=== PATIENT | female | born 1930 | race Caucasian/White ===

== ENCOUNTER 2018-07-24 12:21 | Emergency (ER) | payer OTHER ==
--- OUTSIDE RECORDS SUMMARY | 2018-07-24 12:22 | XMS REPORT ---
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 Problem Depression with anxiety F41.8 Active Problem 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 Problem Osteoporosis, unspecified M81.0 Active osteoporosis type, unspecified pathological fracture presence Problem Elevated serum creatinine R79.89 Active Problem Hyperlipidemia, unspecified E78.5 Active hyperlipidemia type Assessment 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 Assessment Hypertension, unspecified type I10 Active Assessment Depression with anxiety F41.8 Active Assessment Prediabetes R73.03 Active Problem Prediabetes R73.03 Active Medications Medication Code Code Instructions Start End Status Dosage System Date Date Toprol XL ND 88261014702 25 mg Orally Active 1 tablet Once a day Zanaflex ND 68880929584 2 MG Orally Active 1 capsule Three times a as needed day HydrOXYzine ND 32810300666 25 mg Orally May 04, Active 1 tablet as HCl Twice daily 2017 needed for itching Gabapentin ND 24047908312 300 MG Orally Active 1 [place] [address]-15 20 mg Orally Active 1 tablet as Twice a day needed MiraLax ND 61964520972 - Orally Once a Active 1 packet day mixed with 8 ounces of fluid Allopurinol ND 55208529037 100 MG Orally Active 1 tablet Once a day Aspirin 81 ND 46881146188 81 MG Orally Active 1 tablet Once a day Blood Glucose NDC 0 as directed May 04, Active as directed Monitor Test BS once 2018 (DISPENSE daily BLOOD GLUCOSE MONITOR FORMULARY TO INSURANCE) Blood Glucose ND 0 as directed May 04, Active as directed Test Strip Test BS once 2017 (DISPENSE daily BLOOD GLUCOSE TEST STRIPS FORMULARY TO INSURANCE) Restasis [facility] 14797723035 0.05 % Active 1 drop into Ophthalmic affected Twice a day eye Zoloft [facility] 59581950214 25 mg Orally Active 1 tablet Once a day Lancets [facility] 85706730679 - as directed May 04, Active as directed Test BS once 2018 (dispense daily lancets formulary to insurance) Results No Known Results Summary Purpose eClinicalWorks Submission
--- OUTSIDE RECORDS SUMMARY | 2018-07-24 12:22 | XMS REPORT ---
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
--- OUTSIDE RECORDS SUMMARY | 2018-07-24 12:22 | XMS REPORT ---
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 unspecified cause Problem Stage 4 chronic kidney disease N18.4 Active Problem Depression with anxiety F41.8 Active Problem Right foot pain M79.671 Active Problem Hypertension, unspecified type I10 Active Problem H/O aortic valve replacement Z95.2 Active Assessment Stage 4 chronic kidney disease N18.4 Active Problem Prediabetes R73.03 Active Problem 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
--- OUTSIDE RECORDS SUMMARY | 2018-07-24 12:22 | XMS REPORT ---
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 unspecified cause Problem Right foot pain M79.671 Active Assessment Hyperlipidemia, unspecified E78.5 Active hyperlipidemia type Problem 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 Assessment Osteoporosis, unspecified M81.0 Active osteoporosis type, unspecified pathological fracture presence Assessment Depression with anxiety F41.8 Active Problem Depression with anxiety F41.8 Active Problem 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 Problem Controlled type 2 diabetes mellitus E11.9 Active without complication, without long-term current use of insulin Problem Elevated serum creatinine R79.89 Active Problem Hyperlipidemia, unspecified E78.5 Active hyperlipidemia type Assessment H/O aortic valve replacement Z95.2 Active Assessment 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 Assessment Controlled type 2 diabetes mellitus E11.9 Active without complication, without long-term current use of insulin Assessment 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 Assessment Right foot pain M79.671 Active Assessment Acute gout of right foot, 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 unspecified cause Assessment Elevated serum creatinine R79.89 Active Assessment Hypertension, unspecified type I10 Active Problem H/O aortic valve replacement Z95.2 Active Medications Medication Code Code Instructions Start End Status Dosage System Date Date Blood Glucose NDC 0 as directed May 04 Active as directed Monitor Test BS once 2017 (DISPENSE daily BLOOD GLUCOSE MONITOR FORMULARY TO INSURANCE) Medrol [facility] 94508432545 4 MG Orally as May 04April Active as directed directed 2017 Aspirin 81 ND 97167259371 81 MG Orally Active 1 tablet Once a day Zanaflex ND 00757507694 2 MG Orally Active 1 capsule as Three times a needed day Toprol XL ND 31721856528 25 mg Orally Active 1 tablet Once a day HydrOXYzine HCl ND 81468249701 25 mg Orally May 04, Active 1 tablet as Twice daily 2018 needed for itching Gabapentin ND 44850214066 300 MG Orally Active 1 capsule Once a day Zoloft ND 86754320380 25 mg Orally Active 1 tablet Once a day Blood Glucose ND 0 as directed May 04, Active as directed Test Strip Test BS once 2018 (DISPENSE daily BLOOD GLUCOSE TEST STRIPS FORMULARY TO INSURANCE) MiraLax [facility] 92181757762 - Orally Once a Active 1 packet day mixed with 8 ounces of fluid Restasis [facility] 10030742862 0.05 % Active 1 drop into Ophthalmic affected eye Twice a day Furosemide ND 65539252375 20 mg Orally Active 1 tablet as Once a day needed Lancets [facility] 94907701914 - as directed May 04, Active as directed Test BS once 2017 (dispense daily lancets formulary to insurance) Results No Known Results Summary Purpose eClinicalWorks Submission
[2018-07-24 13:14] LABS: Absolute Lymphocytes (CBC) 1.6 K/uL (0.7-4.9); Absolute Monocytes 0.8 K/uL (0.1-1.3); Absolute Neutrophil 5.6 K/uL (1.8-8.0); Basophils % 0.6 % (0-1.3); Eosinophils % 9.7 % (0-4.4); Lymphocytes % 17.9 % (15.3-44.8); MCH 29.3 pg (27.0-35.0); MCV 85.6 fL (80-100); MPV 7.7 fL (7.6-11.3); Monocytes % 9.2 % (3.3-12.3); RBC Red Blood Cell Count 4.67 M/uL (3.86-4.86)
[2018-07-24 13:27] LABS: Albumin 4.1 g/dL (3.4-5.0); Bilirubin Direct 0.1 mg/dL (0-0.2); Bilirubin Total 0.5 mg/dL (0.2-1.0); Potassium 4.1 mmol/L (3.5-5.1)
[2018-07-24 13:29] LABS: Urine Bacteria <20 /HPF (<20); Urine Culture Reflex Order REFLEXED; Urine RBC TNTC /HPF (NONE SEEN)
--- NOTE | 2018-07-24 13:30 | RAD REPORT ---
EXAM DESCRIPTION: CT - Stone Protocol - 07/24/2018 1:05 pm CLINICAL HISTORY: Abdominal pain, right flank pain, abdominal pain COMPARISON: CT May 2015 TECHNIQUE: Axial 5 mm thick images were obtained without oral or IV contrast. The [id number] span s the entirety of the system partially obscuring uppermost abdomen and lung bases. All CT scans are performed using dose optimization technique as appropriate and may include automated exposure control or mA/KV adjustment according to patient size. FINDINGS: Mild dilatation of the right collecting system is present compared to 2015. No obstructing calculus. No nonobstructing calculi on the right. A cyst in the lateral mid right kidney is increase d slightly from 2015. No left-sided hydronephrosis or left-sided calculus. No suspicious renal masses . Isodense masses and pyelonephritis are not excluded on a stone protocol CT scan. Partially filled u rinary bladder shows no calculus or gross mass lesion. No adrenal abnormality. Uterus and ovaries show no suspicious findings. Imaged portions of the liver, spleen and pancreas show no suspicious findings on non-contrast imaging . An 8 millimeter gallstone is present with additional punctate stones. The largest gallstone was pre sent in 2014. No active gallbladder process seen. No biliary tree dilatation. No suspicious bowel findings. No appendicitis. No active GI process identifiable. No mass or bulky lymphadenopathy. A small fat filled umbilical hernia is present. No free air, free f luid or inflammatory stranding. No significant bony abnormality. IMPRESSION: Patient has mild right-sided hydronephrosis compared to the prior study. No obstructing or nonobstructing calculi. Ureter finding is nonspecific. Patient may have recently passed a stone. A ny blood or inflammatory debris within the ureter can cause dilatation. Isodense masses and pyelonephritis are not excluded on stone protocol technique. No appendicitis or acute GI process. Patient has cholelithiasis without evidence for active gallbladder process.
[2018-07-24 13:52] LABS: Urine Blood 3+ (NEG); Urine Glucose NEGATIVE (NEG); Urine Protein 3+ (NEG); Urine pH 5.5 (5.0-7.0)
[2018-07-24] MEDS ORDERED: NA CHLORIDE 0.9% 1,000 ML ONE (14:17)
--- NOTE | 2018-07-24 15:10 | ER ---
Nurse's Notes [facility] Name: Agueda Horne Age: 88 yrs Sex: Female : 1930 Arrival Date: 07/24/2018 Time: 12:24 Bed 4 Private MD: Isabella Lawrence Diagnosis: Acute tubulo-interstitial nephritis Presentation: 07/24 12:29 Presenting complaint: Patient states: Right flank pain, vomiting and "vaginal spotting" aj that started suddenly today. Transition of care: patient was not received from another setting of care. Onset of symptoms was July 24, 2018. Risk Assessment: Do you want to hurt yourself or someone else? Patient reports no desire to harm self or others. Initial Sepsis Screen: Does the patient meet any 2 criteria? No. Patient's initial sepsis screen is negative. Does the patient have a suspected source of infection? No. Patient's initial sepsis screen is negative. Care prior to arrival: None. 12:29 Method Of Arrival: Ambulatory aj 12:29 Acuity: SAIDA 2 aj Triage Assessment: 12:31 General: Appears in no apparent distress. comfortable, Behavior is calm, cooperative, aj appropriate for age. Pain: Complains of pain in posterior aspect of right lateral abdomen and anterior aspect of right lateral abdomen. Neuro: Level of Consciousness is awake, alert, obeys commands, Oriented to person, place, time, situation, Appropriate for age. Respiratory: Airway is patent Respiratory effort is even, unlabored, Respiratory pattern is regular, symmetrical. GI: Reports nausea, vomiting. : Reports pain in right flank(s), vaginal bleeding that is. Derm: Skin is intact, is healthy with good turgor, Skin is pink, warm \\T\\ dry. normal. Historical: - Allergies: 12:31 Codeine; aj 12:31 Niacin; aj - Home Meds: 12:31 Aspirin Oral [Active]; Toprol XL Oral [Active]; Zoloft Oral [Active]; hydroxyzine HCl aj 100mg Oral tab twice a day [Active]; furosemide 20 mg Oral tab 1 tab once daily [Active]; allopurinol 100 mg Oral tab 1 tab once daily [Active]; - PMHx: 12:31 Hypertension; aj - PSHx: 12:31 CABG; Valve replacement; aj - Immunization history:: Adult Immunizations up to date. - Social history:: Smoking status: Patient/guardian denies using tobacco. - Ebola Screening: : Patient negative for fever greater than or equal to 101.5 degrees Fahrenheit, and additional compatible Ebola Virus Disease symptoms Patient denies exposure to infectious person Patient denies travel to an Ebola-affected area in the 21 days before illness onset No symptoms or risks identified at this time. Screenin:43 Abuse screen: Denies threats or abuse. Denies injuries from another. Nutritional hj screening: No deficits noted. Tuberculosis screening: No symptoms or risk factors identified. Fall Risk None identified. Assessment: 12:45 General: Appears in no apparent distress. uncomfortable, Behavior is calm, cooperative, hj appropriate for age. Pain: Complains of pain in abdomen. Neuro: Level of Consciousness is awake, alert, obeys commands, Oriented to person, place, time, situation, Appropriate for age. Cardiovascular: Capillary refill < 3 seconds Patient's skin is warm and dry. Respiratory: Airway is patent Respiratory effort is even, unlabored, Respiratory pattern is regular, symmetrical. GI: Abdomen is non-distended, Bowel sounds present X 4 quads. Abd is soft and non tender. : No signs and/or symptoms were reported regarding the genitourinary system. EENT: No signs and/or symptoms were reported regarding the EENT system. Derm: No signs and/or symptoms reported regarding the dermatologic system. Musculoskeletal: No signs and/or symptoms reported regarding the musculoskeletal system. 13:03 Reassessment: wheeled to CT;. hj 13:18 Reassessment: Patient and/or family updated on plan of care and expected duration. Pain hj level reassessed. Patient is alert, oriented x 3, equal unlabored respirations, skin warm/dry/pink. back from CT; awaiting results and POC;. 13:57 Reassessment: Patient and/or family updated on plan of care and expected duration. Pain hj level reassessed. Patient is alert, oriented x 3, equal unlabored respirations, skin warm/dry/pink. awaiting POC;. 14:45 Reassessment: Patient and/or family updated on plan of care and expected duration. Pain hj level reassessed. Patient is alert, oriented x 3, equal unlabored respirations, skin warm/dry/pink. provider in room for POC:. Vital Signs: 12:31 BP 213 / 57; Pulse 89; Resp 18; Temp 97.0; Pulse Ox 97% on R/A; Weight 65.32 kg; Height aj 5 ft. 5 in. (165.10 cm); 12:42 BP 190 / 73; Pulse 74; Resp 18; Pulse Ox 96% on R/A; hj 13:02 BP 189 / 74; Pulse 75; Resp 18; Pulse Ox 98% on R/A; hj 13:57 BP 157 / 84; Pulse 74; Resp 18; Pulse Ox 97% on R/A; hj 14:54 BP 140 / 46; Pulse 70; Resp 18; Pulse Ox 98% on R/A; hj 15:22 BP 142 / 66; Pulse 71; Resp 18; Pulse Ox 99% on R/A; hj 12:31 Body Mass Index 23.96 (65.32 kg, 165.10 cm) aj ED Course: 12:24 Patient arrived in ED. mr 12:24 Isabella Lawrence MD is Private Physician. mr 12:30 Triage completed. aj 12:31 Arm band placed on left wrist. Patient placed in an exam room. aj 12:33 Alessandro Aggarwal MD is Attending Physician. gs 12:42 Dino Salas RN is Primary Nurse. hj 12:43 Patient has correct armband on for positive identification. Placed in gown. Bed in low hj position. Call light in reach. Side rails up X 1. Adult w/ patient. 12:55 Initial lab(s) drawn, by me, sent to lab. Inserted saline lock: 22 gauge in right hj antecubital area, using aseptic technique. Blood collected. 13:04 CT completed. Patient tolerated procedure well. Patient moved to CT via wheelchair. vr Patient moved back from CT. 13:05 CT Stone Protocol In Process Unspecified. EDMS 13:08 Urine collected: clean catch specimen, cloudy, blood tinged. jb1 15:22 No provider procedures requiring assistance completed. IV discontinued, intact, hj bleeding controlled, No redness/swelling at site. Pressure dressing applied. Administered Medications: 14:07 Drug: NS 0.9% 1000 ml Route: IV; Rate: 1 bolus; Site: right antecubital; hj 15:24 Follow up: IV Status: Completed infusion; IV Intake: 1000ml hj Intake: 15:24 IV: 1000ml; Total: 1000ml. manuel Outcome: 15:09 Discharge ordered by . 15:23 Discharged to home ambulatory, with family. 15:23 Condition: stable 15:23 Discharge instructions given to patient, family, Instructed on discharge instructions, follow up and referral plans. medication usage, Demonstrated understanding of instructions, follow-up care, medications, Prescriptions given X 1. 15:24 Patient left the ED. Signatures: Dispatcher [employer] EDMS Dayo Elizabeth [email or web address] Kelly Costa, RN Janna Krishnamurthy Victoria vr Joaquin, Henry, RN RN hj Starr, Gregory, MD MD gs
--- NOTE | 2018-07-24 15:10 | EDPHYS ---
Physician Documentation [facility] Name: Agueda Elder Age: 88 yrs Sex: Female : 1930 Arrival Date: 07/24/2018 Time: 12:24 Bed 4 Private MD: Isabella Lawrence ED Physician Alessandro Aggarwal HPI: 07/24 18:43 This 88 yrs old Female presents to ER via Ambulatory with complaints of gs Vomiting. 18:43 The patient complains of pain in the right low back. Onset: The symptoms/episode gs began/occurred this morning. Modifying factors: The symptoms are alleviated by nothing. the symptoms are aggravated by nothing. Associated signs and symptoms: Pertinent positives: dysuria, hematuria, vomiting. Severity of pain: At its worst the pain was moderate in the emergency department the pain has improved markedly. The patient has experienced similar episodes in the past, a few times. The patient has not recently seen a physician. Historical: - Allergies: 12:31 Codeine; aj 12:31 Niacin; aj - Home Meds: 12:31 Aspirin Oral [Active]; Toprol XL Oral [Active]; Zoloft Oral [Active]; hydroxyzine HCl aj 100mg Oral tab twice a day [Active]; furosemide 20 mg Oral tab 1 tab once daily [Active]; allopurinol 100 mg Oral tab 1 tab once daily [Active]; - PMHx: 12:31 Hypertension; aj - PSHx: 12:31 CABG; Valve replacement; aj - Immunization history:: Adult Immunizations up to date. - Social history:: Smoking status: Patient/guardian denies using tobacco. - Ebola Screening: : Patient negative for fever greater than or equal to 101.5 degrees Fahrenheit, and additional compatible Ebola Virus Disease symptoms Patient denies exposure to infectious person Patient denies travel to an Ebola-affected area in the 21 days before illness onset No symptoms or risks identified at this time. ROS: 18:43 All other systems are negative. gs Exam: 18:43 Head/Face: Normocephalic, atraumatic. Eyes: Pupils equal round and reactive to light, gs extra-ocular motions intact. Lids and lashes normal. Conjunctiva and sclera are non-icteric and not injected. Cornea within normal limits. Periorbital areas with no swelling, redness, or edema. ENT: Nares patent. No nasal discharge, no septal abnormalities noted. Tympanic membranes are normal and external auditory canals are clear. Oropharynx with no redness, swelling, or masses, exudates, or evidence of obstruction, uvula midline. Mucous membranes moist. Neck: Trachea midline, no thyromegaly or masses palpated, and no cervical lymphadenopathy. Supple, full range of motion without nuchal rigidity, or vertebral point tenderness. No Meningismus. Chest/axilla: Normal chest wall appearance and motion. Nontender with no deformity. No lesions are appreciated. Cardiovascular: Regular rate and rhythm with a normal S1 and S2. No gallops, murmurs, or rubs. Normal PMI, no JVD. No pulse deficits. Respiratory: Lungs have equal breath sounds bilaterally, clear to auscultation and percussion. No rales, rhonchi or wheezes noted. No increased work of breathing, no retractions or nasal flaring. Abdomen/GI: Soft, non-tender, with normal bowel sounds. No distension or tympany. No guarding or rebound. No evidence of tenderness throughout. Back: No spinal tenderness. No costovertebral tenderness. Full range of motion. Skin: Warm, dry with normal turgor. Normal color with no rashes, no lesions, and no evidence of cellulitis. MS/ Extremity: Pulses equal, no cyanosis. Neurovascular intact. Full, normal range of motion. Neuro: Awake and alert, GCS 15, oriented to person, place, time, and situation. Cranial nerves II-XII grossly intact. Motor strength 5/5 in all extremities. Sensory grossly intact. Cerebellar exam normal. Normal gait. 18:43 Constitutional: The patient appears alert, awake. 18:43 Back: CVA tenderness, is absent. Vital Signs: 12:31 BP 213 / 57; Pulse 89; Resp 18; Temp 97.0; Pulse Ox 97% on R/A; Weight 65.32 kg; Height aj 5 ft. 5 in. (165.10 cm); 12:42 BP 190 / 73; Pulse 74; Resp 18; Pulse Ox 96% on R/A; hj 13:02 BP 189 / 74; Pulse 75; Resp 18; Pulse Ox 98% on R/A; hj 13:57 BP 157 / 84; Pulse 74; Resp 18; Pulse Ox 97% on R/A; hj 14:54 BP 140 / 46; Pulse 70; Resp 18; Pulse Ox 98% on R/A; hj 15:22 BP 142 / 66; Pulse 71; Resp 18; Pulse Ox 99% on R/A; hj 12:31 Body Mass Index 23.96 (65.32 kg, 165.10 cm) aj MDM: 12:42 Patient medically screened. 18:43 Differential diagnosis: nephrolithiasis, pyelonephritis, UTI. Data reviewed: vital gs signs, nurses notes. Response to treatment: the patient's symptoms have markedly improved after treatment, the patient's symptoms have resolved after treatment, and as a result, I will discharge patient. 07/24 12:43 Order name: Basic Metabolic Panel; Complete Time: 14:06 07/24 12:43 Order name: CBC with Diff; Complete Time: 14:06 07/24 12:43 Order name: Hepatic Function; Complete Time: 14:06 07/24 12:43 Order name: Lipase; Complete Time: 14:06 07/24 12:43 Order name: Urine Microscopic Only; Complete Time: 14:06 07/24 13:22 Order name: Urine Dipstick--Ancillary (enter results); Complete Time: 14:06 07/24 12:43 Order name: IV Saline Lock; Complete Time: 12:58 07/24 12:43 Order name: Labs collected and sent; Complete Time: 12:58 07/24 12:43 Order name: Urine Dipstick-Ancillary (obtain specimen); Complete Time: 13:02 07/24 12:43 Order name: CT Stone Protocol; Complete Time: 14:06 07/24 13:30 Order name: Urine Culture EDMS Administered Medications: 14:07 Drug: NS 0.9% 1000 ml Route: IV; Rate: 1 bolus; Site: right antecubital; 15:24 Follow up: IV Status: Completed infusion; IV Intake: 1000ml Disposition: 07/24/18 15:09 Discharged to Home. Impression: Acute tubulo-interstitial nephritis. - Condition is Stable. - Discharge Instructions: Pyelonephritis, Adult. - Prescriptions for Keflex 500 mg Oral Capsule - take 1 capsule by ORAL route every 8 hours for 7 days; 21 capsule. - Medication Reconciliation Form, Thank You Letter, Antibiotic Education, Prescription Opioid Use form. - Follow up: Private Physician; When: 2 - 3 days; Reason: Re-evaluation by your physician. Signatures: Dispatcher [employer] Kelly Stoll RN RN aj Joaquin, Henry, RN RN hj Starr, Gregory, MD MD gs Corrections: (The following items were deleted from the chart) 15:24 15:09 07/24/2018 15:09 Discharged to Home. Impression: Acute tubulo-interstitial hj nephritis. Condition is Stable. Forms are Medication Reconciliation Form, Thank You Letter, Antibiotic Education, Prescription Opioid Use. Follow up: Private Physician; When: 2 - 3 days; Reason: Re-evaluation by your physician. gs
[2018-07-24 15:58] VITALS: TEMP 97
[2018-07-24 16:03] VITALS: BP 142/66; O2SAT 99
== END 2018-07-24 15:24 | disposition home or self-care (01) ==
LOC: ER 12:21
DX: N10 Acute pyelonephritis (principal); I10 Essential (primary) hypertension; Z95.1 Presence of aortocoronary bypass graft; Z95.2 Presence of prosthetic heart valve; Z79.82 Long term (current) use of aspirin; Z88.5 Allergy status to narcotic agent; Z91.048 Other nonmedicinal substance allergy status
CPT/HCPCS: 36415; 74176; 76377; 80048; 80076; 83690; 85025; 87086; 87088; 96360; 99284; J7030; 81003; 81015

== ENCOUNTER 2020-05-18 06:32 | Day surgery (SDC) | payer OTHER ==
[2020-05-17 11:35] VITALS: BMI 26.5
--- NOTE | 2020-05-17 12:05 | RAD REPORT ---
EXAM DESCRIPTION: RAD - Chest Pa And Lat (2 Views) - 05/17/2020 11:57 am CLINICAL HISTORY: pre-op cath procedure Chest pain. COMPARISON: CHEST SINGLE VIEW dated 06/07/2015; CHEST SINGLE VIEW dated 03/18/2012; CHEST PA AND LAT 2 VIEW dated 01/08/2012; CHEST SINGLE VIEW dated 04/17/2010 FINDINGS: The lungs are emphysematous but clear. The heart is upper limit normal in size. No displac ed fractures. Sternotomy wires present. IMPRESSION: Mild diffuse COPD.
[2020-05-17 12:31] LABS: Absolute Lymphocytes (CBC) 1.8 K/uL (0.7-4.9); Basophils % 0.4 % (0-1.3); Hematocrit 39.9 % (36.0-45.0); Lymphocytes % 14.8 % (15.3-44.8); MPV 7.5 fL (7.6-11.3); RBC Red Blood Cell Count 4.66 M/uL (3.86-4.86)
[2020-05-17 12:33] LABS: Protime INR 1.07
[2020-05-17 12:41] LABS: Potassium 5.1 mmol/L (3.5-5.1)
--- OUTSIDE RECORDS SUMMARY | 2020-05-18 06:35 | XMS REPORT | Clinical Summary ---
:1930 Author Organization [facility] Address [address] [place] [address] Care Team Providers Name Role Phone Asked, No Pcp Primary Care Provider Unavailable Allergies No Known Allergies Medications Medication Sig Dispensed Refills Start Date End Date Status furosemide (LASIX) 20 0 03/01/2019 Active mg tablet metoprolol succinate XL 0 03/01/2019 Active (TOPROL-XL) 25 mg 24 hr tablet sertraline (ZOLOFT) 25 0 04/13/2019 Active MG tablet aspirin (ECOTRIN) 81 MG Take 81 mg by 0 Active enteric coated tablet mouth daily. 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 Encounters Date Type Specialty Care Team Description 06/06/2019 Office Visit Cardiovascular Rebeca Reeves MD PAD (per ipheral artery disease) ([facility]) (Primary Dx) 05/24/2019 Orders Only Cardiovascular Kristy Banda RN Prosthetic valve dysfunction, pal bsequent encounter (Prim saroj Dx) 05/23/2019 Office Visit Cardiovascular Rebeca Reeves MD Claudica tion ([facility]) (Primary Dx) after 05/18/2019 Social History Tobacco Use Types Packs/Day Years Used Date Never Assessed Sex Assigned at Date Recorded Not on file Job Start Date Occupation Industry Not on file Not on file Not on file Travel History Travel Start Travel End No recent travel history available. Last Filed Vital Signs Vital Sign Reading Time Taken Comments Blood Pressure 158/68 06/06/2019 9:48 AM CDT Pulse 77 06/06/2019 9:48 AM CDT Temperature 36.7 C (98 F) 06/06/2019 9:48 AM CDT Respiratory Rate - - Oxygen Saturation - - Inhaled Oxygen Concentration - - Weight 66.6 kg (146 lb 14.4 oz) 06/06/2019 9:48 AM CDT Height 160 cm (5' 3") 06/06/2019 9:48 AM CDT Body Mass Index 26.02 06/06/2019 9:48 AM CDT Plan of Treatment Health Maintenance Due Date Last Done Comments SHINGLES VACCINES (#1) 02/01/1982 65+ PNEUMOCOCCAL VACCINE (1 of 2 - PCV13) 02/01/1997 INFLUENZA VACCINE 05/26/2020 Results Not on fileafter 05/18/2019 Insurance Payer Benefit Plan / Subscriber ID Effective Dates Phone Addre ss Type Group MEDICARE MEDICARE PART A xxxxxxxxxxx 1997-Present [place], [place] Medicare AND B AETNA AETNA xxxxxxxxxx 2010-Present [place],POS,EPO, [place]/EC Advance Directives For more information, please contact: [phone] Type Date Recorded 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
--- OUTSIDE RECORDS SUMMARY | 2020-05-18 06:35 | XMS REPORT | Continuity of Care Document ---
:[address] [facility] t Address [facility] Michael Del Toro [address] [place] [address] Care Team Providers Name Role Phone Asked, Pcp Primary Care Physician Unavailable Leandro MOREL Attending Clinician Solo YBARRA Attending Clinician Unavailable Payers Payer Name Policy Policy Number Effective Expiration Source Type Date Date MEDICAREMEDICARE PART xxxxxxxxxxx 1997 Robert ortega A AND 00:00:00 Religious Bxxxxxxxxxxx[place]10/1996[place]x 2010 [employer] HMO,POS,EPO, 00:00:00 Religious MC/ECxxxxxxxxxx [id number] Problems Condition Condition Condition Status Onset Resolution Last Treating Co mments Source Name Details Category Date Date Treatment Clinician Date Prosthetic Prosthetic Disease Active 2019-0 [facility] valve valve 04-25 [facility] dysfunctio dysfunctio 00:00: st n n 00 Hypertensi Hypertensi Problem Active [facility] on, on, [facility] unspecifie unspecifie Me moria d type d type l Outpati ent Clinics Osteoporos Osteoporos Problem Active [facility] is, is, [facility] - unspecifie unspecifie Me moria d d l osteoporos osteoporos Ou tpati is type, is type, ent unspecifie unspecifie Cl inics d d pathologic pathologic al al fracture fracture presence presence Acute gout Acute gout Problem Active [facility] of right of right [facility] - foot, foot, [facility] unspecifie unspecifie l d cause d cause Outpati ent Clinics Right foot Right foot Problem Active [facility] pain pain [facility] Hyperlipid Hyperlipid Problem Active [facility] emia, emia, [facility] - unspecifie unspecifie Me moria d d l hyperlipid hyperlipid Ou tpati emia type emia type ent Clinics History of History of Problem Active [facility] coronary coronary [facility] artery artery [facility] bypass bypass l graft [facility] Depression Depression Problem Active [facility] with with [facility] anxiety anxiety [facility] l [facility] Clinics Coronary Coronary Problem [facility] disease disease [facility] involving involving [place] [facility] 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 ics [place] heart with heart with angina angina pectoris pectoris Elevated Elevated Problem Active [facility] serum serum [facility] creatinine creatinine Me [facility] H/O aortic H/O aortic Problem Active [facility] valve valve [facility] - replacemen replacemen Me moria t t l [facility]ics Prediabete Prediabete Problem Active [facility] s [facility] 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 [facility] disease disease l [facility] Allergies, Adverse Reactions, Alerts Allergy Allergy Status Severity Reaction(s) Onset Inactive Treating Comm ents Source Name Type Date Date Clinician codeine Adverse Active Info Not [facility] Reaction Available [facility] Social History Social Habit Start Date Stop Date Quantity Comments Source Sex Assigned At Ruthy Saenz Medications Ordered Filled Start Stop Current Ordering Indication Dosage Frequency Signature Comments Components Source Medication Medication Date Date Medication? Clinician (SIG) Name Name aspirin Yes 81mg QD Take 81 mg [place] (ECOTRIN) 8-12 by mouth Method i 81 MG 09:52: daily. st enteric 35 coated tablet sertraline Yes Franko (ZOLOFT) 25 6-19 [facility] MG tablet 00:00: st 00 furosemide 2018- Yes Franko (LASIX) 20 5-07 [facility] mg tablet 00:00: st 00 metoprolol Yes Franko succinate 5-07 [facility] XL 00:00: st (TOPROL-XL) 00 25 mg 24 hr tablet Blood Blood Yes Jeanine Barkley as [facility] Glucose Glucose 7-10 directed [facility] - Monitor Monitor 00:00: (DISPENSE Me moria 00 BLOOD l GLUCOSE Outpati MONITOR ent FORMULARY Clinics TO INSURANCE) HydrOXYzine HydrOXYzine Yes Jeanine Hudson [address] [address] HCl HCl 7-10 as needed [facility] - 00:00: for [facility] 00 itching l Outpati ent Clinics Blood Blood Yes Jeanine Hudson as [facility] Glucose Glucose 7-10 directed [facility] - Test Strip Test Strip 00:00: (DISPENSE Memoria 00 BLOOD l GLUCOSE Outpati TEST ent STRIPS Clinics FORMULARY TO INSURANCE) Lancets Lancets Yes Jeanine Hudson as [facility] 7-10 directed [facility] - 00:00: (dispense Memoria 00 lancets l formulary Outpati to ent insurance) Clinics Aspirin 81 Aspirin 81 Yes Jeanine Hudson [address] [facility] Zanaflex Zanaflex Yes Jeanine Hudson [address] as needed [facility] Toprol XL Toprol XL Yes Jeanine Hudson [address] [facility] Gabapentin Gabapentin Yes Jeanine Hudson [address] [facility] Zoloft Zoloft Yes Jeanine Hudson [address] [facility] MiraLax MiraLax Yes Jeanine Hudson [address] mixed with [facility] - 8 ounces [facility]oria of fluid l Outpati ent Clinics Restasis Restasis Yes Jeanine Hudson [address] into [facility] - affected [facility] eye l Outpati ent Clinics Furosemide Furosemide Yes Jeanine Hudson [address] [address] as needed [facility] Allopurinol Allopurinol Yes Jeanine Hudson [address] [facility] Vital Signs Vital Name Observation Time Observation Value Comments Source Systolic blood 2019-06-06 09:48:00 158 mm[Hg] Billy n [facility] pressure Diastolic blood 2019-06-06 09:48:00 68 mm[Hg] Kendell on Religious pressure Heart rate 2019-06-06 09:48:00 77 /min Abdul [facility] Body temperature 2019-06-06 09:48:00 36.67 [place] [facility] Body height 2019-06-06 09:48:00 160 cm [employer] [facility] Body weight 2019-06-06 09:48:00 66.633 kg Abdul [facility] BMI 2019-06-06 09:48:00 26.02 kg/m2 Abdul [facility] Procedures This patient has no known procedures. Plan of Care Planned Activity Planned Date Details Comments Source Future Scheduled 2020-05-26 INFLUENZA VACCINE [place] [facility] 00:00:00 [code = INFLUENZA VACCINE] Future Scheduled 1997-02-01 65+ PNEUMOCOCCAL [facility] Test 00:00:00 VACCINE (1 of 2 - PCV13) [code = 65+ PNEUMOCOCCAL VACCINE (1 of 2 - PCV13)] Future Scheduled 1982-02-01 SHINGLES VACCINES (#1) [place] [facility] 00:00:00 [code = SHINGLES VACCINES (#1)] Encounters Start End Encounter Admission Attending Care Care Encounter Source Date/Time Date/Time Type Type Clinicians Facility Department ID 2018-07-28 2018-07-28 Outpatient Esthela Reed [id number] [facility] 13:58:00 13:58:00 [facility] Medicine Outpati ent Clinics 2018-06-03 2018-06-03 Outpatient Esthela Reed [id number] [facility] 11:04:00 11:04:00 [facility] Medicine Outpati ent Clinics 2018-05-24 2018-05-24 [place] [id number] [facility] 19:00:00 19:00:00 [facility] Medicine Outpati ent Clinics 2018-05-12 2018-05-12 Outpatient Esthela Proctort [id number] [address] 09:30:00 09:30:00 [facility] Medicine Outpati ent Clinics 2018-05-04 2018-05-04 [place] [id number] [facility] 13:00:00 13:00:00 [facility] Medicine Outpati ent Clinics Results This patient has no known results.
[2020-05-18] MEDS ORDERED: NA CHLORIDE 0.9% 500 ML ONE (07:19)
[2020-05-18] MEDS ORDERED: LIDOCAINE 1% 20 ML MDV ONE (07:41)
[2020-05-18] MEDS ORDERED: HEPA 1000U/500MLS 1,000 UNIT/500 ML BAG IV ONE (07:41)
[2020-05-18] MEDS ORDERED: ONDANSETRON 4 MG/2 ML VIAL ONE (07:51)
[2020-05-18] MEDS ORDERED: FENTANYL CITR 100 MCG/2 ML ONE (07:51)
[2020-05-18] MEDS ORDERED: MIDAZOLAM HCL 2 MG/2 ML INJ ONE (07:51)
[2020-05-18 08:57] VITALS: TEMP 97
[2020-05-18 12:25] VITALS: BP 136/41; O2SAT 100
--- NOTE | 2020-05-19 00:12 | OP ---
Date of Procedure: 05/18/2020 Surgeon: Guilherme Rae MD Screedman/Laborer: Piero Hdez Procedure: Selective bilateral carotid angiogram. Indication: Cerebrovascular disease. Ms. Horne is an 89-year-old white woman. She is a patient of our practice, was seen by Dr. Conklin lately for a history of CAD and CVD. Repeat carotid Doppler cooper wed severe right internal carotid artery stenosis. Description Of Procedure: She was brought to the field laborer today on 05/18/2020 as an outpatient. She was prepped and draped in the routine sterile fashion. She was given Versed for sedation. Using th e Seldinger technique, after 10 cc of Xylocaine, we introduced a 6-English sheath in the right common femoral artery. Angiography there was normal. Angio-Seal was used to close the case. A JR4 cathete r was used to select the right common carotid artery and the left common carotid artery separately. She was found to have normal common carotid artery bilaterally. Her external carotid artery was fair ly normal. Her internal carotid artery on the left side was normal. On the right side, she had abou t 95% carotid stenosis from the ostium of the right internal carotid artery. She tolerated the proce dure well. There were no complications. Blood Loss: 5 cc. Anesthesia: Total conscious sedation was 30 minutes. 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 Plan: To send her to [place] as an outpatient for a right carotid endarterectomy. The case was disc ussed with the patient and with her daughter. She will go home today after 2 hours. Arrangements mccall ve been already made to send the patient to [facility] to Dr. Duong Hernandez. Hopefully, her surgery will be done sometime next week. FLORES/LACHELLE Voice ID: [id number] Report ID: [id number]
== END 2020-05-18 10:12 | disposition home or self-care (01) ==
LOC: CCL 06:32
DX: I65.21 Occlusion and stenosis of right carotid artery (principal); I25.810 Atherosclerosis of coronary artery bypass graft(s) without angina pectoris; R09.89 Other specified symptoms and signs involving the circulatory and respiratory systems; I35.9 Nonrheumatic aortic valve disorder, unspecified; I48.0 Paroxysmal atrial fibrillation; I10 Essential (primary) hypertension; E78.5 Hyperlipidemia, unspecified; Z11.59 Encounter for screening for other viral diseases; Z79.82 Long term (current) use of aspirin; Z88.6 Allergy status to analgesic agent; Z88.8 Allergy status to other drugs, medicaments and biological substances; Z82.49 Family history of ischemic heart disease and other diseases of the circulatory system
CPT/HCPCS: 85025; 80048; 36415; 85610; 85730; 71046; 36222; U0002; C1893; C1760; J2250; J3010; J7040; J1644; J2405

== ENCOUNTER 2020-07-12 16:55 | Inpatient (IN) | payer OTHER ==
--- OUTSIDE RECORDS SUMMARY | 2020-07-12 16:57 | XMS REPORT | Clinical Summary ---
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
--- OUTSIDE RECORDS SUMMARY | 2020-07-12 16:58 | XMS REPORT | Clinical Summary ---
:1930 Author Organization [facility] Address [address] [place] [address] Care Team Providers Name Role Phone Unavailable Primary Care Provider Unavailable Allergies Active Allergy Reactions Severity Noted Date Comments Codeine 05/23/2020 "Gets very hype r" Digoxin Nausea And Vomiting 05/23/2020 Niacin Preparations Hives, Itching 05/23/2020 Xkuebrr-Pta-Pvg Reductase 05/23/2020 Inhibitors Medications Medication Sig Dispensed Refills Start End Date Status Date sertraline (ZOLOFT) Take 25 mg by 0 Active 25 MG tablet mouth daily. 0 aspirin 81 MG EC Take 81 mg by 0 Active tablet mouth daily. metoprolol succinate Take 25 mg by 0 Active (TOPROL-XL) 25 MG 24 mouth 2 (two) 0 hr tablet times daily. diphenhydrAMINE Take 25 mg by 0 Active (BENADRYL) 25 mg mouth every night tablet as needed for Itching or Sleep. allopurinoL Take 100 mg by 0 Act juliana (ZYLOPRIM) 100 MG mouth daily. tablet lisinopriL Take 1 tablet (40 30 tablet 0 A ctive (PRINIVIL,ZESTRIL) mg total) by 0 40 MG tablet mouth daily. amLODIPine (NORVASC) Take 1 tablet (5 30 tablet 0 Active 5 MG tablet mg total) by 0 21 mouth daily. miscellaneous Dispense 1 1 each 0 Activ e medical supply [facility] [place] nebulizer machine 0 and supplies. bumetanide (BUMEX) 1 Take 1 tablet (1 30 tablet 0 Active MG tablet mg total) by 0 21 mouth daily. ferrous sulfate 325 Take 1 tablet 60 tablet 0 Active (65 FE) MG tablet (325 mg total) by 0 21 mouth 2 (two) times daily. hydrALAZINE Take 1 tablet (25 90 tablet 0 05/31/20 Active (APRESOLINE) 25 MG mg total) by 0 21 tablet mouth every 8 (eight) hours. ipratropium Take 2.5 mLs (0.5 100 mL 1 05/31/20 Active (ATROVENT) 0.02 % mg total) by 0 21 nebulizer solution nebulization every 6 (six) hours as needed for Wheezing. sodium bicarbonate Take 1 tablet 60 tablet 0 0 Active 650 MG tablet (650 mg total) by 0 21 mouth 2 (two) times daily. furosemide (LASIX) Take 20 mg by 0 0 Discontinued 20 MG tablet mouth 2 (two) 0 20 times daily. lisinopriL Take 10 mg by 0 05/31/20 Disco ntinued (PRINIVIL,ZESTRIL) mouth daily. 0 20 10 MG tablet Active Problems Problem Noted Date Carotid arterial disease 05/24/2020 Carotid artery disease 05/24/2020 Hyperlipidemia Hypertension Coronary artery disease Carotid artery occlusion Atrial fibrillation Valvular heart disease Kidney function abnormal Hyperchloremic metabolic acidosis Acute blood loss anemia Hyperkalemia CKD (chronic kidney disease) stage 4, GFR 15-29 ml/min Acute respiratory insufficiency Encounters Date Type Specialty Care Team Description 05/24/2020 Surgery Mary, ENDARTERECTOMY, CAROTID Duong Arita MD 05/24/2020 Anesthesia Event Walter Gomez MD 05/24/2020 - Hospital Encounter Cardiology Mary, Occlusion of right carotid artery (Primary Dx); 05/31/2020 Duong Arita, Stenosis of right carotid artery; CKD (chronic kidney disease) stage 4, GF R 15-29 ml/min ([facility]); Delmar Stewart Acute respirat ory insufficiency MD Andrade 05/23/2020 Hospital Encounter Pre-Admission Testing 05/23/2020 Office Visit Cardiology Mary, Pre-op testing (Primary Dx); Duong Arita, Hyperlipidem ia, unspecified hyperlipidemia type; Essential hyper tension; Coronary artery disease involving [place] coronary artery of [place] heart without angina pectoris; Occlusion of ri ght carotid artery; Longstanding pe rsistent atrial fibrillation (HCC); Valvular heart disease; Kidney function abnormal 05/23/2020 Orders Only General Internal Medicine 05/23/2020 Travel after 07/12/2019 Family History Medical History Relation Name Comments Heart disease Brother Heart disease Father Heart disease Mother Stroke Mother Heart disease Sister Cancer Sister Relation Name Status Comments Brother Father Mother Sister Alive Sister Alive Sister Social History Tobacco Use Types Packs/Day Years Used Date Never Smoker Smokeless Tobacco: Never Used Alcohol Use Drinks/Week oz/Week Comments No rarely Alcohol Habits Answer Date Recorded How often do you have a drink containing alcohol? Never 05/23/2020 How many drinks containing alcohol do you have on a typical Not asked day when you are drinking? How often do you have six or more drinks on one occasion? No t asked Sex Assigned at Date Recorded Not on file Job Start Date Occupation Industry Not on file Not on file Not on file Travel History Travel Start Travel End No recent travel history available. Last Filed Vital Signs Vital Sign Reading Time Taken Blood Pressure 178/77 05/31/2020 11:55 AM CDT Pulse 80 05/31/2020 12:00 PM CDT Temperature 36.8 C (98.2 F) 05/31/2020 11:55 AM CDT Respiratory Rate 18 05/31/2020 12:00 PM CDT Oxygen Saturation 96% 05/31/2020 12:00 PM CDT Inhaled Oxygen Concentration - - Weight 68 kg (149 lb 14.6 oz) 05/31/2020 8:13 AM CDT Height 161.3 cm (5' 3.5") 05/24/2020 5:46 AM CDT Body Mass Index 26.14 05/31/2020 8:13 AM CDT Plan of Treatment Health Maintenance Due Date Last Done Comments PNEUMOCOCCAL 65+ LOW/MEDIUM RISK (1 of 2 - PCV13) 02/01/1997 MEDICARE ANNUAL WELLNESS (YEAR 2 or FIRST YEAR if no 01/25/1998 IPPE) INFLUENZA VACCINE (#1) 2020 Implants Implanted Type Area [employer] Device Shelf Model / Identifier Expiration Serial / Lot Date Grft Hemshld Dbl Juve 0.3x3.0in [id number] - [id number] NTS Right: GETINGE 11/25/2024 [id number] / Implanted: Qty: 1 on 05/24/2020 by Duong Hernandez MD Carotid IND:MAQUET:CV [id number] / Artery [id number] Procedures Procedure Name Priority Date/Time Associated Comments Diagnosis RHYTHM STRIP - SCAN 06/06/2020 2:20 PM CDT RHYTHM STRIP - SCAN 06/01/2020 1:20 PM CDT SARS-COV2/RT-PCR (HS Routine 05/30/2020 5:11 R esults for this & REF LABS) AM CDT procedure are i n the results section. CBC W/PLT COUNT & AUTO Routine 05/29/2020 5:38 R esults for this DIFFERENTIAL AM CDT procedure are i n the results section. PHOSPHORUS Routine 05/29/2020 5:38 Results for this AM CDT procedure are i n the results section. MAGNESIUM Routine 05/29/2020 5:38 Results for this AM CDT procedure are i n the results section. BASIC METABOLIC PANEL Routine 05/29/2020 5:38 Re sults for this (7) AM CDT procedure are i n the results section. CBC W/PLT COUNT & AUTO Routine 05/29/2020 5:38 R esults for this DIFFERENTIAL AM CDT procedure are i n the results section. XR CHEST 1 VIEW Routine 05/28/2020 5:20 Results for this PORTABLE/BEDSIDE AM CDT procedure a re in the results section. CBC W/PLT COUNT & AUTO Routine 05/28/2020 3:50 R esults for this DIFFERENTIAL AM CDT procedure are i n the results section. PHOSPHORUS Routine 05/28/2020 3:50 Results for this AM CDT procedure are i n the results section. MAGNESIUM Routine 05/28/2020 3:50 Results for this AM CDT procedure are i n the results section. BASIC METABOLIC PANEL Routine 05/28/2020 3:50 Re sults for this (7) AM CDT procedure are i n the results section. HEMOGLOBIN Routine 05/28/2020 3:50 Results for this AM CDT procedure are i n the results section. CBC W/PLT COUNT & AUTO Routine 05/28/2020 3:50 R esults for this DIFFERENTIAL AM CDT procedure are i n the results section. XR CHEST 1 VIEW Routine 05/27/2020 7:14 Results for this PORTABLE/BEDSIDE AM CDT procedure a re in the results section. CALCIUM, IONIZED Routine 05/27/2020 5:17 Results for this AM CDT procedure are i n the results section. CBC W/PLT COUNT & AUTO Routine 05/27/2020 4:06 R esults for this DIFFERENTIAL AM CDT procedure are i n the results section. PHOSPHORUS Routine 05/27/2020 4:06 Results for this AM CDT procedure are i n the results section. MAGNESIUM Routine 05/27/2020 4:06 Results for this AM CDT procedure are i n the results section. BASIC METABOLIC PANEL Routine 05/27/2020 4:06 Re sults for this (7) AM CDT procedure are i n the results section. FERRITIN Routine 05/27/2020 4:06 Results for this AM CDT procedure are i n the results section. IRON, TIBC, % SAT. Routine 05/27/2020 4:06 Resul ts for this (WITHOUT FERRITIN) AM CDT procedure are in the results section. CBC W/PLT COUNT & AUTO Routine 05/27/2020 4:06 R esults for this DIFFERENTIAL AM CDT procedure are i n the results section. BASIC METABOLIC PANEL Timed 05/26/2020 3:41 Re sults for this (7) PM CDT procedure are i n the results section. CBC W/PLT COUNT & AUTO Routine 05/26/2020 4:11 R esults for this DIFFERENTIAL AM CDT procedure are i n the results section. BASIC METABOLIC PANEL Add-On 05/26/2020 4:11 Re sults for this (7) AM CDT procedure are i n the results section. PHOSPHORUS Routine 05/26/2020 4:11 Results for this AM CDT procedure are i n the results section. MAGNESIUM Routine 05/26/2020 4:11 Results for this AM CDT procedure are i n the results section. CBC W/PLT COUNT & AUTO Routine 05/26/2020 4:11 R esults for this DIFFERENTIAL AM CDT procedure are i n the results section. XR CHEST 1 VIEW Routine 05/26/2020 3:47 Results for this PORTABLE/BEDSIDE AM CDT procedure a re in the results section. TRANSFUSION SERVICE 05/25/2020 6:02 REPORT - SCAN PM CDT PHOSPHORUS STAT 05/25/2020 5:53 Results for this PM CDT procedure are i n the results section. MAGNESIUM STAT 05/25/2020 5:53 Results for this PM CDT procedure are i n the results section. CBC (HEMOGRAM ONLY) STAT 05/25/2020 5:53 Resu lts for this PM CDT procedure are i n the results section. BASIC METABOLIC PANEL STAT 05/25/2020 5:53 Re sults for this (7) PM CDT procedure are i n the results section. LIPID PANEL Routine 05/25/2020 5:53 Results for this PM CDT procedure are i n the results section. POCT-GLUCOSE METER Routine 05/25/2020 5:52 Resul ts for this PM CDT procedure are i n the results section. XR CHEST 1 VIEW STAT 05/25/2020 4:02 Results for this PORTABLE/BEDSIDE PM CDT procedure a re in the results section. POCT-GLUCOSE METER Routine 05/25/2020 11:36 Resul ts for this AM CDT procedure are i n the results section. POCT-GLUCOSE METER Routine 05/25/2020 8:04 Resul ts for this AM CDT procedure are i n the results section. POCT-GLUCOSE METER Routine 05/25/2020 5:25 Resul ts for this AM CDT procedure are i n the results section. BLOOD GAS, ARTERIAL STAT 05/25/2020 3:57 Resu lts for this AM CDT procedure are i n the results section. CBC W/PLT COUNT & AUTO Routine 05/25/2020 3:50 R esults for this DIFFERENTIAL AM CDT procedure are i n the results section. LACTIC ACID, ARTERIAL STAT 05/25/2020 3:50 Re sults for this AM CDT procedure are i n the results section. COMPREHENSIVE Routine 05/25/2020 3:50 Results fo r this METABOLIC PANEL AM CDT procedure ar e in the results section. CALCIUM, IONIZED Routine 05/25/2020 3:50 Results for this AM CDT procedure are i n the results section. PHOSPHORUS STAT 05/25/2020 3:50 Results for this AM CDT procedure are i n the results section. MAGNESIUM STAT 05/25/2020 3:50 Results for this AM CDT procedure are i n the results section. CBC W/PLT COUNT & AUTO Routine 05/25/2020 3:50 R esults for this DIFFERENTIAL AM CDT procedure are i n the results section. POCT-GLUCOSE METER Routine 05/25/2020 3:48 Resul ts for this AM CDT procedure are i n the results section. POCT-GLUCOSE METER Routine 05/25/2020 12:47 Resul ts for this AM CDT procedure are i n the results section. HEMOGLOBIN AND STAT 05/25/2020 12:03 Results f or this HEMATOCRIT AM CDT procedure are i n the results section. BASIC METABOLIC PANEL STAT 05/25/2020 12:03 Re sults for this (7) AM CDT procedure are i n the results section. BLOOD GAS, ARTERIAL STAT 05/25/2020 12:03 Resu lts for this AM CDT procedure are i n the results section. CBC W/PLT COUNT & AUTO STAT 05/24/2020 9:19 R esults for this DIFFERENTIAL PM CDT procedure are i n the results section. PHOSPHORUS STAT 05/24/2020 9:19 Results for this PM CDT procedure are i n the results section. MAGNESIUM STAT 05/24/2020 9:19 Results for this PM CDT procedure are i n the results section. CALCIUM, IONIZED STAT 05/24/2020 9:19 Results for this PM CDT procedure are i n the results section. LACTIC ACID, ARTERIAL STAT 05/24/2020 9:19 Re sults for this PM CDT procedure are i n the results section. BLOOD GAS, ARTERIAL STAT 05/24/2020 9:19 Resu lts for this PM CDT procedure are i n the results section. CBC W/PLT COUNT & AUTO STAT 05/24/2020 9:19 R esults for this DIFFERENTIAL PM CDT procedure are i n the results section. COMPREHENSIVE STAT 05/24/2020 9:19 Results fo r this METABOLIC PANEL PM CDT procedure ar e in the results section. TROPONIN I STAT 05/24/2020 9:19 Results for this PM CDT procedure are i n the results section. BASIC METABOLIC PANEL STAT 05/24/2020 9:19 Re sults for this (7) PM CDT procedure are i n the results section. 2D ECHO W/ DOPPLER STAT 05/24/2020 8:53 Resul ts for this (CW/PW/COLOR) PM CDT procedure are in the results section. US GUIDE, VASCULAR Routine 05/24/2020 8:39 Occlusion of right Results for this ACCESS PM CDT carotid artery procedure are in the results section. INSERT NON-TUNNEL CV Routine 05/24/2020 8:39 Occlusion of rig ht Results for this CATH PM CDT carotid artery procedure are in the results section. XR CHEST 1 VIEW STAT 05/24/2020 8:38 Results for this PORTABLE/BEDSIDE PM CDT procedure a re in the results section. MO INSERT Routine 05/24/2020 8:35 Occlusion of right Resul ts for this CATH,ART,PERCUT,ANIKA PM CDT carotid artery pro cedure are in ERM the results section. XR CHEST 1 VIEW STAT 05/24/2020 6:08 Results for this PORTABLE/BEDSIDE PM CDT procedure a re in the results section. TRANSFUSION SERVICE 05/24/2020 6:04 REPORT - SCAN PM CDT HEMOGLOBIN AND STAT 05/24/2020 4:34 Results f or this HEMATOCRIT PM CDT procedure are i n the results section. PHOSPHORUS STAT 05/24/2020 4:34 Results for this PM CDT procedure are i n the results section. CALCIUM, IONIZED STAT 05/24/2020 4:34 Results for this PM CDT procedure are i n the results section. MAGNESIUM STAT 05/24/2020 4:34 Results for this PM CDT procedure are i n the results section. BASIC METABOLIC PANEL STAT 05/24/2020 4:34 Re sults for this (7) PM CDT procedure are i n the results section. ECG 12-LEAD STAT 05/24/2020 4:18 Results for this PM CDT procedure are i n the results section. GLUCOSE-STAT LAB STAT 05/24/2020 9:51 Results for this AM CDT procedure are i n the results section. POTASSIUM-STAT LAB STAT 05/24/2020 9:51 Resul ts for this AM CDT procedure are i n the results section. HGB/HCT (H&H) - STAT STAT 05/24/2020 9:51 Res ults for this LAB AM CDT procedure are i n the results section. TISSUE EXAM AP Routine 05/24/2020 8:00 Results for this AM CDT procedure are i n the results section. ENDARTERECTOMY,CAROTID 05/24/2020 7:30 Carotid stenos is, AM CDT right Special Needs (ICU BED NEEDED) CBC W/PLT COUNT & AUTO STAT 05/24/2020 6:55 AM Results for this DIFFERENTIAL CDT procedure are i n the results section. ABORH, MANUAL STAT 05/24/2020 6:55 AM Results for this CDT procedure are i n the results section. APTT STAT 05/24/2020 6:55 AM Results for this CDT procedure are i n the results section. PROTHROMBIN TIME/INR STAT 05/24/2020 6:55 AM Results for this CDT procedure are i n the results section. CBC W/PLT COUNT & AUTO STAT 05/24/2020 6:55 AM Results for this DIFFERENTIAL CDT procedure are i n the results section. HEMOGLOBIN A1C STAT 05/24/2020 6:55 AM Result s for this CDT procedure are i n the results section. COMPREHENSIVE METABOLIC STAT 05/24/2020 6:55 AM Results for this PANEL CDT procedure are i n the results section. MAGNESIUM STAT 05/24/2020 6:55 AM Results for this CDT procedure are i n the results section. POCT-GLUCOSE METER Routine 05/24/2020 5:58 AM Re sults for this CDT procedure are i n the results section. TYPE AND SCREEN, STAT 05/23/2020 12:16 PM Pre-op testing Re sults for this AUTOMATED CDT procedure are i n the results section. SARS-COV2/RT-PCR ([facility] STAT 05/23/2020 12:10 PM Pre-op test ing Results for this & REF LABS) CDT procedure are i n the results section. ECG 12-LEAD Routine 05/23/2020 11:54 AM Results for this CDT procedure are i n the results section. ECG 12-LEAD Routine 05/23/2020 11:54 AM CDT Procedure Note - Interface, External Ris In - 05/23/2020 11:46 AM CDT Ventricular Rate 99 BPM Atrial Rate 96 BPM QRS Duration 100 ms Q-T Interval 384 ms QTC Calculation(Bazett) 492 ms R [place] -48 degrees T [place] 102 degrees Accelerated Junctional rhyth m Left axis deviation Incomplete right bundle bran ch block Left ventricular hypertrophy with repolarization abnormality Anteroseptal infarct , age u ndetermined Abnormal ECG No previous ECGs available after 07/12/2019 Results RHYTHM STRIP - SCAN (06/06/2020 2:20 PM CDT)Only the most recent of2 results within the time period is included. Narrative Performed At This result has an attachment that is no t available. SARS-CoV2/RT-PCR (Asymptomatic ONLY) (05/30/2020 5:11 AM CDT)Only the most recent of2 resultswithin the time period is included. SARS-COV2/RT-PCR Negative Not Detected, Negative, [facility] See external report for MEDICAL CENTER linked test SARS-COV-2 PERFORMING LAB [facility] Specimen Other Narrative Performed At Negative result for this test determines that [facility] SARS-CoV-2 RNA was not present in the specimen above the Limit of Detection (LOD).However, Negative results do not preclude SARS-CoV-2 infection and should not be used as the sole basis for treatment or patient management decisions. Negative results must be combined with clinical observations, patient history, and epidemiological information. A false negative result may occur if a specimen is improperly collected, transported or handled.A false negative result should be considered if patient's recent exposures or clinical presentation indicate that COVID-19 (SARS-CoV-2) is likely and diagnostic tests for other causes of illness are negative.Re-testing should be considered in cases of suspected false negatives. The limit of detection for this assay is 800 copies/mL. This SARS CoV-2 test is a real-time RT-PCR test intended for the qualitative detection of nucleic acid from SARS-CoV-2 in a nasopharyngeal swab specimen collected from individuals suspected of COVID-19 by their healthcare provider. This test has not been Food and Drug Administration (FDA) cleared or approved.This is a modified version of an approved Emergency Use Authorization (EUA) and is in the process of review by the FDA. Once authorized by the FDA, the issued EUA will be effective until the declaration that circumstances exist justifying the authorization of the emergency use of in vitro diagnostic tests for detection and/or diagnosis of COVID-19 is terminated under Section 564(b)(2) of the Act or the EUA is revoked under Section 564(g) of the Act. Fact Sheet for Healthcare Providers: https://www.[employer].com/sites/default/files/pro duct/documents/Fact_Sheet_HC_Providers_Lyra_SA RS-CoV-2.pdf Fact Sheet for Healthcare Patients: https://www.[employer].com/sites/default/files/pro duct/documents/Fact_Sheet_Patients_Lyra_SARS-C oV-2.pdf Performing Laboratory: [facility] [address] [place] [address] Performing Organization Address City/State/Zipcode Phone Number [facility] [address] [place] [address] CENTER CBC with platelet count + automated diff (05/29/2020 5:38 AM CDT)Only the most recent of7 resultswithin the time period is included. WBC 10.1 3.5 - 10.5 K/L [facility] RBC 2.95 (L) 3.93 - 5.22 M/L [facility] Hemoglobin 8.2 (L) 11.2 - 15.7 GM/DL [facility] Hematocrit 26.6 (L) 34.1 - 44.9 % [facility] MCV 90.2 79.4 - 94.[address] [facility] MCH 27.8 25.6 - 32.[address] [facility] MCHC 30.8 (L) 32.2 - 35.5 GM/DL [facility] RDW 15.2 (H) 11.7 - 14.4 % [facility] Platelets 298 150 - 450 K/CU MM [facility] MPV 9.3 (L) 9.4 - 12.[address] [facility] nRBC 0 0 - 0 /[address] [facility] % Neutros 74 % [facility] % Lymphs 8 % [facility] % Monos 7 % [facility] % Eos 9 % [facility] % Baso 0 % [facility] # Neutros 7.49 (H) 1.56 - 6.13 K/L [facility] # Lymphs 0.84 (L) 1.18 - 3.74 K/L [facility] # Monos 0.69 (H) 0.24 - 0.36 K/L [facility] # Eos 0.93 (H) 0.04 - 0.36 K/L [facility] # Baso 0.03 0.01 - 0.08 K/L [facility] Immature Granulocytes-Relative 1 0 - 1 % C [facility] Specimen Blood Performing Organization Address [facility] Phone Number [address] [address] CENTER Phosphorus (05/29/2020 5:38 AM CDT)Only the most recent of8 resultswithin the time period is included. Phosphorus 3.0 2.3 - 4.7 mg/dL [facility] Specimen Blood Narrative Performed At Technology Education Teacher ID - NTP [facility] Performing Organization Address [facility] Centercowy Phone Number [address] [address] CENTER Magnesium (05/29/2020 5:38 AM CDT)Only the most recent of9 resultswithin the time period is included. Magnesium 2.3 1.6 - 2.6 mg/dL [facility] Specimen Blood Narrative Performed At Technology Education Teacher ID - NTP [facility] Performing Organization Address [facility] Centercode Phone Number [address] [address] [place] Basic Metabolic Panel (05/29/2020 5:38 AM CDT)Only the most recent of9 results within the time period is included. Sodium 140 136 - 145 meq/L [facility] Potassium 3.8 3.5 - 5.1 meq/L [facility] Chloride 102 98 - 107 meq/L [facility] CO2 31 (H) 22 - 29 meq/L [facility] BUN 67 (H) 7 - 21 mg/dL [facility] Creatinine 2.61 (H) 0.57 - 1.25 mg/dL [facility] Glucose 106 (H) 70 - 105 mg/dL [facility] Calcium 9.2 8.4 - 10.2 mg/dL [facility] EGFR 17Comment: ESTIMATED GFR IS mL/min/1.73 sq m [facility] NOT ACCURATE CREATININE ND DICAL CENTER CLEARANCE IN PREDICTING GLOMERULAR FILTRATION RATE. ESTIMATED GFR IS NOT APPLICABLE FOR DIALYSIS PATIENTS. Specimen Blood Narrative Performed At Technology Education Teacher ID - NTP [facility] MED ICAL CENTER Performing Organization Address City/State/Zipcode Phone Number [facility] [address] [place] [address] CENTER XR chest 1 view portable / bedside (05/28/2020 5:20 AM CDT)Only the most recent of6 resultswithin the time period is included. Specimen Narrative Performed At FINAL REPORT GE RIS RAD, CHEST, 1 VIEW, NON DEPT INDICATION: pulmonary edema postop COMPARISON: Prior day's exam FINDINGS: Portable frontal view of the c hest. IMPRESSION: Support Lines: None. Lungs and pleura: Coarsened interstitial markings are stable. There is decreasing right effusion. Bibasilar subsegmental atelectasis noted. No pneumothorax. Heart and mediastinum: Stable contours. Stable surgical changes. Additional findings: None. Signed: JR Luis, Joy MOREL Report Verified Date/Time:05/28/2020 06:56:40 Reading Location: [facility] Reading Room Procedure Note Interface, External Ris In - 05/28/2020 6:58 AM CDT FINAL REPORT RAD, CHEST, 1 VIEW, NON DEPT INDICATION: pulmonary edema postop COMPARISON: Prior day's exam FINDINGS: Portable frontal view of the c hest. IMPRESSION: Support Lines: None. Lungs and pleura: Coarsened interstitial markings are stable. There is decreasing right effusion. Bibasilar subsegmental atelectasis noted. No pneumothorax. Heart and mediastinum: Stable contours. Stable surgical changes. Additional findings: None. Signed: JR Luis, Joy MOREL Report Verified Date/Time: 05/28/2020 0 6:56:40 Reading Location: [facility] Reading Room Performing Organization Address City/[facility]/Zipcode Phone Number GE RIS Hemoglobin (05/28/2020 3:50 AM CDT) Hemoglobin 8.3 (L) 11.2 - 15.7 GM/DL [facility] Specimen Blood Narrative Performed At Technology Education Teacher ID - [id number] [facility] Performing Organization Address City/[facility]/Zipcode Phone Number [facility] [address] [place] [address] CENTER Calcium, Ionized (05/27/2020 5:17 AM CDT)Only the most recent of4 resultswithin the time period is included. Calcium, Ion 1.08 (L) 1.12 - 1.27 mmol/L [facility] pH, Blood 7.35 [facility] Specimen Blood Narrative Performed At Check serum Ionized Calcium level after 4 [facility] hours after IV Calcium replacement. Performing Organization Address [facility] Phone Number [facility] [address] [place] [address] CENTER Iron, TIBC, % sat. (without ferritin) (05/27/2020 4:06 AM CDT) Iron 21.0 (L) 40.0 - 160.0 ug/dL [facility] TIBC 181 (L) 250 - 450 ug/dL [facility] Iron % Saturation 12 (L) 20 - 55 % [facility] Specimen Blood Narrative Performed At Technology Education Teacher ID - PIAYA L [facility] Performing Organization Address City/State/Zipcode Phone Number [facility] [address] [place] [address] CENTER Ferritin (05/27/2020 4:06 AM CDT) Ferritin 273.77 5.00 - 275.00 ng/mL [facility] Specimen Blood Narrative Performed At Technology Education Teacher ID - PIAYA L [facility] Performing Organization Address City/State/Zipcode Phone Number [facility] [address] [place] [address] [place] TRANSFUSION SERVICE REPORT - SCAN (05/25/2020 6:02 PM CDT)Only the most recent of2 resultswithin the time period is included. Narrative Performed At This result has an attachment that is no t available. CBC (Hemogram only) (05/25/2020 5:53 PM CDT) WBC 15.8 (H) 3.5 - 10.5 K/L [facility] RBC 3.39 (L) 3.93 - 5.22 M/L [facility] Hemoglobin 9.6 (L) 11.2 - 15.7 GM/DL [facility] Hematocrit 30.3 (L) 34.1 - 44.9 % [facility] MCV 89.4 79.4 - 94.8 fL [facility] MCH 28.3 25.6 - 32.2 pg [facility] MCHC 31.7 (L) 32.2 - 35.5 GM/DL [facility] RDW 15.5 (H) 11.7 - 14.4 % [facility] Platelets 263 150 - 450 K/CU MM [facility] MPV 9.4 9.4 - 12.3 fL [facility] nRBC 0 0 - 0 /100 WBC [facility] Specimen Blood Performing Organization Address [facility] Cent[facility]ode Phone Number [address] [phone] [place] Lipid panel (05/25/2020 5:53 PM CDT) Triglycerides 145 mg/dL [facility] Cholesterol 195 mg/dL [facility] HDL 32 mg/dL [facility] LDL Calculated 134 mg/dL [facility] Specimen Blood Narrative Performed At Triglyceride Reference Range: [facility] Low Risk <150 [id number] High Risk 200-499 Very High Risk>=500 Cholesterol Reference Range: Low Risk <200 [id number] High Risk>240 HDL Cholesterol Reference Range: Low Risk >=60 High Risk <40 LDL Cholesterol Reference Range: Optimal<100 Near [id number] Very High >=190 Technology Education Teacher ID - [id number] Performing Organization Address [facility] Phone Number [address] [address] [place] POC-Glucose meter (05/25/2020 5:52 PM CDT)Only the most recent of7 results within the time period is included. POC-Glucose Meter 115 (H)Comment: : TESTED 70 - 110 mg/dL [facility] AT [address], [address]: Technology Education Teacher/Database Designer ID = [id number] for TRA KIM Specimen Blood Performing Organization Address [facility] Cent[facility]ode Phone Number [address] [phone] [place] Blood gas, arterial (05/25/2020 3:57 AM CDT)Only the most recent of3 results within the time period is included. pH, Arterial 7.38 7.35 - 7.45 [facility] pCO2, Arterial 38 35 - 45 mmHg [facility] pO2, Arterial 116 (H) 80 - 90 mmHg [facility] O2 Sat, Arterial 98.2 (H) 96.0 - 97.0 % [facility] HCO3, Arterial 22 21 - 29 mmol/L [facility] Base Excess, Arterial -3.2 (L) -2.0 - 3.0 mmol/L [facility] Patient Temperature 37.0 C [facility] FIO2 32.0 % [facility] Specimen Blood, Arterial Performing Organization Address City/[facility]/Zipcode Phone Number [address] [address] CENTER Lactic Acid, Arterial (05/25/2020 3:50 AM CDT)Only the most recent of2 results within the time period is included. Lactate, Art 1.3 0.5 - 2.2 mmol/L [facility] Specimen Blood, Arterial Narrative Performed At Technology Education Teacher ID - [facility] Performing Organization Address City/[facility] Phone Number [address] [address] CENTER Comprehensive metabolic panel (05/25/2020 3:50 AM CDT)Only the most recent of3 resultswithin the time period is included. Protein, Total 6.3 6.0 - 8.3 gm/dL [facility] Albumin 4.0 3.5 - 5.0 g/dL [facility] Alkaline Phosphatase 54 40 - 150 U/L [facility] Total Bilirubin 0.6 0.2 - 1.2 mg/dL [facility] Sodium 143 136 - 145 meq/L [facility] Potassium 4.6 3.5 - 5.1 meq/L [facility] Chloride 112 (H) 98 - 107 meq/L [facility] CO2 21 (L) 22 - 29 meq/L [facility] BUN 73 (H) 7 - 21 mg/dL [facility] Creatinine 2.99 (H) 0.57 - 1.25 mg/dL [facility] Glucose 151 (H) 70 - 105 mg/dL [facility] Calcium 8.8 8.4 - 10.2 mg/dL [facility] AST 13 5 - 34 U/L [facility] ALT 6 6 - 55 U/L [facility] EGFR 15Comment: ESTIMATED GFR mL/min/1.73 sq m [facility] IS NOT ACCURATE [facility] CREATININE CLEARANCE IN PREDICTING GLOMERULAR FILTRATION RATE. ESTIMATED GFR IS NOT APPLICABLE FOR DIALYSIS PATIENTS. Specimen Blood Narrative Performed At Technology Education Teacher ID - [id number] [facility] Performing Organization Address City/[facility]/Zipcode Phone Number [address] [address] CENTER Hemoglobin and hematocrit (05/25/2020 12:03 AM CDT)Only the most recent of2 resultswithin the time period is included. Hemoglobin 8.0 (L) 11.2 - 15.7 GM/DL [facility] Hematocrit 24.8 (L) 34.1 - 44.9 % [facility] Specimen Blood Narrative Performed At Technology Education Teacher ID - [id number] [facility] Performing Organization Address City/[facility]/Zipcode Phone Number [address] [address] CENTER Troponin I (05/24/2020 9:19 PM CDT) Troponin I 0.02 0.00 - 0.03 ng/mL [facility] Specimen Blood Narrative Performed At Troponin I (TnI) levels must be interpreted [facility] in the context of the presenting symptoms and the clinical findings. Elevated TnI levels indicate myocardial damage, but are not specific for ischemic heart disease. Elevated TnI levels are seen in patients with other cardiac conditions (including myocarditis and congestive heart failure), and slight TnI elevations occur in patients with other conditions, including sepsis, renal failure, acidosis, acute neurological disease, and persistent tachyarrhythmia. Technology Education Teacher ID - NTP Performing Organization Address City/State/Zipcode Phone Number [address] [address] CENTER 2D Echo W/Doppler(CW/PW/Color) (05/24/2020 8:53 PM CDT) Ejection Fraction [facility] ECHO HEAR TLAB [facility] Specimen Narrative Performed At Transthoracic Echocardiography Report (T TE) [facility] Demographics Patient NameNAT CAVAZOS Date of Study05/24/2020 SIRISHA Gender Female Visit [id number] Race Unknown [id number] Number Date of 1930 Physician ADRIEL Rios Age 89 year(s) SonographerMarky Horan MD Physician Procedure Type of Study TTE procedure:2DECHO W DOPPLER(CW/PW/COLOR) (STAT) Indications:Hypotension or hemodynamic instability. 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 Normal LV size and function. LVEF is 55-60% 2. Diastology: Indeterminate 3. Normal RV size and function 4. S/p AVR. Pk / Mn : 29/16 mm Hg DI=0. 49 5. 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 Mean gradient ia 10-11 mm Hg at 72 BPM. Mild MR 6. Moderate TR. Estimated PASP is 45-50 mm Hg 7. No pericardial effusion Previous Study No prior studies available for comparis on. Signature Findings Rhythm/BPRegular sinus rhythm during the exam. Left Ventricle The LV endocardium is adequately visualized. Th e left ventricle is chamber size (by vol index) is normal (female - LVED vol - 29-61ml/m2). Jarred rderline concentric LV hypertrophy. Al l of the LV segments contract normally . LV EF by Paredes's method of disk assessmen t is no rmal (55-60%) . LV diastolic function is indeterminate. Left AtriumLA size is normal (16-34 ml/m2) . Right VentricleNormal R V size In limited views, the right ventricular raoul mber si ze and systolic function are within norm al li mits. No rmal TAPSE and tissue doppler. Right Atrium RA size is probably normal based on available vi ews. Atrial SeptumNormal interatrial septum by available views. Aortic Valve A bioprosthetic AoV is visualized Ao V dimensionless obstructive index (DOI)) is 0.49 .P eak Grad; 30 ,Mean Grad; 16 At least mild regurgitation is present Mitral Valve Moderate thickening and calcification of the le aflets. Mi ld MAC Mi ld mitral regurgitation, central Mo derate to severe calcific MS Me an gradient 10-11mmHg at HR of 72bpm Mi ld MV leaflet thickening. Mi ld mitral annular calcification. Mi ld calcification of both anterior and po sterior le aflet(s) of mitral valve. Th e submitral apparatus appears thickened and ca lcified . Tricuspid ValveTV structure is normal. Mo derate tricuspid regurgitation. Es timated peak systolic PA pressure is 45- 50 mmHg Pulmonic Valve Normal PV structure and function by limited views an d Doppler. AortaAortic root size (SInus of Valsalva diameter) i s no rmal . PericardiumNo significant pericardial effusion is visualized. IVC/SVC/PA/PV/PleuralThe estimated RA pressure by IVC dynamics 15-20mmHg . Chambers/Structures Left Atrium LA Volume: 44.24 ml LA Area: 15.85 cm^2 LA Vol. Index: 26 ml/m^2 Left Ventricle LVIDd: 3.74 cm LVEDV:45.41 ml LVIDs: 2.42 cm LV Septum Diastolic: 1.1 cm LV PW Diastolic: 1.14 cm LV FS: 35.3 % LVEDV Paredes's:51.37 ml LVESV Paredes's:12.31 ml LVEDVI: 30 ml/m^2 LVEF Paredes's: 76 % LVESVI: 7 ml/m^2 LVOT Diameter: 2.24 cm Right Ventricle TAPSE: 1.79 cm Doppler/Quantitative Measurements Mitral Valve MV Peak E-Wave: 1.88 m/s MV Peak A-Wave: 1.91 m/s E/A Ratio: 0.98 Mean Velocity: 1.61 m/sPeak Gradient: 14.19 mmHg Mean Gradient: 11.5 mmHg Area (continuity): 1.49 cm^2 MV VTI: 68 .02 cm MV Juve. Peak: 2.42 m/s Tissue Doppler E' Septal Velocity: 0.03 m/s E/E': 32.67 E' Lateral Velocity: 0.06 m/s Aortic Valve Peak Velocity: 2.71 m/sMean Velocity: 1.88 m/s Peak Gradient: 29.44 mmHgMean Gradient: 16.16 mmHg AV Area (continuity): 1.94 cm^2 AV VTI: 52.5 cm AR P1/2t: 475.8 msec AV DVI: 0.49 LVOT Peak Velocity: 1.52 m/s Peak Gradient: 9.29 mmHg Mean Velocity: 0.95 m/s Mean Gradient: 4.25 mmHg LVOT Diameter: 2.24 cmLVOT VTI: 25.8 cm LVOT Area: 3.94 cm^2LVOT SV:101.62 ml LVOT CO: 6.2 l/minLVOT CI: 3.6 l/min/m^2 Tricuspid Valve TR Velocity: 2.84 m/s TR Gradient: 32.24 mmHg Procedure Note Interface, External Ris In - 05/25/2020 8:51 AM CDT Transthoracic Echocardiography Report (TTE) Demographics Patient Name NAT CAVAZOS Date of Study 05/24/2020 SIRISHA Gend er Female Visit Number [id number] Race Unknown Room Number 8A03 Number Date of 1930 Refe Isreal Santiago MD Age 89 year(s) Sono kareemer Marky Hwang Inte rpreting MD Isreal Medina Procedure Type of Study TTE procedure:2DECHO W DOPPLE R(CW/PW/COLOR) (STAT) Indications:Hypotension or hemodynamic i nstability. Clinical History HGB 9.8 HCT 31.5 % HLD, HTN, CAD, AFIB, ACB WITH BIOPROSTHE TIC AVR 10 YEARS AGO, CAROTID STENOSIS, KNOWN STENOSIS OF BIOPROSTHETI C VALVE Height: 63.5 inches Weight: 68.04 kg (15 0 lbs) BSA: 1.72 m^2 BMI: 26.15 kg/m^2 HR: 61 bpm BP: 111/35 mmHg Summary 1. Normal LV size and function. LVEF is 55-60% 2. Diastology: Indeterminate 3. Normal RV size and function 4. S/p AVR. Pk / Mn : 29/16 mm Hg DI=0. 49 5. 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 Mean gradient ia 10-11 mm Hg at 72 BPM. Mild MR 6. Moderate TR. Estimated PASP is 45-50 mm Hg 7. No pericardial effusion Previous Study No prior studies available for comparis on. Signature Findings Rhythm/BP Regular sinus rh ythm during the exam. Left Ventricle The LV endocardi um is adequately visualized. The left ventric le is chamber size (by vol index) is normal (femal e - LVED vol - 29-61ml/m2). Borderline thai ntric LV hypertrophy. All of the LV se gments contract normally . LVEF by Paredes' s method of disk assessment is normal (55-60%) . LV diastolic fun ction is indeterminate. Left Atrium LA size is alina l (16-34 ml/m2) . Right Ventricle Normal RV size In limited views , the right ventricular chamber size and systoli c function are within normal limits. Normal TAPSE and tissue doppler. Right Atrium RA size is proba leatha normal based on available views. Atrial Septum Normal interatri al septum by available views. Aortic Valve A bioprosthetic AoV is visualized AoV dimensionles s obstructive index (DOI)) is 0.49 .Peak Grad; 30 , Mean Grad; 16 At least mild re gurgitation is present Mitral Valve Moderate thicken ing and calcification of the leaflets. Mild MAC Mild mitral regu rgitation, central Moderate to kvng re calcific MS Mean gradient 10 -11mmHg at HR of 72bpm Mild MV leaflet thickening. Mild mitral wu lar calcification. Mild calcificati on of both anterior and posterior leaflet(s) of mi tral valve. The submitral ap paratus appears thickened and calcified . Tricuspid Valve TV structure is normal. Moderate tricusp id regurgitation. Estimated peak s ystolic PA pressure is 45-50 mmHg Pulmonic Valve Normal PV struct ure and function by limited views and Doppler. Aorta Aortic root size (SInus of Valsalva diameter) is normal . Pericardium No significant p ericardial effusion is visualized. IVC/SVC/PA/PV/Pleural The estimated RA pressure by IVC dynamics 15-20mmHg . Chambers/Structures Left Atrium LA Volume: 44.24 ml LA Area: 15.85 cm^2 LA Vol. Index: 26 ml/m^2 Left Ventricle LVIDd: 3.74 cm LVEDV:45.41 ml LVIDs: 2.42 cm LV Septum Diastolic: 1.1 cm LV PW Diastolic: 1.14 cm LV FS: 35.3 % LVEDV Paredes's:51.37 ml LVESV Paredes's:12.31 ml LVEDVI: 30 ml/m^2 LVEF Paredes's: 76 % LVESVI: 7 ml/m^2 LVOT Diameter: 2.24 cm Right Ventricle TAPSE: 1.79 cm Doppler/Quantitative Measurements Mitral Valve MV Peak E-Wave: 1.88 m/s MV Peak A-Wave: 1.91 m/s E/A Ratio: 0.98 Mean Velocity: 1.61 m/s Peak Gradient: 14.19 mmHg Mean Gradient: 11.5 mmHg Area (continuity): 1.49 cm^2 MV VTI: 68.02 cm MV Juve. Peak: 2.42 m/s Tissue Doppler E' Septal Velocity: 0.03 m/s E/E': 32.67 E' Lateral Velocity: 0.06 m/s Aortic Valve Peak Velocity: 2.71 m/s Mean Velocity: 1.88 m/s Peak Gradient: 29.44 mmHg Mean Gradient: 16.16 mmHg AV Area (continuity): 1.94 cm^2 AV VTI: 52.5 cm AR P1/2t: 475.8 msec AV DVI: 0.49 LVOT Peak Velocity: 1.52 m/s Pea k Gradient: 9.29 mmHg Mean Velocity: 0.95 m/s Claudia n Gradient: 4.25 mmHg LVOT Diameter: 2.24 cm LVO T VTI: 25.8 cm LVOT Area: 3.94 cm^2 LVO T SV:101.62 ml LVOT CO: 6.2 l/min LVO T CI: 3.6 l/min/m^2 Tricuspid Valve TR Velocity: 2.84 m/s TR Gradient: 32.24 mmHg Performing Organization Address City/State/Zipcode Phone Number [facility] Central Line (05/24/2020 8:39 PM CDT) Narrative Performed At DavieAna NP 05/24/2020 8:43 PM Central Line Date/Time: 05/24/2020 7:45 PM Performed by: Ana Broderick NP Authorized by: Ana Broderick NP Consent: Written consent obtained. Risks and benefits: risks, benefits and alternatives were discussed Consent given by: parent Patient understanding: patient states understanding of the procedure being performed Patient consent: the patient's understan ding of the procedure matches consent given Procedure consent: procedure consent mat ches procedure scheduled Relevant documents: relevant documents p resent and verified Test results: test results available and properly labeled Site marked: the operative site was nii ed Imaging studies: imaging studies availab le Patient identity confirmed: arm band, pr ovided demographic data and verbally with patient Time out: Immediately prior to procedure a "time out" was called to verify the correct patient, procedure, equipmen t, biomedical equipment support specialist and site/side marked as required. Indications: vascular access and central pressure monitoring Anesthesia: local infiltration Anesthesia: Local Anesthetic: lidocaine 1% without e pinephrine Anesthetic total: 4 mL Sedation: Patient sedated: no Preparation: skin prepped with 2% chlorh exidine Skin prep agent dried: skin prep agent completely drie d prior to procedure Sterile barriers: all five maximum steri le barriers used - cap, mask, sterile gown, sterile gloves, and large sterile sheet Hand hygiene: hand hygiene performed krystle or to central venous catheter insertion Location details: left internal jugular Site selection rationale: Carotid Endart ectomy to right IJ Patient position: reverse Trendelenburg Catheter size: 7 Fr Ultrasound guidance: yes Sterile ultrasound techniques: sterile gel and sterile probe covers were used Number of attempts: 1 Successful placement: yes Post-procedure: line sutured and dressin g applied Assessment: blood return through all por ts,free fluid flow and no pneumothorax on x-ray Patient tolerance: Patient tolerated the procedure wel l with no immediate complications Immediate Post-Procedure Note Date/Time: 05/24/2020 8:42 PM Assistants to the procedure: None Pre-procedure diagnosis: Carotid Stenosi s Post-procedure diagnosis: carotid stenos is Procedures Performed: Central Line Specimens removed: None Estimated blood loss (mL): None Complications: None Type of anesthesia: None Grafts or Implants: None Insert Arterial Line (05/24/2020 8:35 PM CDT) Narrative Performed At Ana Broderick NP 05/24/2020 8:39 PM Insert Arterial Line Date/Time: 05/24/2020 8:00 PM Performed by: Ana Broderick NP Authorized by: Ana Broderick NP Consent: Written consent obtained. Risks and benefits: risks, benefits and alternatives were discussed Consent given by: patient Patient understanding: patient states understanding of the procedure being performed Patient consent: the patient's understan ding of the procedure matches consent given Procedure consent: procedure consent mat ches procedure scheduled Relevant documents: relevant documents p resent and verified Test results: test results available and properly labeled Site marked: the operative site was nii ed Imaging studies: imaging studies availab le Patient identity confirmed: verbally with patient, arm band and provided demographic data Time out: Immediately prior to procedure a "time out" was called to verify the correct patient, procedure, equipmen t, biomedical equipment support specialist and site/side marked as required. Preparation: Patient was prepped and draped in the usu al sterile fashion. Indications: hemodynamic monitoring Location: right radial Anesthesia: local infiltration Anesthesia: Local Anesthetic: lidocaine 2% without e pinephrine Anesthetic total: 2 mL Sedation: Patient sedated: no Matthew's test normal: yes Needle gauge: 20 Seldinger technique: Seldinger technique used Number of attempts: 1 Post-procedure: line sutured and dressin g applied Post-procedure CMS: normal Patient tolerance: Patient tolerated the procedure wel l with no immediate complications Comments: Digital ischemia reported to right radial be fore. Matthew test was normal and no ischemia noted to right mccall nd. ECG 12 lead (05/24/2020 4:18 PM CDT)Only the most recent of2 resultswithin the time period is included. Specimen Narrative Performed At Ventricular Rate 65 BPM GE MUSE Atrial Rate 67 BPM QRS Duration 98 ms Q-T Interval 426 ms QTC Calculation(Bazett) 443 ms R Wellington -55 degrees T Wellington -83 degrees sinus with 1st av block Left axis deviation Nonspecific ST and T wave abnormality Abnormal ECG When compared with ECG of 23-MAY-2020 11 :54, Vent. rate has decreased BY34 BPM Criteria for Anteroseptal infarct are no longer Present T wave inversion now evident in Inferior leads QT has shortened Confirmed by MD Gallego Roberto ([id number]) on 2019 10:32:40 AM Procedure Note Interface, External Ris In - 05/27/2020 10:32 AM CDT Ventricular Rate 65 BPM Atrial Rate 67 BPM QRS Duration 98 ms Q-T Interval 426 ms QTC Calculation(Bazett) 443 ms R Wellington -55 degrees T Wellington -83 degrees sinus with 1st av block Left axis deviation Nonspecific ST and T wave abnormality Abnormal ECG When compared with ECG of 23-MAY-2020 11 :54, Vent. rate has decreased BY 34 BPM Criteria for Anteroseptal infarct are no longer Present T wave inversion now evident in Inferior leads QT has shortened Confirmed by MD Gallego Roberto ([id number]) on 05/27/2020 10:32:40 AM Performing Organization Address City/[facility]/Zipcode Phone Number [facility] Potassium-Stat Lab (05/24/2020 9:51 AM CDT) Potassium 5.2 3.6 - 5.5 meq/L [facility] Specimen Blood, Arterial Performing Organization Address [facility] Phone Number [address] [address] [place] Glucose-Stat Lab (05/24/2020 9:51 AM CDT) Glucose 125 (H) 70 - 110 mg/dL [facility] Specimen Blood, Arterial Performing Organization Address [facility] Phone Number [address] [address] [place] HGB/HCT (H&H)-Stat Lab (05/24/2020 9:51 AM CDT) Hemoglobin 10.1 (L) 12.0 - 15.0 g/dL [facility] Hematocrit 30.0 (L) 36.0 - 45.0 % [facility] Specimen Blood, Arterial Performing Organization Address [place] [facility] [place] [address] [address] [place] Tissue Exam (05/24/2020 8:00 AM CDT) Case Report Surgical Pathology Report Case: [id number] [facility] Authorizing Provider:Duong Hopkins, Collected: 05/24/2020 08:00 AM [facility] Ordering Location: [facility] Received:05/24/2020 09:52 AM PERIOPERATIVE SERVICES Pathologist: Jakub Parra MD Specimen:Carotid, Ri ght, RIGHT CAROTID [place] DIAGNOSIS EARTERY, RIGHT CAROTID, ENDARTERECTOMY: [facility] CALCIFIC ATHEROSCLEROTIC PLAQUE [facility] Signing Pathologist Direct Phone Line: CPT Code(s) 81080; 10806 [facility] ER CLINICAL HISTORY Preop diagnosis: Carotid [facility] stenosis, right [facility] ER SPECIMEN SOURCE A. Carotid, right [facility] ER GROSS DESCRIPTION Received in formalin labeled C [facility] with the patient's name, [facility] accession number and "right carotid plaque" is a 3.5 cm in length x 0.7 cm in diameter jean-yellow, tubular piece of focally calcified plaque. Multigraph Operator sections are submitted in A1 following decalcification. PA/pl MICROSCOPIC DESCRIPTION Performed [facility] Specimen Tissue Performing Organization Address City/[facility] Phone Number [address] [address] [place], manual (05/24/2020 6:55 AM CDT) ABO Grouping A [facility] Rh Factor NEG [facility] Specimen Blood Performing Organization Address City/State/Zipcode Phone Number [address] [address] aPTT (05/24/2020 6:55 AM CDT) PTT 37.5 (H) 22.5 - 36.0 seconds [facility] Specimen Blood Performing Organization Address City/[facility]/Zipcode Phone Number [address] [address] [place] Prothrombin time/INR (05/24/2020 6:55 AM CDT) Protime 14.6 (H) 11.9 - 14.2 seconds [facility] INR 1.2 <=5.9 [facility] Specimen Blood Narrative Performed At Effective 03/23/2019: PT Reference Range [facility] Change New: 11.9-14.2Previous: 11.7-14.7 RECOMMENDED COUMADIN/WARFARIN INR THERAPY RANGES STANDARD DOSE: 2.0-3.0Includes: PROPHYLAXIS for venous thrombosis, systemic embolization; TREATMENT for venous thrombosis and/or pulmonary embolus. HIGH RISK: Target INR is 2.5-3.5 for patients wiht mechanical heart valves. Performing Organization Address City/State/Zipcode Phone Number [address] [address] CENTER Hemoglobin A1c (05/24/2020 6:55 AM CDT) Hemoglobin A1C 6.2 (H) 4.3 - 6.1 % [facility] Specimen Blood Performing Organization Address City/[facility]/Zipcode Phone Number [address] [address] C[place] Type and screen, automated ([facility] Blood Bank) (05/23/2020 12:16 PM CDT) ABO/RH AUTOMATED (BEAKER) A NEGATIVE [facility] Ab Scrn NEGATIVE [facility] Specimen Blood Performing Organization Address City/State/Zipcode Phone Number [phone] [place] [address] after 07/12/2019 Insurance Payer Benefit Plan / Group Subscriber ID Type Phone A ddress MEDICARE MEDICARE A B xxxxxxxxxxx Medicare AETNA - MGD CARE AET[employer] INDEMNITY NON xxxxxxxxx Comm CONTR CDC REVIEW CDC REVIEW xxxxxxxx [address] [place] [address] Advance Directives Patient has advance care planning documents, and code status on file. For more information, please contact:[place] [id number] [place], [place] [phone] Code Status Date Activated Date Inactivated Comments Full Code 05/24/2020 6:13 AM 05/31/2020 6:14 PM This code status was determined by: Patient
--- OUTSIDE RECORDS SUMMARY | 2020-07-12 17:00 | XMS REPORT | Continuity of Care Document ---
:1930 Author Organization [facility] t Address [address] [place] [address] Care Team Providers Name Role Phone Asked, Pcp Primary Care Physician Unavailable Ronald Hernandez MD Attending Clinician Andrade Stewart MD Attending Clinician Patricia MOREL Attending Clinician RONALD HERNANDEZ Attending Clinician Unavailable RONALD HERNANDEZ Admitting Clinician Unavailable Payers Payer Name Policy Policy Number Effective Expiration Source Type Date Date MEDICAREMEDICARE A xxxxxxxxxxx [facility] - [facility] CAREAETNA xxxxxxxxx [facility] INDEMNITY NON [facility] - CONTRxxxxxxxxxComm Med[facility] l Center [facility] REVIEWCDC xxxxxxxx [facility] REVIEWxxxxxxxxPO [facility] [id number] Center Problems Condition Condition Condition Status Onset Resolution Last Treating Co mments Source Name Details Category Date Date Treatment Clinician Date Carotid Carotid Disease Active [facility] artery artery 05-24 [facility] - disease disease 00:00: Medical 00 Center 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 04-25 [facility]i dysfunctio dysfunctio 00:00: st n n 00 Hypertensi Hypertensi Problem Active [facility] on, on, [facility] - unspecifie unspecifie Me moria d type d type l [facility] Osteoporos Osteoporos Problem Active C [...] unspecifie unspecifie l d cause d cause [facility] Right foot Right foot Problem Active [facility] pain pain [facility] - Memoria l [facility] ent Clinics Hyperlipid Hyperlipid Problem Active [facility] emia, emia, [facility] - unspecifie unspecifie Me moria d d l hyperlipid hyperlipid Ou tpati emia type emia type ent Clinics History of History of Problem Active [facility] coronary coronary [facility] - artery artery Memoria bypass bypass l graft graft [facility] ent Clinics Depression Depression Problem Active [facility] with with [facility] - anxiety anxiety Memoria l [facility] ent Clinics Coronary Coronary Problem Active [facility] artery artery [facility] - disease disease Memoria involving involving [place] [facility] 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 ics [place] heart with heart with angina angina pectoris pectoris Elevated Elevated Problem Active [facility] t serum serum [facility] - creatinine creatinine Me moria l [facility] ent Clinics H/O aortic H/O aortic Problem Active [facility] valve valve [facility]ukes - replacemen replacemen Me moria t t l [facility] ent Clinics Prediabete Prediabete Problem Active [facility] s s [facility] - Memoria l [facility] ent Clinics 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 Hypertensi Hypertensi Disease Active C [facility] on on [facility] Coronary Coronary Disease Active [facility] artery artery [facility] - disease disease [facility] Carotid Carotid Disease Active [facility] artery artery [facility] - occlusion occlusion [facility] Atrial Atrial Disease Active [facility] fibrillati fibrillati [facility] kes - on [facility] Valvular Valvular Disease Active [facility] t heart heart kes - disease disease Medical Center Kidney Kidney Disease Active [facility] function function [facility] - abnormal abnormal [facility]ica l [facility] Hyperchlor Hyperchlor Disease Active [facility] emic emic [facility] - metabolic metabolic Medi jillian acidosis acidosis Center Acute Acute Disease Active [facility] blood loss blood loss X[facility] kes - anemia anemia [facility] Hyperkalem Hyperkalem Disease Active [facility] ia ia [facility] CKD CKD Disease Active [facility] (chronic (chronic [facility] - kidney kidney Medical disease) disease) Center stage 4, stage 4, GFR 15-29 GFR 15-29 ml/min ml/min Acute Acute Disease Active [facility] respirator respirator Xochitl kes - y y Medical insufficie insufficie Ce nter ncy ncy Allergies, Adverse Reactions, Alerts Allergy Allergy Status Severity Reaction(s) Onset Inactive Treating Comm ents Source Name Type Date Date Clinician Statins- DA Active SV 2020-0 [facility] 06[facility]15 [place] [facility] 00:00: Healthc e 00 are Inhibito Medical r Center codeine DA Active SV 2020-0 [facility] 06-15 [place] 00:00: Health 00 are Medical Center BLOOD DA Active SV 2020-0 [facility] THINNER 06-15 [place] 00:00: Healthc 00 are Medical Center Codeine Propensi Active 2020-0 "Gets [facility] ty to 7-29 very [facility] - adverse 00:00: hyper" Medical reaction 00 Center s Digoxin Propensi Active Nausea And 2020-[address] ty to Vomiting 7-29 [facility] - adverse 00:00: Medical reaction 00 Center s Niacin Propensi Active Hives, 2020-[address] Preparat ty to Itching 7-29 [facility] - ions adverse 00:00: Medical reaction 00 Center s Statins- Drug Active 2020-[address] Hmg-Coa Intolera 7-29 [facility] - Reductas nce 00:00: Medical e 00 Center Inhibito rs codeine Adverse Active Info Not [facility] Reaction Available [facility] - Memoria l Outpati ent Clinics Family History Family Member Diagnosis Comments Start Date Stop Date Source Natural brother Heart disease [facility] Natural father Heart disease [facility] Natural mother Heart disease [facility] Natural mother Stroke [facility] Natural sister Heart disease [facility] Natural sister Cancer [facility] Social History Social Habit Start Date Stop Date Quantity Comments Source History SDOH Alcohol [facility] History SDOH [facility] At [facility] kes - [facility] History SDOH Alcohol 2020-05-23 2020-05-[address] [facility] - Frequency 00:00:00 00:00:00 Medical Center Alcohol Comment 2020-05-23 2020-05-23 rarely JOSE Mendoza kearturo - 00:00:00 00:00:00 Medical Center Smoking Status Start Date Stop Date Source Never smoker [facility] edical Center Medications Ordered Filled Start Stop Current Ordering Indication Dosage Frequency Signature Comments Components Source Medication Medication Date Date Medication? Clinician (SIG) Name Name amLODIPine 2020- Yes 5mg QD Take [address] (NORVASC) 5 06-01 tablet (5 Xochitl kes - MG tablet 00:00: 23:59 mg total) Me dical 00 :00 by mouth Center daily. bumetanide 2020- Yes 1mg QD Take [address] (BUMEX) 1 06-01 tablet (1 Luke s - MG tablet 00:00: 23:59 mg total) Me dical 00 :00 by mouth Center daily. lisinopriL Yes 40mg QD Take 1 [facility] t (PRINIVIL,Z 05-31 tablet (40 Xochitl kes - ESTRIL) 40 00:00: mg total) Me dical MG tablet 00 by mouth Center daily. miscellaneo Yes Dispense [address] [facility] medical 05-31 nebulizer Luke s - supply Misc 00:00: machine Med ical 00 and Center supplies. ferrous 2020- Yes 325mg Q.5D Take [address] sulfate 325 05-31 tablet [facility]ukes - (65 FE) MG 00:00: 23:59 (325 mg Med ical tablet 00 :00 total) by Center mouth 2 (two) times daily. hydrALAZINE 2020- Yes 25mg Take [address] (APRESOLINE 05-31 tablet (25 L ukes - ) 25 MG 00:00: 23:59 mg total) Medi jillian tablet 00 :00 by mouth Center every 8 (eight) hours. ipratropium 2020- Yes .5mg Take 2.[address] (ATROVENT) 05-31 mLs (0.5 Luke s - 0.02 % 00:00: 23:59 mg total) Medic al nebulizer 00 :00 by Center solution nebulizati on every 6 (six) hours as needed for Wheezing. sodium 2020- Yes 650mg Q.5D Take [address] bicarbonate 05-31- tablet Lukes - 650 MG 00:00: 23:59 (650 mg Medical tablet 00 :00 total) by Center mouth 2 (two) times daily. allopurinoL Yes 100mg QD Take [address] (ZYLOPRIM) 7-30 mg by [facility]ukes - 100 MG 06:29: mouth Medical tablet 36 daily. [facility] diphenhydrA Yes 25mg Take [address] MINE 7-29 by mouth [facility]ukes - (BENADRYL) 10:56: every Medica l 25 mg 29 night as Center tablet needed for Itching or Sleep. aspirin 81 2019-0 Yes 81mg QD Take [address] MG EC 7-29 by mouth [facility] - tablet 10:55: daily. Medical [address] [place] [address] metoprolol Yes 25mg Q.5D Take [address] succinate 7-22 by mouth 2 Luke s - (TOPROL-XL) 00:00: (two) Medic al 25 MG 24 hr 00 times Center tablet daily. furosemide 2020- No 20mg Q.5D Take [address] (LASIX) 20 7-15 08-06 by mouth 2 Xochitl kes - MG tablet 00:00: 00:00 (two) Medica l 00 :00 times Center daily. lisinopriL 2020- No 10mg QD Take [address] (PRINIVIL,Z 7-02 08-06 by mouth Carina es - ESTRIL) 10 00:00: 00:00 daily. Medi jillian MG tablet 00 :00 [facility] sertraline Yes 25mg QD Take [address] (ZOLOFT) 25 6-19 by mouth Luke s - MG tablet 00:00: daily. Medica l 00 [facility] aspirin Yes 81mg QD Take 81 mg [place] (ECOTRIN) 8-12 by mouth Method i 81 MG 09:52: daily. st enteric 35 coated tablet sertraline Yes Abdul (ZOLOFT) 25 6-19 Methodi MG tablet 00:00: st 00 furosemide 2018-0 Yes Abdul (LASIX) 20 5-07 Methodi mg tablet 00:00: st 00 metoprolol 2018- Yes Abdul succinate 5-07 Methodi XL 00:00: st (TOPROL-XL) 00 25 mg 24 hr tablet Blood Blood Yes Jeanine [place] as [facility] t Glucose Glucose 7-10 directed [facility] - Monitor Monitor 00:00: (DISPENSE Me moria 00 BLOOD l GLUCOSE Outpati MONITOR ent FORMULARY Clinics TO INSURANCE) HydrOXYzine HydrOXYzine Yes Jeanine [place] [address] HCl HCl 7-10 as needed [facility]ukes - 00:00: for Memoria 00 itching l Outpati ent Clinics Blood Blood Yes Jeanine [place] as [facility] t Glucose Glucose 7-10 directed [facility] - Test Strip Test Strip 00:00: (DISPENSE Memoria 00 BLOOD l GLUCOSE Outpati TEST ent STRIPS Clinics FORMULARY TO INSURANCE) Lancets Lancets Yes Jeanine [place] as [facility] 7-10 directed [facility]ukes - 00:00: (dispense Memoria 00 lancets l formulary Outpati to ent insurance) Clinics Aspirin 81 Aspirin 81 Yes Jeanine [place] [address] [facility] - Memoria l Outpati ent Clinics Zanaflex Zanaflex Yes Jeanine [place] [address] as needed [facility]ukes - Memoria l Outpati ent Clinics Toprol XL Toprol XL Yes Jeanine [place] [address] [facility] - Memoria l Outpati ent Clinics Gabapentin Gabapentin Yes Jeanine [place] [address] [facility] - Memoria l Outpati ent Clinics Zoloft Zoloft Yes Jeanine [place] [address] [facility] - Memoria l Outpati ent Clinics MiraLax MiraLax Yes Jeanine [place] [address] mixed with Lukes - 8 ounces Memoria of fluid l Outpati ent Clinics Restasis Restasis Yes Jeanine [place] [address] into Lukes - affected Memoria eye l Outpati ent Clinics Furosemide Furosemide Yes Jeanine [place] [address] as needed [facility] - Memoria l Outpati ent Clinics Allopurinol Allopurinol Yes Jeanine [place] [address] [facility] - Memoria l Outpati ent Clinics Vital Signs Vital Name Observation Time Observation Value Comments Source Heart rate 2020-05-31 12:00:00 80 /min [facility] Respiratory rate 2020-05-31 12:00:00 18 /min [facility] Oxygen saturation in 2020-05-31 12:00:00 96 /min [facility] Arterial blood by Medical Ce nter Pulse oximetry Systolic blood 2020-05-31 11:55:00 178 mm[Hg] [facility] Diastolic blood 2020-05-31 11:55:00 77 mm[Hg] [facility] Body temperature 2020-05-31 11:55:00 36.78 Sue [facility] Body weight Measured 2020-05-31 08:13:00 68 kg [facility] BMI 2020-05-31 08:13:00 26.14 kg/m2 [facility] Body height 2020-05-24 05:46:00 161.3 cm [facility] Procedures Procedure Date / Time Performed Performing Clinician [facility] e RHYTHM STRIP - SCAN 2020-06-06 14:20:10 Provider, Default [facility] RHYTHM STRIP - SCAN 2020-06-01 13:20:23 Provider, Default [facility] SARS-COV2/RT-PCR ([facility] & 2020-05-30 05:11:00 Delmar Stewart [facility] - REF LABS) [facility] BASIC METABOLIC PANEL (7) 2020-05-29 05:38:00 Monica Bennett ma [facility] MAGNESIUM 2020-05-29 05:38:00 Monica Bennett [facility] PHOSPHORUS 2020-05-29 05:38:00 Monica Bennett [facility] CBC W/PLT COUNT & AUTO 2020-05-29 05:38:00 Monica Bennett [facility] XR CHEST 1 VIEW 2020-05-28 05:20:00 Jong Hay [facility] es - PORTABLE/BEDSIDE [facility] HEMOGLOBIN 2020-05-28 03:50:00 Buddy Lara [facility] BASIC METABOLIC PANEL (7) 2020-05-28 03:50:00 Monica Bennett ma [facility] MAGNESIUM 2020-05-28 03:50:00 Monica Bennett [facility] PHOSPHORUS 2020-05-28 03:50:00 Monica Bennett [facility] CBC W/PLT COUNT & AUTO 2020-05-28 03:50:00 Tim Bird [facility] XR CHEST 1 VIEW 2020-05-27 07:14:00 Satnam Jong [facility] - PORTABLE/BEDSIDE [facility] CALCIUM, IONIZED 2020-05-27 05:17:00 Monica Bennett [facility] IRON, TIBC, % SAT. 2020-05-27 04:06:00 Tim Bird [facility] (WITHOUT FERRITIN) [facility] r FERRITIN 2020-05-27 04:06:00 Tim Bird [facility] BASIC METABOLIC PANEL (7) 2020-05-27 04:06:00 Monica Bennett ma [facility] MAGNESIUM 2020-05-27 04:06:00 Monica Bennett [facility] PHOSPHORUS 2020-05-27 04:06:00 Monica Bennett [facility] CBC W/PLT COUNT & AUTO 2020-05-27 04:06:00 Tim Bird [facility] BASIC METABOLIC PANEL (7) 2020-05-26 15:41:00 Monica Bennett ma [facility] MAGNESIUM 2020-05-26 04:11:00 [facility] 2020-05-26 04:11:00 Hay, [facility] BASIC METABOLIC PANEL (7) 2020-05-26 04:11:00 Loki Hinton [facility] CBC W/PLT COUNT & AUTO 2020-05-26 04:11:00 Ralf Laracrystal [facility] XR CHEST 1 VIEW 2020-05-26 03:47:00 Satnam [facility] PORTABLE/BEDSIDE [facility] TRANSFUSION SERVICE 2020-05-25 18:02:56 Cristy Jordan [facility] REPORT - SCAN Scanning [facility] LIPID PANEL 2020-05-25 17:53:00 Garland Doe [facility] BASIC METABOLIC PANEL (7) 2020-05-25 17:53:00 Satnam [facility] CBC (HEMOGRAM ONLY) 2020-05-25 17:53:00 Satnam [facility] MAGNESIUM 2020-05-25 17:53:00 Satnam [facility] PHOSPHORUS 2020-05-25 17:53:00 Satnam [facility] POCT-GLUCOSE METER 2020-05-25 17:52:00 Duong Hernandez [facility] XR CHEST 1 VIEW 2020-05-25 16:02:00 Duong Hernandez [facility] s - PORTABLE/BEDSIDE [facility] POCT-GLUCOSE METER 2020-05-25 11:36:00 Duong Hernandez [facility] POCT-GLUCOSE METER 2020-05-25 08:04:00 Duong Hernandez [facility] POCT-GLUCOSE METER 2020-05-25 05:25:00 Duong Hernandez [facility] BLOOD GAS, ARTERIAL 2020-05-25 03:57:00 Dianne Rodriguez [facility] MAGNESIUM 2020-05-25 03:50:00 [facility] 2020-05-25 03:50:00 Hugo Rogel [facility] CALCIUM, IONIZED 2020-05-25 03:50:00 [facility] METABOLIC 2020-05-25 03:50:00 Hugo Rogel Theres a [facility] LACTIC ACID, ARTERIAL 2020-05-25 03:50:00 Pebbles [facility] CBC W/PLT COUNT & AUTO 2020-05-25 03:50:00 Buddy Lara [facility] POCT-GLUCOSE METER 2020-05-25 03:48:00 Duong Hernandez [facility] POCT-GLUCOSE METER 2020-05-25 00:47:00 Duong Hernandez [facility] BLOOD GAS, ARTERIAL 2020-05-25 00:03:00 Hugo Rogel Jessi [facility] BASIC METABOLIC PANEL (7) 2020-05-25 00:03:00 Hugo Rogel Ther james [facility] HEMOGLOBIN AND HEMATOCRIT 2020-05-25 00:03:00 Dianne Rodriguez [facility] BASIC METABOLIC PANEL (7) 2020-05-24 21:19:00 Hugo Rogel Ther james [facility] TROPONIN I 2020-05-24 21:19:00 Hugo Rogel [facility] COMPREHENSIVE METABOLIC 2020-05-24 21:19:00 Hugo Rogels a [facility] BLOOD GAS, ARTERIAL 2020-05-24 21:19:00 Hugo Rogel Jessi [facility] LACTIC ACID, ARTERIAL 2020-05-24 21:19:00 Hugo Rogel [facility] CALCIUM, IONIZED 2020-05-24 21:19:00 Hugo Rogel Jessi [facility] MAGNESIUM 2020-05-24 21:19:00 Pebbles Usekarin Jessi [facility] PHOSPHORUS 2020-05-24 21:19:00 Pebbles Usekarin [facility] CBC W/PLT COUNT & AUTO 2020-05-24 21:19:00 Hugo Rogel [facility] 2D ECHO W/ DOPPLER 2020-05-24 20:53:35 [facility] US GUIDE, VASCULAR ACCESS 2020-05-24 20:39:59 Ana Broderick [facility] XR CHEST 1 VIEW 2020-05-24 20:38:[address] [facility] PORTABLE/BEDSIDE [facility] [place] INSERT 2020-05-24 20:35:27 Ana Broderick [facility] - CATH,ART,PERCUT,SHORTTERM Medica l Center XR CHEST 1 VIEW 2020-05-24 18:08:00 [facility]ED[facility]IDE [facility] TRANSFUSION SERVICE 2020-05-24 18:04:56 ProviderCristy [facility] REPORT - SCAN Scanning [facility] BASIC METABOLIC PANEL (7) 2020-05-24 16:34:00 Jong Hay [facility] MAGNESIUM 2020-05-24 16:34:00 Hugo Rogel [facility] CALCIUM, IONIZED 2020-05-24 16:34:00 Hugo Rogel [facility] PHOSPHORUS 2020-05-24 16:34:00 Hugo Rogel [facility] HEMOGLOBIN AND HEMATOCRIT 2020-05-24 16:34:00 Hugo Rogel [facility] ECG 12-LEAD 2020-05-24 16:18:51 Hugo Rogel [facility] HGB/HCT (H&H) - STAT LAB 2020-05-24 09:51:00 Curtis Laracrystal [facility] POTASSIUM-STAT LAB 2020-05-24 09:51:00 Jose DavidCurtiscrystal [facility] GLUCOSE-STAT LAB 2020-05-24 09:51:00 [facility] TISSUE [facility]AM 2020-05-24 08:00:00 Duong Hernandez [facility] ENDARTERECTOMY,CAROTID 2020-05-24 07:30:00 Duong Hernandez [facility] MAGNESIUM 2020-05-24 06:55:00 Duong Hernandez [facility] COMPREHENSIVE METABOLIC 2020-05-24 06:55:00 Duong Hernandez [facility] PANEL [facility] HEMOGLOBIN A1C 2020-05-24 06:55:00 Duong Hernandez [facility] PROTHROMBIN TIME/INR 2020-05-24 06:55:00 Duong Hernandez [facility] APTT 2020-05-24 06:55:00 Duong Hernandez [facility] ABORH, MANUAL 2020-05-24 06:55:00 Franny Fischer [facility] CBC W/PLT COUNT & AUTO 2020-05-24 06:55:00 Duong Hernandez [facility] DIFFERENTIAL [facility] POCT-GLUCOSE METER 2020-05-24 05:58:00 Duong Hernandez [facility] TYPE AND SCREEN, 2020-05-23 12:16:00 Duong Hernandez [facility] es - AUTOMATED [facility] SARS-COV2/RT-PCR ([facility] & 2020-05-23 12:10:00 Duong Hernandez I [facility] - REF LABS) [facility] ECG 12-LEAD 2020-05-23 11:54:04 Unknown, Hl7 Doctor [facility] Plan of Care Planned Activity Planned Date Details Comments Source Future Scheduled 2020-06-26 INFLUENZA VACCINE [place] [facility] 00:00:00 [code = INFLUENZA VACCINE] Future Scheduled 2020-06-26 INFLUENZA VACCINE (#1) [facility] Test 00:00:00 [code = INFLUENZA Medical Ce nter VACCINE (#1)] Future Scheduled 1998-01-25 MEDICARE ANNUAL [facility] - Test 00:00:00 WELLNESS (YEAR 2 or Medical Center FIRST YEAR if no IPPE) [code = MEDICARE ANNUAL WELLNESS (YEAR 2 or FIRST YEAR if no IPPE)] Future Scheduled 1997-02-01 65+ PNEUMOCOCCAL [facility] 00:00:00 VACCINE (1 of 2 - PCV13) [code = 65+ PNEUMOCOCCAL VACCINE (1 of 2 - PCV13)] Future Scheduled 1997-02-01 PNEUMOCOCCAL 65+ [facility] - Test 00:00:00 LOW/MEDIUM RISK (1 of Medica l Center 2 - PCV13) [code = PNEUMOCOCCAL 65+ LOW/MEDIUM RISK (1 of 2 - PCV13)] Future Scheduled 1982-02-01 SHINGLES VACCINES (#1) [facility] 00:00:00 [code = SHINGLES VACCINES (#1)] Encounters Start End Encounter Admission Attending Care Care Encounter Source Date/Time Date/Time Type Type Clinicians Facility Department ID 2018-07-28 2018-07-28 [facility] [id number] [facility] 13:58:00 13:58:00 [facility] 2018-06-03 2018-06-03 [facility] [id number] 11:04:00 11:04:00 [facility] ent [facility] 2018-05-24 2018-05-24 [facility] [id number] 19:00:00 19:00:00 [facility] ent [facility] 2018-05-12 2018-05-12 [facility] [id number] 09:30:00 09:30:00 [facility] ent [facility] 2018-05-04 2018-05-04 [facility] [id number] 13:00:00 13:00:00 [facility] Results Test Description Test Time Test Comments Results Result Comments Source Novel Coronavirus 20182020-06-16 11:06:00 Test Item Value Reference Range Interpretation Comme nts Novel Coronavirus 2018 Not Detected Not Detected Testi ng was performed using the nCoV (test code = Aptima TALISHA S-CoV-2 assay.This test COVID19) was developed a nd its performance characteristics determined by [facility]. This test has not beenFDA supa ared or approved. This test has b een authorized byFDA under an Emerge ncy Use Authorization ( EUA). This testis only authorized for the duration of time the declar ationthat circumstances e xist justifying the authorization o fthe emergency use of in vitro consuelo gnostic tests fordetection of SARS-CoV-2 virus and/or diagnosi s of COVID-19infecti on under section 564(b)(1) of th e Act, 21 U.S.C.360bbb-3( b)(1), unless the authorization i s terminated orrevoked soone r. When diagnostic testing is nega tive, thepossibility of a false nega tive result should be consideredin the context of a patient's recen t exposures and thepresence of clinical signs and symptoms consis tent withCOVID-19. An individual w ithout symptoms of COVID-19 andwho is not shedding SARS-CoV-2 viru s would expect to have anegative (not detected) result in this assay.Performed At: [facility] [id number] [place], [place] [id number] Ramírez Del Cid MD Ph:[phone] Novel Coronavirus [id number] 07:15:00 Test Item Value Reference Interpretation Comments Range Novel Not Detected Not Detected Testing was per formed using Coronavirus 2019 the Aptima SARS-CoV-2 nCoV (test code assay.This t est was developed = COVID19) and its perform ance characteristics determined by [facility]. This test has not be enFDA cleared or approved. Th is test has been authorized byFDA under an Emergency Us e Authorization ( EUA). This testis only aut horized for the duration of time the declarationthat circumstances exist justifyin g the authorization o fthe emergency use of in vitro diagnostic tests fordetect ion of SARS-CoV-2 viru s and/or diagnosis of COVID-19infecti on under section 564(b)( 1) of the Act, 21 U.S.C.360bbb -3(b)(1), unless the auth orization is terminated orre voked sooner. When diagnostic testing is negative, thepo ssibility of a false negative result should be consideredin the context of a patient's recent exposures and t hepresence of clinical signs and symptoms consistent with COVID-19. An individual with out symptoms of COVID-19 and who is not shedding SARS-C oV-2 virus would expect to have anegative (not detected) result in this assay.Performed At: [facility] [id number] Ramírez Del Cid MD Ph:[phone] SARS-CoV2/RT-PCR (Asymptomatic ONLY)2020-05-30 11:40:00 Test Item Value Reference Range Interpretation Comments SARS-COV2/RT-PCR Negative Not Detected, (test code = Negative, See 43222-6) external report for linked test SARS-COV-2 [facility] PERFORMING LAB (test code = 89176-4) RAGHAVENDRA (test code = Negative result for this RAGHAVENDRA) test determines that SARS-CoV-2 RNA was not present in the specimen above the Limit of Detection (LOD). However, Negative results do not preclude SARS-CoV-2 infection and should not be used as the sole basis for treatment or patient management decisions. Negative results must be combined with clinical observations, patient history, and epidemiological information. A false negative result may occur if a specimen is improperly collected, transported or handled. A false negative result should be considered if patient's recent exposures or clinical presentation indicate that COVID-19 (SARS-CoV-2) is likely and diagnostic tests for other causes of illness are negative. Re-testing should be considered in cases of suspected [...] Food and Drug Administration (FDA) cleared or approved. This is a modified version of an approved [...] of the Act. Fact Sheet for Healthcare Providers:https://www.[employer].com/sites/default/f teri/product/documents/F act_Sheet_HC_Providers_L ire_YYKT-YaB-7.pdf Fact Sheet for Healthcare Patients:https://www.[employer].com/sites/default/fi les/product/documents/Fa ct_Sheet_Patients_Lyra_S ARS-CoV-2.pdf Performing Laboratory:[facility] [place] [address] [facility]2020-05-30 11:40:00 Test Item Value Reference Range Interpretation Comments SARS-COV2/RT-PCR (test Negative Not Detected, Negative, code = 7938522) See external report for linked test SARS-COV-2 PERFORMING LAB [facility] (test code = 1238393) Negative result for this test determines that SARS-CoV-2 RNA was not present in the specimen above the Limit of Detection (LOD). However, Negative results do not preclude SARS-CoV-2 infection and should not be used as the sole basis for treatment or patient management decisions. Negative results mustbe combined with clinical observations, patient history, and epidemiological information. A false negative result may occur if a specimen is improperly collected, transported or handled. A false negative result should be considered if patient's recent exposures or clinical presentation indicate that COVID-19 (SARS-CoV-2) is likely and diagnostic tests for other causes of illness are negative. Re-testing should be considered in cases of suspected false negatives.The limit of detection for this assay is 800 copies/mL.This SARS CoV-2 test is a real-time RT-PCR test intended for the qualitative detection of nucleic acid from SARS-CoV-2 in a nasopharyngeal swab specimen collected from individuals susp ected of COVID-19 by their healthcare provider.This test has not been Food and Drug Administration (FDA) cleared or approved. This is a modified version of an approved [...] is revoked under Section 564(g) of the Act.Fact Sheet for Healthcare Providers:https://www.[employer]/sites/default/files/product/documents/Fact_Ofelia gonzalesm_KM_Nojoapcxu_Tzzp_TAEW-JbC-1.pdfFact Sheet for Healthcare Patients:https://www.[employer]/sites/default/files/product/ documents/Hebe_Vekss_Ofusqrti_Herq_PUFV-SjR-3.pdfPerforming Laboratory:[place] [address], [place] [address]CYH with platelet count + automated [id number] 07:16:00 Test Item Value Reference Range Interpretation Comments WBC (test code = 6690-2) 10.1 3.5- 10.5 K/L RBC (test code = 789-8) 2.95 3.93- 5.22 M/L L MCHC (test code = 786-4) 30.8 32.2- 35.5 GM/DL L Hematocrit (test code = 4544-3) 26.6 % 34.1-44.9 L MCV (test code = 787-2) 90.2 fL 79.4-94.8 MCH (test code = 785-6) 27.8 pg 25.6-32.2 RDW (test code = 788-0) 15.2 % 11.7-14.4 H Platelets (test code = 777-3) 298 150- 450 K/CU MM MPV (test code = 08009-7) 9.3 fL 9.4-12.3 L nRBC (test code = 413) 0 0- 0 /100 WBC % Neutros (test code = 429) 74 % % Lymphs (test code = 430) 8 % % Monos (test code = 431) 7 % % Eos (test code = 432) 9 % % Baso (test code = 437) 0 % # Neutros (test code = 670) 7.49 1.56- 6.13 K/L H # Lymphs (test code = 414) 0.84 1.18- 3.74 K/L L # Monos (test code = 415) 0.69 0.24- 0.36 K/L H # Eos (test code = 416) 0.93 0.04- 0.36 K/L H # Baso (test code = 417) 0.03 0.01- 0.08 K/L Immature Granulocytes-Relative 1 % 0-1 (test code = 2801) Lab Interpretation (test code = Abnormal 17097-7) [facility] W/PLT COUNT & AUTO [id number] 07:16:00 Test Item Value Reference Range Interpretation Comments WHITE BLOOD CELL COUNT (BEAKER) 10.1 K/ L 3.5-10.5 (test code = 775) RED BLOOD CELL COUNT (BEAKER) 2.95 M/ L 3.93-5.22 L (test code = 761) HEMOGLOBIN (BEAKER) (test code = 8.2 GM/DL 11.2-15.7 L 410) HEMATOCRIT (BEAKER) (test code = 26.6 % 34.1-44.9 L 411) MEAN CORPUSCULAR VOLUME (BEAKER) 90.2 fL 79.4-94.8 (test code = 753) MEAN CORPUSCULAR HEMOGLOBIN 27.8 pg 25.6-32.2 (BEAKER) (test code = 751) MEAN CORPUSCULAR HEMOGLOBIN CONC 30.8 GM/DL 32.2-35.5 L (BEAKER) (test code = 752) RED CELL DISTRIBUTION WIDTH 15.2 % 11.7-14.4 H (BEAKER) (test code = 412) PLATELET COUNT (BEAKER) (test 298 K/CU MM 150-450 code = 756) MEAN PLATELET VOLUME (BEAKER) 9.3 fL 9.4-12.3 L (test code = 754) NUCLEATED RED BLOOD CELLS 0 /100 WBC 0-0 (BEAKER) (test code = 413) NEUTROPHILS RELATIVE PERCENT 74 % (BEAKER) (test code = 429) LYMPHOCYTES RELATIVE PERCENT 8 % (BEAKER) (test code = 430) MONOCYTES RELATIVE PERCENT 7 % (BEAKER) (test code = 431) EOSINOPHILS RELATIVE PERCENT 9 % (BEAKER) (test code = 432) BASOPHILS RELATIVE PERCENT 0 % (BEAKER) (test code = 437) NEUTROPHILS ABSOLUTE COUNT 7.49 K/ L 1.56-6.13 H (BEAKER) (test code = 670) LYMPHOCYTES ABSOLUTE COUNT 0.84 K/ L 1.18-3.74 L (BEAKER) (test code = 414) MONOCYTES ABSOLUTE COUNT (BEAKER) 0.69 K/ L 0.24-0.36 H (test code = 415) EOSINOPHILS ABSOLUTE COUNT 0.93 K/ L 0.04-0.36 H (BEAKER) (test code = 416) BASOPHILS ABSOLUTE COUNT (BEAKER) 0.03 K/ L 0.01-0.08 (test code = 417) IMMATURE GRANULOCYTES-RELATIVE 1 % 0-1 PERCENT (BEAKER) (test code = 2801) Basic Metabolic [id number] 07:03:00 Test Item Value Reference Range Interpretation Comments Sodium (test code = 140 meq/L 342-806 2024-2) Potassium (test code = 3.8 meq/L 3.5-5.1 2823-3) Chloride (test code = 102 meq/L 98-107 2075-0) CO2 (test code = 31 meq/L 22-29 H 2028-9) BUN (test code = 67 mg/dL 7-21 H 3094-0) Creatinine (test code 2.61 mg/dL 0.57-1.25 H = 2160-0) Glucose (test code = 106 mg/dL 70-105 H 2345-7) Calcium (test code = 9.2 mg/dL 8.4-10.2 80870-9) EGFR (test code = 17 mL/min/1.73 [place] [address]-9) NOT ACCURATE CREATININE CLEARANCE IN PREDICTING GLOMERULAR FILTRATION RATE . ESTIMATED GFR I S NOT APPLICABLE FOR DIALYSIS PATIENTS. RAGHAVENDRA (test code = RAGHAVENDRA) [employer] Engine Mechanic ID - NTP Lab Interpretation Abnormal (test code = 27812-7) [facility] METABOLIC [id number] 07:03:00 Test Item Value Reference Range Interpretation Comments SODIUM (BEAKER) 140 meq/L 136-145 (test code = 381) POTASSIUM (BEAKER) 3.8 meq/L 3.5-5.1 (test code = 379) CHLORIDE (BEAKER) 102 meq/L 98-107 (test code = 382) CO2 (BEAKER) (test 31 meq/L 22-29 H code = 355) BLOOD UREA NITROGEN 67 mg/dL 7-21 H (BEAKER) (test code = 354) CREATININE (BEAKER) 2.61 mg/dL 0.57-1.25 H (test code = 358) GLUCOSE RANDOM 106 mg/dL 70-105 H (BEAKER) (test code = 652) CALCIUM (BEAKER) 9.2 mg/dL 8.4-10.2 (test code = 697) EGFR (BEAKER) (test 17 mL/min/1.73 ESTIMA ISAC GFR IS code = 1092) sq m NOT ACCURATE CREATININE CLEARANCE IN PREDICTING GLOMERULAR FILTRATION RATE . ESTIMATED GFR I S NOT APPLICABLE FOR DIALYSIS PATIEN TS. [employer] Mechanic ID - [id number] 07:01:00 Test Item Value Reference Range Interpretation Comments Magnesium (test code = 2.3 mg/dL 1.6-2.6 59040-5) RAGHAVENDRA (test code = RAGHAVENDRA) [employer] ID - NTP Lab Interpretation (test Normal code = 23395-2) [facility] Test Item Value Reference Range Interpretation Comments Phosphorus (test code = 3.0 mg/dL 2.3-4.7 2777-1) RAGHAVENDRA (test code = RAGHAVENDRA) [employer] Mechanic ID - NTP Lab Interpretation (test Normal code = 66581-8) [facility] 07:01:00 Test Item Value Reference Range Interpretation Comments PHOSPHORUS (BEAKER) (test code = 3.0 mg/dL 2.3-4.7 604) [employer] Mechanic ID - [id number] 07:01:00 Test Item Value Reference Range Interpretation Comments MAGNESIUM (BEAKER) (test code = 2.3 mg/dL 1.6-2.6 627) [employer] Mechanic ID - NTPTissue Gagz2309-05-36 15:57:00 Test Item Value Reference Range Interpretation Comments Case Report (test code Surgical Pathology = 104) Report Case: [id number] Authorizing Provider: Duong Hernandez, Collected: 05/24/2020 08:00 AM Ordering Location: [facility] Received: 05/24/2020 09:52 AM PERIOPERATIVE SERVICES Pathologist: Jakub Parra MD Specimen: Carotid, Right, RIGHT CAROTID PLAQUE DIAGNOSIS (test code = [id number] 3220) uZzEwMzNcZnRuYmpcdWMxIH vokaLrLFapu1UsX7MvIhNnA FxhbnNpXGRlZmxhbmcxMDMz SCJ7ojKcSSGqHQrpMCLwXOy qEc3xfVSyvPvwYqGaASOnw3 bebfNZherwaRe0i7cpHGQaH gG4zHMcUSztW7otueMuzNSz NBLrRMo6kW35UHQzoJ1jsSN sIDtccmVkMFxncmVlbjBcYm u8IEWqX1hzWHZbBKSwC6MjR F4bIBVvDlu5UPK1LOJ9eGpo e4W2oLAdiOWrvSknXyHhGwI nEKTZk6IaKAc1lDkzJ0RmUI CxEqY7yQCwHRXhVMzrWPNqM DMqquC2sB44MHnjkqO9vSYi l8Vfw52ar285vX4olLKiLSN 9XVOcMYOvuCGhECWtEGG0IA FzgQOcU1n3WfXxaPXqN0H0B hRujRDxI6U6JpDlpMRiH3H8 VrKhgNRtWGPnaWHhOq2rzYK ufVXotu4klc44VGD9x9AajD osRVG7JAG3NyDsMm1fpHItS YLpDB3gJjFvcIXpFIWmcv68 jBvfKWmybrCuwU6rOsJhNFO rfHIaOJHpAL7qoPGsPDDmvM 5ucmxjXHBnYnJkcmhlYWRcc BbkwpRfRn1xsHnbVNN7QTez Y3ghiX2pAgB9AWucX8lsoO3 pGBx4AVhoqZL0CJZdsH7lNN 2suwrpv7vhUrKfXO3gencyv 0xhIpIxNQ5lmen2u7idTzHr EC8dujcyl1vlKpXuXIqzQAO qzuxvMOUca2JgupekWWToy5 VtA8KvhJgeT40jmIlpF87xL FQsdFzhpP7bnJtwuC3xPyHe ZnMyMFxxbFxwbGFpblxmMFx mczIwXHBsYWluXGYxXGZzMj AgRUFSVEVSWSwgUklHSFQgQ 9RPG3TJFEavXQ9WPKUZSCCS M5SGPBi9YKHcwlYZJMmFXWG EQbWUZBkUKo8SE0vYLk9FNY PnZMaBABJZRYQyjp63CYI9G nLel2O1GQV9MZElPGIbc4vd ZGVmbGFuZzEwMzNcZnRuYmp kgWLsTEIeJfYbj2yzc937hN Udi0dkRLHpEkV3dIUlFXWar NKtV137XTZmWZluy8yvp7Pi MLZibTGmi5D7JUDRwdjgqDi 4lXgcJ18rm4P7YnsdH0wkHS NePOTrR2QyXM7kYVEcSdi6S SY3PAS6ATHqVKGfC5RvBA0d ASDpxXZzEBd7z9ishYbpHVU nLYL2k8kkGEqurmYiBT6yno 6yaOb0v4utywNaSGJnKUOrh ZYWWSItV5XotLvuRw5biSp1 lVouTqxkXMY7Wzu0FU5haj5 4ijl6nOwfPPDgloysUqT2MY vrOCKeqvbnGPq8QFdmEHBiu MR6PURulSAjC0DhBXPkKU0r qaw9RKT1JQuzIARfYhC7EWK dvDRlHZVcdBimAJmfj783ZG H7TgRuQL5nT0Ajd2G0vR3ho WToIYHxlRRjUdToYGRnnp0a qCJjEEvnk7YuTAR2meG7dAS otHGqSXEzVxJ4ZPokZT7ohf 52UOJjZLS0bo4eoJElcKhmw pHqzNJtOEltM4DjZXDwo957 YJFyP0CrYCTaa4A4azYcBbN lSMMsyLP4qrK5QQPzML1gvy kyy0frLNrsXYskGEUcnkP3y xR7ZDPtdDJwA1RfdB4cUBZr NK6wrdtht8hiXXI7AWfpMPE zYHA3QsHuWNKxe2Cluxl9Vt Jbg5VpoRSbTFdiD33rn100H MBypcYaX3orbGFwolbgeBEd wxocZMaynzF4ZPSjXBokosk lPDEyLJhjF2ixSlCyGYVjmL owEOyoy1FjWVFwQTTcJmRet PGtSFCiVgr5KBInyNAmAJDs CwHvV1xqqzdcNhUNOQWyt1m hQ3fdyPARjXZeO2IgADddus ErNSqbOJuoDWPeXPL6EN70Z jbzYDYjyp84 CPT Code(s) (test code f3kfvJPyHBIkbCRnMlBeFSC = 335) qMNKje9vfWVWaaDCxHnNmXk NcZnRuYmpcdWMxXGRlZmYwe 7dsl143qTKfq7ksZWIsVhI6 yLDxXAGcmQAeP178b1hmb0k pwzTxqEE1ZXXmZWM1PYthrs NsouA5UTiqmIXlBjB3AEdun bSzXNnhnkDeivUhFkk4ZNFo O333CAS6qLqeh8arBLM4EOJ mXKFpCyWzCr7wkMSyP632LO IkSTJLWYXpzWz4PSPmsjQyg hLiwCEAd913M538n6ipTYRj deUbdJjCsrvai0kwT940HIK hcGVydzEyMjQwXHBhcGVyaD W4PDAcGH2tzemfCaTjVO1vf dmlNlXgMN7yzke5GtEiBQ1j cmdiNzIwXGhlYWRlcnkwXGZ cs8IibsuwZB3uD8Mmu1D3uV 9maXRcZGVmdGFiNzIwXGZvc f1fqSIvICsnl8NqDHF6axT1 xNRmoKNsSHEtXV76Wqvay6J uQtjvDHY1XUOxsyClp1Sen6 hlImUbixHuQ6auS2XtZZLaS RBhEQIxZsTnssAtl0Fmq9Vo mXIrnQo1q4jeFWYnHWCoyCz sp9qgXYN0HYKkE9S0iOJkl1 txENtxOBRdvXN2hrerCPbvQ XFudiB1mqewZQioQLIwvVR0 llzsSIioYMNiUmO9nigjNZw wGHHyQGM8NUwsy051UAO0OJ xzYmtwYWdlXHBnbmNvbnRcc GduZGVjXHBsYWluXHBsYWlu XGYwXGZzMjRccWxccGxhaW5 rOmZaFjQtHVcmDN3lTKNjQ7 jreQWjDJMlCHDaQ6saJrQts S5veJjrABtvhkFzLCt4WsC4 FbY7NZBcJHybESQ5 CLINICAL HISTORY (test d0khwLTwWANlkPIcOpEnLSI code = 3356) fPEVgr5mnRMIfcABuNmEaQj NcZnRuYmpcdWMxXGRlZmYwe 3mdq602pWOkl1lrFPHlGtD9 pBVaDNNzjOLjD275y1xbu5q ebrKeuQZ8UMHcYNG8RRvrfg IximP9WWspdGGxNiT5XIvav vTvZQqpptVtvaMyZuo7HAOc R898ZJH1pYfsp7snSYS2BNG vPGCeJzAeHp8rhOMrZ512BQ YqVWTUYGCyiAi8FBIbkoAvs qUmfFONv678P776e4woUUJl unXbbEtFudoqp1fnA122ZRT hcGVydzEyMjQwXHBhcGVyaD E3HCAbNY3nzenbQsSiRL5vr mjqSeBaNZ3tlqv4LhFfQL7z cmdiNzIwXGhlYWRlcnkwXGZ mx4QqjgltYK5zW9Efn2K9gD 9maXRcZGVmdGFiNzIwXGZvc u5npJXuOHfup7AuLVC8zmF4 ySRmnCPmBLJmSZ39Rxzpi8F bYhuaJKD3UWDmosCmk3Gul5 irQrDpudFwB3akN9SpYSJhH ODcUZLcWkZhguGue0Rhd3Gf nMZahBg0z9nwFNUoMKXfxEl ha3wjOBE4ZVTuL3J3uNJwx5 itOIhfCTBmcHW8rlzyZTofD JRwqaN8wvdgWKabWCFssPP0 vrbkXQacPNRkEzB7tlxzEAh tHKUpBWI3DVxrv638YPW4BV xzYmtwYWdlXHBnbmNvbnRcc GduZGVjXHBsYWluXHBsYWlu XGYwXGZzMjRccWxccGxhaW5 aVhQkGmDkCFvhZN9rMSAvV2 zwsKMzDYIaYHNyD1lkRqQnu M9aeQgdHHbechAaFPFxVK3s WQRhCYbln5JalphqKWSjxg8 8eTVfh4Ddja2krPSbYSChR6 f1ZRFefr4= SPECIMEN SOURCE (test l7cbzLGlHIHfkGJcInBrKJN code = 3377) jHFAdv5puOQObuYOtEvHxYb NcZnRuYmpcdWMxXGRlZmYwe 0sbu277oBYgw5vuUQMeJaD7 hGBlOYCmqYYeM650k9grw9a vjtBbiHO1EAZwQIO0QVuumd NhvlP4MPaguHKaAaN2FMioe iSrHAjwziAbzwNeQqm8PWOu L295IGN8hTlai1nuMQK8XCV lWTCqLuYrDg4elZQhH107TY OsTYPQKKHgyWh9QGYswdUee sEgjUYDr731K418m0zuTQQi koJkxVfWuhqne3brE694NCB hcGVydzEyMjQwXHBhcGVyaD M8SMAnXH3fkampCsWcJG1ul dywOlQyKV4ygig5NvXgTI5j cmdiNzIwXGhlYWRlcnkwXGZ qy0VbwgnkMS4kO5Feh2P7tW 9maXRcZGVmdGFiNzIwXGZvc e7vrJBxHCxgb9OxPOS8gvV9 pUOxkOFqWUBgBY20Jpgrd9A oPyqmVAW2MRXpmnHuv9Nsi7 kvIpJqzvEoY8sgK9OjGGKsS OFsCRNjHqYfudZpz1Cxh3Sa lOXegZj3i5ebBKIdWELqzXa di9fzSOF5VGYaA4J1iJOmo6 hxHRkjIMLuvSY9vgznFApjM WKhfoS0temyLPhaYLLxtEG7 ddruESejOYCoSoX1vreiJMv xWGDfTHB1DYvhp344SJY3YC xzYmtwYWdlXHBnbmNvbnRcc GduZGVjXHBsYWluXHBsYWlu XGYwXGZzMjRccWxccGxhaW5 jZpEpEyAjRSalXP4uRHRkR3 xknZCvWKNsNBFoF2xyXbExk U0vmZmcIBhavaTnSMBfYNPt ay58yOMmZRRoQ0y8DLXbgo4 = GROSS DESCRIPTION f2vbxOYiAKApuQGzWwEyROK (test code = 3366) cKCEeq5kiHNQctTPwPpWbJi NcZnRuYmpcdWMxXGRlZmYwe 6xvh711zHFpq5fxPSFsIhQ8 tPNjFVMlaPCqE465SORsPIk fn4ecg7JmEAGsmCRsy1M0HZ PPnhhsiAo8qCtkV21fs4E5O yrvE5krZAEgEQdsSPLfSOye cTYtHVA4QDHnLZE0TJupmsC gleK7ZOkqfQKkBdM1WLi1l3 lwiTjaJZHiYCC3m1wtEAmns fMmGO2kbx9iiPd8j5eunmVj FEWeAACwdSAEMXXiP2DvaUo dSr8omAu6gWfgBwowDVA8Mv q0RG8sti03hss1eQaiJDMwk zcbXvD2PQgxZGRmkrwhTMd9 MFxtYXJnbDcyMFxtYXJncjc yMFxtYXJndDcyMFxtYXJnYj zlJJskOKBlNHK1TLwnp762A YO3SOvzi2cip3gjqQSoCec1 QOOgYbGaVmuqGNiqp6Ayh4m rNTSumb8jRYC8mFLppHnic9 D7uBPkCAXlmHWsyaGqMONuA tK3CQzeRS7ppw21FTKoPMB1 ic2ndMDhwPgjlqJoeFBoGPy oK2TlXJJdi024IDOdM3OeFC Fxn0Q8umHuUaFeWVDqdXA7t bN0ZZRoQCl1dSBfmhC6atGi hBYnA4mujG56OhNxnFGlA9O mqD22BzOwaPVaF9EfxU32Ji ExsDUgY2SdsE11RrOktFLgN LXkwGUfEo3vjMWsoTZte1Sf sGHaBZpiM59vp485WYRiepK qH3ypuNVgicauhAOweaclBR xmczIwXHFsXHBsYWluXGYwX GDiCmIpmYsubM1mVsMgAnAy JYZZCLYaoSLdIHIzzgQhc5T tYWxpbiBsYWJlbGVkIHdpdG ggdGhlIHBhdGllbnQncyBuY V2pIFVtI7Fpb1Lyl92sifZr BpQyJCGlBQVrfmicsRMgO9C ks1AaBHNakODqdWEuBYpjKG HcJo43LAHrFOujZTrbpwe3r CC0NRAmPtIrcNTmwbVszWRe HOKtwxH8HL5zfSLudI97TQD 9gXZ0nMVuJKEqXFEaZR3qVN NaA6SxfUvzA5UhJ4exxJVrR VAdGKP0QI9gOpWwcdCxDA74 ABBoauFdq7McvNpjqpLlLLH aITO1En2xpLGbSTQtnyEXOH Pkf8aez4fmsmkwYPXjEMgum NSzA0R7uH9yIaNtFNKjuQlv XHBhcn0= MICROSCOPIC k9usxINiLAVheNEnVxIyETU DESCRIPTION (test code rFBDbp1rlLDBsfKOsCdIwXs = 3371) NcZnRuYmpcdWMxXGRlZmYwe 5qyu515yOImy2wjAMRcExA4 uUAsJFDbqYGyH773e3jan8z ohbTgiKR1BPIrVAY9OSteuv BztiP7SSihxTVdXtP3ZHgkb kHpYKlapoGuvkDqKjw4PETw E336ACT9fCfjt4gpQDK4UZI kTDIkSxXkCg5fmSZrH469XD HdMZLAMGBldRt8PYHdvjRyy pLdsIVUi849W353g7siCWLa jmDloLfYmalzu2ffS103WZR hcGVydzEyMjQwXHBhcGVyaD A0RSMcEI7rltrdAyMjMK0hw nrrHoCtHD2eltm1HfIcXB8s cmdiNzIwXGhlYWRlcnkwXGZ zi8KiqeiaKC2tP0Zsc8J5sK 9maXRcZGVmdGFiNzIwXGZvc t2lvOJnEZzro9FzSWL6ntK1 yMTskRBgZFHjUU35Vqmph3K bIjkyPRW9ZFKqizJem5Bil7 ypAvBcbyXwG2cgP7XaXQZkA QBfQQBuKlYsvkMls9Mjn9Rb gQQcfEa4m3qmRXCvTJJbyJz gt8muBLE2IONrL0T6aFLpr1 quUTeiFGLsrEK2yrhdRAizQ VXlpiC5vkaxIBzqJDAtdXO5 zuheZQciLJYdJyD3fsfiWLs xZALfMEL8FEyaa441WJF5UP xzYmtwYWdlXHBnbmNvbnRcc GduZGVjXHBsYWluXHBsYWlu XGYwXGZzMjRccWxccGxhaW5 cYeTuCiNqGIrfJA4wCRUhI2 hhkPZqOHZqQDQxT8flUdIpk M8kuDfrXJgkhbZnYLUyzjZl gz1xKSrgQEH4 [facility] [id number] 15:57:00Surgical Pathology Report Case: [id number] Authorizing Provider: Duong Hernandez, Collected: 05/24/2020 08:00 AM OrderingLocation: [facility] Received: 05/24/2020 09:52 AM PERIOPERATIVE SERVICES Pathologist: Jakub Parra MD Specimen: Carotid, Right, RIGHT CAROTID PLAQUE EARTERY, RIGHT CAROTID, ENDARTERECTOMY:CALCIFIC ATHEROSCLEROTIC PLAQUE Signing Pathologist Direct Phone Line: [phone] signed by Jakub Parra MD on 05/28/2020 at 3:57 [id number]; [id number] diagnosis: Carotid stenosis, rightA. Carotid, rightReceived in formalin labeled with the patient's name, accession number and "right carotid plaque" is a 3.5 cm in length x 0.7 cm in diameter jean-yellow, tubular piece of focally calcified plaque. [employer] Researcher sections are submitted in A1 following decalcification. PA/pl PerformedBASIC METABOLIC [id number] 07:20:00 Test Item Value Reference Range Interpretation Comments SODIUM (BEAKER) 140 meq/L 136-145 (test code = 381) POTASSIUM (BEAKER) 4.1 meq/L 3.5-5.1 (test code = 379) CHLORIDE (BEAKER) 101 meq/L 98-107 (test code = 382) CO2 (BEAKER) (test 32 meq/L 22-29 H code = 355) BLOOD UREA NITROGEN 75 mg/dL 7-21 H (BEAKER) (test code = 354) CREATININE (BEAKER) 3.01 mg/dL 0.57-1.25 H (test code = 358) GLUCOSE RANDOM 113 mg/dL 70-105 H (BEAKER) (test code = 652) CALCIUM (BEAKER) 9.1 mg/dL 8.4-10.2 (test code = 697) EGFR (BEAKER) (test 15 mL/min/1.73 ESTIMA ISAC GFR IS code = 1092) sq m NOT ACCURATE CREATININE CLEARANCE IN PREDICTING GLOMERULAR FILTRATION RATE . ESTIMATED GFR I S NOT APPLICABLE FOR DIALYSIS PATIEN TS. Farm Implement Engine Mechanic ID - BASHIR [id number] 07:14:00 Test Item Value Reference Range Interpretation Comments PHOSPHORUS (BEAKER) (test code = 3.2 mg/dL 2.3-4.7 604) [employer] Engine Mechanic ID - BASHIR [id number] 07:14:00 Test Item Value Reference Range Interpretation Comments MAGNESIUM (BEAKER) (test code = 2.2 mg/dL 1.6-2.6 627) [employer] Engine Mechanic ID - BASHIR LRAD, CHEST, 1 VIEW, NON [id number] 06:56:00Reason for exam:->pulmonary edema postopShould this be performed at the bedside?->Yes FINAL REPORT RAD, CHEST, 1 VIEW, NON DEPT INDICATION: pulmonary edema postop COMPARISON: Prior day's exam FINDINGS: Portable frontal view of the chest. IMPRESSION: Support Lines: None. Lungs and pleura: Coarsened interstitial markings are stable. There is decreasing right effusion. Bibasilar subsegmental atelectasis noted. No pneumothorax.Heart and mediastinum: Stable contours. Stable surgical changes.Additional findings: None. Signed: JR Smith Robert MDReport Verified Date/Time: 05/28/2020 06:56:40 Reading Location: [facility] Radiology Reading Room XR chest 1 view portable / [id number] 06:56:00Interface, External Ris In - 05/28/2020 6:58 AM CDTFINAL REPORT RAD, CHEST, 1 VIEW, NON DEPT INDICATION: pulmonary edema postop COMPARISON: Prior day's exam FINDINGS: Portable frontal view of the chest. IMPRESSION: Support Lines: None. Lungs and pleura: Coarsened interstitial markings are stable. There is decreasing right effusion. Bibasilar subsegmental atelectasis noted. No pneumothorax.Heart and mediastinum: Stable contours. Stable surgical changes.Additional findings: None. Signed: JR Smith Robert MDReport Verified Date/Time: 05/28/2020 06:56:40 Reading Location: [facility] Radiology Reading Room [facility] CBC W/PLT COUNT & AUTO [id number] 04:49:00 Test Item Value Reference Range Interpretation Comments WHITE BLOOD CELL COUNT (BEAKER) 10.1 K/ L 3.5-10.5 (test code = 775) RED BLOOD CELL COUNT (BEAKER) 2.97 M/ L 3.93-5.22 L (test code = 761) HEMOGLOBIN (BEAKER) (test code = 8.3 GM/DL 11.2-15.7 L 410) HEMATOCRIT (BEAKER) (test code = 26.3 % 34.1-44.9 L 411) MEAN CORPUSCULAR VOLUME (BEAKER) 88.6 fL 79.4-94.8 (test code = 753) MEAN CORPUSCULAR HEMOGLOBIN 27.9 pg 25.6-32.2 (BEAKER) (test code = 751) MEAN CORPUSCULAR HEMOGLOBIN CONC 31.6 GM/DL 32.2-35.5 L (BEAKER) (test code = 752) RED CELL DISTRIBUTION WIDTH 15.0 % 11.7-14.4 H (BEAKER) (test code = 412) PLATELET COUNT (BEAKER) (test 263 K/CU MM 150-450 code = 756) MEAN PLATELET VOLUME (BEAKER) 9.6 fL 9.4-12.3 (test code = 754) NUCLEATED RED BLOOD CELLS 0 /100 WBC 0-0 (BEAKER) (test code = 413) NEUTROPHILS RELATIVE PERCENT 75 % (BEAKER) (test code = 429) LYMPHOCYTES RELATIVE PERCENT 8 % (BEAKER) (test code = 430) MONOCYTES RELATIVE PERCENT 7 % (BEAKER) (test code = 431) EOSINOPHILS RELATIVE PERCENT 9 % (BEAKER) (test code = 432) BASOPHILS RELATIVE PERCENT 0 % (BEAKER) (test code = 437) NEUTROPHILS ABSOLUTE COUNT 7.58 K/ L 1.56-6.13 H (BEAKER) (test code = 670) LYMPHOCYTES ABSOLUTE COUNT 0.79 K/ L 1.18-3.74 L (BEAKER) (test code = 414) MONOCYTES ABSOLUTE COUNT (BEAKER) 0.65 K/ L 0.24-0.36 H (test code = 415) EOSINOPHILS ABSOLUTE COUNT 0.92 K/ L 0.04-0.36 H (BEAKER) (test code = 416) BASOPHILS ABSOLUTE COUNT (BEAKER) 0.02 K/ L 0.01-0.08 (test code = 417) IMMATURE GRANULOCYTES-RELATIVE 1 % 0-1 PERCENT (BEAKER) (test code = 2801) [id number] 04:33:00 Test Item Value Reference Range Interpretation Comments Hemoglobin (test code = 8.3 11.2- 15.7 GM/DL L 786-4) RAGHAVENDRA (test code = RAGHAVENDRA) [employer] Engine Mechanic ID - [id number] Lab Interpretation (test Abnormal code = 51130-1) [facility]2020-[facility] 04:33:00 Test Item Value Reference Range Interpretation Comments HEMOGLOBIN (BEAKER) (test code = 8.3 GM/DL 11.2-15.7 L 410) [employer] Im[employer] Engine Mechanic ID - [id number] 10:32:42Interface, External Ris In - 05/27/2020 10:32 AM CDTVentricular Rate 65 BPMAtrial Rate 67 BPMQRS Duration 98 msQ-T Interval 426 msQTC Calculation(Bazett) 443 msR Gambell -55 degreesT Gambell -83 degreessinuswith 1st av blockLeft axis deviationNonspecific ST and T wave abnormalityAbnormal ECGWhen compared with ECG of 23-MAY-2020 11:54,Vent. rate has decreased BY 34 BPMCriteria for Anteroseptal infarct areno longer PresentT wave inversion now evident in Inferior leadsQT has shortenedConfirmed by MD Gallego Roberto ([id number]) on 05/27/2020 10:32:40 [facility], 1 VIEW, NON [id number] 07:32:00Reason for exam:- >pulmonary edema postopShould this be performed at the bedside?->YesFINAL REPORT RAD, CHEST, 1 VIEW, NON DEPT INDICATION: pulmonary edema postop COMPARISON: Prior day's exam FINDINGS: Portable frontal view of the chest. IMPRESSION: Support Lines: Unchanged. Lungs and pleura: Bilateral effusions and right basilar airspace disease are decreased in the interim No pneumothorax.Heart and mediastinum: Stable contours. Stable surgical changes.Additional findings: None. Signed: Lou Peace Verified Date/Time: 05/27/2020 07:32:38 Reading Location: [address] Neuro Reading Room Electronically signed by: Jose VALDEZ 05/27/2020 07:32 AMIron, TIBC, % sat. (without ferritin)2020-05-27 06:06:00 Test Item Value Reference Range Interpretation Comments Iron (test code = 2498-4) 21.0 ug/dL 40-160 L TIBC (test code = 2500-7) 181 ug/dL 250-450 L Iron % Saturation (test 12 % 20-55 L code = 2502-3) RAGHAVENDRA (test code = RAGHAVENDRA) [employer] Im[employer] Engine Mechanic ID - [id number] L Lab Interpretation (test Abnormal code = 50760-1) [facility] HospitalIR[facility], [facility], % SAT. (WITHOUT FERRITIN)2020-05-27 06:06:00 Test Item Value Reference Range Interpretation Comments IRON (BEAKER) (test code = 547) 21.0 ug/dL 40.0-160.0 L TOTAL IRON BINDING CAPACITY 181 ug/dL 250-450 L (BEAKER) (test code = 769) IRON % SATURATION (2) (BEAKER) 12 % 20-55 L (test code = 2590) [employer] ABDULKADIR CAMEJO [id number] 05:59:00 Test Item Value Reference Range Interpretation Comments Ferritin (test code = 273.77 ng/mL 5-275 2276-4) RAGHAVENDRA (test code = RAGHAVENDRA) [employer] ID Indira CAMEJO L Lab Interpretation (test Normal code = 31600-0) [facility] 05:59[facility]00 Test Item Value Reference Range Interpretation Comments FERRITIN (BEAKER) (test code = 273.77 ng/mL 5.00-275.00 361) [employer] ABDULKADIR CAMEJO LCalcium, [id number] 05:40:00 Test Item Value Reference Range Interpretation Comments Calcium, Ion (test code = 1.08 mmol/L 1.12-1.27 L 1993-12) pH, Blood (test code = 7.35 77661-0) RAGHAVENDRA (test code = RAGHAVENDRA) Check serum Ionized Calcium level after 4 hours after IV Calcium replacement. Lab Interpretation (test Abnormal code = 80961-1) [facility], [id number] 05:40:00 Test Item Value Reference Range Interpretation Comments CALCIUM IONIZED (BEAKER) (test 1.08 mmol/L 1.12-1.27 L code = 698) PH, BLOOD (BEAKER) (test code = 7.35 1810) Check serum Ionized Calcium level after 4 hours after IV Calcium replacement. BASIC METABOLIC [id number] 05:27:00 Test Item Value Reference Range Interpretation Comments SODIUM (BEAKER) 139 meq/L 136-145 (test code = 381) POTASSIUM (BEAKER) 4.0 meq/L 3.5-5.1 (test code = 379) CHLORIDE (BEAKER) 102 meq/L 98-107 (test code = 382) CO2 (BEAKER) (test 26 meq/L 22-29 code = 355) BLOOD UREA NITROGEN 73 mg/dL 7-21 H (BEAKER) (test code = 354) CREATININE (BEAKER) 3.05 mg/dL 0.57-1.25 H (test code = 358) GLUCOSE RANDOM 114 mg/dL 70-105 H (BEAKER) (test code = 652) CALCIUM (BEAKER) 9.1 mg/dL 8.4-10.2 (test code = 697) EGFR (BEAKER) (test 14 mL/min/1.73 ESTIMA ISAC GFR IS code = 1092) sq m NOT ACCURATE CREATININE CLEARANCE IN PREDICTING GLOMERULAR FILTRATION RATE . ESTIMATED GFR I S NOT APPLICABLE FOR DIALYSIS PATIEN TS. Farm [employer] Engine Mechanic ID - BASHIR [id number] 05:18:00 Test Item Value Reference Range Interpretation Comments PHOSPHORUS (BEAKER) (test code = 3.5 mg/dL 2.3-4.7 604) [employer] Engine Mechanic ID - BASHIR [id number] 05:18:00 Test Item Value Reference Range Interpretation Comments MAGNESIUM (BEAKER) (test code = 2.1 mg/dL 1.6-2.6 627) [employer] Engine Mechanic ID - BASHIR LCBC W/PLT COUNT & AUTO [id number] 04:52:00 Test Item Value Reference Range Interpretation Comments WHITE BLOOD CELL COUNT (BEAKER) 13.0 K/ L 3.5-10.5 H (test code = 775) RED BLOOD CELL COUNT (BEAKER) 2.99 M/ L 3.93-5.22 L (test code = 761) HEMOGLOBIN (BEAKER) (test code = 8.5 GM/DL 11.2-15.7 L 410) HEMATOCRIT (BEAKER) (test code = 26.4 % 34.1-44.9 L 411) MEAN CORPUSCULAR VOLUME (BEAKER) 88.3 fL 79.4-94.8 (test code = 753) MEAN CORPUSCULAR HEMOGLOBIN 28.4 pg 25.6-32.2 (BEAKER) (test code = 751) MEAN CORPUSCULAR HEMOGLOBIN CONC 32.2 GM/DL 32.2-35.5 (BEAKER) (test code = 752) RED CELL DISTRIBUTION WIDTH 15.3 % 11.7-14.4 H (BEAKER) (test code = 412) PLATELET COUNT (BEAKER) (test 256 K/CU MM 150-450 code = 756) MEAN PLATELET VOLUME (BEAKER) 9.5 fL 9.4-12.3 (test code = 754) NUCLEATED RED BLOOD CELLS 0 /100 WBC 0-0 (BEAKER) (test code = 413) NEUTROPHILS RELATIVE PERCENT 82 % (BEAKER) (test code = 429) LYMPHOCYTES RELATIVE PERCENT 7 % (BEAKER) (test code = 430) MONOCYTES RELATIVE PERCENT 7 % (BEAKER) (test code = 431) EOSINOPHILS RELATIVE PERCENT 4 % (BEAKER) (test code = 432) BASOPHILS RELATIVE PERCENT 0 % (BEAKER) (test code = 437) NEUTROPHILS ABSOLUTE COUNT 10.62 K/ L 1.56-6.13 H (BEAKER) (test code = 670) LYMPHOCYTES ABSOLUTE COUNT 0.89 K/ L 1.18-3.74 L (BEAKER) (test code = 414) MONOCYTES ABSOLUTE COUNT (BEAKER) 0.84 K/ L 0.24-0.36 H (test code = 415) EOSINOPHILS ABSOLUTE COUNT 0.49 K/ L 0.04-0.36 H (BEAKER) (test code = 416) BASOPHILS ABSOLUTE COUNT (BEAKER) 0.02 K/ L 0.01-0.08 (test code = 417) IMMATURE GRANULOCYTES-RELATIVE 1 % 0-1 PERCENT (BEAKER) (test code = 2801) BASIC METABOLIC [id number] 16:04:00 Test Item Value Reference Range Interpretation Comments SODIUM (BEAKER) 138 meq/L 136-145 (test code = 381) POTASSIUM (BEAKER) 4.6 meq/L 3.5-5.1 (test code = 379) CHLORIDE (BEAKER) 104 meq/L 98-107 (test code = 382) CO2 (BEAKER) (test 27 meq/L 22-29 code = 355) BLOOD UREA NITROGEN 72 mg/dL 7-21 H (BEAKER) (test code = 354) CREATININE (BEAKER) 3.03 mg/dL 0.57-1.25 H (test code = 358) GLUCOSE RANDOM 95 mg/dL 70-105 (BEAKER) (test code = 652) CALCIUM (BEAKER) 9.3 mg/dL 8.4-10.2 (test code = 697) EGFR (BEAKER) (test 15 mL/min/1.73 ESTIMA ISAC GFR IS code = 1092) sq m NOT ACCURATE CREATININE CLEARANCE IN PREDICTING GLOMERULAR FILTRATION RATE . ESTIMATED GFR I S NOT APPLICABLE FOR DIALYSIS PATIEN TS. Farm [employer] Engine Mechanic ID - NTPBASIC METABOLIC [id number] 07:28:00 Test Item Value Reference Range Interpretation Comments SODIUM (BEAKER) 139 meq/L 136-145 (test code = 381) POTASSIUM (BEAKER) 4.7 meq/L 3.5-5.1 (test code = 379) CHLORIDE (BEAKER) 108 meq/L 98-107 H (test code = 382) CO2 (BEAKER) (test 19 meq/L 22-29 L code = 355) BLOOD UREA NITROGEN 71 mg/dL 7-21 H (BEAKER) (test code = 354) CREATININE (BEAKER) 3.24 mg/dL 0.57-1.25 H (test code = 358) GLUCOSE RANDOM 113 mg/dL 70-105 H (BEAKER) (test code = 652) CALCIUM (BEAKER) 9.0 mg/dL 8.4-10.2 (test code = 697) EGFR (BEAKER) (test 13 mL/min/1.73 ESTIMA ISAC GFR IS code = 1092) sq m NOT ACCURATE CREATININE CLEARANCE IN PREDICTING GLOMERULAR FILTRATION RATE . ESTIMATED GFR I S NOT APPLICABLE FOR DIALYSIS PATIEN TS. Farm Implement Engine Mechanic ID - EDASIOperator ID - PIAYA [id number] 05:04:00 Test Item Value Reference Range Interpretation Comments MAGNESIUM (BEAKER) (test code = 2.4 mg/dL 1.6-2.6 627) Farm [employer] Engine Mechanic ID - [id number] 05:04:00 Test Item Value Reference Range Interpretation Comments PHOSPHORUS (BEAKER) (test code = 4.9 mg/dL 2.3-4.7 H 604) Farm Im[employer] Engine Mechanic ID - EDASICBC W/PLT COUNT & AUTO [id number] 05:01:00 Test Item Value Reference Range Interpretation Comments WHITE BLOOD CELL COUNT (BEAKER) 13.1 K/ L 3.5-10.5 H (test code = 775) RED BLOOD CELL COUNT (BEAKER) 3.11 M/ L 3.93-5.22 L (test code = 761) HEMOGLOBIN (BEAKER) (test code = 8.8 GM/DL 11.2-15.7 L 410) HEMATOCRIT (BEAKER) (test code = 27.7 % 34.1-44.9 L 411) MEAN CORPUSCULAR VOLUME (BEAKER) 89.1 fL 79.4-94.8 (test code = 753) MEAN CORPUSCULAR HEMOGLOBIN 28.3 pg 25.6-32.2 (BEAKER) (test code = 751) MEAN CORPUSCULAR HEMOGLOBIN CONC 31.8 GM/DL 32.2-35.5 L (BEAKER) (test code = 752) RED CELL DISTRIBUTION WIDTH 15.5 % 11.7-14.4 H (BEAKER) (test code = 412) PLATELET COUNT (BEAKER) (test 223 K/CU MM 150-450 code = 756) MEAN PLATELET VOLUME (BEAKER) 9.5 fL 9.4-12.3 (test code = 754) NUCLEATED RED BLOOD CELLS 0 /100 WBC 0-0 (BEAKER) (test code = 413) NEUTROPHILS RELATIVE PERCENT 85 % (BEAKER) (test code = 429) LYMPHOCYTES RELATIVE PERCENT 7 % (BEAKER) (test code = 430) MONOCYTES RELATIVE PERCENT 7 % (BEAKER) (test code = 431) EOSINOPHILS RELATIVE PERCENT 1 % (BEAKER) (test code = 432) BASOPHILS RELATIVE PERCENT 0 % (BEAKER) (test code = 437) NEUTROPHILS ABSOLUTE COUNT 11.14 K/ L 1.56-6.13 H (BEAKER) (test code = 670) LYMPHOCYTES ABSOLUTE COUNT 0.91 K/ L 1.18-3.74 L (BEAKER) (test code = 414) MONOCYTES ABSOLUTE COUNT (BEAKER) 0.85 K/ L 0.24-0.36 H (test code = 415) EOSINOPHILS ABSOLUTE COUNT 0.06 K/ L 0.04-0.36 (BEAKER) (test code = 416) BASOPHILS ABSOLUTE COUNT (BEAKER) 0.03 K/ L 0.01-0.08 (test code = 417) IMMATURE GRANULOCYTES-RELATIVE 1 % 0-1 PERCENT (BEAKER) (test code = 2801) RAD, CHEST, 1 VIEW, NON [id number] 04:16:00Reason for exam:->pulmonary edema postopShould this be performed at the bedside?->YesFINAL REPORT RAD, CHEST, 1 VIEW, NON DEPT INDICATION: pulmonary edema postop C OMPARISON: Prior day's exam FINDINGS: Portable frontal view of the chest. IMPRESSION: Support Lines: No significant change. Lungs and pleura: Increased airspace disease and small layering pleural effusions. No pneumothorax.Heart and mediastinum: Stable contours. Additional findings: None. Signed: Hilario Clifton MDReport Verified Date/Time: 05/26/2020 04:16:40 Lipid [id number] 19:02:00 Test Item Value Reference Range Interpretation Comments Triglycerides (test 145 mg/dL code = 2571-8) Cholesterol (test code 195 mg/dL = 2093-3) HDL (test code = 32 mg/dL 5-9) LDL Calculated (test 134 mg/dL code = 34724-1) RAGHAVENDRA (test code = RAGHAVENDRA) Triglyceride Reference Range: Low Risk <150 Borderline 150-199 High Risk 200-499 Very High Risk >=500 Cholesterol Reference Range: Low Risk <200 Borderline 200-239 High Risk >240 HDL Cholesterol Reference Range: Low Risk >=60 High Risk <40 LDL Cholesterol Reference Range: Optimal <100 Near Optimal 100-129 Borderline 130-159 High 160-189 Very High >=190 Farm [employer] Engine Mechanic ID - NTP [facility] [id number] 19:02:00 Test Item Value Reference Range Interpretation Comments TRIGLYCERIDES (BEAKER) (test code = 145 mg/dL 540) CHOLESTEROL (BEAKER) (test code = 195 mg/dL 631) HDL CHOLESTEROL (BEAKER) (test code 32 mg/dL = 976) LDL CHOLESTEROL CALCULATED (BEAKER) 134 mg/dL (test code = 633) Triglyceride Reference Range: Low Risk <150 Borderline 150-199 High Risk 200-499 Very High Risk >=500Cholesterol Reference Range: Low Risk <200 Borderline 200-239 High Risk >240HDL Cholesterol Reference Range: Low Risk >=60 High Risk <40LDL Cholesterol Reference Range: Optimal <100 Near Optimal 100-129 Borderline 130-159 High 160-189 Very High >=190 Farm Im[employer] Engine Mechanic ID - [id number] 19:02:00 Test Item Value Reference Range Interpretation Comments MAGNESIUM (BEAKER) (test code = 2.4 mg/dL 1.6-2.6 627) Farm Implement Engine Mechanic ID - [id number] 19:02:00 Test Item Value Reference Range Interpretation Comments PHOSPHORUS (BEAKER) (test code = 4.3 mg/dL 2.3-4.7 604) Farm Im[employer] Engine Mechanic ID - NTPBASIC METABOLIC [id number] 19:02:00 Test Item Value Reference Range Interpretation Comments SODIUM (BEAKER) 141 meq/L 136-145 (test code = 381) POTASSIUM (BEAKER) 5.2 meq/L 3.5-5.1 H (test code = 379) CHLORIDE (BEAKER) 109 meq/L 98-107 H (test code = 382) CO2 (BEAKER) (test 24 meq/L 22-29 code = 355) BLOOD UREA NITROGEN 70 mg/dL 7-21 H (BEAKER) (test code = 354) CREATININE (BEAKER) 3.14 mg/dL 0.57-1.25 H (test code = 358) GLUCOSE RANDOM 134 mg/dL 70-105 H (BEAKER) (test code = 652) CALCIUM (BEAKER) 9.0 mg/dL 8.4-10.2 (test code = 697) EGFR (BEAKER) (test 14 mL/min/1.73 ESTIMA ISAC GFR IS code = 1092) sq m NOT ACCURATE CREATININE CLEARANCE IN PREDICTING GLOMERULAR FILTRATION RATE . ESTIMATED GFR I S NOT APPLICABLE FOR DIALYSIS PATIEN TS. Farm Implement Engine Mechanic ID - [id number] (Hemogram only)2020-05-25 18:39:00 Test Item Value Reference Range Interpretation Comments WBC (test code = 6690-2) 15.8 3.5- 10.5 K/L H RBC (test code = 789-8) 3.39 3.93- 5.22 M/L L MCHC (test code = 786-4) 31.7 32.2- 35.5 GM/DL L Hematocrit (test code = 4544-3) 30.3 % 34.1-44.9 L MCV (test code = 787-2) 89.4 fL 79.4-94.8 MCH (test code = 785-6) 28.3 pg 25.6-32.2 RDW (test code = 788-0) 15.5 % 11.7-14.4 H Platelets (test code = 777-3) 263 150- 450 K/CU MM MPV (test code = 82835-4) 9.4 fL 9.4-12.3 nRBC (test code = 413) 0 0- 0 /100 WBC Lab Interpretation (test code = Abnormal 17146-7) [facility] (HEMOGRAM ONLY)2020-05-25 18:39:00 Test Item Value Reference Range Interpretation Comments WHITE BLOOD CELL COUNT (BEAKER) 15.8 K/ L 3.5-10.5 H (test code = 775) RED BLOOD CELL COUNT (BEAKER) 3.39 M/ L 3.93-5.22 L (test code = 761) HEMOGLOBIN (BEAKER) (test code = 9.6 GM/DL 11.2-15.7 L 410) HEMATOCRIT (BEAKER) (test code = 30.3 % 34.1-44.9 L 411) MEAN CORPUSCULAR VOLUME (BEAKER) 89.4 fL 79.4-94.8 (test code = 753) MEAN CORPUSCULAR HEMOGLOBIN 28.3 pg 25.6-32.2 (BEAKER) (test code = 751) MEAN CORPUSCULAR HEMOGLOBIN CONC 31.7 GM/DL 32.2-35.5 L (BEAKER) (test code = 752) RED CELL DISTRIBUTION WIDTH 15.5 % 11.7-14.4 H (BEAKER) (test code = 412) PLATELET COUNT (BEAKER) (test 263 K/CU MM 150-450 code = 756) MEAN PLATELET VOLUME (BEAKER) 9.4 fL 9.4-12.3 (test code = 754) NUCLEATED RED BLOOD CELLS 0 /100 WBC 0-0 (BEAKER) (test code = 413) POC-Glucose [id number] 18:03:00 Test Item Value Reference Range Interpretation Comments POC-Glucose Meter (test 115 mg/dL 70-110 H : TE STED AT [facility] code = 1538) [address] [place], [address]: Farm Implement Engine Mechanic/Techni roman ID = [id number] for TRA KIM Lab Interpretation (test Abnormal code = 57119-7) [facility] [id number] 18:03:00 Test Item Value Reference Range Interpretation Comments POC-GLUCOSE METER 115 mg/dL 70-110 H : TESTED A T [facility] 67[address] (BEAKER) (test code = [address] [place], 1538) [address]: Farm Implement Engine Mechanic/Techni roman ID = [id number] for TRA BLAKELY RAD, CHEST, 1 VIEW, NON [id number] 16:31:00Reason for exam:- >dyspneaShould this be performed at the bedside?->YesFINAL REPORT TECHNIQUE: Frontal view of the chest. INDICATION: dyspnea COMPARI SON: 05/24/2020. FINDINGS: LINES/TUBES: None. LUNGS: Interval increased perihilar and bibasilar pulmonary opacities. PLEURA: Interval increased small bilateral pleural effusions.. HEART AND MEDIASTINUM: The cardiomediastinal silhouette is enlarged, unchanged. Postsurgical changes noted from median ster notomy.. SOFT TISSUES AND BONES: Unremarkable. IMPRESSION:Cardiomegaly with worsening pulmonary edema and bilateral pleural effusions. Superimposed pneumonia is not excluded.. Signed: Azael Marks MDReport Verified Date/Time: 05/25/2020 16:31:01 Reading Location: [address] POCT-GLUCOSE [id number] 11:47:00 Test Item Value Reference Range Interpretation Comments POC-GLUCOSE METER 105 mg/dL 70-110 : TESTED A T [facility] [address] (BEAKER) (test code = [place], 1538) [address]: Farm Implement Engine Mechanic/Techni roman ID = [id number] for TRA BLAKELY 2D Echo W/Doppler(CW/PW/Color)2020-05-25 08:50:50Ejection FractionSLEH ECHO HEARTLAB MKCKESSON CPACSInterface, External Ris In - 05/25/2020 8:51 AM C DTTransthoracic Echocardiography Report (TTE) Demographics Patient Name NAT CAVAZOS Date of Study 05/24/2020 SIRISHA Gender Female Visit Number [id number] Race Unknown Room Number 8A03 Number Date of 1930 Referring Physician ADRIEL Thornton Age 89 year(s) 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 Normal LV size and function. LVEF is 55-60% 2. Diastology: Indeterminate 3. Normal RV size and function 4. S/p AVR. Pk / Mn : 29/16 mm Hg DI=0.49 5. 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 Mean gradient ia 10-11 mm Hg at 72 BPM. Mild MR 6. Moderate TR. EstimatedPASP is 45- 50 mm Hg 7. No pericardial effusion Previous Study No prior studies available for comparison. Signature Findings Rhythm/BP Regular sinus rhythm during the exam. Left Ventricle The LV endocardium is adequately visualized.The left ventricle is chamber size (by vol index) is normal (female - LVED vol - 29- 61ml/m2). Borderline concentric LV hypertrophy. All of the LV segments contract normally . LVEF by Paredes's method of disk assessment is normal (55-60%) . LV diastolic function is indeterminate. Left Atrium LA size is normal (16-34 ml/m2) . Right Ventricle Normal RV size In limited views, the right ventricular chamber size and systolic function are within normal limits. Normal TAPSE and tissue doppler. Right Atrium RA size is probably normal based on available views. Atrial Septum Normal interatrial septum by available views. Aortic Valve A bioprosthetic AoV is visualized AoV dimensionless obstructive index (DOI)) is 0.49 .Peak Grad; 30 ,Mean Grad; 16 At least mild regurgitation is present Mitral Valve Moderate thickening and calcification of the leaflets. 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 Mild mitral annular calcification. Mild calcificatio n of both anterior and posterior leaflet(s) of mitral valve. The submitral apparatus appears thickened and calcified . Tricuspid Valve TV structure is normal. Moderate tricuspid regurgitation. Estimated peak systolic PA pressure is 45-50 mmHg Pulmonic Valve Normal PV structure and function by limited views and Doppler. Aorta Aortic root size (SInus of Valsalva diameter) is normal . Pericardium No significant pericardial effusion is visualized. IVC/SVC/PA/PV/Pleural The estimated RA [...] 0.98 Mean Velocity: 1.61 m/s Peak Gradient: 14.19mmHg Mean Gradient: 11.5 mmHg Area (continuity): 1.49 cm^2 MV VTI: 68.02 cm MV Jvue. Peak: 2.42 m/s Tissue Doppler E' Septal [...] Mean Gradient: 4.25 mmHg LVOT Diameter: 2.24 cm LVOT VTI: 25.8 cm LVOT Area: 3.94 cm^2 LVOT SV:101.62 ml LVOT CO: 6.2 l/min LVOT CI: 3.6 l/min/m^2 Tricuspid Valve TR Velocity: 2.84 m/s TR Gradient: 32.24 mmHgCottage Children's HospitalPOCT- GLUCOSE [id number] 08:16:00 Test Item Value Reference Range Interpretation Comments POC-GLUCOSE METER 79 mg/dL 70-110 : TESTED A T [facility] (BEAKER) (test code = [facility], 1538) [address]: Farm Implement Engine Mechanic/Techni roman ID = [id number] for TRA GANDHI POCT-GLUCOSE [id number] 05:36:00 Test Item Value Reference Range Interpretation Comments POC-GLUCOSE METER 127 mg/dL 70-110 H : TESTED A T [facility] ([employer]) (test code = [facility], 1538) [id number]: Farm Implement Engine Mechanic/Techni roman ID = [id number] for NASIR ANIKET [place] Comprehensive metabolic [id number] 05:00:00 Test Item Value Reference Range Interpretation Comments Protein, Total (test 6.3 6.0- 8.3 gm/dL code = 2885-2) Albumin (test code = 4.0 g/dL 3.5-5 72906-3) Alkaline Phosphatase 54 U/L 40-150 (test code = 6768-6) Total Bilirubin (test 0.6 mg/dL 0.2-1.2 code = 1975-2) Sodium (test code = 143 meq/L 027-167 6768-2) Potassium (test code = 4.6 meq/L 3.5-5.1 2823-3) Chloride (test code = 112 meq/L 98-107 H 5-0) CO2 (test code = 21 meq/L 22-29 L 8-9) BUN (test code = 73 mg/dL 7-21 H 3094-0) Creatinine (test code 2.99 mg/dL 0.57-1.25 H = 2160-0) Glucose (test code = 151 mg/dL 70-105 H 2345-7) Calcium (test code = 8.8 mg/dL 8.4-10.2 45739-3) AST (test code = 13 U/L 5-34 1920-8) ALT (test code = 6 U/L 6-55 1742-6) EGFR (test code = 15 mL/min/1.73 [place] [address]-0) NOT ACCURATE CREATININE CLEARANCE IN PREDICTING GLOMERULAR FILTRATION RATE . ESTIMATED GFR I S NOT APPLICABLE FOR DIALYSIS PATIENTS. RAGHAVENDRA (test code = RAGHAVENDRA) Farm Implement Engine Mechanic ID - EDASI Lab Interpretation Abnormal (test code = 71314-4) [facility] HospitalCOMPREHENSIVE METABOLIC [id number] 05:00:00 Test Item Value Reference Range Interpretation Comments TOTAL PROTEIN 6.3 gm/dL 6.0-8.3 (BEAKER) (test code = 770) ALBUMIN (BEAKER) 4.0 g/dL 3.5-5.0 (test code = 1145) ALKALINE PHOSPHATASE 54 U/L 40-150 (BEAKER) (test code = 346) BILIRUBIN TOTAL 0.6 mg/dL 0.2-1.2 (BEAKER) (test code = 377) SODIUM (BEAKER) (test 143 meq/L 136-145 code = 381) POTASSIUM (BEAKER) 4.6 meq/L 3.5-5.1 (test code = 379) CHLORIDE (BEAKER) 112 meq/L 98-107 H (test code = 382) CO2 (BEAKER) (test 21 meq/L 22-29 L code = 355) BLOOD UREA NITROGEN 73 mg/dL 7-21 H (BEAKER) (test code = 354) CREATININE (BEAKER) 2.99 mg/dL 0.57-1.25 H (test code = 358) GLUCOSE RANDOM 151 mg/dL 70-105 H (BEAKER) (test code = 652) CALCIUM (BEAKER) 8.8 mg/dL 8.4-10.2 (test code = 697) AST (SGOT) (BEAKER) 13 U/L 5-34 (test code = 353) ALT (SGPT) (BEAKER) 6 U/L 6-55 (test code = 347) EGFR (BEAKER) (test 15 mL/min/1.73 ESTIMA ISAC GFR IS code = 1092) sq m NOT ACCURATE CREATININE CLEARANCE IN PREDICTING GLOMERULAR FILTRATION RATE . ESTIMATED GFR I S NOT APPLICABLE FOR DIALYSIS PATIEN TS. Farm Implement Engine Mechanic ID - [id number] 04:58:00 Test Item Value Reference Range Interpretation Comments PHOSPHORUS (BEAKER) (test code = 4.5 mg/dL 2.3-4.7 604) Farm Implement Engine Mechanic ID - [id number] 04:58:00 Test Item Value Reference Range Interpretation Comments MAGNESIUM (BEAKER) (test code = 2.2 mg/dL 1.6-2.6 627) Farm Implement Engine Mechanic ID - EDASIBlood gas, [id number] 04:37:00 Test Item Value Reference Range Interpretation Comments pH, Arterial (test code = 2744-1) 7.38 7.35-7.45 pCO2, Arterial (test code = 38 35- 45 mmHg 2018-8) pO2, Arterial (test code = 116 80- 90 mmHg H 2703-7) O2 Sat, Arterial (test code = 98.2 % 96-97 H 2708-6) HCO3, Arterial (test code = 22 mmol/L 21-29 1960-4) Base Excess, Arterial (test code -3.2 mmol/L -2-3 L = 1925-7) Patient Temperature (test code = 37.0 C 8310-5) FIO2 (test code = 1819) 32 % Lab Interpretation (test code = Abnormal 62213-1) [facility] HospitalBLOOD GAS, [id number] 04:37:00 Test Item Value Reference Range Interpretation Comments PH ARTERIAL (BEAKER) (test code = 7.38 7.35-7.45 383) PCO2 ARTERIAL (BEAKER) (test code 38 mmHg 35-45 = 384) PO2 ARTERIAL (BEAKER) (test code 116 mmHg 80-90 H = 385) O2 SATURATION ARTERIAL (BEAKER) 98.2 % 96.0-97.0 H (test code = 386) HCO3 ARTERIAL (BEAKER) (test code 22 mmol/L 21-29 = 388) BASE EXCESS ARTERIAL (BEAKER) -3.2 mmol/L -2.0-3.0 L (test code = 387) PATIENT TEMPERATURE (BEAKER) 37.0 C (test code = 1818) FIO2 (BEAKER) (test code = 1819) 32.0 % CALCIUM, [id number] 04:37:00 Test Item Value Reference Range Interpretation Comments CALCIUM IONIZED (BEAKER) (test 1.10 mmol/L 1.12-1.27 L code = 698) PH, BLOOD (BEAKER) (test code = 7.38 1810) Lactic Acid, [id number] 04:29:00 Test Item Value Reference Range Interpretation Comments Lactate, Art (test code = 1.3 mmol/L 0.5-2.2 2874) RAGHAVENDRA (test code = RAGHAVENDRA) [employer] ID - EDASI Lab Interpretation (test Normal code = 02596-1) [facility] [id number] 04:29:00 Test Item Value Reference Range Interpretation Comments LACTATE BLOOD ARTERIAL (2) 1.3 mmol/L 0.5-2.2 (BEAKER) (test code = 2874) [employer] Engine Mechanic ID - [id number] W/PLT COUNT & AUTO [id number] 04:24:00 Test Item Value Reference Range Interpretation Comments WHITE BLOOD CELL COUNT (BEAKER) 9.5 K/ L 3.5-10.5 (test code = 775) RED BLOOD CELL COUNT (BEAKER) 3.01 M/ L 3.93-5.22 L (test code = 761) HEMOGLOBIN (BEAKER) (test code = 8.7 GM/DL 11.2-15.7 L 410) HEMATOCRIT (BEAKER) (test code = 26.3 % 34.1-44.9 L 411) MEAN CORPUSCULAR VOLUME (BEAKER) 87.4 fL 79.4-94.8 (test code = 753) MEAN CORPUSCULAR HEMOGLOBIN 28.9 pg 25.6-32.2 (BEAKER) (test code = 751) MEAN CORPUSCULAR HEMOGLOBIN CONC 33.1 GM/DL 32.2-35.5 (BEAKER) (test code = 752) RED CELL DISTRIBUTION WIDTH 14.9 % 11.7-14.4 H (BEAKER) (test code = 412) PLATELET COUNT (BEAKER) (test 227 K/CU MM 150-450 code = 756) MEAN PLATELET VOLUME (BEAKER) 9.7 fL 9.4-12.3 (test code = 754) NUCLEATED RED BLOOD CELLS 0 /100 WBC 0-0 (BEAKER) (test code = 413) NEUTROPHILS RELATIVE PERCENT 81 % (BEAKER) (test code = 429) LYMPHOCYTES RELATIVE PERCENT 8 % (BEAKER) (test code = 430) MONOCYTES RELATIVE PERCENT 7 % (BEAKER) (test code = 431) EOSINOPHILS RELATIVE PERCENT 3 % (BEAKER) (test code = 432) BASOPHILS RELATIVE PERCENT 0 % (BEAKER) (test code = 437) NEUTROPHILS ABSOLUTE COUNT 7.73 K/ L 1.56-6.13 H (BEAKER) (test code = 670) LYMPHOCYTES ABSOLUTE COUNT 0.80 K/ L 1.18-3.74 L (BEAKER) (test code = 414) MONOCYTES ABSOLUTE COUNT (BEAKER) 0.67 K/ L 0.24-0.36 H (test code = 415) EOSINOPHILS ABSOLUTE COUNT 0.24 K/ L 0.04-0.36 (BEAKER) (test code = 416) BASOPHILS ABSOLUTE COUNT (BEAKER) 0.02 K/ L 0.01-0.08 (test code = 417) IMMATURE GRANULOCYTES-RELATIVE 1 % 0-1 PERCENT (BEAKER) (test code = 2801) POCT-GLUCOSE [id number] 03:59:00 Test Item Value Reference Range Interpretation Comments POC-GLUCOSE METER 137 mg/dL 70-110 H : TESTED A T [facility] ([employer]) (test code = [place], 1538) [id number]: Farm Implement Engine Mechanic/Techni roman ID = [id number] for PRINCESS DICKSON VIDES POCT-GLUCOSE [id number] 00:58:00 Test Item Value Reference Range Interpretation Comments POC-GLUCOSE METER 107 mg/dL 70-110 : TESTED A T [facility] ([employer]) (test code = [place], 1538) [address]: Farm Implement Engine Mechanic/Techni roman ID = [id number] PRINCESS DICKSON [facility] BASIC METABOLIC [id number] 00:39:00 Test Item Value Reference Range Interpretation Comments SODIUM (BEAKER) 138 meq/L 136-145 (test code = 381) POTASSIUM (BEAKER) 5.0 meq/L 3.5-5.1 (test code = 379) CHLORIDE (BEAKER) 114 meq/L 98-107 H (test code = 382) CO2 (BEAKER) (test 19 meq/L 22-29 L code = 355) BLOOD UREA NITROGEN 77 mg/dL 7-21 H (BEAKER) (test code = 354) CREATININE (BEAKER) 2.89 mg/dL 0.57-1.25 H (test code = 358) GLUCOSE RANDOM 110 mg/dL 70-105 H (BEAKER) (test code = 652) CALCIUM (BEAKER) 8.7 mg/dL 8.4-10.2 (test code = 697) EGFR (BEAKER) (test 15 mL/min/1.73 ESTIMA ISAC GFR IS code = 1092) sq m NOT ACCURATE CREATININE CLEARANCE IN PREDICTING GLOMERULAR FILTRATION RATE . ESTIMATED GFR I S NOT APPLICABLE FOR DIALYSIS PATIEN TS. Farm Implement Engine Mechanic ID - PIAYA LBLOOD GAS, [id number] 00:15:00 Test Item Value Reference Range Interpretation Comments PH ARTERIAL (BEAKER) (test code = 7.31 7.35-7.45 L 383) PCO2 ARTERIAL (BEAKER) (test code 35 mmHg 35-45 = 384) PO2 ARTERIAL (BEAKER) (test code 108 mmHg 80-90 H = 385) O2 SATURATION ARTERIAL (BEAKER) 97.6 % 96.0-97.0 H (test code = 386) HCO3 ARTERIAL (BEAKER) (test code 17 mmol/L 21-29 L = 388) BASE EXCESS ARTERIAL (BEAKER) -8.4 mmol/L -2.0-3.0 L (test code = 387) PATIENT TEMPERATURE (BEAKER) 36.8 C (test code = 1818) FIO2 (BEAKER) (test code = 1819) 32.0 % Hemoglobin and [id number] 00:12:00 Test Item Value Reference Range Interpretation Comments Hemoglobin (test code = 8.0 11.2- 15.7 GM/DL L 786-4) Hematocrit (test code = 24.8 % 34.1-44.9 L 4544-3) RAGHAVENDRA (test code = RAGHAVENDRA) Farm Implement Engine Mechanic ID - [id number] Lab Interpretation (test Abnormal code = 15801-8) [facility] [id number] 00:12:00 Test Item Value Reference Range Interpretation Comments HEMOGLOBIN (BEAKER) (test code = 8.0 GM/DL 11.2-15.7 L 410) HEMATOCRIT (BEAKER) (test code = 24.8 % 34.1-44.9 L 411) Farm Implement Engine Mechanic ID - [id number] [id number] 22:16:00 Test Item Value Reference Range Interpretation Comments Troponin I (test code = 0.02 ng/mL 0-0.03 71175-5) RAGHAVENDRA (test code = RAGHAVENDRA) Troponin I (TnI) levels must be interpreted in the context of the presenting symptoms and the clinical findings. Elevated TnI levels indicate myocardial damage, but are not specific for ischemic heart disease. Elevated TnI levels are seen in patients with other cardiac conditions (including myocarditis and congestive heart failure), and slight TnI elevations occur in patients with other conditions, including sepsis, renal failure, acidosis, acute neurological disease, and persistent tachyarrhythmia.Opera tor ID - [id number] Lab Interpretation (test Normal code = 34520-2) [facility] [id number] 22:16:00 Test Item Value Reference Range Interpretation Comments TROPONIN I (BEAKER) (test code = 0.02 ng/mL 0.00-0.03 397) Troponin I (TnI) levels must be interpreted in the context of the presenting symptoms and the clinical findings. Elevated TnI levels indicate myocardial damage, but are not specific for ischemic heart disease. Elevated TnI levels are seen in patients with other cardiac conditions (including myocarditis and congestive heart failure), and slight TnI elevations occur in patients with other conditions, including sepsis, renal failure, acidosis, acute neurological disease, and persistent tachyarrhythmia.Farm Implement Engine Mechanic ID - NTPBASIC METABOLIC PANEL 2020-05-24 22:12:00 Test Item Value Reference Range Interpretation Comments SODIUM (BEAKER) 139 meq/L 136-145 (test code = 381) POTASSIUM (BEAKER) 4.8 meq/L 3.5-5.1 (test code = 379) CHLORIDE (BEAKER) 113 meq/L 98-107 H (test code = 382) CO2 (BEAKER) (test 19 meq/L 22-29 L code = 355) BLOOD UREA NITROGEN 80 mg/dL 7-21 H (BEAKER) (test code = 354) CREATININE (BEAKER) 2.99 mg/dL 0.57-1.25 H (test code = 358) GLUCOSE RANDOM 77 mg/dL 70-105 (BEAKER) (test code = 652) CALCIUM (BEAKER) 8.2 mg/dL 8.4-10.2 L (test code = 697) EGFR (BEAKER) (test 15 mL/min/1.73 ESTIMA ISAC GFR IS code = 1092) sq m NOT ACCURATE CREATININE CLEARANCE IN PREDICTING GLOMERULAR FILTRATION RATE . ESTIMATED GFR I S NOT APPLICABLE FOR DIALYSIS PATIEN TS. COMPREHENSIVE METABOLIC [id number] 22:12:00 Test Item Value Reference Range Interpretation Comments TOTAL PROTEIN 6.1 gm/dL 6.0-8.3 (BEAKER) (test code = 770) ALBUMIN (BEAKER) 3.8 g/dL 3.5-5.0 (test code = 1145) ALKALINE PHOSPHATASE 51 U/L 40-150 (BEAKER) (test code = 346) BILIRUBIN TOTAL 0.5 mg/dL 0.2-1.2 (BEAKER) (test code = 377) SODIUM (BEAKER) (test 139 meq/L 136-145 code = 381) POTASSIUM (BEAKER) 4.8 meq/L 3.5-5.1 (test code = 379) CHLORIDE (BEAKER) 113 meq/L 98-107 H (test code = 382) CO2 (BEAKER) (test 19 meq/L 22-29 L code = 355) BLOOD UREA NITROGEN 80 mg/dL 7-21 H (BEAKER) (test code = 354) CREATININE (BEAKER) 2.99 mg/dL 0.57-1.25 H (test code = 358) GLUCOSE RANDOM 77 mg/dL 70-105 (BEAKER) (test code = 652) CALCIUM (BEAKER) 8.2 mg/dL 8.4-10.2 L (test code = 697) AST (SGOT) (BEAKER) 12 U/L 5-34 (test code = 353) ALT (SGPT) (BEAKER) 7 U/L 6-55 (test code = 347) EGFR (BEAKER) (test 15 mL/min/1.73 ESTIMA ISAC GFR IS code = 1092) sq m NOT ACCURATE CREATININE CLEARANCE IN PREDICTING GLOMERULAR FILTRATION RATE . ESTIMATED GFR I S NOT APPLICABLE FOR DIALYSIS PATIEN TS. Farm Implement Engine Mechanic ID - [id number] 22:08:00 Test Item Value Reference Range Interpretation Comments PHOSPHORUS (BEAKER) (test code = 3.5 mg/dL 2.3-4.7 604) Farm Implement Engine Mechanic ID - [id number] 22:08:00 Test Item Value Reference Range Interpretation Comments MAGNESIUM (BEAKER) (test code = 2.3 mg/dL 1.6-2.6 627) Farm Implement Engine Mechanic ID - NTPLACTIC ACID, [id number] 22:04:00 Test Item Value Reference Range Interpretation Comments LACTATE BLOOD ARTERIAL (2) 1.5 mmol/L 0.5-2.2 (BEAKER) (test code = 2874) Farm Implement Engine Mechanic ID - NTPCBC W/PLT COUNT & AUTO [id number] 21:55:00 Test Item Value Reference Range Interpretation Comments WHITE BLOOD CELL COUNT (BEAKER) 10.6 K/ L 3.5-10.5 H (test code = 775) RED BLOOD CELL COUNT (BEAKER) 2.83 M/ L 3.93-5.22 L (test code = 761) HEMOGLOBIN (BEAKER) (test code = 8.1 GM/DL 11.2-15.7 L 410) HEMATOCRIT (BEAKER) (test code = 25.0 % 34.1-44.9 L 411) MEAN CORPUSCULAR VOLUME (BEAKER) 88.3 fL 79.4-94.8 (test code = 753) MEAN CORPUSCULAR HEMOGLOBIN 28.6 pg 25.6-32.2 (BEAKER) (test code = 751) MEAN CORPUSCULAR HEMOGLOBIN CONC 32.4 GM/DL 32.2-35.5 (BEAKER) (test code = 752) RED CELL DISTRIBUTION WIDTH 15.0 % 11.7-14.4 H (BEAKER) (test code = 412) PLATELET COUNT (BEAKER) (test 210 K/CU MM 150-450 code = 756) MEAN PLATELET VOLUME (BEAKER) 9.8 fL 9.4-12.3 (test code = 754) NUCLEATED RED BLOOD CELLS 0 /100 WBC 0-0 (BEAKER) (test code = 413) NEUTROPHILS RELATIVE PERCENT 79 % (BEAKER) (test code = 429) LYMPHOCYTES RELATIVE PERCENT 8 % (BEAKER) (test code = 430) MONOCYTES RELATIVE PERCENT 9 % (BEAKER) (test code = 431) EOSINOPHILS RELATIVE PERCENT 2 % (BEAKER) (test code = 432) BASOPHILS RELATIVE PERCENT 0 % (BEAKER) (test code = 437) NEUTROPHILS ABSOLUTE COUNT 8.45 K/ L 1.56-6.13 H (BEAKER) (test code = 670) LYMPHOCYTES ABSOLUTE COUNT 0.87 K/ L 1.18-3.74 L (BEAKER) (test code = 414) MONOCYTES ABSOLUTE COUNT (BEAKER) 0.96 K/ L 0.24-0.36 H (test code = 415) EOSINOPHILS ABSOLUTE COUNT 0.25 K/ L 0.04-0.36 (BEAKER) (test code = 416) BASOPHILS ABSOLUTE COUNT (BEAKER) 0.02 K/ L 0.01-0.08 (test code = 417) IMMATURE GRANULOCYTES-RELATIVE 1 % 0-1 PERCENT (BEAKER) (test code = 2801) BLOOD GAS, [id number] 21:31:00 Test Item Value Reference Range Interpretation Comments PH ARTERIAL (BEAKER) (test code = 7.34 7.35-7.45 L 383) PCO2 ARTERIAL (BEAKER) (test code 36 mmHg 35-45 = 384) PO2 ARTERIAL (BEAKER) (test code 129 mmHg 80-90 H = 385) O2 SATURATION ARTERIAL (BEAKER) 98.4 % 96.0-97.0 H (test code = 386) HCO3 ARTERIAL (BEAKER) (test code 18 mmol/L 21-29 L = 388) BASE EXCESS ARTERIAL (BEAKER) -6.7 mmol/L -2.0-3.0 L (test code = 387) PATIENT TEMPERATURE (BEAKER) 37.1 C (test code = 1818) FIO2 (BEAKER) (test code = 1819) 32.0 % CALCIUM, [id number] 21:31:00 Test Item Value Reference Range Interpretation Comments CALCIUM IONIZED (BEAKER) (test 1.14 mmol/L 1.12-1.27 code = 698) PH, BLOOD (BEAKER) (test code = 7.34 0610) RAD, CHEST, 1 VIEW, NON [id number] 20:58:00Reason for exam:->Verify CVC placementShould this be performed at the bedside?->YesFINAL REPORT TECHNIQUE: Frontal view of the chest. INDICATION: Verify CVC plac ement COMPARISON: Earlier today. FINDINGS: LINES/TUBES: Left IJ central venous catheter tip terminates in the superior vena cava.. LUNGS: Increased perihilar interstitial opacities. Linear bands in the bilateral lung bases likely representing atelectasis or scarring are unchanged. PLEURA: No pneumothorax or significant pleural effusion. HEART AND MEDIASTINUM: The cardiomediastinal silhouette is stable. Post surgical changes are noted from median sternotomy.. SOFT TISSUES AND BONES: Unremarkable. IMPRESSION:Left IJ central venous catheter tip terminates over the superior vena cava. No pneumothorax. Mild pulmonary vascular congestion. No pleural effusion.. Signed: Azael Marks MDReport Verified Date/Time: 05/24/2020 20:58:01 Reading Location: [address] Transitional Reading Room Central [id number] 20:39:59ThAna santiago NP 05/24/2020 8:43 PMCentral LineDate/Time: 05/24/2020 7:45 PMPerformed by: Ana Broderick NPAuthorized by: Ana Broderick NP Consent: Written consent obtained.Risks and benefits: risks, benefits and alternatives were discussedConsent given by: parentPatient understanding: patientstates understanding of the procedure being performedPatient consent: the patient's understanding ofthe procedure matches consent givenProcedure consent: procedure consent matches procedure scheduledRelevant documents: relevant documents present and verifiedTest results: test results available and properly labeledSite marked: the operative site was markedImaging studies: imaging studies availablePatient identity confirmed: arm band, provided demographic data and verbally with patientTime out: Immediately prior to procedure a "time out" was called to verify the correct patient, procedure, equipment, software support engineer and site/side marked as required.Indications: vascular access and central pressure monitoringAnesthesia: local infiltration Anesthesia:Local Anesthetic: lidocaine 1% without epinephrineAnesthetic total: 4 mL Sedation:Patient sedated: no Preparation: skin prepped with 2% chlorhexidineSkin prep agent dried: skin prep agent completely dried prior to procedureSterile barriers: all five maximum sterile barriers used - cap, mask, sterile gown, sterile gloves, and large sterile sheetHand hygiene: hand hygiene performed prior to central venous catheter insertionLocation details: left internal jugularSite selection rationale: Carotid Endartectomy to right IJ Patient position: reverse Trendele nburgCatheter size: 7 FrUltrasound guidance: yesSterile ultrasound techniques: sterile gel and sterile probe covers were usedNumber of attempts: 1Successful placement: yesPost-procedure: line sutured and dressing appliedAssessment: blood return through all ports, free fluid flow and no pneumothorax on x-rayPatient tolerance: Patient tolerated the procedure well with no immediate complicationsImmediate Post-Procedure Note Date/Time: 05/24/2020 8:42 PMAssistants to the procedure: NonePre-procedure diagnosis: Carotid Stenosis Post-procedure diagnosis: carotid stenosis Procedures Performed: Central Line Specimens removed: NoneEstimated blood loss (mL): NoneComplications: NoneType of anesthesia: NoneGrafts or Implants: NoneCHI Sequoia HospitalInsert Arterial [id number] 20:35:27ThAna santiago NP 05/24/2020 8:39 PMInsert Arterial LineDate/Time: 05/24/2020 8:00 PMPerformed by: Ana Broderick NPAuthorized by: Ana Broderick NP Consent: Written consent obtained.Risks and benefits: risks, benefits and alternatives were discussedConsent given by: patientPatient understanding: patient states understanding of the procedure being performedPatient consent: the patient's understanding of the procedure matches consent givenProcedure consent: procedure consent matches procedure sc heduledRelevant documents: relevant documents present and verifiedTest results: test results available and properly labeledSite marked: the operative site was markedImaging studies: imaging studies availablePatient identity confirmed: verbally with patient, arm band and provided demographic dataTime out: Immediately prior to procedure a "time out" was called to verify the correct patient, procedure, equipment, software support engineer and site/side marked as required.Preparation: Patient was prepped and drapedin the usual sterile fashion.Indications: hemodynamic monitoringLocation: right radialAnesthesia: loc al infiltration Anesthesia:Local Anesthetic: lidocaine 2% without epinephrineAnesthetic total: 2 mL Sedation:Patient sedated: no Matthew's test normal: yesNeedle gauge: 20Seldinger technique: Seldinger technique usedNumber of attempts: 1Post-procedure: line sutured and dressing appliedPost-procedure CMS: normalPatient tolerance: Patient tolerated the procedure well with no immediate complicationsComments: Digital ischemia reported to right radial before. Matthew test was normal and no ischemia noted to right hand.[facility] HospitalRAD, CHEST, 1 VIEW, NON [id number] 18:19:00Reason for exam:- >CADShould this be performed at the bedside?->YesFINAL REPORT TECHNIQUE: Frontal view of the chest. INDICATION: CAD COMPARISON: None. FINDINGS: LINES/TUBES: None. LUNGS: Linear bands of atelectasis or scarring in the bilaterallung bases and right midlung.. No consolidation or pulmonary edema. PLEURA: No pneumothorax or significant pleural effusion. HEART AND MEDIASTINUM: The cardiomediastinal silhouette is mildly enlarged. P ostsurgical changes are noted from median sternotomy.. SOFT TISSUES AND BONES: Unremarkable. IMPRESSION:Bilateral atelectasis or scarring. Otherwise no acute disease. Mild cardiomegaly status post median sternotomy.. Signed: Azael Marks MDReport Verified Date/Time: 05/24/2020 18:19:21 Reading Location: [address] Transitional Reading Room BASI METABOLIC [id number] 17:19:00 Test Item Value Reference Range Interpretation Comments SODIUM (BEAKER) 136 meq/L 136-145 (test code = 381) POTASSIUM (BEAKER) 5.7 meq/L 3.5-5.1 H (test code = 379) CHLORIDE (BEAKER) 112 meq/L 98-107 H (test code = 382) CO2 (BEAKER) (test 19 meq/L 22-29 L code = 355) BLOOD UREA NITROGEN 87 mg/dL 7-21 H (BEAKER) (test code = 354) CREATININE (BEAKER) 3.10 mg/dL 0.57-1.25 H (test code = 358) GLUCOSE RANDOM 111 mg/dL 70-105 H (BEAKER) (test code = 652) CALCIUM (BEAKER) 8.6 mg/dL 8.4-10.2 (test code = 697) EGFR (BEAKER) (test 14 mL/min/1.73 ESTIMA ISAC GFR IS code = 1092) sq m NOT ACCURATE CREATININE CLEARANCE IN PREDICTING GLOMERULAR FILTRATION RATE . ESTIMATED GFR I S NOT APPLICABLE FOR DIALYSIS PATIEN TS. Farm Implement Engine Mechanic ID - [id number] 17:14:00 Test Item Value Reference Range Interpretation Comments PHOSPHORUS (BEAKER) (test code = 5.2 mg/dL 2.3-4.7 H 604) Farm Implement Engine Mechanic ID - [id number] 17:14:00 Test Item Value Reference Range Interpretation Comments MAGNESIUM (BEAKER) (test code = 2.4 mg/dL 1.6-2.6 627) Farm Implement Engine Mechanic ID - DBCALCIUM, [id number] 17:04:00 Test Item Value Reference Range Interpretation Comments CALCIUM IONIZED (BEAKER) (test 1.20 mmol/L 1.12-1.27 code = 698) PH, BLOOD (BEAKER) (test code = 7.23 1810) HEMOGLOBIN AND [id number] 16:51:00 Test Item Value Reference Range Interpretation Comments HEMOGLOBIN (BEAKER) (test code = 9.8 GM/DL 11.2-15.7 L 410) HEMATOCRIT (BEAKER) (test code = 31.5 % 34.1-44.9 L 411) Farm Implement Engine Mechanic ID - [id number]/HCT (H&H)-Stat [id number] 10:11:00 Test Item Value Reference Range Interpretation Comments Hemoglobin (test code = 786-4) 10.1 g/dL 12-15 L Hematocrit (test code = 4544-3) 30.0 % 36-45 L Lab Interpretation (test code = Abnormal 46209-7) [facility] HospitalGlucose-Stat [id number] 10:11:00 Test Item Value Reference Range Interpretation Comments Glucose (test code = 2345-7) 125 mg/dL 70-110 H Lab Interpretation (test code = Abnormal 93885-9) [facility] HospitalPotassium-Stat [id number] 10:11:00 Test Item Value Reference Range Interpretation Comments Potassium (test code = 2823-3) 5.2 meq/L 3.6-5.5 Lab Interpretation (test code = Normal 20371-5) [facility] HospitalPOTASSIUM-STAT [id number] 10:11:00 Test Item Value Reference Range Interpretation Comments POTASSIUM (BEAKER) (test code = 5.2 meq/L 3.6-5.5 379) HGB/HCT (H&H) - STAT [id number] 10:11:00 Test Item Value Reference Range Interpretation Comments HEMOGLOBIN (BEAKER) (test code = 10.1 g/dL 12.0-15.0 L 410) HEMATOCRIT (BEAKER) (test code = 30.0 % 36.0-45.0 L 411) GLUCOSE-STAT [id number] 10:11:00 Test Item Value Reference Range Interpretation Comments GLUCOSE RANDOM (BEAKER) (test code 125 mg/dL 70-110 H = 652) Hemoglobin [id number] 08:48:00 Test Item Value Reference Range Interpretation Comments Hemoglobin A1C (test code = 4548-4) 6.2 % 4.3-6.1 H Lab Interpretation (test code = Abnormal 51723-2) [facility] HospitalHEMOGLOBIN [id number] 08:48:00 Test Item Value Reference Range Interpretation Comments HEMOGLOBIN A1C (BEAKER) (test code = 6.2 % 4.3-6.1 H 368) [id number] 07:47:00 Test Item Value Reference Range Interpretation Comments PTT (test code = 05391-1) 37.5 22.5- 36.0 seconds H Lab Interpretation (test code = Abnormal 19236-0) [facility] [id number] 07:47:00 Test Item Value Reference Range Interpretation Comments PARTIAL THROMBOPLASTIN TIME 37.5 seconds 22.5-36.0 H (BEAKER) (test code = 760) Prothrombin time/[id number] 07:46:00 Test Item Value Reference Range Interpretation Comments Protime (test code = 14.6 11.9- 14.2 H 5902-2) seconds INR (test code = 1.2 <=5.9 6301-6) RAGHAVENDRA (test code = RAGHAVENDRA) Effective 03/23/2019: PT Reference Range ChangeNew: 11.9-14.2 Previous: 11.7-14.7 RECOMMENDED COUMADIN/WARFARIN INR THERAPY RANGESSTANDARD DOSE: 2.0-3.0 Includes: PROPHYLAXIS for venous thrombosis, systemic embolization; TREATMENT for venous thrombosis and/or pulmonary embolus.HIGH RISK: Target INR is 2.5-3.5 for patients wiht mechanical heart valves. Lab Interpretation Abnormal (test code = 45007-0) [facility] HospitalPROTHROMBIN TIME/[id number] 07:46:00 Test Item Value Reference Range Interpretation Comments PROTIME (BEAKER) (test code = 14.6 seconds 11.9-14.2 H 759) INR (BEAKER) (test code = 370) 1.2 <=5.9 Effective 03/23/2019: PT Reference Range ChangeNew: 11.9-14.2 Previous: 11.7- 14.7RECOMMENDED COUMADIN/WARFARIN INR THERAPY RANGESSTANDARD DOSE: 2.0-3.0 Includes: PROPHYLAXIS for venous thrombosis, systemic embolization; TREATMENT for venous thrombosis and/or pulmonary embolus.HIGH RISK: Target INR is2.5-3.5 for patients wiht mechanical heart valves.ABORH, [id number] 07:39:00 Test Item Value Reference Range Interpretation Comments ABO Grouping (test code = 2588) A Rh Factor (test code = 2589) NEG [facility] HospitalCOMPREHENSIVE METABOLIC [id number] 07:32:00 Test Item Value Reference Range Interpretation Comments TOTAL PROTEIN 7.7 gm/dL 6.0-8.3 (BEAKER) (test code = 770) ALBUMIN (AKER) 4.2 g/dL 3.5-5.0 (test code = 1145) ALKALINE PHOSPHATASE 76 U/L 40-150 (AKER) (test code = 346) BILIRUBIN TOTAL 0.3 mg/dL 0.2-1.2 (BEAKER) (test code = 377) SODIUM (BEAKER) (test 134 meq/L 136-145 L code = 381) POTASSIUM (BEAKER) 5.6 meq/L 3.5-5.1 H (test code = 379) CHLORIDE (BEAKER) 109 meq/L 98-107 H (test code = 382) CO2 (BEAKER) (test 18 meq/L 22-29 L code = 355) BLOOD UREA NITROGEN 93 mg/dL 7-21 H (BEAKER) (test code = 354) CREATININE (BEAKER) 3.11 mg/dL 0.57-1.25 H (test code = 358) GLUCOSE RANDOM 118 mg/dL 70-105 H (BEAKER) (test code = 652) CALCIUM (BEAKER) 9.6 mg/dL 8.4-10.2 (test code = 697) AST (SGOT) (BEAKER) 13 U/L 5-34 (test code = 353) ALT (SGPT) (BEAKER) 9 U/L 6-55 (test code = 347) EGFR (BEAKER) (test 14 mL/min/1.73 ESTIMA ISAC GFR IS code = 1092) sq m NOT ACCURATE CREATININE CLEARANCE IN PREDICTING GLOMERULAR FILTRATION RATE . ESTIMATED GFR I S NOT APPLICABLE FOR DIALYSIS PATIEN TS. Farm Implement Engine Mechanic ID - [id number] 07:29:00 Test Item Value Reference Range Interpretation Comments MAGNESIUM (BEAKER) (test code = 2.6 mg/dL 1.6-2.6 627) Farm Implement Engine Mechanic ID - NTPCBC W/PLT COUNT & AUTO [id number] 07:20:00 Test Item Value Reference Range Interpretation Comments WHITE BLOOD CELL COUNT (BEAKER) 9.7 K/ L 3.5-10.5 (test code = 775) RED BLOOD CELL COUNT (BEAKER) 4.13 M/ L 3.93-5.22 (test code = 761) HEMOGLOBIN (BEAKER) (test code = 11.8 GM/DL 11.2-15.7 410) HEMATOCRIT (BEAKER) (test code = 36.8 % 34.1-44.9 411) MEAN CORPUSCULAR VOLUME (BEAKER) 89.1 fL 79.4-94.8 (test code = 753) MEAN CORPUSCULAR HEMOGLOBIN 28.6 pg 25.6-32.2 (BEAKER) (test code = 751) MEAN CORPUSCULAR HEMOGLOBIN CONC 32.1 GM/DL 32.2-35.5 L (BEAKER) (test code = 752) RED CELL DISTRIBUTION WIDTH 15.0 % 11.7-14.4 H (BEAKER) (test code = 412) PLATELET COUNT (BEAKER) (test 265 K/CU MM 150-450 code = 756) MEAN PLATELET VOLUME (BEAKER) 9.3 fL 9.4-12.3 L (test code = 754) NUCLEATED RED BLOOD CELLS 0 /100 WBC 0-0 (BEAKER) (test code = 413) NEUTROPHILS RELATIVE PERCENT 69 % (BEAKER) (test code = 429) LYMPHOCYTES RELATIVE PERCENT 13 % (BEAKER) (test code = 430) MONOCYTES RELATIVE PERCENT 7 % (BEAKER) (test code = 431) EOSINOPHILS RELATIVE PERCENT 10 % (BEAKER) (test code = 432) BASOPHILS RELATIVE PERCENT 0 % (BEAKER) (test code = 437) NEUTROPHILS ABSOLUTE COUNT 6.69 K/ L 1.56-6.13 H (BEAKER) (test code = 670) LYMPHOCYTES ABSOLUTE COUNT 1.30 K/ L 1.18-3.74 (BEAKER) (test code = 414) MONOCYTES ABSOLUTE COUNT (BEAKER) 0.70 K/ L 0.24-0.36 H (test code = 415) EOSINOPHILS ABSOLUTE COUNT 0.97 K/ L 0.04-0.36 H (BEAKER) (test code = 416) BASOPHILS ABSOLUTE COUNT (BEAKER) 0.02 K/ L 0.01-0.08 (test code = 417) IMMATURE GRANULOCYTES-RELATIVE 1 % 0-1 PERCENT (BEAKER) (test code = 2801) POCT-GLUCOSE [id number] 06:09:00 Test Item Value Reference Range Interpretation Comments POC-GLUCOSE METER 124 mg/dL 70-110 H : TESTED A T [facility] 6720 (BEAKER) (test code [facility], = 1538) [id number]: Farm Implement Engine Mechanic/Techni roman ID = [id number] for JORD AN, LACRYSTAL SARS-COV2/RT-PCR ([facility])2020-05-23 21:27:00 Test Item Value Reference Range Interpretation Comments SARS-COV2/RT-PCR (test Negative Not Detected, Negative, code = 1789920) See external report for linked test SARS-COV-2 PERFORMING LAB [facility] (test code = 5518687) Negative result for this test determines that SARS-CoV-2 RNA was not present in the specimen above the Limit of Detection (LOD). However, Negative results do not preclude SARS-CoV-2 infection and should not be used as the sole basis for treatment or patient management decisions. Negative results mustbe combined with clinical observations, patient history, and epidemiological information. A false negative result may occur if a specimen is improperly collected, transported or handled. A false negative result should be considered if patient's recent exposures or clinical presentation indicate that COVID-19 (SARS-CoV-2) is likely and diagnostic tests for other causes of illness are negative. Re-testing should be considered in cases of suspected false negatives.The limit of detection for this assay is 800 copies/mL.This SARS CoV-2 test is a real-time RT-PCR test intended for the qualitative detection of nucleic acid from SARS-CoV-2 in a nasopharyngeal swab specimen collected from individuals susp ected of COVID-19 by their healthcare provider.This test has not been Food and Drug Administration (FDA) cleared or approved. This is a modified version of an approved [...] is revoked under Section 564(g) of the Act.Fact Sheet for Healthcare Providers:https://www.[employer].com/sites/default/files/product/documents/Fact_Shee n_ER_Qktdsumby_Xrne_KHGW-GvP-7.pdfFact Sheet for Healthcare Patients:https://www.[employer].com/sites/default/files/product/ documents/Ozqy_Rnrsx_Mtywlzmt_Iqqk_XQQL-PiV-1.pdfPerforming Laboratory:[facility], [place] [address]Vyjj and screen, automated ([facility])2020-05-23 13:08:00 Test Item Value Reference Range Interpretation Comments ABO/RH AUTOMATED (BEAKER) (test A NEGATIVE code = 2260) Ab Scrn (test code = 890-4) NEGATIVE [facility]
[2020-07-12 17:52] LABS: Absolute Lymphocytes (CBC) 1.3 K/uL (0.7-4.9); Basophils % 0.4 % (0-1.3); Hematocrit 29.6 % (36.0-45.0); Lymphocytes % 9.9 % (15.3-44.8); MPV 6.8 fL (7.6-11.3); Protime INR 1.07; RBC Red Blood Cell Count 3.43 M/uL (3.86-4.86)
[2020-07-12 18:09] LABS: Magnesium 2.5 mg/dL (1.8-2.4); Potassium 3.6 mmol/L (3.5-5.1); Troponin (Emerg Dept Use Only) 0.06 ng/mL (0.0-0.045)
--- NOTE | 2020-07-12 19:18 | RAD REPORT ---
EXAM DESCRIPTION: CT - Thorax Wo Con - 07/12/2020 6:53 pm CLINICAL HISTORY: DYSPNEA COMPARISON: Thorax Wo Con dated 02/20/2016; Chest Pa And Lat (2 Views) dated 05/17/2020 TECHNIQUE: Axial 5 mm thick images of the chest were obtained without IV contrast. All CT scans are performed using dose optimization technique as appropriate and may include automated exposure control or mA/KV adjustment according to patient size. FINDINGS: No peripheral mass or consolidation. Interstitial thickening is present from edema or infi ltrate. A few hazy areas of ground-glass opacification present probably edema. Moderate bilateral ple ural effusions are present. Partial atelectasis of each lower lobe present. No pneumothorax. No pleur al based mass. No abnormal mediastinal or hilar masses or lymphadenopathy seen. Aortic atherosclerotic calcification s are present. Coronary artery calcifications are seen. Cardiomegaly is present without pericardial e ffusion. No chest wall mass or abnormal axillary lymphadenopathy. IMPRESSION: Moderate bilateral pleural effusions are present. There is cardiomegaly and bilateral in terstitial opacification. CHF/volume overload would be favored.
--- NOTE | 2020-07-12 21:01 | ER ---
Nurse's Notes [facility] Name: Agueda Horne Age: 89 yrs Sex: Female : 1930 Arrival Date: 07/12/2020 Time: 16:56 Bed 5 Private MD: Diagnosis: Unspecified systolic (congestive) heart failure;Pleural effusion, not elsewhere classified;Chronic kidney disease, stage 4 (severe);Urinary tract infection, site not specified Presentation: 07/12 17:02 Chief complaint: Patient states: shortness of breath for about 4 weeks, also reports em chest pressure, reports cough, N/V, denies fever. Coronavirus screen: Client denies travel out of the [place] in the last 14 days. Ebola Screen: Patient negative for fever greater than or equal to 101.5 degrees Fahrenheit, and additional compatible Ebola Virus Disease symptoms Patient denies exposure to infectious person. Patient denies travel to an Ebola-affected area in the 21 days before illness onset. No symptoms or risks identified at this time. Initial Sepsis Screen: Does the patient meet any 2 criteria? No. Patient's initial sepsis screen is negative. Does the patient have a suspected source of infection? No. Patient's initial sepsis screen is negative. Risk Assessment: Do you want to hurt yourself or someone else?. Onset of symptoms was May 2020. 17:02 Method Of Arrival: Wheelchair em 17:02 Acuity: SAIDA 3 em Historical: - Allergies: 17:05 Codeine; em 17:05 Niacin; em 17:05 Digitoxin; em - PMHx: 17:05 Hypertension; kidney failure; em - PSHx: 17:05 CABG; Valve replacement; em - Immunization history:: Adult Immunizations up to date. - Social history:: Smoking status: Patient denies any tobacco usage or history of. Screenin:15 Abuse screen: Denies threats or abuse. Denies injuries from another. Nutritional sv screening: No deficits noted. Tuberculosis screening: No symptoms or risk factors identified. Fall Risk None identified. Assessment: 17:20 General: Appears in no apparent distress. comfortable, well developed, Behavior is sv calm, cooperative, appropriate for age. Pain: Denies pain. Neuro: Level of Consciousness is awake, alert, obeys commands, Oriented to person, place, time, situation, Appropriate for age Moves all extremities. Full function Speech is normal. Respiratory: Reports shortness of breath cough that is Airway is patent Respiratory effort is even, unlabored, Respiratory pattern is regular, symmetrical. Derm: Skin is intact, Skin is pink, warm \T\ dry. 17:20 GI: Reports nausea, vomiting. sv 17:50 Reassessment: Lactate sent to outside lab. sv 18:00 Reassessment: Patient appears in no apparent distress at this time. No changes from sv previously documented assessment. Patient and/or family updated on plan of care and expected duration. Pain level reassessed. Patient is alert, oriented x 3, equal unlabored respirations, skin warm/dry/pink. 19:15 General: Appears in no apparent distress. comfortable, Behavior is calm, cooperative, rr5 appropriate for age. Neuro: Level of Consciousness is awake, alert, obeys commands, Oriented to person, place, time, situation. Cardiovascular: Capillary refill < 3 seconds Patient's skin is warm and dry. Rhythm is sinus rhythm. Respiratory: Reports shortness of breath cough that is Airway is patent Respiratory effort is even, unlabored, Respiratory pattern is regular, symmetrical, : No signs and/or symptoms were reported regarding the genitourinary system. EENT: No signs and/or symptoms were reported regarding the EENT system. Derm: Skin is fragile, is thin, Skin is pink, warm \T\ dry. Musculoskeletal: Circulation, motion, and sensation intact. Capillary refill < 3 seconds. 20:30 Reassessment: Patient appears in no apparent distress at this time. Patient is alert, rr5 oriented x 3, equal unlabored respirations, skin warm/dry/pink. 21:15 Reassessment: Patient appears in no apparent distress at this time. Patient is alert, rr5 oriented x 3, equal unlabored respirations, skin warm/dry/pink. hospitalist at bedside examining the patient. 22:15 Reassessment: Patient appears in no apparent distress at this time. Patient is alert, rr5 oriented x 3, equal unlabored respirations, skin warm/dry/pink. sitting on her wheelchair awake alert no complaints made, for transfer to 2nd floor. Vital Signs: 17:02 BP 187 / 71; Pulse 95; Resp 20; Temp 98.1(O); Pulse Ox 95% on R/A; Weight 65.32 kg; em Height 5 ft. 3 in. (160.02 cm); Pain 0/10; 17:45 BP 222 / 73; snw 18:41 BP 175 / 62; Pulse 82; Resp 23; Pulse Ox 95% ; sv 20:59 BP 134 / 107; Pulse 85; Resp 20; Pulse Ox 98% on 2 lpm NC; rr5 21:29 BP 177 / 74; Pulse 80; Resp 21; Pulse Ox 95% on 2 lpm NC; rr5 21:58 BP 156 / 90; Pulse 85; Resp 20; Pulse Ox 97% on 2 lpm NC; rr5 22:35 BP 159 / 92; Pulse 83; Resp 20; Pulse Ox 98% on 2 lpm NC; rr5 17:02 Body Mass Index 25.51 (65.32 kg, 160.02 cm) em ED Course: 16:56 Patient arrived in ED. ds1 17:04 Triage completed. em 17:05 Arm band placed on. em 17:09 Erin Short, RN is Primary Nurse. sv 17:15 Patient has correct armband on for positive identification. Bed in low position. Call sv light in reach. Door closed. Head of bed elevated. 17:16 Sil Figueroa FNP-C is PHCP. snw 17:16 Juan Joe MD is Attending Physician. snw 17:25 Oxygen administration via nasal cannula \T\ 2L/min Response to oxygen therapy: symptoms ca1 improved. 17:26 No provider procedures requiring assistance completed. Initial lab(s) drawn, by me, ca1 held in ED. Inserted saline lock: 22 gauge in right wrist, using aseptic technique. Blood collected. 17:26 First set of blood cultures drawn by me. ca1 17:49 EKG done, by ED staff, reviewed by Sil CABRERA. sv 17:50 Second set of blood cultures drawn by ED staff. sv 18:[address] via stretcher. sv 18:53 Thorax Wo Con In Process Unspecified. EDMS 19:09 Report given to Daniel YBARRA. sv 19:10 Primary Nurse role handed off by Erin Short, RN sv 19:24 Daniel Almendarez, RN is Primary Nurse. rr5 20:59 Cj Collins DO is Hospitalizing Provider. snw 21:03 Hospitalizing Provider role handed off by Cj Collins DO snw 21:03 Daniel Gloria MD is Hospitalizing Provider. snw 22:35 Patient admitted, IV remains in place. intact, No redness/swelling at site. rr5 Administered Medications: 19:38 Drug: Lasix 40 mg Route: IVP; Site: right wrist; bb 20:30 Follow up: Response: No adverse reaction rr5 Output: 21:00 Urine: 180ml (Voided); Total: 180ml. rr5 22:10 Other: 1 (Diapers) ; Total: 180ml. rr5 Outcome: 21:00 Decision to Hospitalize by Provider. snw 22:35 Admitted to Med/surg accompanied by tech, via wheelchair, room 225, with oxygen, with rr5 chart, Report called to [facility] 22:35 Condition: stable 22:35 Instructed on the need for admit. 22:36 Patient left the ED. rr5 Signatures: Dispatcher [employer] Erin Hinkle RN RN sv Waters, Shelly, CONCRETE STONE FABRICATOR-C CONCRETE STONE FABRICATOR-Csnw Tommy Jang, Jeanie Garcia RN ds1 Amna Schreiber RN RN bb Roque, Raymond, RN RN rr5 Dee Dong RN RN ca1 Corrections: (The following items were deleted from the chart) 18:44 17:20 Respiratory: Reports shortness of breath cough that is Airway is patent sv Respiratory effort is even, unlabored, Respiratory pattern is regular, symmetrical, sv 22:26 20:59 BP 134 / 107; Pulse 85bpm; Resp 20bpm; Pulse Ox 98%; rr5 rr5 22:26 21:29 BP 177 / 74; Pulse 80bpm; Resp 21bpm; Pulse Ox 95%; rr5 rr5 22:26 21:58 BP 156 / 90; Pulse 85bpm; Resp 20bpm; Pulse Ox 97%; rr5 rr5
--- NOTE | 2020-07-12 21:01 | EDPHYS ---
Physician Documentation [facility] Name: Agueda Elder Age: 89 yrs Sex: Female : 1930 Arrival Date: 07/12/2020 Time: 16:56 Bed 5 Private MD: ED Physician Juan Joe HPI: 07/12 18:18 This 89 yrs old Female presents to ER via Wheelchair with complaints of snw Breathing Difficulty. 18:18 The patient has shortness of breath at rest, unable to lie flat or sleep. Onset: The snw symptoms/episode began/occurred 1 month(s) ago, and became worse 5 day(s) ago. Duration: The symptoms are continuous. Associated signs and symptoms: Pertinent positives: non-productive cough. Severity of symptoms: At their worst the symptoms were moderate in the emergency department the symptoms are unchanged. The patient has experienced similar episodes in the past. hospitalized one month ago, pt is on third round of abx for UTI this month. Historical: - Allergies: 17:05 Codeine; em 17:05 Niacin; em 17:05 Digitoxin; em - PMHx: 17:05 Hypertension; kidney failure; em - PSHx: 17:05 CABG; Valve replacement; em - Immunization history:: Adult Immunizations up to date. - Social history:: Smoking status: Patient denies any tobacco usage or history of. ROS: 17:46 Eyes: Negative for injury, pain, redness, and discharge, ENT: Negative for injury, snw pain, and discharge, Neck: Negative for injury, pain, and swelling, Abdomen/GI: Negative for abdominal pain, nausea, vomiting, diarrhea, and constipation, Back: Negative for injury and pain, : Negative for injury, bleeding, discharge, and swelling, MS/Extremity: Negative for injury and deformity, Skin: Negative for injury, rash, and discoloration, Neuro: Negative for headache, weakness, numbness, tingling, and seizure. 17:46 Constitutional: Positive for malaise. 17:46 Cardiovascular: Positive for edema, orthopnea, paroxysmal nocturnal dyspnea. 17:46 Respiratory: Positive for cough, dyspnea on exertion, shortness of breath, at rest. Exam: 17:45 Constitutional: This is a well developed, well nourished patient who is awake, alert, snw and in no acute distress. Head/Face: Normocephalic, atraumatic. Eyes: Pupils equal round and reactive to light, extra-ocular motions intact. Lids and lashes normal. Conjunctiva and sclera are non-icteric and not injected. Cornea within normal limits. Periorbital areas with no swelling, redness, or edema. ENT: Nares patent. No nasal discharge, no septal abnormalities noted. Tympanic membranes are normal and external auditory canals are clear. Oropharynx with no redness, swelling, or masses, exudates, or evidence of obstruction, uvula midline. Mucous membranes moist. Neck: Trachea midline, no thyromegaly or masses palpated, and no cervical lymphadenopathy. Supple, full range of motion without nuchal rigidity, or vertebral point tenderness. No Meningismus. Chest/axilla: Normal chest wall appearance and motion. Nontender with no deformity. No lesions are appreciated. Abdomen/GI: Soft, non-tender, with normal bowel sounds. No distension or tympany. No guarding or rebound. No evidence of tenderness throughout. Back: No spinal tenderness. No costovertebral tenderness. Full range of motion. Skin: Warm, dry with normal turgor. Normal color with no rashes, no lesions, and no evidence of cellulitis. MS/ Extremity: Pulses equal, no cyanosis. Neurovascular intact. Full, normal range of motion. Neuro: Awake and alert, GCS 15, oriented to person, place, time, and situation. Cranial nerves II-XII grossly intact. Motor strength 5/5 in all extremities. Sensory grossly intact. Cerebellar exam normal. Normal gait. Psych: Awake, alert, with orientation to person, place and time. Behavior, mood, and affect are within normal limits. 17:45 Cardiovascular: Rate: tachycardic, Rhythm: irregular, Pulses: no pulse deficits are appreciated, Heart sounds: murmur, Edema: pedal edema, ankle edema, that is mild. 17:45 Respiratory: the patient does not display signs of respiratory distress, Respirations: shallow respirations, tachypnea, Breath sounds: bronchial sounds, that are moderate, are heard diffusely. 07/13 07:27 ECG was reviewed by the Attending Physician. kdr Vital Signs: 07/12 17:02 BP 187 / 71; Pulse 95; Resp 20; Temp 98.1(O); Pulse Ox 95% on R/A; Weight 65.32 kg; em Height 5 ft. 3 in. (160.02 cm); Pain 0/10; 17:45 BP 222 / 73; snw 18:41 BP 175 / 62; Pulse 82; Resp 23; Pulse Ox 95% ; sv 20:59 BP 134 / 107; Pulse 85; Resp 20; Pulse Ox 98% on 2 lpm NC; rr5 21:29 BP 177 / 74; Pulse 80; Resp 21; Pulse Ox 95% on 2 lpm NC; rr5 21:58 BP 156 / 90; Pulse 85; Resp 20; Pulse Ox 97% on 2 lpm NC; rr5 22:35 BP 159 / 92; Pulse 83; Resp 20; Pulse Ox 98% on 2 lpm NC; rr5 17:02 Body Mass Index 25.51 (65.32 kg, 160.02 cm) em MDM: 17:33 Patient medically screened. snw 20:58 Data reviewed: vital signs, nurses notes. 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 Physician snw consultation: Jax CABRERA was called at 20:58, was contacted at 20:58, regarding admission, to the telemetry unit. and will see patient shortly. 07/12 17:28 Order name: Basic Metabolic Panel; Complete Time: 18:16 snw 07/12 17:28 Order name: CBC with Diff; Complete Time: 17:57 snw 07/12 17:28 Order name: Magnesium; Complete Time: 18:16 snw 07/12 17:28 Order name: NT PRO-BNP; Complete Time: 18:16 snw 07/12 17:28 Order name: PT-INR; Complete Time: 17:57 snw 07/12 17:28 Order name: Troponin (emerg Dept Use Only); Complete Time: 18:16 snw 07/12 17:28 Order name: EKG; Complete Time: 17:29 snw 07/12 17:28 Order name: Cardiac monitoring; Complete Time: 17:38 snw 07/12 17:28 Order name: Blood Culture Adult (2) snw 07/12 17:28 Order name: Lactate; Complete Time: 18:24 snw 07/12 17:28 Order name: Procalcitonin; Complete Time: 18:22 snw 07/12 18:45 Order name: Thorax Wo Con; Complete Time: 19:21 EDMS 07/12 17:28 Order name: EKG - Nurse/Tech; Complete Time: 17:38 snw 07/12 17:28 Order name: IV Saline Lock; Complete Time: 17:38 snw 07/12 17:28 Order name: Labs collected and sent; Complete Time: 17:38 snw 07/12 17:28 Order name: O2 Per Protocol; Complete Time: 17:38 snw 07/12 17:28 Order name: O2 Sat Monitoring; Complete Time: 17:38 snw EC/18 07:27 Rate is 93 beats/min. Rhythm is regular, Junctional rhythm with No ectopy. QRS Phil Campbell is kdr Normal. Left axis deviation noted. QRS interval is normal. QT interval is normal. Clinical impression: Abnormal EKG without significant change and No evidence of ischemia. Administered Medications: 07/12 19:38 Drug: Lasix 40 mg Route: IVP; Site: right wrist; bb 20:30 Follow up: Response: No adverse reaction rr5 Disposition: 07/13 14:13 Co-signature as Attending Physician, Juan Joe MD I agree with the assessment and kdr plan of care. Disposition: 07/12/20 21:00 Hospitalization ordered by Daniel Gloria for Inpatient Admission. Preliminary diagnosis are Unspecified systolic (congestive) heart failure, Pleural effusion, not elsewhere classified, Chronic kidney disease, stage 4 (severe), Urinary tract infection, site not specified. - Bed requested for Telemetry/MedSurg (Inpatient). - Status is Inpatient Admission. rr5 - Condition is Stable. - Problem is an acute exacerbation. - Symptoms are unchanged. Signatures: Dispatcher [employer] [facility] Juan Joe MD MD kdr Waters, Shelly, MIXED CROP AND LIVESTOCK FARMER-C MIXED CROP AND LIVESTOCK FARMER-Csnw Tommy Jang, RN RN em Amna Schreiber RN RN Kelly Wheeler, Daniel Kumar RN, RN RN rr5 Corrections: (The following items were deleted from the chart) 07/12 18:45 17:29 Chest For PE Angio+CT.RAD.BRZ ordered. [facility] 21:00 21:00 Hospitalization Ordered by Cj Collins DO for Inpatient Admission. Preliminary snw diagnosis is Unspecified systolic (congestive) heart failure; Pleural effusion, not elsewhere classified; Chronic kidney disease, stage 4 (severe). Bed requested for Telemetry/MedSurg (Inpatient). Status is Inpatient Admission. Condition is Stable. Problem is an acute exacerbation. Symptoms are unchanged. [facility] 21:04 21:00 07/12/2020 21:00 Hospitalization Ordered by Cj Collins DO for Inpatient snw Admission. Preliminary diagnosis is Unspecified systolic (congestive) heart failure; Pleural effusion, not elsewhere classified; Chronic kidney disease, stage 4 (severe); Urinary tract infection, site not specified. Bed requested for Telemetry/MedSurg (Inpatient). Status is Inpatient Admission. Condition is Stable. Problem is an acute exacerbation. Symptoms are unchanged. [facility] 21:39 21:04 07/12/2020 21:00 Hospitalization Ordered by Daniel Gloria MD for Inpatient cg Admission. Preliminary diagnosis is Unspecified systolic (congestive) heart failure; Pleural effusion, not elsewhere classified; Chronic kidney disease, stage 4 (severe); Urinary tract infection, site not specified. Bed requested for Telemetry/MedSurg (Inpatient). Status is Inpatient Admission. Condition is Stable. Problem is an acute exacerbation. Symptoms are unchanged. [facility] 22:36 21:39 07/12/2020 21:00 Hospitalization Ordered by Daniel Gloria MD for Inpatient rr5 Admission. Preliminary diagnosis is Unspecified systolic (congestive) heart failure; Pleural effusion, not elsewhere classified; Chronic kidney disease, stage 4 (severe); Urinary tract infection, site not specified. Bed requested for Telemetry/MedSurg (Inpatient). Status is Inpatient Admission. Condition is Stable. Problem is an acute exacerbation. Symptoms are unchanged. cg
[2020-07-12] MEDS ORDERED: ONDANSETRON 4 MG/2 ML VIAL IV PRN (22:24)
[2020-07-12] MEDS: HEPARIN 5000 UNIT/ML 1 ML VIAL SQ SCH (22:45)
[2020-07-12] MEDS ORDERED: CIPROFLOXACIN HCL 250 MG TAB PO SCH (23:00)
--- NOTE | 2020-07-12 23:04 | P.HP ---
Certification for Inpatient Patient admitted to: Observation With expected LOS: <2 Midnights Patient will require the following post-hospital care: None Practitioner: I am a practitioner with admitting privileges, knowledge of patient current condition, hospital course, and medical plan of care. Services: Services provided to patient in accordance with Admission requirements found in Title 42 Section 412.3 of the Code of Federal Regulations Patient History Date of Service: 07/12/20 Primary Care Provider: PCP-Dr. Infante, Neph- Stuart, Cards- Dr. Conklin Reason for admission: CHF exacerbation History of Present Illness: 82-year-old female with history of chronic diastolic congestive heart failure, CAD s/p CABG, hypertension, chronic kidney disease stage 4, depression presents emergency department for shortness of breath. Patient reports over the last few days she has had increasing shortness of breath with orthopnea. Patient reports history of porcine aortic valve replacement and endarterectomy. During her evaluation in the emergency department patient was found to have moderate bilateral pleural effusions, patient was initially tachypneic, able to speak in only a few words at a time, this has improved with IV Lasix. Patient also reports that she is being treated for a urinary tract infection from her nephrology group and was recently prescribed Cipro 250 mg p.o. b.i.d. do due to increasing dyspnea, orthopnea, bilateral pleural effusions. ED provider wishes to admit patient for further evaluation and management. When I saw the patient in the emergency department she was awake, alert, oriented x4. Patient in no respiratory distress at this time. Patient tolerating nasal cannula well, patient will be admitted under observation for further evaluation and management. Allergies digoxin Allergy (Verified 07/12/20 22:51) Nausea/Vomiting niacin Allergy (Verified 07/12/20 22:50) Unknown codeine [Codeine] Adverse Reaction (Intermediate, Verified 07/12/20 22:50) Hyper Home Medications: Aspirin [Aspirin EC 81 MG] 81 mg PO DAILY 03/18/12 Digoxin 0.25 mg PO DAILY 03/18/12 Cyclosporine [Restasis] 1 each OP BID 06/07/15 Propranolol [Inderal*] 1 tab PO BID 06/07/15 Sertraline [Zoloft*] 25 mg PO DAILY 06/07/15 Furosemide [Lasix] 20 mg PO BID #60 tablet 06/08/15 - Past Medical/Surgical History Diabetic: No -: Hypertension -: Atrial fibrillation on aspirin -: Chronic diastolic congestive heart failure -: Chronic kidney disease stage IV -: CABG -: Porcine aortic valve replacement -: Foot surgery -: Tonsillectomy -: Endarterectomy Psychosocial/ Personal History: Patient lives at home alone - Family History Family History: Reviewed- Non-Contributory - Social History Smoking Status: Never smoker Alcohol use: No CD- Drugs: No Caffeine use: Yes Place of Residence: Home Review of Systems 10-point ROS is otherwise unremarkable Respiratory: Cough, Shortness of Breath, SOB with Excertion Cardiovascular: Orthopnea, As per HPI Physical Examination - Physical Exam General: Alert, In no apparent distress, Oriented x3 HEENT: Atraumatic, Normocephalic, PERRLA, Mucous membr. moist/pink Neck: Supple Respiratory: Crackles/rales (Mild bilaterally) Cardiovascular: Normal pulses, Regular rate/rhythm, Normal S1 S2, Systolic murmur Capillary refill: <2 Seconds Gastrointestinal: Normal bowel sounds, Soft and benign Musculoskeletal: No contractures, No erythema Integumentary: No breakdown, No significant lesion, No tenderness/swelling Neurological: Normal speech, Normal strength at 5/5 x4 extr, Normal tone, Sensation intact - Studies Laboratory Data (last 24 hrs) 07/12/20 17:30: PT 12.6 H, INR 1.07 07/12/20 17:30: WBC 13.3 H, Hgb 9.9 L, Hct 29.6 L, Plt Count 444 H 07/12/20 17:30: Sodium 138, Potassium 3.6, BUN 53 H, Creatinine 3.68 H, Glucose 161 H, Magnesium 2.5 H Assessment and Plan - Plan Assessment Acute on chronic diastolic congestive heart failure with moderate bilateral pleural effusions Hypertension Urinary tract infection Chronic kidney disease stage 4 Plan Acute on chronic diastolic congestive heart failure with moderate bilateral pleural effusions: Continue with IV diuresis, oxygen as needed. Patient to remain on telemetry throughout this hospitalization. Cardiology consulted. Obtain and continue patient's home medications. DVT prophylaxis. Heparin 5000 units subcutaneous twice daily patient has improved, anticipate discharge tomorrow. Patient reports that she had transesophageal echocardiogram recently at another facility but that Dr. Conklin should have these results available to him. If these results are unavailable patient may need echocardiogram. Last echocardiogram 2014 showed normal ejection fraction. Hypertension: Home medications have been continued. Will provide medications as needed as well. Urinary tract infection: Continue nephrology recommendations Cipro 250 mg p.o. b.i.d.. Will obtain urine culture. Chronic kidney disease stage 4: Nephrology consulted, continue with diuresis at this time. Appreciate further recommendations. Discharge Plan: Home Plan to discharge in: 24 Hours - Advance Directives Does patient have a Living Will: Yes Does patient have a Durable POA for Healthcare: No - Code Status/Comfort Care Code Status Assessed: Yes (Patient is full code) Critical Care: No Time Spent Managing Pts Care (In Minutes): 55
[2020-07-12 23:15] VITALS: BMI 25.2
[2020-07-12] MEDS: SODIUM BICARB 325 MG TAB PO SCH (23:57)
[2020-07-12] MEDS: METOPROLOL XL 50 MG TAB PO SCH (23:57)
[2020-07-13] MEDS: SERTRALINE HCL 50 MG TAB PO SCH ×2 (00:01→07:41)
[2020-07-13 06:06] LABS: Absolute Lymphocytes (CBC) 1.1 K/uL (0.7-4.9); Basophils % 0.4 % (0-1.3); Hematocrit 27.8 % (36.0-45.0); Lymphocytes % 11.1 % (15.3-44.8); MPV 6.8 fL (7.6-11.3); RBC Red Blood Cell Count 3.25 M/uL (3.86-4.86)
[2020-07-13 06:15] LABS: Magnesium 2.4 mg/dL (1.8-2.4); Potassium 3.8 mmol/L (3.5-5.1)
[2020-07-13] MEDS: METOPROLOL XL 50 MG TAB PO SCH ×2 (06:44→17:03)
[2020-07-13] MEDS ORDERED: POTASSIUM CL SA 10 MEQ TAB PO ONE (07:00)
[2020-07-13] MEDS: ASPIRIN EC 81 MG TAB PO SCH (07:40)
[2020-07-13] MEDS: SODIUM BICARB 325 MG TAB PO SCH ×2 (07:40→20:34)
[2020-07-13] MEDS: allopurinoL 100 MG TAB PO SCH (07:41)
[2020-07-13] MEDS: DILTIAZEM HCL 120 MG SR CAP PO SCH (07:41)
[2020-07-13] MEDS: HEPARIN 5000 UNIT/ML 1 ML VIAL SQ SCH ×2 (07:41→20:34)
[2020-07-13] MEDS: FUROSEMIDE 40 MG/4 ML VIAL IV SCH ×2 (07:50→16:03)
--- NOTE | 2020-07-13 08:42 | P.PN ---
Subjective Date of Service: 07/13/20 Primary Care Provider: PCP-Dr. Infante, Neph- Stuart, Cards- Dr. Conklin Chief Complaint: CHF exacerbation Subjective: Improving (breathing more comfortably, denies chest pain, denies dysuria) Review of Systems 10-point ROS is otherwise unremarkable Physical Examination - Vital Signs Temperature: 97.5 F Blood Pressure: 190/74 Pulse: 78 Respirations: 18 Pulse Ox (%): 96 - Physical Exam General: Alert, In no apparent distress HEENT: Sclerae nonicteric Neck: Supple Respiratory: Crackles/rales (at bilateral bases) Cardiovascular: Regular rate/rhythm, Edema, Systolic murmur Gastrointestinal: Soft and benign, Non-distended, No tenderness Musculoskeletal: No erythema Integumentary: No rashes Neurological: Normal speech, Normal affect - Studies Laboratory Data (last 24 hrs) 07/12/20 17:30: PT 12.6 H, INR 1.07 07/12/20 17:30: WBC 13.3 H, Hgb 9.9 L, Hct 29.6 L, Plt Count 444 H 07/12/20 17:30: Sodium 138, Potassium 3.6, BUN 53 H, Creatinine 3.68 H, Glucose 161 H, Magnesium 2.5 H Assessment & Plan Physician Review Additional Text: Acute on chronic diastolic congestive heart failure with moderate bilateral pleural effusions Hypertension Urinary tract infection Chronic kidney disease stage 4 Plan Acute on chronic diastolic congestive heart failure with moderate bilateral pleural effusions: -continue IV lasix 40 BID, telemetry -cardiology consulted -Patient reports that she had transesophageal echocardiogram recently at another facility but that Dr. Conklin should have these results available to him. If these results are unavailable patient may need echocardiogram. -Last echocardiogram 2014 showed normal ejection fraction. -still breathing heavily, but states feeling better, on 3LNC Hypertension: -confirm home meds and restart -IV hydralazine PRN Urinary tract infection: -Continue nephrology recommendations Cipro 250 mg p.o. b.i.d.. Will obtain urine culture. Chronic kidney disease stage 4: -Nephrology consulted, continue with diuresis at this time. Appreciate further recommendations. Dispo: anticipate dc in 24-48 hrs, still slightly tachypneic, hypertensive, needing 3LNC Time Spent Managing Pts Care (In Minutes): 35
[2020-07-13] MEDS ORDERED: HYDRALAZINE HCL 20 MG/ML VIAL IV PRN (08:43)
[2020-07-13 12:04] LABS: Urine Appearance CLOUDY; Urine Bilirubin NEGATIVE (NEG); Urine Blood 3+ (NEG); Urine Color YELLOW; Urine Glucose NEGATIVE (NEG); Urine Protein 2+ (NEG); Urine Urobilinogen 0.2 mg/dL (0.2-1.0)
--- NOTE | 2020-07-13 12:57 | P.CNS ---
Date of Consult: 07/13/20 Reason for Consult: VIVIAN , fluid overload Primary Care Provider: PCP-Dr. Infante, Neph- Stuart, Cards- Dr. Conklin Chief Complaint: CHF exacerbation History of Present Illness: An 82-year-old woman with PMHx of CKD , Cr in 2018 1nd 2019 ~2.0 , in april 3.0 and 3.6 in May 2020 , CAD S/P CABG and HTN , and carotis stenosis S/p endarterectomy. pt presented with progressively worsening SOB and LE edema was on lasix in the past but was stopped in ER Cr 3.6, chest CT with moderate B/l effusion , started on lasix now pt stated she is breathing better , with improvement in edema denied chest pain, palpitation, nausea, vomiting or diarrhea Physical exam general: AAOX3, NAD , thin Neck; Supple, No elevated JVD hear: RRR, normal S1,2 no murmur or rub Chest: rales B/L Abdomen: Soft , Nt Extremities trace edema, with bluish feet discoloration A/P VIVIAN on CKD IV possibly due to cardiorenal syndrome will cont lasix will order US and serology w/u , need to /O pulmonary renal syndrome avoid NSAID CHF wiyth pulmponary edema will cont lasix HAGMA will cont sodium bicarb UTI cont Abx F/U cultures HTN BP controlled toatl time spent 45min Allergies digoxin Allergy (Verified 07/12/20 22:51) Nausea/Vomiting niacin Allergy (Verified 07/13/20 10:49) Hives/Rash codeine [Codeine] Adverse Reaction (Intermediate, Verified 07/12/20 22:50) Hyper Home Medications: Aspirin [Aspirin EC 81 MG] 81 mg PO DAILY 03/18/12 Sertraline [Zoloft*] 25 mg PO DAILY 06/07/15 Furosemide [Lasix] 20 mg PO BID #60 tablet 06/08/15 Allopurinol 1 tab PO DAILY 07/13/20 Diltiazem HCl [Diltiazem 24Hr Cd] 1 tab PO DAILY 07/13/20 Estradiol [Estrace] 1 kimmy SEECOM 07/13/20 Metoprolol Succinate 1 tab PO BID 07/13/20 - Past Medical/Surgical History Diabetic: No -: Hypertension -: Atrial fibrillation on aspirin -: Chronic diastolic congestive heart failure -: Chronic kidney disease stage IV -: CABG -: Porcine aortic valve replacement -: Foot surgery -: Tonsillectomy -: Endarterectomy Psychosocial/ Personal History: Patient lives at home alone - Social History Smoking Status: Never smoker Alcohol use: No CD- Drugs: No Caffeine use: Yes Place of Residence: Home Physical Examination Temp Pulse Resp BP Pulse Ox 97.5 F 78 18 190/74 H 96 07/13/20 08:44 07/13/20 08:44 07/13/20 08:44 07/13/20 08:44 07/13/20 08:44 Laboratory Data (last 24 hrs) 07/12/20 17:30: PT 12.6 H, INR 1.07 07/12/20 17:30: WBC 13.3 H, Hgb 9.9 L, Hct 29.6 L, Plt Count 444 H 07/12/20 17:30: Sodium 138, Potassium 3.6, BUN 53 H, Creatinine 3.68 H, Glucose 161 H, Magnesium 2.5 H
[2020-07-13 12:58] LABS: Urine Bacteria 20-50 /HPF (<20); Urine Culture Reflex Order NOT NEEDED; Urine RBC >50 /HPF (NONE SEEN)
--- NOTE | 2020-07-13 16:38 | RAD REPORT ---
EXAM DESCRIPTION: US - Renal Ultrasound-Complete - 07/13/2020 4:31 pm CLINICAL HISTORY: VIVIAN Flank pain COMPARISON: Abdomen Pelvis Scan dated 06/05/2016 FINDINGS: Both kidneys appear mildly echogenic. The right kidney measures 9.0 x 4.3 x 4.2 cm. Small benign 15 mm lateral cortical cyst. No hydronephr osis, focal mass or perinephric fluid. The left kidney measures 9.5 x 4.0 x 4.2 cm. No hydronephrosis, focal mass or perinephric fluid. The urinary bladder is incompletely distended without gross abnormality seen. IMPRESSION: Mildly echogenic kidneys without hydronephrosis compatible with underlying medical disea se.
[2020-07-13] MEDS: CIPROFLOXACIN HCL 250 MG TAB PO SCH (20:34)
[2020-07-13] MEDS ORDERED: LORAZEPAM 0.5 MG TABLET PO ONE (20:57)
[2020-07-13] MEDS: ACETAMINOPHEN 500 MG TAB PO PRN (23:26)
[2020-07-14] MEDS: METOPROLOL XL 50 MG TAB PO SCH ×2 (05:44→17:10)
[2020-07-14 06:02] LABS: Absolute Lymphocytes (CBC) 1.3 K/uL (0.7-4.9); Basophils % 0.5 % (0-1.3); Hematocrit 29.5 % (36.0-45.0); Lymphocytes % 10.8 % (15.3-44.8); MPV 6.8 fL (7.6-11.3); RBC Red Blood Cell Count 3.44 M/uL (3.86-4.86)
[2020-07-14 06:18] LABS: Albumin 3.8 g/dL (3.4-5.0); Bilirubin Total 0.8 mg/dL (0.2-1.0); Magnesium 2.5 mg/dL (1.8-2.4); Potassium 3.7 mmol/L (3.5-5.1); Protein, Total 8.5 g/dL (6.4-8.2)
[2020-07-14 06:42] LABS: Phosphorus 4.7 mg/dL (2.5-4.9)
[2020-07-14] MEDS: SODIUM BICARB 325 MG TAB PO SCH ×2 (08:55→21:24)
[2020-07-14] MEDS: DILTIAZEM HCL 120 MG SR CAP PO SCH (08:55)
[2020-07-14] MEDS: allopurinoL 100 MG TAB PO SCH (08:56)
[2020-07-14] MEDS: SERTRALINE HCL 50 MG TAB PO SCH (08:57)
[2020-07-14] MEDS: ASPIRIN EC 81 MG TAB PO SCH (08:57)
[2020-07-14] MEDS: CIPROFLOXACIN HCL 250 MG TAB PO SCH (08:57)
[2020-07-14] MEDS: FUROSEMIDE 40 MG/4 ML VIAL IV SCH ×2 (08:58→21:23)
[2020-07-14] MEDS: HEPARIN 5000 UNIT/ML 1 ML VIAL SQ SCH ×2 (08:59→21:00)
[2020-07-14] MEDS ORDERED: POTASSIUM CL SA 10 MEQ TAB PO ONE (09:00)
--- NOTE | 2020-07-14 11:35 | P.PN ---
Subjective Date of Service: 07/14/20 Primary Care Provider: PCP-Dr. Infante, Neph- Stuart, Cards- Dr. Conklin Chief Complaint: CHF exacerbation Subjective: Improving (reports had rought evening, but breathing more comfortably this morning feels swelling in legs has decreased) Physical Examination - Vital Signs Temperature: 96.3 F Blood Pressure: 165/70 Pulse: 71 Respirations: 19 Pulse Ox (%): 95 - Physical Exam General: In no apparent distress Respiratory: Diminished (At bases. On 2 L nasal cannula) Cardiovascular: Regular rate/rhythm, Edema (1+ bilaterally to the knees), Systolic murmur Gastrointestinal: Soft and benign, Non-distended, No tenderness Musculoskeletal: No erythema, No tenderness Integumentary: No rashes Neurological: Normal speech, Normal affect - Studies Microbiology Data (last 24 hrs): 07/13/20 00:15 Nasopharnyx Coronavirus COVID-19 PCR - Final Assessment & Plan Physician Review Additional Text: Acute on chronic diastolic congestive heart failure with moderate bilateral pleural effusions Hypertension Urinary tract infection Chronic kidney disease stage 4 Plan Acute on chronic diastolic congestive heart failure with moderate bilateral pleural effusions: -continue IV lasix 40 BID, telemetry -cardiology consulted - reportedly had recent JODI at OSH which she states Dr. Conklin should have results available to him, if not, she may need repeat TTE here -Last echocardiogram 2014 showed normal ejection fraction. -still breathing heavily, but states feeling better, on 2LNC -reports she is urinating often, not much is recorded in I/Os Hypertension: -continue home metoprolol -IV hydralazine PRN Urinary tract infection: -Continue nephrology recommendations Cipro 250 mg p.o. b.i.d.. Follow up urine culture. VIVIAN on Chronic kidney disease stage 4: -rising creatinine this morning -Nephrology consulted, continue with diuresis at this time, concern for cardiorenal syndrome. Appreciate further recommendations. Serology is pending Dispo: anticipate dc in 24-48 hrs, still slightly tachypneic, needing 2-3LNC Time Spent Managing Pts Care (In Minutes): 35
[2020-07-14 21:10] LABS: Rheumatoid Factor NEG (NEG)
--- NOTE | 2020-07-14 21:52 | PN ---
Date of Progress Note: 07/14/2020 Subjective: The patient was admitted with Cardiorenal. The patient has been on diuresis. The patie nt still has significant shortness of breath. Kidney function continue to decline. Physical Examination: Vital Signs: Blood pressure 165/63, pulse of 69, afebrile. The patient had voiding twice, decrease in the urine output. Chest: Crackles bilateral. Heart: S1, S2. Systolic murmur. Abdomen: Soft, nontender. Extremities: Trace edema. Neurological: Alert, oriented x3. No focal. Laboratory Data: WBC 12, H and H 10/29.5, platelet 439. Sodium 135, potassium 3.7, bicarb 24, BUN 6 0, creatinine 3.9, GFR of 11 continue to trend down, calcium 9.3. Serum protein electrophoresis is s till pending. PTH 186. Current Medications: Include: 1.Aspirin. 2.Plavix. 3.Diltiazem. 4.Hydralazine. 5.Lorazepam. 6.Zoloft. 7.Lasix 40 b.i.d. 8.Oral bicarb 650 b.i.d. Assessment And Plan: 1.Acute kidney injury secondary to cardiorenal. I had a long discussion with the patient regarding the need to initiate renal replacement therapy given the advanced kidney disease and the over volume status with marginal acidosis. The patient is on agreement. We are going to go ahead and consult Hetal montelongo for PermCath placement and we will initiate the patient on dialysis. 2.Hypertension, controlled, not optimal. I am going to utilize blood pressure for more diuresis. I am going to go ahead and increase Lasix to t.i.d. and we will monitor the patient. 3.Secondary hyperparathyroidism. No need for vitamin D analog. 4.Anemia of chronic kidney disease. I am going to send for iron study to evaluate if the patient is going to need IV iron. We will start the patient on Retacrit for the time being. 5.Congestive heart failure with exacerbation. We will follow up with Cardiology. We will try to es tablish better volume control with diuresis. MA/MODL Voice ID: [id number] Report ID: [id number]
[2020-07-15] MEDS: METOPROLOL XL 50 MG TAB PO SCH ×2 (05:50→18:12)
[2020-07-15 06:18] LABS: Absolute Lymphocytes (CBC) 1.3 K/uL (0.7-4.9); Basophils % 0.6 % (0-1.3); Hematocrit 27.7 % (36.0-45.0); Lymphocytes % 11.7 % (15.3-44.8); MPV 6.9 fL (7.6-11.3); RBC Red Blood Cell Count 3.22 M/uL (3.86-4.86)
[2020-07-15 07:53] LABS: Albumin 3.5 g/dL (3.4-5.0); Ferritin 269.9 ng/mL (8-388); Folic Acid, (Folate) 18.3 ng/mL (3.1-17.5); Phosphorus 4.9 mg/dL (2.5-4.9); Potassium 3.8 mmol/L (3.5-5.1); Thyroid Stimulating Hormone 2.32 uIU/mL (0.360-3.740)
[2020-07-15] MEDS: ASPIRIN EC 81 MG TAB PO SCH (09:00)
[2020-07-15] MEDS: HEPARIN 5000 UNIT/ML 1 ML VIAL SQ SCH ×2 (09:00→21:00)
[2020-07-15] MEDS ORDERED: NA CHLORIDE 0.9% 100 ML IV ONE (09:32)
[2020-07-15] MEDS ORDERED: HEPARIN 5000 UNIT/ML 1 ML VIAL ONE (09:32)
[2020-07-15] MEDS ORDERED: NS 0.9% VIAL 10 ML ONE (09:34)
[2020-07-15] MEDS ORDERED: LIDOCAINE 1% MPF 30 ML VIAL ONE (09:35)
[2020-07-15] MEDS: SERTRALINE HCL 50 MG TAB PO SCH (09:37)
[2020-07-15] MEDS: FUROSEMIDE 40 MG/4 ML VIAL IV SCH ×3 (09:37→21:00)
[2020-07-15] MEDS: SODIUM BICARB 325 MG TAB PO SCH (09:38)
[2020-07-15] MEDS: allopurinoL 100 MG TAB PO SCH (09:38)
[2020-07-15] MEDS: DILTIAZEM HCL 120 MG SR CAP PO SCH (09:38)
[2020-07-15] MEDS: CIPROFLOXACIN HCL 250 MG TAB PO SCH (09:38)
--- NOTE | 2020-07-15 11:12 | P.PN ---
Subjective Date of Service: 07/15/20 Primary Care Provider: PCP-Dr. Infante, Neph- Stuart, Cards- Dr. Conklin Chief Complaint: CHF exacerbation Subjective: Improving (Feels breathing is very slightly better, but still feels like she is drowning at times Stage she discussed with nephrology yesterday and is moving forward with dialysis Daughter at bedside) Physical Examination - Vital Signs Temperature: 97.8 F Blood Pressure: 169/65 Pulse: 70 Respirations: 18 Pulse Ox (%): 97 - Physical Exam General: Alert, In no apparent distress HEENT: Mucous membr. moist/pink Neck: No LAD Respiratory: Crackles/rales (Mild at bases bilaterally) Cardiovascular: No edema, Regular rate/rhythm, Systolic murmur Gastrointestinal: Soft and benign, Non-distended, No tenderness Musculoskeletal: No erythema, No tenderness Integumentary: No rashes Neurological: Normal speech, Normal affect - Studies Microbiology Data (last 24 hrs): 07/13/20 11:36 Clean Catch Urine Lenora Count - Final <10,000 CFU/ML. 07/13/20 11:36 Clean Catch Urine - Final MIXED MIKE. Assessment & Plan Physician Review Additional Text: Acute on chronic diastolic congestive heart failure with moderate bilateral pleural effusions Hypertension Urinary tract infection Chronic kidney disease stage 4 Plan Acute on chronic diastolic congestive heart failure with moderate bilateral pleural effusions: -IV Lasix 40 mg b.i.d. increased to t.i.d. on 07/14 -cardiology consulted - reportedly had recent JODI at OSH which she states Dr. Conklin should have results available to him, if not, she may need repeat TTE here -Last echocardiogram 2014 showed normal ejection fraction. -still breathing heavily, but states feeling better, on 2LNC -reports she is urinating often, not much is recorded in I/Os -still appears volume overloaded VIVIAN on Chronic kidney disease stage 4: -rising creatinine -Nephrology consulted, continue with diuresis at this time, concern for cardiorenal syndrome -Perma-Cath to be placed today, to proceed with dialysis Hypertension: -continue home metoprolol -IV hydralazine PRN Urinary tract infection: -Continue nephrology recommendations Cipro 250 mg p.o. b.i.d.. Follow up urine culture. Dispo: anticipate dc in ~48 hrs, needing 2-3LNC; may need transfer to [facility] for valvuloplasty/replacement Time Spent Managing Pts Care (In Minutes): 35
[2020-07-15] MEDS ORDERED: FENTANYL CITR 100 MCG/2 ML ONE (12:49)
[2020-07-15] MEDS ORDERED: MIDAZOLAM HCL 2 MG/2 ML INJ ONE (12:49)
[2020-07-15] MEDS ORDERED: ETOMIDATE 20 MG/10 ML VIAL IV ONE (12:50)
[2020-07-15] MEDS ORDERED: ONDANSETRON 4 MG/2 ML VIAL ONE (12:50)
[2020-07-15] MEDS ORDERED: NA CHLORIDE 0.9% 500 ML ONE (13:00)
--- NOTE | 2020-07-15 13:10 | PN ---
Date of Progress Note: 07/15/2020 Subjective: The patient was admitted with over volume, acute kidney injury secondary to cardiorenal. The patient was tried on diuresis. The patient did not achieve good urine output, still over volum e, kidney function continued to decline. Blood pressure maintained okay. Physical Examination: Vital Signs: Blood pressure 169/65, pulse of 70, afebrile. Chest: Crackles bilateral base. Heart: S1, S2. Systolic murmur. Vascular carotid bruit. Abdomen: Soft, nontender. Extremities: Trace edema. Neurological: Alert and oriented x3. No focal. Laboratory Data: WBC 11.5, H and H 9.4/27.7, platelets 415. Sodium 136, potassium 3.8, bicarb 25, B UN 70, creatinine 4, worsening GFR of 10. Iron saturation 11, ferritin 269, folate 18, B12 437, PTH 186, TSH 2.3. Urine analysis positive for infection. Current Medications: The patient on its include; 1.Aspirin. 2.Ciprofloxacin. 3.Heparin. 4.Diltiazem 120 daily. 5.Metoprolol 50 b.i.d. 6.Zoloft. 7.Lasix 40 b.i.d. 8.Sodium bicarb 650. 9.Allopurinol. 10.KCl. Assessment And Plan: 1.Acute kidney injury on advanced chronic kidney disease, progression to end-stage renal disease. W e will initiate the patient on dialysis. The patient planned for PermCath placement today, then we w ill do one session of dialysis today and tomorrow. I had long discussion with the patient in the pre sence of her daughter about the option of dialysis. The patient expressed interest for in-home staff assist hemodialysis. We will refer to [facility] for home staff assist and we will follow up. 2.Hypertension, not controlled. We will utilize blood pressure for more diuresis and ultrafiltratio n. Continue Lasix 40 t.i.d. I am going to discontinue the bicarb and we will follow up blood pressu re after dialysis. 3.Acidosis secondary to renal failure. The patient is going to be started on dialysis. Discontinue sodium bicarb. 4.Over volume secondary to congestive heart failure. We will try to establish better volume control with dialysis. 5.Coronary artery disease with congestive heart failure as above. KARINA/MODL Voice ID: [id number] Report ID: [id number]
[2020-07-15] MEDS ORDERED: EPHEDRINE SULF 50 MG/ML VIAL ONE (13:33)
--- NOTE | 2020-07-15 13:37 | CON ---
Date of Consultation: 07/15/2020 Reason For Consultation: Placement of hemodialysis tunneled catheter. History Of Present Illness: This is the case of an 89-year-old patient with multiple medical problem s including heart disease, peripheral vascular disease, history of cardiac surgery, history of catara ct surgery, presented to the hospital with shortness of breath and generalized edema. Found out to a lso that had deterioration of the kidney function to the point that needs dialysis. I was consulted for dialysis catheter placement. Past Medical History: Pulmonary edema, congestive heart failure, renal disease, peripheral vascular disease. Past Surgical History: Includes status post CABG, status post aortic valve replacement, carotid sten osis, history of endarterectomy. Allergies: DIGOXIN, NAXIN, CODEINE. Medications: Reviewed. Apparently, it is documented in the chart that she takes Plavix, but she cla ims only taking aspirin. Social History: She does not smoke. She does not drink alcohol. Family History: Noncontributory. Review of Systems: Ten points otherwise unremarkable. Physical Examination: General: The patient is awake, alert. HEENT: Pupils are equal and reactive. Anicteric. Neck: The patient has a right neck incision scar from a previous endarterectomy. Chest: Clear. Abdomen: Soft and depressible. Extremities: Good capillary refill. Rectal: Deferred. Breast: Deferred. Pelvic: Deferred. Laboratory Data: Blood work shows WBC count of 11.5, hemoglobin of 9.4, platelets of 415. INR of 1. 07, potassium 3.8, creatinine is 4. Assessment: This is an 89-year-old patient in need of hemodialysis catheter. When they were explain ed to another family member at bedside, however, is a PA in [place] on the phone all the mi sks. All the questions were answered to his satisfaction. Risks of infection, bleeding, damage to a djacent structures, anesthesia complication, PE, pericardiac tamponade, pericarditis, deep vein throm boses, pneumothorax, hemothorax, myocardial infarction, even . She also understands this may no t relieve any symptoms. She might need more than one surgical intervention. They asked me to see if I can start on the left side since the patient has multiple scars in the right side of the neck and I explained to them how the anatomy is a little more difficult because of the normal curve of those b lood vessels, but in her situation, I believe it is poor to do so. She understands that if we cannot get the access in the neck or the wound, groin temporarily until she is more stable and s he understands that. The patient was booked in OR emergently. FRANDY/LACHELLE Voice ID: [id number] Report ID: [id number]
--- NOTE | 2020-07-15 13:45 | P.BOP ---
Preoperative diagnosis: ESRD Postoperative diagnosis: same Primary procedure: 1. Placement og tunneled hemosplit Hemodialysis catheter Secondary procedure: 2. Interpretation of fluoroscopy Other procedure(s): 3. Left neck ultrasound Estimated blood loss: <10cc Specimen: none Findings: as above Anesthesia: General Drain(s): Other (hemosplit) Transferred to: Recovery Room Condition: Good
--- NOTE | 2020-07-15 14:35 | RAD REPORT ---
EXAM DESCRIPTION: RAD - Chest Single View - 07/15/2020 2:25 pm CLINICAL HISTORY: S P DIALYSIS CATHETER PLACEMEMT COMPARISON: April 2020 TECHNIQUE: AP portable chest image was obtained 07/15/2020 2:25 pm . FINDINGS: Left-sided double-lumen dialysis catheter is in place. Catheter tips are in the proximal S VC. No pneumothorax. Patchy lung parenchymal opacities are present which could be pneumonia, pulmonary edema or volume ove rload. Cardiomegaly is present peer bilateral pleural effusions seen. IMPRESSION: Left-sided hemodialysis catheter in good position. No pneumothorax. Bilateral airspace disease from failure, volume overload or possibly pneumonia. Bilateral pleural eff usions are present.
[2020-07-15] MEDS: SOD FERRIC GLUC COMPLX/SUCROSE 250 MG in NA CHLORIDE 0.9% 250 ML IV SCH (15:49)
[2020-07-15] MEDS ORDERED: TRAMADOL HCL 50 MG TAB PO ONE (16:13)
[2020-07-15] MEDS: ACETAMINOPHEN 500 MG TAB PO PRN (21:27)
[2020-07-15] MEDS: TRAMADOL HCL 50 MG TAB PO PRN (22:06)
[2020-07-16] MEDS: ACETAMINOPHEN 500 MG TAB PO PRN (05:02)
[2020-07-16 05:55] LABS: Basophils % 0.5 % (0-1.3); Hematocrit 26.4 % (36.0-45.0); Lymphocytes % 4.9 % (15.3-44.8); MPV 6.9 fL (7.6-11.3); RBC Red Blood Cell Count 3.03 M/uL (3.86-4.86)
[2020-07-16 05:56] LABS: Absolute Lymphocytes (CBC) 0.7 K/uL (0.7-4.9)
[2020-07-16 06:03] LABS: Albumin 3.4 g/dL (3.4-5.0); Magnesium 2.3 mg/dL (1.8-2.4); Phosphorus 3.5 mg/dL (2.5-4.9); Potassium 3.3 mmol/L (3.5-5.1)
[2020-07-16 06:34] LABS: Blood Morphology Comment NOTED (NOT SEEN); Platelet Estimate ADEQ; Stomatocytes 1+; White Blood Cell Scan OK (OK)
[2020-07-16] MEDS: METOPROLOL XL 50 MG TAB PO SCH ×2 (06:37→17:15)
[2020-07-16] MEDS: SERTRALINE HCL 50 MG TAB PO SCH (08:33)
[2020-07-16] MEDS: DILTIAZEM HCL 120 MG SR CAP PO SCH (08:34)
[2020-07-16] MEDS: allopurinoL 100 MG TAB PO SCH (08:34)
[2020-07-16] MEDS: CIPROFLOXACIN HCL 250 MG TAB PO SCH (08:34)
[2020-07-16] MEDS: HEPARIN 5000 UNIT/ML 1 ML VIAL SQ SCH ×2 (08:35→21:00)
[2020-07-16] MEDS: ASPIRIN EC 81 MG TAB PO SCH (08:35)
[2020-07-16] MEDS: FUROSEMIDE 40 MG/4 ML VIAL IV SCH ×3 (08:35→21:32)
[2020-07-16] MEDS ORDERED: POTASSIUM CL SA 10 MEQ TAB PO ONE (09:00)
--- NOTE | 2020-07-16 09:54 | P.PN ---
Subjective Date of Service: 07/16/20 Primary Care Provider: PCP-Dr. Infante, Neph- [facility], Cards- Dr. Conklin Chief Complaint: CHF exacerbation Subjective: Improving (PermCath placed yesterday, underwent dialysis overnight Patient reports breathing significantly better today, lower extremity swelling improved She states she has been having some bleeding from the surgical site intermittently since dialysis) Physical Examination - Vital Signs Temperature: 97.5 F Blood Pressure: 122/58 Pulse: 71 Respirations: 17 Pulse Ox (%): 92 - Physical Exam General: Alert, In no apparent distress, Oriented x3 HEENT: Sclerae nonicteric Neck: Other (Left neck: Pressure dressing in place, saturated with blood, does not appear to have active bleeding) Respiratory: Crackles/rales (Mild at bases bilaterally) Cardiovascular: Regular rate/rhythm, Systolic murmur Gastrointestinal: Soft and benign, Non-distended, No tenderness Musculoskeletal: No erythema, No tenderness Integumentary: No rashes Neurological: Normal speech, Normal affect - Studies Microbiology Data (last 24 hrs): 07/13/20 11:36 Clean Catch Urine [place] Count - Final <10,000 CFU/ML. 07/13/20 11:36 Clean Catch Urine - Final MIXED FLAQUITA. Assessment & Plan Physician Review Additional Text: Acute on chronic diastolic congestive heart failure with moderate bilateral pleural effusions Hypertension Urinary tract infection Chronic kidney disease stage 4 Plan Acute on chronic diastolic congestive heart failure with moderate bilateral pleural effusions: -IV Lasix 40 mg b.i.d. increased to t.i.d. on 07/14 per renal -cardiology consulted - reportedly had recent JODI at OSH which she states Dr. Conklin should have results available to him, if not, she may need repeat TTE here -Last echocardiogram 2014 showed normal ejection fraction. -reports breathing more comfortably after dialysis VIVIAN on Chronic kidney disease stage 4: -given the rising creatinine and worsening shortness of breath, nephrology was consulted -concern for cardiorenal syndrome -Perma-Cath placed on 07/15, patient underwent dialysis overnight -continue to monitor Hypertension: -continue home metoprolol -IV hydralazine PRN Urinary tract infection: -Continue nephrology recommendations Cipro 250 mg p.o. b.i.d.. -Urine culture less than 10,000 CFU/mL, mixed flaquita Dispo: anticipate dc in ~24-48 hrs; may need transfer to [place] for valvuloplasty/replacement. Will need to set up dialysis Time Spent Managing Pts Care (In Minutes): 35
--- NOTE | 2020-07-16 13:38 | PN ---
Date of Progress Note: 07/16/2020 Diagnosis: Status post hemodialysis catheter. Subjective: The patient is doing well this morning. No complaints. She is stating. She feels ben astic. She states she is breathing a lot better. Physical Examination: Neck: Supple. No bleeding. Chest: No bleeding. Bilateral breath sounds. Plan: Continue service by the medical doctor. Please follow up in my office to remove the catheter once the patient and Renal doctor agree that is needed. FRANDY/LACHELLE Voice ID: [id number] Report ID: [id number]
[2020-07-16 16:30] LABS: Potassium 4.5 mmol/L (3.5-5.1)
--- NOTE | 2020-07-17 01:58 | PN ---
Date of Progress Note: 07/16/2020 Chief Complaint: Acute on chronic kidney injury, cardiorenal syndrome. Subjective: The patient was initiated on renal replacement therapy. She has advanced chronic kidney disease. She developed fluid overload and there was metabolic acidosis present. BUN was up to 60, creatinine 3.9, GFR 11. The patient agreed to have dialysis and surgical team is consulted for dialysis catheter placement. Review of Systems: Denies PND or orthopnea. Physical Examination: Lungs: Diminished breath sounds at bases. Heart: S1, S2. Abdomen: Soft, benign. Extremities: Edema in both ankles. Impression And Plan: 1.Acute on chronic kidney injury. Continue dialysis via tunneled dialysis catheter. 2.Hypertension. Blood pressure controlled. Continue to adjust medication. The patient is on Lasix for volume control. Advance ultrafiltration with dialysis. 3.Secondary hyperparathyroidism. Monitor and adjust treatment according to phosphorus and intact PT H level. 4.Anemia of chronic kidney disease. The patient will have IV iron. Lab work was ordered to assess iron status. EB/MODL Voice ID: [id number] Report ID: [id number]
[2020-07-17 04:58] LABS: Absolute Lymphocytes (CBC) 1.5 K/uL (0.7-4.9); Basophils % 0.6 % (0-1.3); Hematocrit 23.9 % (36.0-45.0); Lymphocytes % 16.5 % (15.3-44.8); MPV 7.3 fL (7.6-11.3); RBC Red Blood Cell Count 2.75 M/uL (3.86-4.86)
[2020-07-17 05:06] LABS: Albumin 2.9 g/dL (3.4-5.0); Magnesium 2.4 mg/dL (1.8-2.4); Potassium 4.8 mmol/L (3.5-5.1)
[2020-07-17 05:25] LABS: Urine Protein/Creatinine Ratio 1.87 ratio (<0.15)
[2020-07-17] MEDS: METOPROLOL XL 50 MG TAB PO SCH ×2 (05:29→17:03)
[2020-07-17] MEDS: SERTRALINE HCL 50 MG TAB PO SCH (08:46)
[2020-07-17] MEDS: DILTIAZEM HCL 120 MG SR CAP PO SCH (08:46)
[2020-07-17] MEDS: allopurinoL 100 MG TAB PO SCH (08:46)
[2020-07-17] MEDS: CIPROFLOXACIN HCL 250 MG TAB PO SCH (08:47)
[2020-07-17] MEDS: FUROSEMIDE 40 MG/4 ML VIAL IV SCH ×3 (08:47→21:54)
[2020-07-17] MEDS: ASPIRIN EC 81 MG TAB PO SCH (08:47)
[2020-07-17] MEDS: HEPARIN 5000 UNIT/ML 1 ML VIAL SQ SCH ×2 (08:47→21:00)
--- NOTE | 2020-07-17 12:45 | P.PN ---
Subjective Date of Service: 07/17/20 Primary Care Provider: PCP-Dr. Infante, Neph- [facility], [facility]- Dr. Conklin Chief Complaint: CHF exacerbation Subjective An 82-year-old woman with PMHx of CKD , Cr in 2018 1nd 2019 ~2.0 , in april 3.0 and 3.6 in May 2020 , CAD S/P CABG and HTN , and carotis stenosis S/p endarterectomy. pt presented with progressively worsening SOB and LE edema Cr was trending up, pt started on HD today have mild excretional dyspnea Hb trending down , will start epogen HD today PT/OT outpatient dialysis arrangement Physical exam general: AAOX3, NAD , thin Neck; Supple, No elevated JVD hear: RRR, normal S1,2 no murmur or rub Chest: rales B/L Abdomen: Soft , Nt Extremitie edema, with bluish feet discoloration A/P CKD IV progressing to ESRD started on HD HD today F/U serology W/U avoid NSAID and contrast CHF wiyth pulmponary edema cont HD HAGMA will correct with HD Anemia of chronic disease cont IVF iron will add epogen UTI cont Abx F/U cultures Physical Examination - Vital Signs Temperature: 97.8 F Blood Pressure: 154/69 Pulse: 78 Respirations: 18 Pulse Ox (%): 93
--- NOTE | 2020-07-17 14:51 | P.PN ---
Subjective Date of Service: 07/17/20 Primary Care Provider: PCP-Dr. Infante, Neph- [facility], Cards- Dr. Conklin Chief Complaint: CHF exacerbation Subjective: No new changes Patient it for shortness of breath with exertion. She stated she usual ambulate with a walker or or use a wheelchair at home. Serum creatinine is worse today. Physical Examination - Vital Signs Temperature: 97.8 F Blood Pressure: 154/69 Pulse: 78 Respirations: 18 Pulse Ox (%): 93 - Physical Exam General: Alert, In no apparent distress HEENT: Mucous membr. moist/pink Neck: Supple Respiratory: Clear to auscultation bilaterally, Normal air movement Cardiovascular: No edema, Regular rate/rhythm, Normal S1 S2 Gastrointestinal: Normal bowel sounds, Soft and benign, No tenderness Musculoskeletal: No swelling Integumentary: No rashes Neurological: Normal speech, Normal strength at 5/5 x4 extr Assessment And Plan Physician Review Additional Text: Acute on chronic diastolic congestive heart failure with moderate bilateral pleural effusions Hypertension Urinary tract infection Chronic kidney disease stage 4 Plan Acute on chronic diastolic congestive heart failure with moderate bilateral pleural effusions: -IV Lasix -patient is also undergoing dialysis. -repeat echocardiogram. VIVIAN on Chronic kidney disease stage 4: -nephrology is following. -patient started on hemodialysis. -outpatient hemodialysis per nephrology -Perma-Cath placed on 07/15. -continue to monitor Hypertension: -continue home metoprolol -IV hydralazine PRN Urinary tract infection: -Continue nephrology recommendations Cipro 250 mg p.o. b.i.d.. -Urine culture less than 10,000 CFU/mL, mixed flaquita Dispo: Family requesting for skilled rehab placement.
[2020-07-17 16:43] LABS: HIV AG/AB 4TH GEN Non-reactive (Non-reactive)
[2020-07-17] MEDS: ACETAMINOPHEN 500 MG TAB PO PRN (18:44)
[2020-07-17] MEDS: EPOETIN 4,000 UNIT/ML VIAL IV SCH (19:03)
[2020-07-17 21:08] LABS: Hepatitis C Virus RNA (PCR)log <1.18 log IU/mL
[2020-07-18] MEDS: ACETAMINOPHEN 500 MG TAB PO PRN (00:31)
[2020-07-18] MEDS: TRAMADOL HCL 50 MG TAB PO PRN (03:07)
[2020-07-18 04:48] LABS: Phosphorus 3.9 mg/dL (2.5-4.9); Potassium 3.7 mmol/L (3.5-5.1)
[2020-07-18] MEDS: METOPROLOL XL 50 MG TAB PO SCH (05:17)
[2020-07-18] MEDS: allopurinoL 100 MG TAB PO SCH (08:24)
[2020-07-18] MEDS: ASPIRIN EC 81 MG TAB PO SCH (08:24)
[2020-07-18] MEDS: FUROSEMIDE 40 MG/4 ML VIAL IV SCH ×2 (08:24→14:00)
[2020-07-18] MEDS: CIPROFLOXACIN HCL 250 MG TAB PO SCH (08:24)
[2020-07-18] MEDS: HEPARIN 5000 UNIT/ML 1 ML VIAL SQ SCH ×2 (08:25→21:00)
[2020-07-18] MEDS: DILTIAZEM HCL 120 MG SR CAP PO SCH (08:25)
[2020-07-18] MEDS: SERTRALINE HCL 50 MG TAB PO SCH (08:25)
[2020-07-18] MEDS ORDERED: POTASSIUM CL SA 10 MEQ TAB PO ONE (09:00)
--- NOTE | 2020-07-18 11:23 | PN ---
Date of Progress Note: 07/18/2020 Subjective: The patient was admitted with acute kidney injury secondary to cardiorenal. The patient was initiated on dialysis, had 2 sessions of dialysis. Her shortness of breath has been subsided. The patient is still feeling weak. Physical Examination: Vital Signs: Blood pressure 124/54, pulse of 67. The patient had 1 L ultrafiltration. Had urine ou tput of 800. Chest: Crackles bilateral. Heart: S1, S2. Systolic murmur. Abdomen: Soft, nontender. Extremities: Trace edema. Neurologic: Alert. No focal. Laboratory Data: WBC 9.4, H and H 06/17.9. Sodium 135, potassium 3.7, bicarb 25, BUN 36, creatinine 3.7, GFR of 11, calcium 8.6, phosphorus 3.9, albumin 3, corrected calcium 9.4. Current Medications: The patient on include Epogen, ciprofloxacin, aspirin, IV iron, metoprolol 50 b .i.d., Zoloft, Lasix 40 t.i.d., allopurinol, tramadol. Assessment And Plan: 1.Acute kidney injury on advanced chronic kidney disease and progression to end-stage renal disease. I am going to continue the patient on dialysis Thursday, Thursday, Thursday. We will arrange for outp atient dialysis. The patient is going to be going to SNF for rehabilitation. We will arrange for di alysis either as in center or at the SNF. We will speak to the SNF Company. 2.Hypertension, controlled, optimal. We will utilize the blood pressure for more diuresis and ultra filtration. I am going to go ahead and decrease her metoprolol to 25 mg. Continue diuresis. 3.Pulmonary hypertension, congestive heart failure. Follow up with primary. 4.Deconditioning. Continue PT/OT. I am going to go ahead and send for vitamin D to evaluate if the patient is going to need any supplement. Hypothyroidism has been ru led out. KARINA/LACHELLE Voice ID: [id number] Report ID: [id number]
[2020-07-18] MEDS: SOD FERRIC GLUC COMPLX/SUCROSE 250 MG in NA CHLORIDE 0.9% 250 ML IV SCH ×2 (11:43→12:00)
--- NOTE | 2020-07-18 11:59 | P.PN ---
Subjective Date of Service: 07/18/20 Primary Care Provider: PCP-Dr. Infante, Neph- [facility], Cards- Dr. Conklin Chief Complaint: CHF exacerbation Patient reports a brief episode of confusion last night. Patient had no complain this morning. She tolerated physical therapy. Physical Examination - Vital Signs Temperature: 97.4 F Blood Pressure: 124/54 Pulse: 67 Respirations: 18 Pulse Ox (%): 97 - Physical Exam General: Alert, In no apparent distress Respiratory: Clear to auscultation bilaterally, Normal air movement Cardiovascular: No edema, Regular rate/rhythm, Normal S1 S2 Gastrointestinal: Normal bowel sounds, Soft and benign, Non-distended, No tenderness Musculoskeletal: No swelling Neurological: Normal strength at 5/5 x4 extr - Studies Microbiology Data (last 24 hrs): 07/12/20 17:50 Blood - Blood Aerobic Blood Culture - Final No growth in 5 days. 07/12/20 17:50 Blood - Blood Anaerobic Blood Culture - Final No growth in 5 days. 07/12/20 17:30 Blood - Blood Aerobic Blood Culture - Final No growth in 5 days. 07/12/20 17:30 Blood - Blood Anaerobic Blood Culture - Final No growth in 5 days. Assessment And Plan Physician Review Additional Text: Acute on chronic diastolic congestive heart failure with moderate bilateral pleural effusions Hypertension Urinary tract infection Chronic kidney disease stage 4 Plan Acute on chronic diastolic congestive heart failure with moderate bilateral pleural effusions: -On IV Lasix -patient is also undergoing dialysis. VIVIAN on Chronic kidney disease stage 4: -nephrology is following. -patient started on hemodialysis. -outpatient hemodialysis per nephrology -Perma-Cath placed on 07/15. -continue to monitor Hypertension: -continue home metoprolol -IV hydralazine PRN Urinary tract infection: -urine culture: Polymicrobial growth -patient should complete antibiotics for UTI today. Dispo: Family requesting for skilled rehab placement.
[2020-07-18] MEDS: METOPROLOL XL 25 MG TAB PO SCH (17:19)
[2020-07-18] MEDS: FUROSEMIDE 40 MG TABLET PO SCH (21:20)
--- NOTE | 2020-07-19 04:42 | PN ---
Date of Progress Note: 07/17/2020 Subjective: Ms. Horne has been in the hospital since July 13, 2020 for congestive heart failure and renal failure. Ms. Horne is now on hemodialysis. Unknown whether this is going to be a permanent situation or trans ient. She does not have AV fistula yet. She has tolerated dialysis well. Cardiac fritz, she has don e well, she has not had any chest pain. She is known to have a history of aortic valve replacement, hypertension, coronary artery disease status post CABG. She remains in sinus rhythm. No evidence of CHF. No rales. No edema. Plan: We will continue her present regimen for now. She is getting some physical therapy. We will be available for questions if the need arises. Whenever she goes home, we will see her in the office as an outpatient. FLORES/LACHELLE Voice ID: [id number] Report ID: [id number]
[2020-07-19] MEDS: METOPROLOL XL 25 MG TAB PO SCH ×2 (05:27→17:13)
[2020-07-19 05:54] LABS: Albumin 3.1 g/dL (3.4-5.0); Phosphorus 3.9 mg/dL (2.5-4.9); Potassium 4.3 mmol/L (3.5-5.1)
[2020-07-19] MEDS: EPOETIN 4,000 UNIT/ML VIAL IV SCH (08:43)
[2020-07-19] MEDS: ASPIRIN EC 81 MG TAB PO SCH (09:00)
[2020-07-19] MEDS: allopurinoL 100 MG TAB PO SCH ×2 (09:00→11:41)
[2020-07-19] MEDS: DILTIAZEM HCL 120 MG SR CAP PO SCH ×2 (09:00→11:40)
[2020-07-19] MEDS: FUROSEMIDE 40 MG TABLET PO SCH ×3 (09:00→17:13)
[2020-07-19] MEDS: SERTRALINE HCL 50 MG TAB PO SCH ×2 (09:00→11:42)
--- NOTE | 2020-07-19 09:17 | ECHO ---
HEIGHT: 5 ft 3 in WEIGHT: 139 lb 5 oz DATE OF STUDY: 07/18/[address]: sayda gilmore 2-DIMENSIONAL: YES M.MODE: YES DOPPLER: YES COLOR FLOW: YES TDS: NO PORTABLE: NO DEFINITY: NO BUBBLE STUDY: NO DIAGNOSIS: CONGESTIVE HEART FAILURE EXACERBATION, PROSTHETIC AORTIC VALVE CARDIAC HISTORY: CATHERIZATION: NO SURGERY: YES PROSTHETIC VALVE: YES PACEMAKER: NO MEASUREMENTS (cm) DIASTOLIC (NORMALS) SYSTOLIC (NORMALS) IVSd 1.2 (0.6-1.2) LA Diam 3.4 (1.9-4.0) LVEF 67% LVIDd 4.2 (3.5-5.7) LVIDs 2.6 (2.0-3.5) %FS 37% LVPWd 1.2 (0.6-1.2) Ao Diam 2.5 (2.0-3.7) 2 DIMENSIONAL ASSESSMENT: RIGHT ATRIUM: NORMAL LEFT ATRIUM: NORMAL RIGHT VENTRICLE: NORMAL LEFT VENTRICLE: NORMAL TRICUSPID VALVE: NORMAL MITRAL VALVE: MITRAL ANNULAR CALCIFICATION PULMONIC VALVE: NORMAL AORTIC VALVE: SCLEROSIS PERICARDIAL EFFUSION: NONE AORTIC ROOT: NORMAL LEFT VENTRICULAR WALL MOTION: NORMAL DOPPLER/COLOR FLOW: NORMAL COMMENTS: AORTIC SCLEROSIS WITH NO STENOSIS STATUS POST AORTIC VALVE REPLACEMENT, MECHANICAL. MITRAL ANNULAR CALCIFICATION. NORMAL LEFT VENTRICULAR SIZE AND FUCNTION. TECHNOLOGIST: Lorenzo RODRIGUES
[2020-07-19 10:23] LABS: Basophils % 0.8 % (0-1.3); Hematocrit 28.2 % (36.0-45.0); Lymphocytes % 8.6 % (15.3-44.8); MPV 6.6 fL (7.6-11.3); RBC Red Blood Cell Count 3.17 M/uL (3.86-4.86)
[2020-07-19] MEDS: ACETAMINOPHEN 500 MG TAB PO PRN (11:42)
--- NOTE | 2020-07-19 12:35 | PN ---
Date of Progress Note: 07/19/2020 Subjective: The patient was admitted with CHF exacerbation, acute kidney injury on advanced chronic kidney disease, progressed to end-stage, required dialysis. The patient seen on dialysis. Objective: Vital Signs: Blood pressure 164/80, pulse of 88. Chest: Faint rales on the left base. Heart: S1, S2. Systolic murmur. Abdomen: Soft, nontender. Extremities: No edema. Neurological: Alert and oriented x3. No focal. Laboratory Data: H and H 9.1/28.2. Sodium 134, potassium 4.3, BUN 49, creatinine 4.3, calcium 8.8, phosphorus 3.9. Assessment And Plan: 1.End-stage renal disease, dialysis dependent. I am going to continue the patient on dialysis. We will increase her goal to optimize fluid status. 2.Hypertension. We will utilize blood pressure for more ultrafiltration. 3.Hypokalemia. The patient is going to be dialyzed on high potassium bath. 4.Hyponatremia, going to be corrected on dialysis. 5.Anemia of chronic kidney disease. Continue USAMA. KARINA/LACHELLE Voice ID: [id number] Report ID: [id number]
--- NOTE | 2020-07-19 12:50 | PN ---
Date of Progress Note: 07/19/2020 Subjective: The patient was admitted with acute kidney injury secondary to cardiorenal on advanced c hronic kidney disease. The patient was started on dialysis. The patient's shortness of breath subsi ded. Physical Examination: Vital Signs: Blood pressure 186/70, pulse of 85. Chest: Faint rales on the left base. Heart: S1, S2. Regular. Systolic murmur. Abdomen: Soft, nontender. Extremities: No edema. Neurologic: Alert and oriented x3. Nonfocal. Laboratory Data: WBC 11.8, H and H 9.1/28.2. Sodium 135, potassium 4.3, bicarb 24, BUN 49, creatini ne 4.3, calcium 8.8, phosphorus 3.9, albumin 3.1, corrected calcium 9.6. Current Medications: The patient on include: 1.Epogen. 2.Aspirin. 3.Diltiazem. 4.Hydralazine. 5.Metoprolol 25 b.i.d. 6.Zoloft. 7.Lasix 40 t.i.d. 8.Nepro. 9.Zofran. 10.Tramadol. 11.Allopurinol 100. Assessment And Plan: 1.End-stage renal disease secondary to cardiorenal, looked to me normal volume. I am going to go ah ead and change Lasix to oral and we will monitor. 2.Hypertension, not controlled, with the presence of pulmonary hypertension. I am going to go ahead and increase diltiazem to 180 and we will start the patient on spironolactone, and we will follow up . 3.Congestive heart failure, looked to me started being euvolemic. I am going to repeat chest x-ray. Change Lasix to oral. 4.Deconditioning. Continue PT, OT. KARINA/MODL Voice ID: [id number] Report ID: [id number]
[2020-07-19] MEDS: NEPRO SHAKE 237 ML CAN PO SCH (14:24)
--- NOTE | 2020-07-19 14:54 | P.PN ---
Subjective Date of Service: 07/19/20 Primary Care Provider: PCP-Dr. Infante, Neph- [facility], Cards- Dr. Conklin Chief Complaint: CHF exacerbation Patient underwent hemodialysis today. She has been tolerating physical therapy. Physical Examination - Vital Signs Temperature: 97 F Blood Pressure: 122/58 Pulse: 85 Respirations: 18 Pulse Ox (%): 96 - Physical Exam General: Alert, In no apparent distress Neck: Supple Respiratory: Clear to auscultation bilaterally, Normal air movement Cardiovascular: No edema, Regular rate/rhythm, Normal S1 S2 Gastrointestinal: Normal bowel sounds, Soft and benign, No tenderness Neurological: Normal speech, Normal strength at 5/5 x4 extr Assessment And Plan Physician Review Additional Text: Acute on chronic diastolic congestive heart failure with moderate bilateral pleural effusions Hypertension Urinary tract infection Chronic kidney disease stage 4 Plan Acute on chronic diastolic congestive heart failure with moderate bilateral pleural effusions: -On IV Lasix -patient is also undergoing dialysis. VIVIAN on Chronic kidney disease stage 4: -nephrology is following. -patient on hemodialysis. -outpatient hemodialysis being scheduled. -Perma-Cath placed on 07/15. -continue to monitor Hypertension: -continue metoprolol and Cardizem. -IV hydralazine PRN Urinary tract infection: -urine culture: Polymicrobial growth -patient should complete antibiotics for UTI today. Dispo: Family requesting for skilled rehab placement.
[2020-07-20] MEDS: METOPROLOL XL 25 MG TAB PO SCH ×2 (05:14→17:01)
[2020-07-20] MEDS: NEPRO SHAKE 237 ML CAN PO SCH (10:00)
[2020-07-20] MEDS: ASPIRIN EC 81 MG TAB PO SCH (10:01)
[2020-07-20] MEDS: DILTIAZEM HCL 120 MG SR CAP PO SCH (10:01)
[2020-07-20] MEDS: FUROSEMIDE 40 MG TABLET PO SCH ×2 (10:01→17:02)
[2020-07-20] MEDS: allopurinoL 100 MG TAB PO SCH (10:01)
[2020-07-20] MEDS: SERTRALINE HCL 50 MG TAB PO SCH (10:01)
[2020-07-20] MEDS: SPIRONOLACTONE 25 MG TABLET PO SCH (10:02)
--- NOTE | 2020-07-20 10:20 | P.PN ---
Subjective Date of Service: 07/20/20 Primary Care Provider: PCP-Dr. Infante, Neph- [facility], Cards- Dr. Conklin Chief Complaint: CHF exacerbation Subjective An 82-year-old woman with PMHx of CKD , Cr in 2018 1nd 2019 ~2.0 , in april 3.0 and 3.6 in May 2020 , CAD S/P CABG and HTN , and carotis stenosis S/p endarterectomy. pt presented with progressively worsening SOB and LE edema Cr was trending up, pt started on HD today no new complaints stable VS HD today pending discharge to rehab Physical exam general: AAOX3, NAD , thin Neck; Supple, No elevated JVD hear: RRR, normal S1,2 no murmur or rub Chest: rales B/L Abdomen: Soft , Nt Extremities edema, with bluish feet discoloration A/P ESRD Cont HD renal dose meds avoid NSAID and contrast CHF with pulmponary edema resolved cont HD Anemia of chronic disease cont IV iron and epogen UTI completed Abx Physical Examination - Vital Signs Temperature: 97.0 F Blood Pressure: 186/77 Pulse: 64 Respirations: 15 Pulse Ox (%): 95 Assessment And Plan Physician Review Additional Text: Acute on chronic diastolic congestive heart failure with moderate bilateral pleural effusions Hypertension Urinary tract infection Chronic kidney disease stage 4 Plan Acute on chronic diastolic congestive heart failure with moderate bilateral pleural effusions: -On IV Lasix -patient is also undergoing dialysis. VIVIAN on Chronic kidney disease stage 4: -nephrology is following. -patient on hemodialysis. -outpatient hemodialysis being scheduled. -Perma-Cath placed on 07/15. -continue to monitor Hypertension: -continue metoprolol and Cardizem. -IV hydralazine PRN Urinary tract infection: -urine culture: Polymicrobial growth -patient should complete antibiotics for UTI today. Dispo: Family requesting for skilled rehab placement.
[2020-07-20] MEDS: ACETAMINOPHEN 500 MG TAB PO PRN (12:49)
--- NOTE | 2020-07-20 14:55 | P.PN ---
Subjective Date of Service: 07/20/20 Primary Care Provider: PCP-Dr. Infante, Neph- [facility], Cards- Dr. Conklin Chief Complaint: CHF exacerbation Patient complaining of pain in the right toes She has been tolerating physical therapy. Physical Examination - Vital Signs Temperature: 96.9 F Blood Pressure: 169/70 Pulse: 71 Respirations: 15 Pulse Ox (%): 97 - Physical Exam General: Alert, In no apparent distress HEENT: Mucous membr. moist/pink Neck: Supple Respiratory: Clear to auscultation bilaterally, Normal air movement Cardiovascular: No edema, Regular rate/rhythm, Normal S1 S2 Gastrointestinal: Normal bowel sounds, Soft and benign, No tenderness Neurological: Normal speech, Normal strength at 5/5 x4 extr Assessment And Plan Physician Review Additional Text: Acute on chronic diastolic congestive heart failure with moderate bilateral pleural effusions Hypertension Urinary tract infection Chronic kidney disease stage 4 Plan Acute on chronic diastolic congestive heart failure with moderate bilateral pleural effusions: -On IV Lasix -patient is also undergoing dialysis. VIVIAN on Chronic kidney disease stage 4: -nephrology is following. -patient on hemodialysis. -outpatient hemodialysis being scheduled. -Perma-Cath placed on 07/15. -continue to monitor Hypertension: -continue metoprolol and Cardizem. -IV hydralazine PRN Urinary tract infection: -urine culture: Polymicrobial growth -patient should complete antibiotics for UTI today. Discoloration of toes of Right foot: Patient reports history of peripheral vascular disease. Obtain arterial Doppler lower extremities. Dispo: Awaiting for outpatient hemodialysis arrangements and transition to skilled rehab.
[2020-07-21 06:23] LABS: Albumin 3.2 g/dL (3.4-5.0); Phosphorus 5.2 mg/dL (2.5-4.9); Potassium 4.2 mmol/L (3.5-5.1)
[2020-07-21] MEDS: METOPROLOL XL 25 MG TAB PO SCH ×2 (06:39→17:08)
[2020-07-21] MEDS: FUROSEMIDE 40 MG TABLET PO SCH ×2 (10:48→17:07)
[2020-07-21] MEDS: allopurinoL 100 MG TAB PO SCH (10:48)
[2020-07-21] MEDS: SPIRONOLACTONE 25 MG TABLET PO SCH (10:49)
[2020-07-21] MEDS: SERTRALINE HCL 50 MG TAB PO SCH (10:49)
[2020-07-21] MEDS: ASPIRIN EC 81 MG TAB PO SCH (10:50)
[2020-07-21] MEDS: DILTIAZEM HCL 120 MG SR CAP PO SCH (10:50)
[2020-07-21] MEDS: NEPRO SHAKE 237 ML CAN PO SCH (10:50)
--- NOTE | 2020-07-21 12:33 | P.PN ---
Subjective Date of Service: 07/21/20 Primary Care Provider: PCP-Dr. Infante, Neph- [facility], Cards- Dr. Conklin Chief Complaint: CHF exacerbation Patient has no new complaint. Physical Examination - Vital Signs Temperature: 97.0 F Blood Pressure: 141/72 Pulse: 75 Respirations: 16 Pulse Ox (%): 97 - Physical Exam General: Alert, In no apparent distress Neck: Supple Respiratory: Clear to auscultation bilaterally, Normal air movement Cardiovascular: No edema, Regular rate/rhythm, Normal S1 S2 Gastrointestinal: Normal bowel sounds, Soft and benign, No tenderness Neurological: Other (Nonfocal) Assessment And Plan Physician Review Additional Text: Acute on chronic diastolic congestive heart failure with moderate bilateral pleural effusions Hypertension Urinary tract infection Chronic kidney disease stage 4 Plan Acute on chronic diastolic congestive heart failure with moderate bilateral pleural effusions: -On IV Lasix -patient is also undergoing dialysis. VIVIAN on Chronic kidney disease stage 4: -nephrology is following. -patient on hemodialysis. -outpatient hemodialysis being scheduled. -Perma-Cath placed on 07/15. -continue to monitor Hypertension: -continue metoprolol and Cardizem. -IV hydralazine PRN Urinary tract infection: -urine culture: Polymicrobial growth -patient completed antibiotics. Discoloration of toes of Right foot: Patient reports history of peripheral vascular disease. Arterial Doppler lower extremities result is pending. Dispo: Awaiting for outpatient hemodialysis arrangements and transition to skilled rehab.
--- NOTE | 2020-07-21 13:12 | RAD REPORT ---
EXAM DESCRIPTION: US - Lower Extremity Arterial Bilat - 07/20/2020 9:07 pm CLINICAL HISTORY: Right toe pain discoloration COMPARISON: None FINDINGS: The common femoral, superficial femoral and popliteal arteries bilaterally demonstrate monophasic wav eforms The posterior tibial and dorsalis pedis arteries demonstrate monophasic waveforms bilaterally. A significant stenosis is not seen IMPRESSION: Monophasic bilateral arterial waveforms. This may indicate stenosis aortoiliac disease
[2020-07-21] MEDS ORDERED: TRAMADOL HCL 50 MG TAB PO PRN (13:41)
[2020-07-21 20:55] LABS: HBsAG Nonreactive (Nonreactive)
[2020-07-22] MEDS: METOPROLOL XL 25 MG TAB PO SCH ×2 (06:13→17:19)
[2020-07-22 06:20] LABS: Albumin 3.4 g/dL (3.4-5.0); Phosphorus 5.4 mg/dL (2.5-4.9); Potassium 4.4 mmol/L (3.5-5.1)
[2020-07-22] MEDS: NEPRO SHAKE 237 ML CAN PO SCH ×2 (09:00→10:11)
[2020-07-22] MEDS: DILTIAZEM HCL 120 MG SR CAP PO SCH (10:07)
[2020-07-22] MEDS: FUROSEMIDE 40 MG TABLET PO SCH ×2 (10:08→17:18)
[2020-07-22] MEDS: allopurinoL 100 MG TAB PO SCH (10:09)
[2020-07-22] MEDS: SERTRALINE HCL 50 MG TAB PO SCH (10:10)
[2020-07-22] MEDS: ASPIRIN EC 81 MG TAB PO SCH (10:10)
[2020-07-22] MEDS: SPIRONOLACTONE 25 MG TABLET PO SCH (10:11)
--- NOTE | 2020-07-22 11:01 | P.PN ---
Subjective Date of Service: 07/22/20 Primary Care Provider: PCP-Dr. Infante, Neph- [facility], Cards- Dr. Conklin Chief Complaint: CHF exacerbation Patient has no new complaint. Physical Examination - Vital Signs Temperature: 97.3 F Blood Pressure: 149/65 Pulse: 69 Respirations: 16 Pulse Ox (%): 97 - Physical Exam General: Alert, In no apparent distress Neck: Supple Respiratory: Clear to auscultation bilaterally, Normal air movement Cardiovascular: No edema, Regular rate/rhythm, Normal S1 S2 Gastrointestinal: Normal bowel sounds, Soft and benign, No tenderness Musculoskeletal: No swelling, Other (Erythema-3rd 4th and 5th toe of the right foot.) Neurological: Normal speech, Normal strength at 5/5 x4 extr Assessment And Plan Physician Review Additional Text: Acute on chronic diastolic congestive heart failure with moderate bilateral pleural effusions Hypertension Urinary tract infection Chronic kidney disease stage 4 Plan Acute on chronic diastolic congestive heart failure with moderate bilateral pleural effusions: -On oral Lasix -patient is also undergoing dialysis. VIVIAN on Chronic kidney disease stage 4: -nephrology is following. -patient on hemodialysis. -outpatient hemodialysis being scheduled. -Perma-Cath placed on 07/15. -continue to monitor Hypertension: -continue metoprolol and Cardizem. -IV hydralazine PRN Urinary tract infection: -urine culture: Polymicrobial growth -patient completed antibiotics. Discoloration of toes of Right foot: Patient reports history of peripheral vascular disease. Arterial Doppler lower extremities result shows monophasic waveforms bilaterally which could indicate that aortoiliac stenosis. Further workup as outpatient. Dispo: Awaiting for outpatient hemodialysis arrangements and transition to skilled rehab.
--- NOTE | 2020-07-22 12:05 | PN ---
Date of Progress Note: 07/21/2020 Chief Complaint: Congestive heart failure, acute on chronic kidney injury. Subjective: The patient is an 89-year-old woman with history of chronic kidney disease back in 2018 and 2018. Creatinine level was 2.0 in April, went up to 3.0 and 3.6 back in 2019 in May and was up to 3.6. The patient has multiple medical problems including history of coronary artery disease, hyp ertension, status post CABG, carotid stenosis, status post enterectomy. The patient presented to the hospital with worsening of shortness of breath and lower extremity edema. The patient was found to have severe acute kidney injury on chronic kidney disease. The patient is started on dialysis. The patient is due to dialysis today, although dialysis will be rescheduled for tomorrow due to technical difficulties with water supply. I discussed with the patient's plan. The patient is to continue lo w-sodium diet. The patient will have diuretic as needed for volemia control. Review of Systems: Denies PND or orthopnea. Physical Examination: Lungs: Diminished breath sounds at bases. Heart: S1, S2. Abdomen: Soft, benign. Extremities: Chronic dermatitis in both feet. Impression And Plan: 1.End-stage renal disease. Next dialysis tomorrow. Continue p.o. fluid restriction, low-sodium t. The patient will have Lasix for congestive heart failure control. 2.Congestive heart failure with pulmonary edema. Volemia is in control at this point. The patient had ultrafiltration done to control volemia and treat fluid overload. 3.History of acute kidney injury on chronic kidney disease, stage 4. The patient is currently on di alysis. Likely, she will need dialysis for end-stage renal disease. There is no evidence of renal f unction recovery. 4.Acute on chronic diastolic congestive heart failure with moderated bilateral pleural effusions. T he patient is on Lasix and also undergoing dialysis. Next dialysis will be rescheduled for tomorrow. 5.Urinary tract infection, polymicrobial. Continue antibiotics. 6.Hypertension. The patient will continue metoprolol for congestive heart failure and Cardizem for blood pressure control. Hydralazine IV was ordered p.r.n. 7.Renal osteodystrophy. Continue renal diet and binders. EB/MODL Voice ID: [id number] Report ID: [id number]
[2020-07-22 20:36] VITALS: O2SAT 98
--- NOTE | 2020-07-22 22:12 | PN ---
Date of Progress Note: 07/22/2020 Chief Complaint: Acute on chronic kidney injury. The patient was started on dialysis for treatment of fluid overload and to control azotemia. Subjective: The patient is an 89-year-old woman with history of chronic kidney disease back in 2018 and 2019, creatinine was 2.0. During this hospitalization, the patient was started on dialysis, crea tinine was 3.6. The patient has multiple medical problems including coronary artery disease, hyperte nsion, status post CABG, carotid stenosis, status post enterectomy. The patient will have dialysis t omorrow. Azotemia and electrolytes are in acceptable ranges. Review of Systems: Denies PND or orthopnea. Physical Examination: Lungs: Diminished breath sounds at bases. Heart: S1, S2. Abdomen: Soft, benign. Extremities: Dermatitis in both feet. Impression And Plan: 1.End-stage renal disease. Next dialysis tomorrow. The patient will be transferred to higher level of care. 2.Congestive heart failure with pulmonary edema. Volemia controlled and symptoms are improving. 3.History of acute kidney injury on chronic kidney disease stage 4. The patient currently is dialys is dependent. She will continue dialysis 3 times per week. 4.Congestive heart failure. Plan is to use Lasix to prevent fluid overload. 5.Hypertension. Continue blood pressure medication. EB/MODL Voice ID: [id number] Report ID: [id number]
[2020-07-23 04:19] LABS: Albumin, (SPE) 3.9 g/dL (3.8-4.8); Alpha-1-Globulins 0.5 g/dL (0.2-0.3); Alpha-2-Globulins 0.8 g/dL (0.5-0.9); INTERPRETATION REPORT
[2020-07-23 05:44] LABS: Absolute Lymphocytes (CBC) 1.4 K/uL (0.7-4.9); Basophils % 0.6 % (0-1.3); Hematocrit 28.6 % (36.0-45.0); Lymphocytes % 11.6 % (15.3-44.8); MPV 7.1 fL (7.6-11.3)
[2020-07-23 05:53] LABS: Albumin 3.4 g/dL (3.4-5.0); Phosphorus 5.9 mg/dL (2.5-4.9); Potassium 4.9 mmol/L (3.5-5.1)
[2020-07-23] MEDS: METOPROLOL XL 25 MG TAB PO SCH (05:53)
[2020-07-23] MEDS: allopurinoL 100 MG TAB PO SCH (08:16)
[2020-07-23] MEDS: FUROSEMIDE 40 MG TABLET PO SCH (08:17)
[2020-07-23] MEDS: SERTRALINE HCL 50 MG TAB PO SCH (08:18)
[2020-07-23] MEDS: SPIRONOLACTONE 25 MG TABLET PO SCH (08:18)
[2020-07-23] MEDS: ASPIRIN EC 81 MG TAB PO SCH (08:18)
[2020-07-23] MEDS: DILTIAZEM HCL 120 MG SR CAP PO SCH (08:19)
[2020-07-23] MEDS: NEPRO SHAKE 237 ML CAN PO SCH (08:20)
[2020-07-23 08:21] VITALS: BP 134/59
[2020-07-23 08:33] VITALS: TEMP 97.6
--- NOTE | 2020-07-23 10:11 | P.DS ---
Admission Date: 07/13/20 Discharge Date: 07/23/20 Primary Care Provider: PCP-Dr. Infante, Neph- [facility], Cards- Dr. Conklin Disposition: TRANSFER TO [facility] Discharge Condition: FAIR Reason for Admission: CHF exacerbation Consultations: General surgery-Dr. Anne Nephrology-Dr. Galloway. Brief History of Present Illness: 82-year-old woman with a history of chronic kidney disease, chronic diastolic heart failure, coronary artery disease, CABG, history of aortic valve replacement presented to the emergency department with a complaint of shortness of breath. Chest x-ray done in the ED reported bilateral moderate pleural effusion. Patient noted to be quite dyspneic. She was admitted for further management. Hospital Course: Patient admitted to the medical floor and treated with IV Lasix. She did not respond much to the lasix. She was evaluated by nephrology and patient initiated hemodialysis. Patient improved clinically with treatment. Nephrology has diagnosis end-stage renal disease and arrangement is being made for outpatient hemodialysis. Patient was evaluated by physical therapy who recommended skilled rehab. Patient is needing hemodialysis today. There is an issue with the water supply and therefore hemodialysis cannot be done here. Patient is transferred to [facility] for hemodialysis. She has peripheral vascular disease which would need further evaluation by a vascular surgery. Her vitals are stable for transfer today. Vital Signs/Physical Exam: Temp Pulse Resp BP Pulse Ox 97.6 F 63 18 134/59 L 95 07/23/20 08:00 07/23/20 08:19 07/23/20 08:00 07/23/20 08:19 07/23/20 08:00 General: Alert, In no apparent distress Respiratory: Diminished (Bilateral bases) Cardiovascular: No edema, Regular rate/rhythm, Normal S1 S2 Gastrointestinal: Normal bowel sounds, Soft and benign, No tenderness Musculoskeletal: No swelling, Erythema (Right 3rd 4th and 5th toes) Neurological: Normal speech, Normal strength at 5/5 x4 extr Laboratory Data at Discharge: WBC 12.0 K/uL (4.3-10.9) H 07/23/20 05:19 Hgb 9.4 g/dL (12.0-15.0) L 07/23/20 05:19 Hct 28.6 % (36.0-45.0) L 07/23/20 05:19 Plt Count 330 K/uL (152-406) 07/23/20 05:19 PT 12.6 SECONDS (9.5-12.5) H 07/12/20 17:30 INR 1.07 07/12/20 17:30 Sodium 133 mmol/L (136-145) L 07/23/20 05:19 Potassium 4.9 mmol/L (3.5-5.1) 07/23/20 05:19 BUN 65 mg/dL (7-18) H 07/23/20 05:19 Creatinine 4.98 mg/dL (0.55-1.3) H 07/23/20 05:19 Glucose 130 mg/dL (74-106) H 07/23/20 05:19 Uric Acid 6.0 mg/dL (2.6-6.0) 07/14/20 05:36 Phosphorus 5.9 mg/dL (2.5-4.9) H 07/23/20 05:19 Magnesium 2.4 mg/dL (1.8-2.4) 07/17/20 04:30 Total Bilirubin 0.8 mg/dL (0.2-1.0) 07/14/20 05:36 AST 30 U/L (15-37) 07/14/20 05:36 ALT 22 U/L (12-78) 07/14/20 05:36 Alkaline Phosphatase 97 U/L (45-117) 07/14/20 05:36 Home Medications: Aspirin [Aspirin EC 81 MG] 81 mg PO DAILY 03/18/12 Sertraline [Zoloft*] 25 mg PO DAILY 06/07/15 Allopurinol 1 tab PO DAILY 07/13/20 Diltiazem HCl [Diltiazem 24Hr Cd] 1 tab PO DAILY 07/13/20 Estradiol [Estrace] 1 kimmy SEECOM 07/13/20 Epoetin [Retacrit] 4,000 unit IV EVERY HD vial 07/23/20 Furosemide [Lasix*] 60 mg PO BIDL tab 07/23/20 Heparin [Heparin 1,000 units/mL *] 6,500 unit IV EVERY HD PRN vial 07/23/20 Metoprolol Succinate [Toprol Xl*] 25 mg PO BID 6AM 6PM tab 07/23/20 Nepro Shake [Nepro*] 237 ml PO DAILY can 07/23/20 Spironolactone [Aldactone*] 25 mg PO DAILY tab 07/23/20 traMADol HCL [Ultram*] 50 mg PO Q6HP PRN tab 07/23/20 Diet: Renal Activity: Ad sallie Time spent managing pt's care (in minutes): 35
[2020-07-24 02:19] LABS: Vitamin D 1,25-Dihydroxy Total 23 pg/mL (18-72); Vitamin D,1,25-OH2, D2 <8 pg/mL
== END 2020-07-23 10:36 | disposition short-term general hospital (02) | DRG 291 ==
LOC: ER 16:55 → ERHOLD 21:25 → 2ND 22:14 → OBSVTOIN 07-13 13:08
PROVIDERS: ADMIT Hospitalist; ATTEND Internal Medicine
PROC: 02HV33Z Insertion of Infusion Device into Superior Vena Cava, Percutaneous Approach (ICD-10-PCS; 2020-07-15)
PROC: 5A1D70Z Performance of Urinary Filtration, Intermittent, Less than 6 Hours Per Day (ICD-10-PCS; 2020-07-15)
PROC: 0JH63XZ Insertion of Tunneled Vascular Access Device into Chest Subcutaneous Tissue and Fascia, Percutaneous Approach (ICD-10-PCS; principal; 2020-07-15 11:30)
DX: I13.2 Hypertensive heart and chronic kidney disease with heart failure and with stage 5 chronic kidney disease, or end stage renal disease (principal); I50.33 Acute on chronic diastolic (congestive) heart failure; N18.6 End stage renal disease; N39.0 Urinary tract infection, site not specified; N17.9 Acute kidney failure, unspecified; E87.2 Acidosis; N25.81 Secondary hyperparathyroidism of renal origin; E87.1 Hypo-osmolality and hyponatremia; I25.10 Atherosclerotic heart disease of native coronary artery without angina pectoris; Z95.1 Presence of aortocoronary bypass graft; Z95.2 Presence of prosthetic heart valve; Z88.5 Allergy status to narcotic agent; Z88.8 Allergy status to other drugs, medicaments and biological substances; Z79.82 Long term (current) use of aspirin; Z79.899 Other long term (current) drug therapy; D63.1 Anemia in chronic kidney disease; I27.20 Pulmonary hypertension, unspecified; E87.6 Hypokalemia; Z99.2 Dependence on renal dialysis; M79.674 Pain in right toe(s); I73.9 Peripheral vascular disease, unspecified; Z60.2 Problems related to living alone; Z20.828 Contact with and (suspected) exposure to other viral communicable diseases
CPT/HCPCS: 36415; 71045; 71250; 76000; 76770; 80048; 80053; 80069; 81001; 82550; 82570; 82607; 82652; 82728; 82746; 83520; 83540; 83605; 83735; 83880; 83883; 83970; 84100; 84145; 84156; 84165; 84443; 84466; 84484; 84550; 85025; 85044; 85610; 86021; 86038; 86160; 86317; 86334; 86430; 86704; 86705; 86706; 86803; 87040; 87086; 87088; 87340; 87389; 87522; 90935; 93005; 93306; 93925; 96374; 97112; 97116; 97161; 97530; 99285; C1752; G0378; J0360; J1644; J1940; J2250; J2405; J2916; J3010; J7040; J7050; Q5105; U0002

== ENCOUNTER 2020-08-09 00:37 | Inpatient (IN) | payer OTHER ==
--- OUTSIDE RECORDS SUMMARY | 2020-08-09 00:40 | XMS REPORT | Clinical Summary ---
:1930 Author Organization [facility] [employer] Address [address] [place] [address] Care Team Providers Name Role Phone Asked, No Pcp Primary Care Provider Unavailable Allergies No Known Active Allergies Medications Medication Sig Dispensed Refills Start Date End Date Status furosemide (LASIX) 20 0 03/01/2019 Active mg tablet metoprolol succinate XL 0 03/01/2019 Active (TOPROL-XL) 25 mg 24 hr tablet sertraline (ZOLOFT) 25 0 04/13/2019 Active MG tablet aspirin (ECOTRIN) 81 MG Take 81 mg by 0 Active enteric coated tablet mouth daily. 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 CAD (coronary artery disease) Social History Tobacco Use Types Packs/Day Years Used Date Never Assessed Sex Assigned at Date Recorded Not on file Last Filed Vital Signs Not on file Plan of Treatment Health Maintenance Due Date Last Done Comments SHINGLES VACCINES (#1) 02/01/1982 65+ PNEUMOCOCCAL VACCINE (1 of 1 - PPSV23) 02/01/1997 INFLUENZA VACCINE 05/26/2020 Results Not on fileafter 08/09/2019 Insurance Payer Benefit Plan / Subscriber ID Effective Dates Phone Addre ss Type Group MEDICARE MEDICARE PART A [id number] 1997-Present [place], [place] Medicare AND B AETNA AETNA [id number] 2010-Present [place] H[place],POS,EPO, MC/EC Advance Directives For more information, please contact: [phone] Type Date 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
--- OUTSIDE RECORDS SUMMARY | 2020-08-09 00:42 | XMS REPORT | Clinical Summary ---
:1930 Author Organization [facility] Address [address] [place] [address] Care Team Providers Name Role Phone Lashanda Lawrence MD Primary Care Provider Allergies Active Allergy Reactions Severity Noted Date Comments Codeine 05/23/2020 "Gets very hype r" Digoxin Nausea And Vomiting 05/23/2020 Niacin Preparations Hives, Itching 05/23/2020 Xjnhbua-Cnc-Sas Reductase 05/23/2020 Inhibitors Medications Medication Sig Dispensed Refills Start End Status Date Date sertraline (ZOLOFT) Take 25 mg by 0 Active 25 MG tablet mouth daily. 0 aspirin 81 MG EC Take 81 mg by 0 Active tablet mouth daily. metoprolol Take 25 mg by 0 Activ e succinate mouth 2 (two) 0 (TOPROL-XL) 25 MG times daily. 24 hr tablet diphenhydrAMINE Take 25 mg by 0 Active (BENADRYL) 25 mg mouth every tablet night as needed for Itching or Sleep. allopurinoL Take 100 mg by 0 Act juliana (ZYLOPRIM) 100 MG mouth daily. tablet miscellaneous Dispense 1 1 each 0 Activ e medical supply Misc nebulizer 0 machine and supplies. bumetanide (BUMEX) Take 1 tablet (1 30 tablet 0 08/0 /2 Active 1 MG tablet mg total) by 0 021 mouth daily. ferrous sulfate 325 Take 1 tablet 60 tablet 0 2 Active (65 FE) MG tablet (325 mg total) 0 021 by mouth 2 (two) times daily. ipratropium Take 2.5 mLs 100 mL 1 08/06/202 08/06/2 Activ e (ATROVENT) 0.02 % (0.5 mg total) 0 021 nebulizer solution by nebulization every 6 (six) hours as needed for Wheezing. sodium bicarbonate Take 1 tablet 60 tablet 0 Active 650 MG tablet (650 mg total) 0 021 by mouth 2 (two) times daily. dilTIAZem (CARDIZEM Take 1 capsule 30 capsule 06/27 Active CD) 240 MG 24 hr (240 mg total) 0 021 capsule by mouth daily. sevelamer (RENVELA) Take 1 tablet 90 tablet 11 Active 800 mg tablet (800 mg total) 0 021 by mouth 3 (three) times daily with meals. spironolactone Take 1 tablet 30 tablet 11 A ctive (ALDACTONE) 25 MG (25 mg total) by 0 021 tablet mouth daily. furosemide (LASIX) Take 20 mg by 0 Discontinued 20 MG tablet mouth 2 (two) 0 020 (St op Taking at times daily. Dischar ge) lisinopriL Take 10 mg by 0 Disco ntinued (PRINIVIL,ZESTRIL) mouth daily. 0 020 (Reorder) 10 MG tablet lisinopriL Take 1 tablet 30 tablet 0 Disco ntinued (PRINIVIL,ZESTRIL) (40 mg total) by 0 020 (Stop Taking at 40 MG tablet mouth daily. Disc harge) amLODIPine Take 1 tablet (5 30 tablet 0 Di scontinued (NORVASC) 5 MG mg total) by 0 020 (S top Taking at tablet mouth daily. Dischar ge) hydrALAZINE Take 1 tablet 90 tablet 0 Disc ontinued (APRESOLINE) 25 MG (25 mg total) by 0 020 (Stop Taking at tablet mouth every 8 Discha rge) (eight) hours. Active Problems Problem Noted Date Kidney failure 07/23/2020 Carotid arterial disease 05/24/2020 Carotid artery disease 05/24/2020 Hyperlipidemia Hypertension Coronary artery disease Carotid artery occlusion Atrial fibrillation Valvular heart disease Kidney function abnormal Hyperchloremic metabolic acidosis Acute blood loss anemia Hyperkalemia CKD (chronic kidney disease) stage 4, GFR 15-29 ml/min Acute respiratory insufficiency Encounters Date Type Specialty Care Team Description 07/23/2020 - Hospital Encounter General Internal KarenHelio hines Acmaylin te renal failure superimposed on chronic kidney disease, on chronic dialysis, unspecified acute renal failure type (HCC) (Primary Dx); 07/24/2020 Medicine MD Yue Coronary artery disease involving penobscot coronary artery of penobscot heart without angina pectoris; Essential hyper tension; 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) 07/23/2020 Travel 05/24/2020 Surgery Mary, ENDARTERECTOMY, CAROTID Duong Arita MD 05/24/2020 Anesthesia Event Walter Gomez MD 05/24/2020 - Hospital Encounter Cardiology Mary, Occlusion of right carotid artery (Primary Dx); 05/31/2020 Duong Arita, Stenosis of right carotid artery; CKD (chronic kidney disease) stage 4, GF R 15-29 ml/min ([facility]); Delmar Stewart Acute respirat ory insufficiency MD Andrade 05/23/2020 Hospital Encounter Pre-Admission Testing 05/23/2020 Office Visit Cardiology Mary, Pre-op testing (Primary Dx); Duong Arita, Hyperlipidem ia, unspecified hyperlipidemia type; Essential hyper tension; Coronary artery disease involving penobscot coronary artery of pen[place]ot heart without angina pectoris; Occlusion of ri ght carotid artery; Longstanding pe rsistent atrial fibrillation ([facility]); Valvular heart disease; Kidney function abnormal 05/23/2020 Orders Only General Internal Medicine 05/23/2020 Travel after 08/09/2019 Family History Medical History Relation Name Comments [...] Assigned at Date Recorded Not on file COVID-19 Exposure Response Date Recorded In the last month, have you been in contact with No / Unsure 07/23/2020 4:51 PM CDT someone who was confirmed or suspected to have Coronavirus / COVID-19? Last Filed Vital Signs Vital Sign Reading Time Taken Comments Blood Pressure 183/75 07/24/2020 3:00 PM CDT Pulse 79 07/24/2020 3:00 PM CDT Temperature 36.7 C (98.1 F) 07/24/2020 3:00 PM CDT Respiratory Rate 18 07/24/2020 3:00 PM CDT Oxygen Saturation 97% 07/24/2020 3:00 PM CDT Inhaled Oxygen Concentration - - Weight 62.4 kg (137 lb 9.6 oz) 07/23/2020 12:00 PM CDT Height 161.3 cm (5' 3.5") 07/23/2020 12:00 PM CDT Body Mass Index 23.99 07/23/2020 12:00 PM CDT Plan of Treatment Health Maintenance Due Date Last Done Comments PNEUMOCOCCAL 65+ YRS (1 of 1 - [id number]) 02/01/1997 MEDICARE ANNUAL WELLNESS (YEAR 2 or FIRST YEAR if no 01/25/1998 IPPE) INFLUENZA VACCINE (#1) 2020 Implants 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 PHOSPHORUS Routine 07/24/2020 4:53 Results for this AM CDT procedure are i n the results section. MAGNESIUM Routine 07/24/2020 4:53 Results for this AM CDT procedure are i n the results section. BASIC METABOLIC PANEL Routine 07/24/2020 4:53 Re sults for this (7) AM CDT procedure are i n the results section. CBC W/PLT COUNT & AUTO Routine 07/24/2020 4:53 R esults for this DIFFERENTIAL AM CDT procedure are i n the results section. CBC W/PLT COUNT & AUTO Routine 07/23/2020 1:50 R esults for this DIFFERENTIAL PM CDT procedure are i n the results section. HEPATIC FUNCTION PANEL Routine 07/23/2020 1:50 R esults for this PM CDT procedure are i n the results section. PROTHROMBIN TIME/INR Routine 07/23/2020 1:50 Res ults for this PM CDT procedure are i n the results section. VITAMIN D, 25-HYDROXY Routine 07/23/2020 1:50 Re sults for this PM CDT procedure are i n the results section. HEPATITIS B SURFACE Routine 07/23/2020 1:50 Resu lts for this ANTIGEN PM CDT procedure are i n the results section. PHOSPHORUS Routine 07/23/2020 1:50 Results for this PM CDT procedure are i n the results section. MAGNESIUM Routine 07/23/2020 1:50 Results for this PM CDT procedure are i n the results section. BASIC METABOLIC PANEL Routine 07/23/2020 1:50 Re sults for this (7) PM CDT procedure are i n the results section. CBC W/PLT COUNT & AUTO Routine 07/23/2020 1:50 R esults for this DIFFERENTIAL PM CDT procedure are i n the results section. RHYTHM STRIP - SCAN 06/06/2020 2:20 PM [...] procedure a re in the results section. IA INSERT Routine 05/24/2020 8:35 Occlusion of right [...] n the results section. ECG 12-LEAD Routine 05/24/2020 4:18 PM CDT Procedure Note - Interface, External Ris In - 05/27/2020 6:35 AM CDT Ventricular Rate 65 BPM Atrial Rate 67 BPM QRS Duration 98 ms Q-T Interval 426 ms QTC Calculation(Bazett) 443 ms R [place] -55 degrees T [place] -83 degrees Junctional rhythm Left axis deviation Incomplete right bundle bran ch block Nonspecific ST and T wave ab normality Abnormal ECG When compared with ECG of 11:54, Vent. rate has decreased BY 34 BPM Criteria for Anteroseptal in farct are no longer Present T wave inversion now evident in Inferior leads QT has shortened ECG 12-LEAD STAT 05/24/2020 4:18 PM Results for this CDT procedure are i n the results section. GLUCOSE-STAT LAB STAT 05/24/2020 9:51 AM Resu lts for this CDT procedure are i n the results section. POTASSIUM-STAT LAB STAT 05/24/2020 9:51 AM Re sults for this CDT procedure are i n the results section. HGB/HCT (H&H) - STAT 05/24/2020 9:51 AM Resul ts for this STAT LAB CDT procedure are i n the results section. TISSUE EXAM AP Routine 05/24/2020 8:00 AM Results for this CDT procedure are i n the results section. ENDARTERECTOMY,CAR 05/24/2020 6:58 AM Carotid stenosi s, OTID CDT right Special Needs (ICU BED NEEDED) [...] are i n the results section. SARS-COV2/RT-PCR ([facility] STAT 05/23/2020 12:10 PM Pre-op test [...] 384 ms QTC Calculation(Bazett) 492 ms R [place] -48 degrees T [place] 102 degrees Accelerated Junctional rhyth m Left axis deviation Incomplete right bundle bran ch block Left ventricular hypertrophy with repolarization abnormality Anteroseptal infarct , age u ndetermined Abnormal ECG No previous ECGs available after 08/09/2019 Results CBC with platelet count + automated diff (07/24/2020 4:53 AM CDT)Only the most recent of9 resultswithin the time period is included. Pathologist Sig nature WBC 10.7 (H) 4.0 - 10.0 [facility] RBC 3.22 (L) 4.00 - 5.00 [facility] Hemoglobin 9.4 (L) 12.0 - 15.5 [facility] GM[facility]DL [facility] Hematocrit 29.2 (L) 36.0 - 46.0 % [facility] MCV 90.7 82.0 - 99.0 fL [facility] MCH 29.2 27.0 - 33.0 pg [facility] MCHC 32.2 32.0 - 36.0 [facility] GM[facility] RDW 17.9 (H) 12.0 - 15.0 % [facility] Platelets 308 150 - 430 K/CU [facility] MM [facility] MPV 9.1 6.0 - 11.5 fL [facility] nRBC 0 0 - 0 /100 WBC [facility] % Neutros 68 % [facility] % Lymphs 14 % [facility] % Monos 8 % [facility] % Eos 9 % [facility] % Baso 0 % [facility] # Neutros 7.24 1.80 - 8.00 [facility] # Lymphs 1.45 (L) 1.48 - 4.50 [facility] # Monos 0.90 0.00 - 1.30 [facility] # Eos 0.93 (H) 0.00 - 0.50 [facility] # Baso 0.04 0.00 - 0.20 [facility] Immature 1 (H) 0 - 0 % [facility] Granulocytes-Relativ [facility] e Specimen Blood Performing Organization Address City/[facility]/Zipcode Phone Number [facility] [address] [place], [place] [address] Phosphorus (07/24/2020 4:53 AM CDT)Only the most recent of10 resultswithin the time period is included. Pathologist Sig nature Phosphorus 7.3 (H) 2.5 - 4.5 mg/dL [facility] Specimen Blood Narrative Performed At Jail Officer ID - ADMIN [facility] Performing Organization Address [facility] Phone Number [facility] [address] [place] [phone] Magnesium (07/24/2020 4:53 AM CDT)Only the most recent of11 resultswithin the time period is included. Pathologist Sig nature Magnesium 2.5 1.5 - 3.0 mg/dL [facility] Specimen Blood Narrative Performed At Jail Officer ID - ADMIN [facility] Performing Organization Address City/[facility]/Zipcode Phone Number [facility] [address], [place] [address] Basic Metabolic Panel (07/24/2020 4:53 AM CDT)Only the most recent of11 results within the time period is included. Sodium 135 135 - 148 meq/L [facility] Potassium 4.5 3.6 - 5.5 meq/L [facility] Chloride 96 (L) 98 - 106 meq/L [facility] CO2 19 (L) 20 - 29 meq/L [facility] BUN 70 (H) 10 - 26 mg/dL [facility] Creatinine 4.75 (H) 0.50 - 1.20 [facility] mg/dL [facility] Glucose 128 (H) 70 - 110 mg/dL [facility] Calcium 9.6 8.5 - 10.5 [facility] mg/dL [facility] EGFR 9Comment: ESTIMATED mL/min/1.73 sq [facility] GFR IS NOT m LAB[facility] ACCURATE CREATININE CLEARANCE IN PREDICTING GLOMERULAR FILTRATION RATE. ESTIMATED GFR IS NOT APPLICABLE FOR DIALYSIS PATIENTS. Specimen Blood Narrative Performed At Jail Officer ID - ADMIN [facility] Performing Organization Address City/State/Zipcode Phone Number [facility] [address] [place], [place] [address] Vitamin D, 25-Hydroxy (07/23/2020 1:50 PM CDT) Pathologist Sig nature Vitamin D 25-Hydroxy 53.7 (H) 6.6 - 49.9 ng/mL [facility] Specimen Blood Narrative Performed At Effective 08/05/2017: Reference Range Ch sussy [facility] New: 6.6-49.9 ng/mL Previous: 13.0-47.8 ng/mL Recommended Vitamin D Target Range: 30.0-40.0 ng/mL Jail Officer ID - DB Performing Organization Address City/State/Zipcode Phone Number [address] [address] CENTER Hepatitis B surface antigen (07/23/2020 1:50 PM CDT) Pathologist Sig nature HBsAg Screen Nonreactive Nonreactive [facility] Specimen Blood Narrative Performed At Jail Officer ID - ADMIN [facility] Performing Organization Address City/State/Zipcode Phone Number [facility] [address] [place], [place] [address] Prothrombin time/INR (07/23/2020 1:50 PM CDT)Only the most recent of2 results within the time period is included. Pathologist Sig nature Protime 10.9 9.3 - 12.0 sec [facility] INR 1.00 <=5.90 [facility] Specimen Blood Narrative Performed At RECOMMENDED COUMADIN/WARFARIN INR THERAP Y RANGES [facility] STANDARD DOSE: 2.0 - 3.0 Includes: PROPHYLAXIS for venous thrombosis, systemic embolization; TREATMENT for venou s thrombosis and/or pulmonary embolus. HIGH RISK: Target INR is 2.5-3.5 for patients with mec hanical heart valves. Final Information (Auto Output) Final Information (Auto Output) Performing Organization Address City/State/Zipcode Phone Number [facility] [address] [place], [place] [phone] Hepatic function panel (07/23/2020 1:50 PM CDT) Pathologist Sig nature Protein, Total 8.8 (H) 6.0 - 8.5 gm/dL [facility] Albumin 4.6 3.5 - 5.0 g/dL [facility] Total Bilirubin 0.5 0.1 - 1.2 mg/dL [facility] Bilirubin, Direct 0.2 0.0 - 0.4 mg/dL [facility] Alkaline Phosphatase 86 30 - 115 U/L [facility] AST 15 5 - 40 U/L [facility] ALT 10 5 - 50 U/L [facility] Specimen Blood Narrative Performed At Jail Officer ID - ADMIN [facility] Performing Organization Address City/State/Zipcode Phone Number [facility] [address], [place] [address] RHYTHM STRIP - SCAN (06/06/2020 2:20 PM CDT)Only the most recent of2 results within the time period is included. Narrative Performed At This result has an attachment that is no t available. SARS-CoV2/RT-PCR (Asymptomatic ONLY) (05/30/2020 5:11 AM CDT)Only the most recent of2 resultswithin the time period is included. SARS-COV2/RT-PCR Negative Not Detected, JOSE ORTIZ Negative, See [facility] external report CENTER for linked test SARS-COV-2 [facility] BARNEY ORTIZ PERFORMING LAB [facility] Specimen Other - Nasopharyngeal wall structure (b hamilton structure) Narrative Performed At Negative result for this test determines that [facility] Maria Eug[facility] SARS-CoV-2 RNA was not present in the [...] the Act. Fact Sheet for Healthcare Providers: https://www.Think2.Memeo/sites/default/files/pro duct/documents/Fact_Sheet_HC_Providers_Lyra_SA RS-CoV-2.pdf Fact Sheet for Healthcare Patients: https://www.Think2.Memeo/sites/default/files/pro duct/documents/Fact_Sheet_Patients_Lyra_SARS-C oV-2.pdf Performing Laboratory: [address] [address] Performing Organization Address City/State/Zipcode Phone Number [facility] [address] [place] [address] CENTER XR chest 1 view portable / bedside (05/28/2020 5:20 AM CDT)Only the most recent of6 resultswithin the time period is included. Specimen Narrative Performed At FINAL REPORT GE [facility] RAD, CHEST, 1 VIEW, NON DEPT INDICATION: pulmonary edema postop COMPARISON: Prior day's exam FINDINGS: Portable frontal view of the c hest. IMPRESSION: Support Lines: None. Lungs and pleura: Coarsened interstitial markings are stable. There is decreasing right effusion. Bibasilar subsegmental atelectasis noted. No pneumothorax. Heart and mediastinum: Stable contours. Stable surgical changes. Additional findings: None. Signed: JR Smith Robert MD Report Verified Date/Time: 05/28/2020 06:56:40 Reading Location: [facility] y Reading Room Procedure Note Interface, External Ris [...] surgical changes. Additional findings: None. Signed: JR Smith Robert MD Report Verified Date/Time: 05/28/2020 0 6:56:40 Reading [facility] Performing Organization Address City/State/Zipcode Phone Number RIS Hemoglobin (05/28/2020 3:50 AM CDT) Pathologist Sig nature Hemoglobin 8.3 (L) 11.2 - 15.7 GM/DL [facility] Specimen Blood Narrative Performed At Jail Officer ID - [id number] [facility] Performing Organization Address City/State/Zipcode Phone Number [facility] [address] [place] [address] CENTER Calcium, Ionized (05/27/2020 5:17 AM CDT)Only the most recent of4 resultswithin the time period is included. Pathologist Sig nature Calcium, Ion 1.08 (L) 1.12 - 1.27 mmol/L [facility] pH, Blood 7.35 [facility] Specimen Blood Narrative Performed At Check serum Ionized Calcium level after 4 [facility] hours after IV Calcium replacement. Performing Organization Address City/[facility]/Zipcode Phone Number [address] [address] CENTER Iron, TIBC, % sat. (without ferritin) (05/27/2020 4:06 AM CDT) Pathologist Sig nature Iron 21.0 (L) 40.0 - 160.0 [facility] ug/dL [facility] TIBC 181 (L) 250 - 450 ug/dL [facility] Iron % Saturation 12 (L) 20 - 55 % [facility] Specimen Blood Narrative Performed At Jail Officer ID - PIAYA L [facility] [place] Performing Organization Address City/[facility] [place] [facility] Cent[facility]ode Phone Number [address] [address] [place] Ferritin (05/27/2020 4:06 AM CDT) Pathologist Sig nature Ferritin 273.77 5.00 - 275.00 ng/mL [facility] Specimen Blood Narrative Performed At Jail Officer ID - [facility] Performing Organization Address City/[facility] [place] [facility] Cent[facility]ode Phone Number [address] [address] [place] TRANSFUSION SERVICE REPORT - SCAN (05/25/2020 6:02 PM CDT)Only the most recent of2 resultswithin the time period is included. Narrative Performed At This result has an attachment that is no t available. CBC (Hemogram only) (05/25/2020 5:53 PM CDT) Pathologist Sig nature WBC 15.8 (H) 3.5 - 10.5 K/L [facility] RBC 3.39 (L) 3.93 - 5.22 M/L [facility] Hemoglobin 9.6 (L) 11.2 - 15.7 GM/DL [facility] Hematocrit 30.3 (L) 34.1 - 44.9 % [facility] MCV 89.4 79.4 - 94.8 fL [facility] MCH 28.3 25.6 - 32.2 pg [facility] MCHC 31.7 (L) 32.2 - 35.5 GM/DL [facility] RDW 15.5 (H) 11.7 - 14.4 % [facility] Platelets 263 150 - 450 K/CU MM [facility] MPV 9.4 9.4 - 12.3 fL [facility] nRBC 0 0 - 0 /100 WBC [facility] Specimen Blood Performing Organization Address City/State/Zipcode Phone Number [facility] [address] [place] [address] CENTER Lipid panel (05/25/2020 5:53 PM CDT) Pathologist Sig nature Triglycerides 145 mg/dL [facility] [place] Cholesterol 195 mg/dL [facility] [place] HDL 32 mg/dL [facility] [place] LDL Calculated 134 mg/dL [facility] Specimen Blood Narrative Performed At Triglyceride Reference Range: [facility] Low Risk <150 Borderline 150-199 High Risk 200-499 Very High Risk >=500 Cholesterol Reference Range: Low Risk <200 Borderline 200-239 High Risk >240 HDL Cholesterol Reference Range: Low Risk >=60 High Risk <40 LDL Cholesterol Reference Range: Optimal <100 Near Optimal 100-129 Borderline 130-159 High 160-189 Very High >=190 Jail Officer ID - [id number] Performing Organization Address City/[facility]/Zipcode Phone Number [address] [phone] [place] POC-Glucose meter (05/25/2020 5:52 PM CDT)Only the most recent of7 results within the time period is included. [facility] Signature POC-Glucose Meter 115 (H)Comment: 70 - 110 mg/dL [facility] : TESTED AT [address], [address]: Jail Officer/Technic eugenio ID = [id number] for TRA KIM Specimen Blood Performing Organization Address [facility]/[place] [facility] Centercode Phone Number [address] [phone] [place] Blood gas, arterial (05/25/2020 3:57 AM CDT)Only the most recent of3 results within the time period is included. Pathologist Sig nature pH, Arterial 7.38 7.35 - 7.45 [facility] pCO2, Arterial 38 35 - 45 mmHg [facility] pO2, Arterial 116 (H) 80 - 90 mmHg [facility] O2 Sat, Arterial 98.2 (H) 96.0 - 97.0 % [facility] HCO3, Arterial 22 21 - 29 mmol/L [facility] Base Excess, Arterial -3.2 (L) -2.0 - 3.0 [facility] mmol/L [facility] Patient Temperature 37.0 C [facility] FIO2 32.0 % [facility] Specimen Blood, Arterial Performing Organization Address [facility]/Zipcode Phone Number [address] [address] [place] Lactic Acid, Arterial (05/25/2020 3:50 AM CDT)Only the most recent of2 results within the time period is included. Pathologist Sig nature Lactate, Art 1.3 0.5 - 2.2 mmol/L [facility] Specimen Blood, Arterial Narrative Performed At Jail Officer ID - EUGENE [facility] Performing Organization Address City/State/Zipcode Phone Number [facility] [address] [place] [address] CENTER Comprehensive metabolic panel (05/25/2020 3:50 AM CDT)Only the most recent of3 resultswithin the time period is included. Protein, Total 6.3 6.0 - 8.3 [facility] gm/dL [facility] Albumin 4.0 3.5 - 5.0 [facility] g/dL [facility] Alkaline 54 40 - 150 U/L [facility] Phosphatase [facility] Total Bilirubin 0.6 0.2 - 1.2 [facility] mg/dL [facility] Sodium 143 136 - 145 [facility] meq/L [facility] Potassium 4.6 3.5 - 5.1 [facility] meq/L [facility] Chloride 112 (H) 98 - 107 [facility] meq/L [facility] CO2 21 (L) 22 - 29 meq/L [facility] BUN 73 (H) 7 - 21 mg/dL [facility] Creatinine 2.99 (H) 0.57 - 1.25 [facility] [facility] mg/dL [facility] Glucose 151 (H) 70 - 105 [facility] mg/dL [facility] Calcium 8.8 8.4 - 10.2 [facility] mg/dL [facility] AST 13 5 - 34 U/L [facility] ALT 6 6 - 55 U/L [facility] EGFR 15Comment: mL/min/1.73 [facility] ESTIMATED GFR IS sq [facility] NOT ACCURATE MEDICAL CENTER CREATININE CLEARANCE IN PREDICTING GLOMERULAR FILTRATION RATE. ESTIMATED GFR IS NOT APPLICABLE FOR DIALYSIS PATIENTS. Specimen Blood Narrative Performed At Jail Officer ID - EU[facility]E [facility] Performing Organization Address City/[facility]/Zipcode Phone Number [address] [address] CENTER Hemoglobin and hematocrit (05/25/2020 12:03 AM CDT)Only the most recent of2 resultswithin the time period is included. Pathologist Sig nature Hemoglobin 8.0 (L) 11.2 - 15.7 GM/DL [facility] Hematocrit 24.8 (L) 34.1 - 44.9 % [facility] Specimen Blood Narrative Performed At Jail Officer ID - [id number] [facility] Performing Organization Address [facility] Phone Number [address] [address] [place] Troponin I (05/24/2020 9:19 PM CDT) Pathologist Sig formerly [facility] Troponin I 0.02 0.00 - 0.03 ng/mL [facility] Specimen Blood Narrative Performed At Troponin I (TnI) levels must be interpreted [facility] in the context of the presenting symptoms and the clinical findings. Elevated TnI levels indicate myocardial damage, but are not specific for ischemic heart disease. Elevated TnI levels are seen in patients with other cardiac conditions (including myocarditis and congestive heart failure), and slight TnI elevations occur in patients with other conditions, including sepsis, renal failure, acidosis, acute neurological disease, and persistent tachyarrhythmia. Jail Officer ID - [id number] Performing Organization Address [facility]/Zipcode Phone Number [address] [address] CENTER 2D Echo W/Doppler(CW/PW/Color) (05/24/2020 8:53 PM CDT) Pathologist Sig nature Ejection Fraction [facility] Specimen Narrative Performed At Transthoracic Echocardiography Report (T TE) [facility] Demographics Patient Name NAT CAVAZOS Date of Study 05/24/2020 SIRISHA Gender Female Visit Number [id number] Race Unknown Room Number 8A03 Number Date of 1930 Referring Duong Hernandez Physician Age 89 year(s) 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 Signature Findings Rhythm/BP Regular sinus rhythm during the exam. Left Ventricle The LV endocardium is adequately visualized. The left ventricle is chamber size (by vol index) is normal (female - LVED vol - 29-61ml/m2). Borderline concentric LV hypertrophy. All of the LV segments contract normally . LVEF by Paredes's method of disk assessment is normal (55-60%) . LV diastolic function is indeterminate. Left Atrium LA size is normal (16-34 ml/m2) . Right Ventricle Normal RV si ze In limited views, the right ventricular chamber size and systolic function are within normal limi ts. Normal TAPSE and tissue doppler. Right Atrium RA size is probably normal based on available view s. Atrial Septum Normal interatrial septum by available views. Aortic Valve A bioprosthetic AoV is visualized AoV dimensionless obstructive index (DOI)) i s 0.49 .Peak Grad; 30 ,Mean Grad; 16 At least mild regurgitation is present Mitral Valve Moderate thickening and calcification of the leaf lets. 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 Mild mitral annular calcification. Mild calcification of both anterior and poste rior leaflet(s) of mitral valve. The submitral apparatus appears thickened and calc ified . Tricuspid Valve TV structure is normal. Moderate tricuspid regurgitation. Estimated peak systolic PA pressure is 45-50 mmHg Pulmonic Valve Normal PV structure and function by limited views and Doppler. Aorta Aortic root size (SInus of Valsalva diameter) is norm al . 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 Indications: vascular [...] applied Assessment: blood return through all por ts, free fluid flow and no pneumothorax on x-ray [...] Narrative Performed At Ana Broderick NP 05/24/2020 8:3 9 PM Insert Arterial Line Date/Time: 05/24/2020 8:00 [...] verify the correct patient, procedure, equipmen t, administrative support manager and site/side marked as required. Preparation: Patient [...] 426 ms QTC Calculation(Bazett) 443 ms R [place] -55 degrees T [place] -83 degrees sinus with 1st av block [...] 426 ms QTC Calculation(Bazett) 443 ms R [place] -55 degrees T [place] -83 degrees sinus with 1st av block Left axis deviation Nonspecific ST and T wave abnormality Abnormal ECG When compared with ECG of 23-MAY-2020 11 :54, Vent. rate has decreased BY 34 BPM Criteria for Anteroseptal infarct are no longer Present T wave inversion now evident in Inferior leads QT has shortened Confirmed by MD Gallego Roberto ([id number]) on 05/27/2020 10:32:40 AM Performing Organization Address City/[facility]/Zipcode Phone Number GE MUSE Potassium-Stat Lab (05/24/2020 9:51 AM CDT) Pathologist Sig nature Potassium 5.2 3.6 - 5.5 meq/L [facility] Specimen Blood, Arterial Performing Organization Address City/[facility]/Zipcode Phone Number [address] [address] CENTER Glucose-Stat Lab (05/24/2020 9:51 AM CDT) Pathologist Sig nature Glucose 125 (H) 70 - 110 mg/dL [facility] Specimen Blood, Arterial Performing Organization Address [facility] [place] [facility] Centercode Phone Number [address] [address] CENTER HGB/HCT (H&H)-Stat Lab (05/24/2020 9:51 AM CDT) Pathologist Sig nature Hemoglobin 10.1 (L) 12.0 - 15.0 g/dL [facility] Hematocrit 30.0 (L) 36.0 - 45.0 % [facility] Specimen Blood, Arterial Performing Organization Address City/[facility]/Zipcode Phone Number [facility] [address] [place] [address] [place] Tissue Exam (05/24/2020 8:00 AM CDT) Case Report Surgical Pathology Report Case: [id number] I [facility] Authorizing Provider: Duong Honeycutt, Collected: 05/24/2020 08:[address] [facility] Ordering Location: [facility] Received: 05/24/2020 09:52 AM PERIOPERATIVE SERVICES Pathologist: Jakub Parra MD Specimen: Carotid, Righ t, RIGHT CAROTID PLAQUE DIAGNOSIS EARTERY, RIGHT CAROTID, ENDARTERECTOMY: C [facility] Electronically CALCIFIC ATHEROSCLEROTIC PLAQUE [facility] signed by Jakub Parra Signing Pathologist Direct Phone Line: [facility] MD Tobias on 05/28/2020 at 3:57 PM CPT Code(s) 97020; [id number] [facility] CLINICAL HISTORY Preop diagnosis: [facility] Carotid stenosis, [facility] SPECIMEN SOURCE A. Carotid, right [facility] GROSS DESCRIPTION Received in formalin [facility] labeled with the [facility] patient's name, MEDICAL CENTER accession number and "right carotid plaque" is a 3.5 cm in length x 0.7 cm in diameter jean-yellow, tubular piece of focally calcified plaque. Letter Sorting Machine Operator sections are submitted in A1 following decalcification. PA/pl MICROSCOPIC Performed [facility] Specimen Tissue - Right common carotid artery str ucture (body structure) Performing Organization Address City/State/Zipcode Phone Number [facility] [address] [place] [address] CENTER ABORH, manual (05/24/2020 6:55 AM CDT) Pathologist Sig nature ABO Grouping A [facility] DICAL [place] Rh Factor NEG [facility] Specimen Blood Performing Organization Address City/[facility]/Zipcode Phone Number [address] [address] aPTT (05/24/2020 6:55 AM CDT) Pathologist Sig nature PTT 37.5 (H) 22.5 - 36.0 seconds [facility] Specimen Blood Performing Organization Address [facility]/Zipcode Phone Number [address] [address] CENTER Hemoglobin A1c (05/24/2020 6:55 AM CDT) Pathologist Sig nature Hemoglobin A1C 6.2 (H) 4.3 - 6.1 % [facility] Specimen Blood Performing Organization Address City/[facility]/Zipcode Phone Number [address] [address] CENTER Type and screen, automated ([facility] Blood Bank) (05/23/2020 12:16 PM CDT) Pathologist Sig nature ABO/RH AUTOMATED A NEGATIVE [facility] (BEAKER) [facility] Ab Scrn NEGATIVE [facility] Specimen Blood Performing Organization Address City/[facility]/Zipcode Phone Number [address] [address] after 08/09/2019 Insurance Payer Benefit Plan / Subscriber ID Effective Dates Phone Addre ss Type Group MEDICARE MEDICARE A B [id number] 1997-Presen Medicare t AETNA - MGD AETNA INDEMNITY [id number] 2013-Presen Comm CARE NON CONTR t CDC REVIEW CDC REVIEW [id number] 2020-[place] [address] [place] [address] Advance Directives For more information, please contact: [phone] Type Date Recorded Patient Letter Sorting Machine Operator Explanati on Power of Golf 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 No Have you Written ACP Note: No Full Code 07/23/2020 12:35 PM 07/23/2020 1:40 PM This code status was determined by: Patient Full Code 05/24/2020 6:13 AM 05/31/2020 6:14 PM This code status was determined by: Patient
--- OUTSIDE RECORDS SUMMARY | 2020-08-09 00:47 | XMS REPORT | Continuity of Care Document ---
:1930 Author Organization [facility] t Address [address] [place] [address] Care Team Providers Name Role Phone Asked, Pcp Primary Care Physician Unavailable Deshaun Kunz MD Attending Clinician DESHAUN KUNZ Attending Clinician Unavailable Ronald Hernandez MD Attending Clinician Andrade Stewart MD Attending Clinician Patricia MOREL Attending Clinician RONALD HERNANDEZ Attending Clinician Unavailable DESHAUN KUNZ Admitting Clinician Unavailable RONALD HERNANDEZ Admitting Clinician Unavailable Payers Payer Name Policy Type Policy Effective Date Expiration Date Sour ce Number MEDICAREMEDICARE A [id number] JOSE Gurrola [id number] 1996-P 00:00:00 - Medical resentMedicare Center AETNA - MGD CAREAETNA [id number] 2013 JOSE Banks INDEMNITY NON 00:00:00 - Medical CJCOLfjpbe12150/10/2013 [facility] [id number] [address] [facility] [address] [facility] [id number] 00:00:00 - [place] [address] Problems Condition Condition Condition Status Onset Resolution Last Treating Co mments Source Name Details Category Date Date Treatment Clinician Date Kidney Kidney Disease Active [facility] failure failure 9- [facility] - 00:[facility]: Medical 00 [place] Carotid Carotid Disease Active [facility] artery artery 05-24 [facility] - disease disease 00:00: Medical 00 [place] 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 04-25 Methodi dysfunctio dysfunctio 00:00: st n n 00 Hypertensi Hypertensi Problem Active [facility] on, on, [facility] - unspecifie unspecifie Me moria d type d type l [facility] Osteoporos Osteoporos Problem Active C [...] unspecifie unspecifie l d cause d cause [facility] Right foot Right foot Problem Active [facility] pain pain [facility] - Memoria l [facility] Hyperlipid Hyperlipid Problem Active [facility] emia, emia, [facility]ukes - unspecifie unspecifie Me moria d d l hyperlipid hyperlipid Ou tpati emia type emia type ent Clinics History of History of Problem Active [facility] coronary coronary [facility] - artery artery Memoria bypass bypass l graft graft [facility] Depression Depression Problem Active [facility] with with [facility] - anxiety anxiety Memoria l [facility] Coronary Coronary Problem Active [facility] artery artery [facility] - disease disease Memoria involving involving l [place] [facility] 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 ics [place] heart with heart with angina angina pectoris pectoris Elevated Elevated Problem Active [facility] serum serum [facility] - creatinine creatinine Me moria l [facility] H/O aortic H/O aortic Problem Active [facility] valve valve [facility] - replacemen replacemen Me moria t t l [facility]ics Prediabete Prediabete Problem Active [facility] s s [facility] - Memoria l Outpati ent Clinics 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 - disease disease [facility] Kidney Kidney Disease Active [facility] function function [facility] - abnormal abnormal Medica l [place] Hyperchlor Hyperchlor Disease Active [facility] emic emic [facility] - metabolic metabolic [facility] acidosis acidosis Center Acute Acute Disease Active [facility] blood loss blood loss Xochitl kes - anemia anemia [facility] Hyperkalem Hyperkalem Disease Active [facility] ia ia [facility] CKD CKD Disease Active [facility] (chronic (chronic [facility] - kidney kidney Medical disease) disease) Center [...] DA Active SV 2020-0 [facility] 06-15 [place] 00:00: Health e 00 are Inhibito Medical [facility] Center codeine DA Active SV 2020-0 [facility] 06[facility]15 [place] 00:00: Health 00 are Medical Center BLOOD DA Active SV 2020-0 [facility] THINNER 06-15 [place] 00:00: Health 00 are Medical Center Codeine Propensi Active 20200 "Gets [facility] ty to 7-29 very [facility] - adverse 00:00: hyper" Medical reaction 00 Center s Digoxin Propensi Active Nausea And 2020-[address] ty to Vomiting - [facility] - adverse 00:00: Medical reaction 00 Center s Niacin Propensi Active Hives, [address] [facility] Preparat ty to Itching - [facility] - ions adverse 00:00: Medical reaction 00 Center s Statins- Drug Active 2020-[address] Hmg-Coa Intolera 05-23 [facility] - Reductas nce 00:00: Medical e 00 Center Inhibito rs codeine Adverse Active Info Not [facility] Reaction Available kes - Memoria l Outpati ent Clinics Family History Family Member Diagnosis Comments Start Date Stop Date Source Natural brother Heart disease [facility] Natural father Heart disease [facility] Natural mother Heart disease [facility] Natural mother Stroke [facility] Natural sister Heart disease [facility] Natural sister Cancer [facility] Social History Social Habit Start Date Stop Date Quantity Comments Source History SDOH [facility] - Alcohol Std Drinks [facility] History SDOH [facility] - Alcohol Binge Medical Dru ter Sex Assigned At [facility] Exposure to Not sure [facility] - SARS-CoV-2 (event) [facility] Tobacco use and 2020-05-24 2020-05-24 Never used [facility] - exposure 00:00:00 00:00:00 [facility] Alcohol intake 2020-05-24 2020-05-[address] [facility] [address] Carina es - 00:00:00 00:00:00 non-drinker of Medical Ce nter alcohol (finding) History SDOH 2020-05-23 2020-05-[address] [facility] - Alcohol Frequency 00:00:00 00:00:00 [facility] Alcohol Comment 2020-05-23 2020-05-[address] Xochitl kes - 00:00:00 00:00:00 [facility] Smoking Status Start Date Stop Date Source Never smoker [facility] edical [place] Medications Ordered Filled Start Stop Current Ordering Indication Dosage Frequency Signature Comments Components Source Medication Medication Date Date Medication? Clinician (SIG) Name Name aspirin 81 2020-0 Yes 81mg QD Take [address] MG EC 07-24 by mouth [facility] - tablet 18:43: daily. [address] diphenhydrA 2019-0 Yes 25mg Take [address] MINE - by mouth [facility]ukes - (BENADRYL) 18:43: every Medica l 25 mg 11 night as Center tablet needed for Itching or Sleep. allopurinoL 2019-0 Yes 100mg QD Take [address] (ZYLOPRIM) 9-29 mg by [facility]ukes - 100 MG 18:43: mouth Medical tablet 11 daily. Center dilTIAZem 2020- Yes 240mg QD Take [address] (CARDIZEM 07-24 capsule [facility]ukes - CD) 240 MG 00:00: 23:59 (240 mg Med ical 24 hr 00 :00 total) by Center capsule mouth daily. sevelamer 2020- Yes 800mg Take [address] (RENVELA) 07-24 tablet [facility] - 800 mg 00:00: 23:59 (800 mg Medical tablet 00 :00 total) by Center mouth 3 (three) times daily with meals. spironolact 2020- Yes 25mg QD Take [address] one 07-24 tablet (25 [facility] - (ALDACTONE) 00:00: 23:59 mg total) Medical 25 MG 00 :00 by mouth Center tablet daily. bumetanide 2020- Yes 1mg QD Take [address] (BUMEX) 1 06-01 tablet (1 Luke s - MG tablet 00:00: 23:59 mg total) Me dical 00 :00 by mouth Center daily. amLODIPine 2020- No 5mg QD Take [address] (NORVASC) 5 06-01 tablet (5 Xochitl kes - MG tablet 00:00: 00:00 mg total) Me dical 00 :00 by mouth Center daily. miscellaneo Yes Dispense [address] [facility] us medical 05-31 nebulizer Luke s - supply Misc 00:00: machine Med ical 00 and Center supplies. ferrous 2020- Yes 325mg Q.5D Take [address] sulfate 325 05-31 tablet [facility]ukes - (65 FE) MG 00:00: 23:59 (325 mg Med ical tablet 00 :00 total) by Center mouth 2 (two) times daily. ipratropium 2020- Yes .5mg Take 2.[address] (ATROVENT) 05-31 mLs (0.5 Luke s - 0.02 % 00:00: 23:59 mg total) Medic al nebulizer 00 :00 by Center solution nebulizati on every 6 (six) hours as needed for Wheezing. sodium 2020- Yes 650mg Q.5D Take [address] bicarbonate 8- 08- tablet [facility]ukes - 650 MG 00:00: 23:59 (650 mg Medical tablet 00 :00 total) by Center mouth 2 (two) times daily. lisinopriL 2019- No 40mg QD Take [address] (PRINIVIL,Z 05-31 tablet (40 L ukes - ESTRIL) 40 00:00: 00:00 mg total) M edical MG tablet 00 :00 by mouth Center daily. hydrALAZINE 2019- No 25mg Take [address] (APRESOLINE 05-31 tablet (25 L ukes - ) 25 MG 00:00: 00:00 mg total) Medi jillian tablet 00 :00 by mouth Center every 8 (eight) hours. metoprolol Yes 25mg Q.5D Take [address] succinate 7-22 by mouth 2 Luke s - (TOPROL-XL) 00:00: (two) Medic al 25 MG 24 hr 00 times Center tablet daily. furosemide 2019- No 20mg Q.5D Take [address] (LASIX) 20 7-15 08- by mouth 2 Xochitl kes - MG tablet 00:00: 00:00 (two) Medica l 00 :00 times Center daily. lisinopriL 2019- No 10mg QD Take [address] (PRINIVIL,Z 7-12 03- by mouth Carina es - ESTRIL) 10 00:00: 00:00 daily. Medi jillian MG tablet 00 :00 Center sertraline Yes 25mg QD Take [address] (ZOLOFT) 25 6-19 by mouth Luke s - MG tablet 00:00: daily. Medica l 00 Center aspirin Yes 81mg QD Take 81 mg [place] (ECOTRIN) 8-12 by mouth Method i 81 MG 09:52: daily. st enteric 35 coated tablet sertraline Yes Abdul (ZOLOFT) 25 6-19 Methodi MG tablet 00:00: st 00 furosemide Yes [facility] (LASIX) 20 5-07 [facility] mg tablet 00:00: st 00 metoprolol Yes [facility] succinate 5-07 [facility]i XL 00:00: st (TOPROL-XL) 00 25 mg 24 hr tablet Blood Blood Yes [place] as [facility] t Glucose Glucose 7-10 directed [facility]ukes - Monitor Monitor 00:00: (DISPENSE Me moria 00 BLOOD l GLUCOSE Outpati MONITOR ent FORMULARY Clinics TO INSURANCE) HydrOXYzine HydrOXYzine Yes [place] [address] HCl HCl 7-10 as needed [facility]ukes - 00:00: for Memoria 00 itching l Outpati ent Clinics Blood Blood Yes [place] as [facility] t Glucose Glucose 7-10 directed [facility] - Test Strip Test Strip 00:00: (DISPENSE Memoria 00 BLOOD l GLUCOSE Outpati TEST ent STRIPS Clinics FORMULARY TO INSURANCE) Lancets Lancets Yes [place] as [facility] 7-10 directed [facility]ukes - 00:00: (dispense Memoria 00 lancets l formulary Outpati to ent insurance) Clinics Aspirin 81 Aspirin 81 Yes [place] [address] [facility] - Memoria l Outpati ent Clinics Zanaflex Zanaflex Yes [place] [address] as needed [facility]ukes - Memoria l Outpati ent Clinics Toprol XL Toprol XL Yes [place] [address] [facility] - Memoria l Outpati ent Clinics Gabapentin Gabapentin Yes [place] [address] [facility] - Memoria l Outpati ent Clinics Zoloft Zoloft Yes [place] [address] [facility] - Memoria l Outpati ent Clinics MiraLax MiraLax Yes [place] [address] mixed with [facility]ukes - 8 ounces Memoria of fluid l Outpati ent Clinics Restasis Restasis Yes [place] [address] into Lukes - affected Memoria eye l Outpati ent Clinics Furosemide Furosemide Yes [place] [address] as needed [facility]ukes - Memoria l Outpati ent Clinics Allopurinol Allopurinol Yes [place] [address] [facility] - Memoria l Outpati ent Clinics Vital Signs Vital Name Observation Time Observation Value Comments Source Systolic blood 2020-07-24 15:00:00 183 mm[Hg] [facility] pressure [facility] Diastolic blood 2020-07-24 15:00:00 75 mm[Hg] [facility] - pressure [facility] Heart rate 2020-07-24 15:00:00 79 /min [facility] Body temperature 2020-07-24 15:00:00 36.72 Sue [facility] Respiratory rate 2020-07-24 15:00:00 18 /min [facility] Oxygen saturation in 2020-07-24 15:00:00 97 /min [facility] Arterial blood by Medical Ce nter Pulse oximetry Body height 2020-07-23 12:00:00 161.3 cm [facility] Body weight 2020-07-23 12:00:00 62.415 kg [facility] BMI 2020-07-23 12:00:00 23.99 kg/m2 [facility] Procedures Procedure Date / Time Performed Performing Clinician Sour e HEMODIALYSIS INPATIENT 2020-07-24 10:10:58 Alejandro Murray CH, I [facility] BASIC METABOLIC PANEL (7) 2020-07-24 04:53:00 Helio Kunz CH, I [facility] MAGNESIUM 2020-07-24 04:53:00 Helio Kunz [facility] PHOSPHORUS 2020-07-24 04:53:00 Helio Kunz [facility] CBC W/PLT COUNT & AUTO 2020-07-24 04:53:[address] [facility] DIFFERENTIAL [facility] BASIC METABOLIC PANEL (7) 2020-07-23 13:50:00 Helio Kunz CH, I [facility] MAGNESIUM 2020-07-23 13:50:00 Helio Kunz [facility] PHOSPHORUS 2020-07-23 13:50:00 Helio Kunz [facility] HEPATITIS B SURFACE 2020-07-23 13:50:00 Helio Kunz [facility] ANTIGEN [facility] VITAMIN D, 25-HYDROXY 2020-07-23 13:50:00 Helio Kunz [facility] PROTHROMBIN TIME/INR 2020-07-23 13:50:00 Angeli [facility] HEPATIC FUNCTION PANEL 2020-07-23 13:50:00 Helio Kunz [facility] CBC W/PLT COUNT & AUTO 2020-07-23 13:50:00 KarendonnyHelio [facility] Joaquin [facility] DIFFERENTIAL [facility] RHYTHM STRIP - SCAN 2020-06-06 14:20:10 Provider, Default [facility] RHYTHM STRIP - SCAN 2020-06-01 13:20:23 Provider, Default [facility] SARS-COV2/RT-PCR ([facility] & 2020-05-30 05:11:00 Delmar Stewart [facility] - REF LABS) [facility] BASIC METABOLIC PANEL (7) 2020-05-29 05:38:00 AliMonica brunsonsuni lee [facility] MAGNESIUM 2020-05-29 05:38:00 AliMonica brunson [facility] PHOSPHORUS 2020-05-29 05:38:00 AlinoMonicaeoma [facility] CBC W/PLT COUNT & AUTO 2020-05-29 05:38:00 AlinoMonicaeoma [facility] XR CHEST 1 VIEW 2020-05-28 05:20:00 [facility]ong [facility]BED[facility] HEMOGLOBIN 2020-05-28 03:50:00 Buddy Lara [facility] BASIC METABOLIC PANEL (7) 2020-05-28 03:50:00 AliMonica brunsonsuni lee [facility] MAGNESIUM 2020-05-28 03:50:00 Alino, Monica Pauleoma [facility] PHOSPHORUS 2020-05-28 03:50:00 Alino, Monica Pauleoma [facility] CBC W/PLT COUNT & AUTO 2020-05-28 03:50:[address] [facility] XR CHEST 1 VIEW 2020-05-27 07:14:00 [facility]Jong [facility]BEDSIDE [facility] CALCIUM, IONIZED 2020-05-27 05:17:00 Alino, Monica Charisse [facility] IRON, TIBC, % SAT. 2020-05-27 04:06:00 Tim Bird [facility] (WITHOUT FERRITIN) Medical Cente r FERRITIN 2020-05-27 04:06:00 Tim Bird [facility] BASIC METABOLIC PANEL (7) 2020-05-27 04:06:00 Monica Bennett ma [facility] MAGNESIUM 2020-05-27 04:06:00 Monica Bennett [facility] PHOSPHORUS 2020-05-27 04:06:00 Monica Bennett [facility] CBC W/PLT COUNT & AUTO 2020-05-27 04:06:00 Tim Bird [facility] BASIC METABOLIC PANEL (7) 2020-05-26 15:41:00 Monica Bennett [facility] MAGNESIUM 2020-05-26 04:11:00 [facility] 2020-05-26 04:11:00 [facility] BASIC METABOLIC PANEL (7) 2020-05-26 04:11:00 Loki Hinton [facility] CBC W/PLT COUNT & AUTO 2020-05-26 04:11:00 Buddy Lara [facility] XR CHEST 1 VIEW 2020-05-26 03:47:00 [facility] TRANSFUSION SERVICE 2020-05-25 18:02:56 Provider, Cristy [facility] REPORT - SCAN Scanning [facility] LIPID PANEL 2020-05-25 17:53:00 Garland Doe [facility] BASIC METABOLIC PANEL (7) 2020-05-25 17:53:00 Virgilio Haylucia [facility] CBC (HEMOGRAM ONLY) 2020-05-25 17:53:00 Jong Hay [facility] MAGNESIUM 2020-05-25 17:53:00 Jong Hay [facility] PHOSPHORUS 2020-05-25 17:53:00 SatnamJong [facility] POCT-GLUCOSE METER 2020-05-25 17:52:00 Mary Duong [facility] XR CHEST 1 VIEW 2020-05-25 16:02:00 Mary Duong [facility] - PORTABLE/BEDSIDE [facility] POCT-GLUCOSE METER 2020-05-25 11:36:00 Mary Duong [facility] POCT-GLUCOSE METER 2020-05-25 08:04:00 Mary Duong [facility] POCT-GLUCOSE METER 2020-05-25 05:25:00 [facility] BLOOD GAS, ARTERIAL 2020-05-25 03:57:00 Dianne Rodriguez [facility] MAGNESIUM 2020-05-25 03:50:00 Hugo Rogel [facility] PHOSPHORUS 2020-05-25 03:50:00 Hugo Rogel [facility] CALCIUM, IONIZED 2020-05-25 03:50:00 [facility] METABOLIC 2020-05-25 03:50:00 Hugo Rogel [facility] LACTIC ACID, ARTERIAL 2020-05-25 03:50:00 Hugo Rogel [facility] CBC W/PLT COUNT & AUTO 2020-05-25 03:50:00 Buddy Lara [facility] POCT-GLUCOSE METER 2020-05-25 03:48:00 Duong Hernandez [facility] POCT-GLUCOSE METER 2020-05-25 00:47:00 Duong Hernandez [facility] BLOOD GAS, ARTERIAL 2020-05-25 00:03:00 Hugo Rogel Jessi I [facility] BASIC METABOLIC PANEL (7) 2020-05-25 00:03:00 Hugo Rogel [facility] HEMOGLOBIN AND HEMATOCRIT 2020-05-25 00:03:00 Dianne Rodriguez [facility] BASIC METABOLIC PANEL (7) 2020-05-24 21:19:00 Hugo Rogel [facility] TROPONIN I 2020-05-24 21:19:00 Pebbles Uselynn [facility] COMPREHENSIVE METABOLIC 2020-05-24 21:19:00 Hugo Rogels a [facility] BLOOD GAS, ARTERIAL 2020-05-24 21:19:00 Hugo Rogel Jessi [facility] LACTIC ACID, ARTERIAL 2020-05-24 21:19:00 Renata Rogeldayan [facility] CALCIUM, IONIZED 2020-05-24 21:19:00 Hugo Rogel [facility] MAGNESIUM 2020-05-24 21:19:00 Hugo Rogel [facility] PHOSPHORUS 2020-05-24 21:19:00 Hugo Rogel [facility] CBC W/PLT COUNT & AUTO 2020-05-24 21:19:00 Hugo Rogel [facility] 2D ECHO W/ DOPPLER 2020-05-24 20:53:35 Hugo Rogel [facility] (CW/PW/COLOR) [facility] US GUIDE, VASCULAR ACCESS 2020-05-24 20:39:59 Ana Broderick [facility] XR CHEST 1 VIEW 2020-05-24 20:38:00 Hugo Rogel [facility] PORTABLE/BEDSIDE Medical [place] MD INSERT 2020-05-24 20:35:27 Ana Broderick [facility] CATH,ART,PERCUT,SHORTTERM Medica Center XR CHEST 1 VIEW 2020-05-24 18:08:00 Hugo Rogel [facility] PORTABLE/BEDSIDE Medical [place] TRANSFUSION SERVICE 2020-05-24 18:04:56 Provider, Default [facility] REPORT - SCAN Scanning [facility] BASIC METABOLIC PANEL (7) 2020-05-24 16:34:00 HayJong andres [facility] MAGNESIUM 2020-05-24 16:34:00 Hugo Rogel [facility] CALCIUM, IONIZED 2020-05-24 16:34:00 Hugo Rogel [facility] S t [facility] PHOSPHORUS 2020-05-24 16:34:00 Hugo Rogel Jessi [facility] HEMOGLOBIN AND HEMATOCRIT 2020-05-24 16:34:00 Hugo Rogel Ther james [facility] ECG 12-LEAD 2020-05-24 16:18:51 Unknown, Hl7 Doctor [facility] HGB/HCT (H&H) - STAT LAB 2020-05-24 09:51:00 [facility] POTASSIUM-STAT [facility] 2020-05-24 09:51:00 Marco [facility] GLUCOSE-STAT LAB 2020-05-24 09:51:00 Marco [facility] TISSUE EXAM 2020-05-24 08:00:00 Duong Hernandez [facility] ENDARTERECTOMY,CAROTID 2020-05-24 06:58:00 Duong Hernandez [facility] MAGNESIUM 2020-05-24 06:55:00 Duong Hernandez [facility] COMPREHENSIVE METABOLIC 2020-05-24 06:55:00 Duong Hernandez [facility] PANEL [facility] HEMOGLOBIN A1C 2020-05-24 06:55:00 Duong Hernandez [facility] PROTHROMBIN TIME/INR 2020-05-24 06:55:00 Duong Hernandez [facility] APTT 2020-05-24 06:55:00 Duong Hernandez [facility] ABORH, MANUAL 2020-05-24 06:55:00 Franny Fischer [facility] CBC W/PLT COUNT & AUTO 2020-05-24 06:55:00 Duong Hernandez [facility] DIFFERENTIAL [facility] POCT-GLUCOSE METER 2020-05-24 05:58:[address] [facility] TYPE AND SCREEN, 2020-05-23 12:16:00 Duong Hernandez [facility] - AUTOMATED [facility] SARS-COV2/RT-PCR ([facility] & 2020-05-23 12:10:[address] [facility] [place] - REF LABS) [facility] ECG 12-LEAD 2020-05-23 11:54:04 Unknown, Hl7 Doctor [facility] Plan of Care Planned Activity Planned Date Details Comments Source Future Scheduled 2020-06-26 INFLUENZA VACCINE (#1) [facility] Test 00:00:00 [code = INFLUENZA Medical Ce nter VACCINE (#1)] Future Scheduled 2020-05-26 INFLUENZA VACCINE [place] [facility] 00:[facility]:00 [code = INFLUENZA VACCINE] Future Scheduled 1998-01-25 MEDICARE ANNUAL [facility] - Test 00:00:00 WELLNESS (YEAR 2 or Medical Center FIRST YEAR if no IPPE) [code = MEDICARE ANNUAL WELLNESS (YEAR 2 or FIRST YEAR if no IPPE)] Future Scheduled 1997-02-01 65+ PNEUMOCOCCAL [facility] 00:00:00 VACCINE (1 of 1 - PPSV23) [code = 65+ PNEUMOCOCCAL VACCINE (1 of 1 - PPSV23)] Future Scheduled 1997-02-01 PNEUMOCOCCAL 65+ YRS [facility] - Test 00:00:00 (1 of 1 - Medical [facility] [id number]) [code = PNEUMOCOCCAL 65+ YRS (1 of 1 - [id number] PCV13)] Future Scheduled 1982-02-01 SHINGLES VACCINES (#1) [place] [facility] 00:00:00 [code = SHINGLES VACCINES (#1)] Encounters Start End Encounter Admission Attending Care Care Encounter Source Date/Time Date/Time Type Type Clinicians Facility Department ID 2018-07-28 2018-07-28 Outpatient Esthela Reed [id number] 13:58:00 13:58:00 [facility] Family Medicine Medicine Outpati ent Clinics 2018-06-03 2018-06-03 Outpatient Esthela Reed [id number] [facility] 11:04:00 11:04:00 [facility] ent [facility] 2018-05-24 2018-05-24 Outpatient Esthela Reed [id number] [facility] 19:00:00 19:00:00 [facility] 2018-05-12 2018-05-12 Outpatient Esthela Reed [id number] 09:30:00 09:30:00 [facility] 2018-05-04 2018-05-04 Outpatient Esthela Reed [id number] 13:00:00 13:00:00 [facility] Results Test Description Test Time Test Comments Results Result Comments Source Magnesium 2020-07-24 05:27:00 Test Item Value Reference Range Interpretation Comme nts Magnesium (test code = 01182-7) 2.5 mg/dL 1.5-3 RAGHAVENDRA (test code = RAGHAVENDRA) Fish Inspector ID - ADMIN Lab Interpretation (test code = 32113-5) [facility] 05:[facility]00 Test Item Value Reference Range Interpretation Comments MAGNESIUM (BEAKER) (test code = 2.5 mg/dL 1.5-3.0 627) Fish Inspector ID - ADMINBasic Metabolic [id number] 05:26:00 Test Item Value Reference Range Interpretation Comments Sodium (test code = 135 meq/L 110-112 3340-2) Potassium (test code = 4.5 meq/L 3.6-5.5 2823-3) Chloride (test code = 96 meq/L 98-106 L 2075-0) CO2 (test code = 19 meq/L 20-29 L 2028-9) BUN (test code = 70 mg/dL 10-26 H 3094-0) Creatinine (test code 4.75 mg/dL 0.5-1.2 H = 2160-0) Glucose (test code = 128 mg/dL 70-110 H 2345-7) Calcium (test code = 9.6 mg/dL 8.5-10.5 93716-9) EGFR (test code = 9 mL/min/1.73 [place] [address]-0) NOT ACCURATE CREATININE CLEARANCE IN PREDICTING GLOMERULAR FILTRATION RATE . ESTIMATED GFR I S NOT APPLICABLE FOR DIALYSIS PATIENTS. RAGHAVENDRA (test code = RAGHAVENDRA) Fish Inspector ID - ADMIN Lab Interpretation Abnormal (test code = 80731-2) [facility] [id number] 05:26:00 Test Item Value Reference Range Interpretation Comments SODIUM (BEAKER) 135 meq/L 135-148 (test code = 381) POTASSIUM (BEAKER) 4.5 meq/L 3.6-5.5 (test code = 379) CHLORIDE (BEAKER) 96 meq/L 98-106 L (test code = 382) CO2 (BEAKER) (test 19 meq/L 20-29 L code = 355) BLOOD UREA NITROGEN 70 mg/dL 10-26 H (BEAKER) (test code = 354) CREATININE (BEAKER) 4.75 mg/dL 0.50-1.20 H (test code = 358) GLUCOSE RANDOM 128 mg/dL 70-110 H (BEAKER) (test code = 652) CALCIUM (BEAKER) 9.6 mg/dL 8.5-10.5 (test code = 697) EGFR (BEAKER) (test 9 mL/min/1.73 ESTIMAT ED GFR IS code = 1092) sq m NOT ACCURATE CREATININE CLEARANCE IN PREDICTING GLOMERULAR FILTRATION RATE . ESTIMATED GFR I S NOT APPLICABLE FOR DIALYSIS PATIEN TS. Fish Inspector ID - [id number] 05:24:00 Test Item Value Reference Range Interpretation Comments Phosphorus (test code = 7.3 mg/dL 2.5-4.5 H 2777-1) RAGHAVENDRA (test code = RAGHAVENDRA) Fish Inspector ID - ADMIN Lab Interpretation (test Abnormal code = 88045-0) [facility] 05:24:00 Test Item Value Reference Range Interpretation Comments PHOSPHORUS (BEAKER) (test code = 7.3 mg/dL 2.5-4.5 H 604) Fish Inspector ID - ADMINCBC with platelet count + automated [id number] 05:05:00 Test Item Value Reference Range Interpretation Comments WBC (test code = 6690-2) 10.7 4.0- 10.0 K/L H RBC (test code = 789-8) 3.22 4.00- 5.00 M/L L MCHC (test code = 786-4) 32.2 32.0- 36.0 GM/DL L Hematocrit (test code = 4544-3) 29.2 % 36-46 L MCV (test code = 787-2) 90.7 fL 82-99 MCH (test code = 785-6) 29.2 pg 27-33 RDW (test code = 788-0) 17.9 % 12-15 H Platelets (test code = 777-3) 308 150- 430 K/CU MM MPV (test code = 75861-6) 9.1 fL 6-11.5 nRBC (test code = 413) 0 0- 0 /100 WBC % Neutros (test code = 429) 68 % % Lymphs (test code = 430) 14 % % Monos (test code = 431) 8 % % Eos (test code = 432) 9 % % Baso (test code = 437) 0 % # Neutros (test code = 670) 7.24 1.80- 8.00 K/L # Lymphs (test code = 414) 1.45 1.48- 4.50 K/L L # Monos (test code = 415) 0.90 0.00- 1.30 K/L # Eos (test code = 416) 0.93 0.00- 0.50 K/L H # Baso (test code = 417) 0.04 0.00- 0.20 K/L Immature Granulocytes-Relative 1 % 0-0 H (test code = 2801) Lab Interpretation (test code = Abnormal 12249-6) [facility] W/PLT COUNT & AUTO [id number] 05:05:00 Test Item Value Reference Range Interpretation Comments WHITE BLOOD CELL COUNT (BEAKER) 10.7 K/ L 4.0-10.0 H (test code = 775) RED BLOOD CELL COUNT (BEAKER) 3.22 M/ L 4.00-5.00 L (test code = 761) HEMOGLOBIN (BEAKER) (test code = 9.4 GM/DL 12.0-15.5 L 410) HEMATOCRIT (BEAKER) (test code = 29.2 % 36.0-46.0 L 411) MEAN CORPUSCULAR VOLUME (BEAKER) 90.7 fL 82.0-99.0 (test code = 753) MEAN CORPUSCULAR HEMOGLOBIN 29.2 pg 27.0-33.0 (BEAKER) (test code = 751) MEAN CORPUSCULAR HEMOGLOBIN CONC 32.2 GM/DL 32.0-36.0 (BEAKER) (test code = 752) RED CELL DISTRIBUTION WIDTH 17.9 % 12.0-15.0 H (BEAKER) (test code = 412) PLATELET COUNT (BEAKER) (test 308 K/CU MM 150-430 code = 756) MEAN PLATELET VOLUME (BEAKER) 9.1 fL 6.0-11.5 (test code = 754) NUCLEATED RED BLOOD CELLS 0 /100 WBC 0-0 (BEAKER) (test code = 413) NEUTROPHILS RELATIVE PERCENT 68 % (BEAKER) (test code = 429) LYMPHOCYTES RELATIVE PERCENT 14 % (BEAKER) (test code = 430) MONOCYTES RELATIVE PERCENT 8 % (BEAKER) (test code = 431) EOSINOPHILS RELATIVE PERCENT 9 % (BEAKER) (test code = 432) BASOPHILS RELATIVE PERCENT 0 % (BEAKER) (test code = 437) NEUTROPHILS ABSOLUTE COUNT 7.24 K/ L 1.80-8.00 (BEAKER) (test code = 670) LYMPHOCYTES ABSOLUTE COUNT 1.45 K/ L 1.48-4.50 L (BEAKER) (test code = 414) MONOCYTES ABSOLUTE COUNT (BEAKER) 0.90 K/ L 0.00-1.30 (test code = 415) EOSINOPHILS ABSOLUTE COUNT 0.93 K/ L 0.00-0.50 H (BEAKER) (test code = 416) BASOPHILS ABSOLUTE COUNT (BEAKER) 0.04 K/ L 0.00-0.20 (test code = 417) IMMATURE GRANULOCYTES-RELATIVE 1 % 0-0 H PERCENT (BEAKER) (test code = 2801) Vitamin D, 86-Dblnnei9393-05-28 18:39:00 Test Item Value Reference Range Interpretation Comments Vitamin D 25-Hydroxy 53.7 ng/mL 6.6-49.9 H (test code = 2764) RAGHAVENDRA (test code = RAGHAVENDRA) Effective 08/05/2017: Reference Range ChangeNew: 6.6-49.9 ng/mL Previous: 13.0-47.8 ng/mL Recommended Vitamin D Target Range: 30.0-40.0 ng/mLOperator ID - DB Lab Interpretation (test Abnormal code = 61689-1) [facility], 40-[id number] 18:39:00 Test Item Value Reference Range Interpretation Comments VITAMIN D 25-OH (BEAKER) (test 53.7 ng/mL 6.6-49.9 H code = 2764) Effective 08/05/2017: Reference Range ChangeNew: 6.6-49.9 ng/mL Previous: 13.0-47.8 ng/mLRecommended Vitamin D Target Range: 30.0-40.0 ng/mLOperator ID - DBHepatitis B surface [id number] 14:36:00 Test Item Value Reference Range Interpretation Comments HBsAg Screen (test code = Nonreactive Nonreactive 5195-3) RAGHAVENDRA (test code = RAGHAVENDRA) Fish Inspector ID - ADMIN Lab Interpretation (test Normal code = 36128-8) [facility] SURFACE [id number] 14:36:00 Test Item Value Reference Range Interpretation Comments HEPATITIS B SURFACE ANTIGEN (2) Nonreactive Nonreactive (BEAKER) (test code = 2585) Fish Inspector ID - ADMINHepatic function [id number] 14:22:00 Test Item Value Reference Range Interpretation Comments Protein, Total (test code 8.8 6.0- 8.5 gm/dL H = 2885-2) Albumin (test code = 4.6 g/dL 3.5-5 52362-2) Total Bilirubin (test code 0.5 mg/dL 0.1-1.2 = 1975-2) Bilirubin, Direct (test 0.2 mg/dL 0-0.4 code = 1968-7) Alkaline Phosphatase (test 86 U/L 30-115 code = 6768-6) AST (test code = 1920-8) 15 U/L 5-40 ALT (test code = 1742-6) 10 U/L 5-50 RAGHAVENDRA (test code = RAGHAVENDRA) Fish Inspector ID - ADMIN Lab Interpretation (test Abnormal code = 85313-1) [facility] 14:22:00 Test Item Value Reference Range Interpretation Comments MAGNESIUM (BEAKER) (test code = 4.6 mg/dL 1.5-3.0 H 627) Fish Inspector ID - ADMINBASIC METABOLIC [id number] 14:22:00 Test Item Value Reference Range Interpretation Comments SODIUM (BEAKER) 133 meq/L 135-148 L (test code = 381) POTASSIUM (BEAKER) 4.4 meq/L 3.6-5.5 (test code = 379) CHLORIDE (BEAKER) 93 meq/L 98-106 L (test code = 382) CO2 (BEAKER) (test 23 meq/L 20-29 code = 355) BLOOD UREA NITROGEN 66 mg/dL 10-26 H (BEAKER) (test code = 354) CREATININE (BEAKER) 4.88 mg/dL 0.50-1.20 H (test code = 358) GLUCOSE RANDOM 113 mg/dL 70-110 H (BEAKER) (test code = 652) CALCIUM (BEAKER) 10.5 mg/dL 8.5-10.5 (test code = 697) EGFR (BEAKER) (test 8 mL/min/1.73 ESTIMAT ED GFR IS code = 1092) sq m NOT ACCURATE CREATININE CLEARANCE IN PREDICTING GLOMERULAR FILTRATION RATE . ESTIMATED GFR I S NOT APPLICABLE FOR DIALYSIS PATIEN TS. Fish Inspector ID - ADMINHEPATIC FUNCTION [id number] 14:22:00 Test Item Value Reference Range Interpretation Comments TOTAL PROTEIN (BEAKER) (test code = 8.8 gm/dL 6.0-8.5 H 770) ALBUMIN (BEAKER) (test code = 1145) 4.6 g/dL 3.5-5.0 BILIRUBIN TOTAL (BEAKER) (test code 0.5 mg/dL 0.1-1.2 = 377) BILIRUBIN DIRECT (BEAKER) (test 0.2 mg/dL 0.0-0.4 code = 706) ALKALINE PHOSPHATASE (BEAKER) (test 86 U/L 30-115 code = 346) AST (SGOT) (BEAKER) (test code = 15 U/L 5-40 353) ALT (SGPT) (BEAKER) (test code = 10 U/L 5-50 347) Fish Inspector ID - ADMINProthrombin time/[id number] 14:13:00 Test Item Value Reference Range Interpretation Comments Protime (test code = 10.9 9.3- 12.0 sec 5902-2) INR (test code = 1.00 <=5.90 6301-6) RAGHAVENDRA (test code = RAGHAVENDRA) RECOMMENDED COUMADIN/WARFARIN INR THERAPY RANGESSTANDARD DOSE: 2.0 - 3.0 Includes: PROPHYLAXIS for venous thrombosis, systemic embolization; TREATMENT for venous thrombosis and/or pulmonary embolus.HIGH RISK: Target INR is 2.5-3.5 for patients with mechanical heart valves.Final Information (Auto Output)Final Information (Auto Output) Lab Interpretation Normal (test code = 34384-8) [facility] 14:13:00 Test Item Value Reference Range Interpretation Comments PHOSPHORUS (BEAKER) (test code = 5.9 mg/dL 2.5-4.5 H 604) Fish Inspector ID - ADMINPROTHROMBIN TIME/[id number] 14:13:00 Test Item Value Reference Range Interpretation Comments PROTIME (BEAKER) (test code = 759) 10.9 sec 9.3-12.0 INR (BEAKER) (test code = 370) 1.00 <=5.90 RECOMMENDED COUMADIN/WARFARIN INR THERAPY RANGESSTANDARD DOSE: 2.0 - 3.0 Includes: PROPHYLAXIS forvenous thrombosis, systemic embolization; TREATMENT for venous thrombosis and/or pulmonary embolus.HIGH RISK: Target INR is 2.5-3.5 for patients with mechanical heart valves.Final Information (Auto Output)Final Information (Auto Output)CBC W/PLT COUNT & AUTO [id number] 14:00:00 Test Item Value Reference Range Interpretation Comments WHITE BLOOD CELL COUNT (BEAKER) 14.2 K/ L 4.0-10.0 H (test code = 775) RED BLOOD CELL COUNT (BEAKER) 3.71 M/ L 4.00-5.00 L (test code = 761) HEMOGLOBIN (BEAKER) (test code = 10.7 GM/DL 12.0-15.5 L 410) HEMATOCRIT (BEAKER) (test code = 34.0 % 36.0-46.0 L 411) MEAN CORPUSCULAR VOLUME (BEAKER) 91.6 fL 82.0-99.0 (test code = 753) MEAN CORPUSCULAR HEMOGLOBIN 28.8 pg 27.0-33.0 (BEAKER) (test code = 751) MEAN CORPUSCULAR HEMOGLOBIN CONC 31.5 GM/DL 32.0-36.0 L (BEAKER) (test code = 752) RED CELL DISTRIBUTION WIDTH 18.3 % 12.0-15.0 H (BEAKER) (test code = 412) PLATELET COUNT (BEAKER) (test 399 K/CU MM 150-430 code = 756) MEAN PLATELET VOLUME (BEAKER) 8.7 fL 6.0-11.5 (test code = 754) NUCLEATED RED BLOOD CELLS 0 /100 WBC 0-0 (BEAKER) (test code = 413) NEUTROPHILS RELATIVE PERCENT 73 % (BEAKER) (test code = 429) LYMPHOCYTES RELATIVE PERCENT 12 % (BEAKER) (test code = 430) MONOCYTES RELATIVE PERCENT 7 % (BEAKER) (test code = 431) EOSINOPHILS RELATIVE PERCENT 7 % (BEAKER) (test code = 432) BASOPHILS RELATIVE PERCENT 1 % (BEAKER) (test code = 437) NEUTROPHILS ABSOLUTE COUNT 10.36 K/ L 1.80-8.00 H (BEAKER) (test code = 670) LYMPHOCYTES ABSOLUTE COUNT 1.64 K/ L 1.48-4.50 (BEAKER) (test code = 414) MONOCYTES ABSOLUTE COUNT (BEAKER) 1.03 K/ L 0.00-1.30 (test code = 415) EOSINOPHILS ABSOLUTE COUNT 0.94 K/ L 0.00-0.50 H (BEAKER) (test code = 416) BASOPHILS ABSOLUTE COUNT (BEAKER) 0.07 K/ L 0.00-0.20 (test code = 417) IMMATURE GRANULOCYTES-RELATIVE 1 % 0-0 H PERCENT (BEAKER) (test code = 2801) Novel Coronavirus [id number] 11:06:00 Test Item Value Reference Interpretation Comments Range [...] (not detected) result in this assay.Performed At: [facility] [id number] Kyle L MD Ph:[phone] Novel Coronavirus [id number] 07:15:00 Test Item Value Reference Interpretation Comments Range Novel Not Detected Not Detected Testing was per formed using Coronavirus 2019 the Aptima SARS-CoV-2 nCoV (test code assay.This t est was developed = COVID19) and its perform ance characteristics determined by [facility]. This test has not be enFDA cleared [...] (not detected) result in this assay.Performed At: [facility] [id number] Ramírez Del Cid MD Ph:[phone] SARS-CoV2/RT-PCR (Asymptomatic ONLY)2020-05-30 11:40:00 Test Item Value Reference Range Interpretation Comments SARS-COV2/RT-PCR Negative Not Detected, (test code = Negative, See 43122-6) external report for linked test SARS-COV-2 [facility] PERFORMING LAB (test code = 62395-6) RAGHAVENDRA (test code = Negative result for [...] of the Act. Fact Sheet for Healthcare Providers:https://www.[employer]/sites/default/f teri/product/documents/F act_Sheet_HC_Providers_L wdz_TJHL-LsI-8.pdf Fact Sheet for Healthcare Patients:https://www.[employer].com/sites/default/fi les/product/documents/Fa ct_Sheet_Patients_Lyra_S ARS-CoV-2.pdf Performing Laboratory:[facility] [place] [address] [facility] ([facility] & REF LABS)2020-05-30 11:40:00 Test Item Value Reference Range Interpretation Comments SARS-COV2/RT-PCR (test Negative Not Detected, Negative, code = 3939411) See external report for linked test SARS-COV-2 PERFORMING LAB [facility] (test code = 4335400) Negative result for this test determines that [...] 564(g) of the Act.Fact Sheet for Healthcare Providers:https://www.[employer] [facility]/sites/default/files/product/documents/Fact_Shee u_TW_Vdjqalfer_Oejb_TJPN-WsF-2.pdfFact Sheet for Healthcare Patients:https://www.[employer]com/sites/default/files/product/ documents/Xpxq_Sdimw_Fotbpqng_Vojy_YVSB-AsL-1.pdfPerforming Laboratory:[facility], [place] [address]LVZ W/PLT COUNT & AUTO [id number] 07:16:00 Test Item Value Reference Range Interpretation [...] (BEAKER) (test code = 2801) BASIC METABOLIC [id number] 07:03:00 Test Item Value Reference Range Interpretation [...] S NOT APPLICABLE FOR DIALYSIS PATIEN TS. Fish Inspector ID - [id number] 07:01:00 Test Item Value Reference Range Interpretation Comments PHOSPHORUS (BEAKER) (test code = 3.0 mg/dL 2.3-4.7 604) Fish Inspector ID - [id number] 07:01:00 Test Item Value Reference Range Interpretation Comments MAGNESIUM (BEAKER) (test code = 2.3 mg/dL 1.6-2.6 627) Fish Inspector ID - NTPTissue [id number] 15:57:00 Test Item Value Reference Range Interpretation Comments Case Report (test code Surgical Pathology = 104) Report Case: [id number] Authorizing Provider: Duong Hernandez, Collected: 05/24/2020 08:00 AM Ordering Location: [facility] Received: 05/24/2020 09:52 AM PERIOPERATIVE SERVICES Pathologist: Jakub Parra MD Specimen: Carotid, Right, RIGHT CAROTID PLAQUE DIAGNOSIS (test code = u4spnGFeEEScg6fiDFFztEK 3220) uZzEwMzNcZnRuYmpcdWMxIH earhRgLYloz3JmF7RvBsJtK FxhbnNpXGRlZmxhbmcxMDMz QYQ6euElMFVyQFkcOFWwXBl cJj5hzRTkaMwzPxBoVTQgr0 wqldHKtjboyFl2m9meSMBxD qC9tYHgJKlrO9tjixOxuUEe YMPoVBf7sK44KDYpbW6xvCX sIDtccmVkMFxncmVlbjBcYm d5DAJhR9lkATMmTLPsX8UeM Q0zAMPuCld5PHM9SPF2hUrz e6T6vEVcvJGonCnmFuXdGmG fUFYTl0CjJTa2vGggZ7PzXU EmDhW3gGFvHMJwXNgtFMGoX TGpbeD4yO53VBbjzyJ8hOHa r0Vxr08kc202nX8lpMRcPDI 8PGNmWZEmuTHoQVPkVRI7EG NuoJZdO2n4RqDytVTkH7J9N vVyjDNtE5J7NtBtpLLqD2U3 RgIbnITgOZBelAWyWb0ydBH xsFDqpq9uss08YPT3x4MngZ ppYRL0FRP0TeMoHm5esOZuS KUdEV1sKiSziFUeNZSdlu64 xPmfEOttbvFtqJ1eBjPpFPE qaGXmZVFsYB9mnKOnSWPxrK 5ucmxjXHBnYnJkcmhlYWRcc YpyvqAcWj4xcFweZEF2TLqe M4rmzT6xOpS9UQdmW5jijJ1 nDAo8FXirkZC4ABAbpQ7lDM 5maqdux4fuGyYwZW2navaun 5fvRhObUN8wrjr8u5nkMcEn CX8uryfor3keOfOuCElnCET azszmCJUdi4QwfbbmUQPzx1 WcB3DhjUldD05wzDkrO72vL RVejDpwhL1bnXennT0sEeIj ZnMyMFxxbFxwbGFpblxmMFx mczIwXHBsYWluXGYxXGZzMj AgRUFSVEVSWSwgUklHSFQgQ 7IJX8NNDScpLD8ZHBAVDKRJ F7ZWFLw1WXAuarHKRWxLVQJ GCyRDPQvRQd3FM7bLTs3IZO LlRSwXOVOKSFAcol83BNT6J bBcd4Q8YGH9RQAfXXZhi3ki ZGVmbGFuZzEwMzNcZnRuYmp psMAcGFUrBcWpb1ecl248qG Ysm8eeJHZqRxB0pZPpPLSng VLiU862HZCqOShew6pud4Dk WWOgzXBtk1A7HVLIghtbnOi 2aTalE28nm5L1UkppV8msPZ AwUNZvZ9VsBG7mLRHwGyw5V MY1QUQ1ADUbVXOjP1JhRV6u YKWkzGPkKQq3w9zzoFzfTDE dZXM8e5aiOGnhbcNnME6dci 7irVt6m5xowtYoAYXpOTYfa FIKDQPsZ3BkyQtoYu4uiKc0 bZirSoafVUR8Dad4ZF8xfc4 9ksi4oMjvDFDqeujuYkS7RJ jbTIGyokxeVIp3VVqgIZVcr UR1ELIeaMWbN5LmAWMgTJ5c wjv8JVN9ZOkfEQAnYlU0TJF euLArDDCurLuuSHzps624QG K7VuVvPY8yG4Nka7O5lW5aq BUzPLIrlPNnGnKgEIGaus7z cMLrLYaki0CtOMS1zeF7zSL xbYGrWBIlXtR0POykIA2nme 92VXQgHOK5df0siXJqkKpnt tJitITlJZtzD6IuFPStk920 CUAjU0YcYBXap7L7jbBoIeA xYBLkkMH9pkB6XUJdOG6yda mpw3jlLLawTSghQLIzysH9l cR9WRZbuADzI3VwaN1iXTMx SZ5hxopdy3wsNZC6IYtgJQA oOML9WvDzNGYov7Xxtxp8Gf Ihr3HgtVQoMRxaL96dw900K BAziiKlD2yktOHzprshlCSq ktgpHEufnyN9QDLgVHgjkzw zKUKvIHrxS0mmXlYnKTYneT osBOecq2EkFCPqCJKsBdPff EWzISPdRds4SWHddEOlUCOg NiPvE2fysqxoDjYXOCScp4l lM8iyqOXMvNSgG3EgGVglmk QsQRbwINyhEMWnGME2HW94B tbgYHYrwx54 CPT Code(s) (test code d4qicHCfYXIqhMIcVjYiLUC = 3357) hIEWem7kvTBQgnSFbUkBgCv NcZnRuYmpcdWMxXGRlZmYwe 3asf864gNFiq9bpTTHeKdK4 yQZaKFHdbZBgI021w2woh8o lxrUciVI1HIWlBEV2VUecxo VaexJ8AKhodZZfWjR6AVktg hDrBXnzqtTgdsYfDud0CAWm B759KSB5jUayr6ryZYT3PTC zYURoOmLiNq4ofOZoW015EU DgWZOIWKFxiUt1XIQyhiQph gTmtTPOb955G767g7ncEUQg uuKwnBsDlrdep7yrC484RYK hcGVydzEyMjQwXHBhcGVyaD Y5VFWmOJ6lotkiOmRpNK6hn agcSiNyMV6jiti5VfGiWQ0h cmdiNzIwXGhlYWRlcnkwXGZ lb4WdoayiGR8hS4Azv8U1lA 9maXRcZGVmdGFiNzIwXGZvc v1rfWFtRGsoy7XuDLE3atV4 zWTwyHOeUFTwLU21Zneyy1G gIncdQRX0STGdzyTuk7Xae2 hjElIiniNdO1agW9CyZUYtI NMvKIYfTtMdjjJfk7Lox6Vt vEEeeAs5d4vfJMBcEXSbeNr gy5wyVJQ0YIYpD9N6zUDfw2 fzURzoSLDmkAQ4tvuuLYxfC YRiyoR6kvfbNHatCHFomJC3 pdqsVPpwDSFcEtO4fkdvIIr wDEUsNOC7USygv959BDX6QG xzYmtwYWdlXHBnbmNvbnRcc GduZGVjXHBsYWluXHBsYWlu XGYwXGZzMjRccWxccGxhaW5 zHoVyFkLnGZihSA6yWKFhQ8 sglDClLYKcFTPiB6bdXyJiq J3rbRgcFDxamsAsOSf4WlP0 OmN9OZAfPIzmYRQ7 CLINICAL HISTORY (test e1tieBIvGPAeaNSsNqZcNRC code = 3356) nDMVuf2owRNOudLBzJrThVs NcZnRuYmpcdWMxXGRlZmYwe 2axy588kDTiy3ugFIMtCoZ4 cZDaKYJquWQqL084b1xis5g qrrDvvUW5HJUzKXA8GCbcsl OyktI0JCcpbFYtIqP3ZTbuz dMzHHlqkmYevfNmAmp7GZOo Y741JGD4fNizf9iwRTD0VTI wJGAqDhPuUw9vvWHaX437JA XiJNVEQOWozAe2ZJJnmhElm kMiySQUc204R587f6sxBAAf hgIbpOpHmdndb1ivD574GXE hcGVydzEyMjQwXHBhcGVyaD W0JTZmLH6uwlccEvXgUY3rw zupQmKuMM7xfxv1NnAaYF4f cmdiNzIwXGhlYWRlcnkwXGZ pb0PmvhwlPA1oA2Guc9K1hL 9maXRcZGVmdGFiNzIwXGZvc w5giOKcCFczn6DiTUU1ohQ5 jHZlwFVnAPVdCN59Jepdn7G jOlvcNXS1WTNmbbSgf9Kac0 veZwEbyjNzY8wuE8NnAFMjW HCiUCMzZbJqfpSjj3Ska3Vs aRUinXg1x5qyGSQfSVZjtAr fg4skCZT8AKYaT5V9zYEpi4 geQEwjLUQrgMM0kpmyOFmxP PLwqcV2qkhpYEiyAGRsfAB9 qunkHJeuNOAhJaF8hjldCAh eJBZlLIB1XNpvr600TOA5KL xzYmtwYWdlXHBnbmNvbnRcc GduZGVjXHBsYWluXHBsYWlu XGYwXGZzMjRccWxccGxhaW5 vMxRbQdTrCPrkWG2qCYTmV4 exlPOcEKNsXHQiB3lsKlWnx M8jpJtzMUfgnmQdOBYbZZ1l HYMiJCmzr9UuxjuuMEWras3 5lKPqc3Fvde3ryHUgUOMjI1 u3WPEabl6= SPECIMEN SOURCE (test n7vsjJNjBVEobSCeEnZgTRK code = 3377) wXARfz5ycHVDmqHScJxWfDk NcZnRuYmpcdWMxXGRlZmYwe 8qpt457jADtr2xlVNXeTrR1 lWLpECKgbMRaF398a9skf8z srvTjnLR5DTDhAQW2ZDhgmm DutdM9OPipjTLlJhZ0KDfuv nYzATtzklJzjuUqWqq8LGKx A479FKN4fYdyn1knVIW4DVQ nYTXsYzMkLj8jyPRaV806CE KyWGIXNOPrnPl7VVBqmaNny tLwpUJEx148C343e9mqVHXy dkAscAsOsbchk5bwN344HQW hcGVydzEyMjQwXHBhcGVyaD R8IOOjJK1cbmmeNaAxSN2tr gqoMuDoKI3fksd8OwUkXE0r cmdiNzIwXGhlYWRlcnkwXGZ ud0MlslwpIS7yP8Ahk6T8jR 9maXRcZGVmdGFiNzIwXGZvc u9ixLPoCBgcb2BzTIA7crD3 cTJuyLXaOVSzZF05Getlw0D qUozoHGQ6EYKulnMzp9Ohx2 zuXqYhasMtJ4klE7QyHNMoO COzXSSvBsVyvlCfo9Kqe7Ka mRYhbCt3x9hgKLNsDFIznHf du6frNSH7FXTgV9L1oIEtz0 tpVLkkMYGoeFS1cgbhZTivY NSrftV8ujhlJMpjVIImwCY8 biuqPRxtRRGvUyD3judtUJn tGQOdMGV0RVhdd304TJF1OI xzYmtwYWdlXHBnbmNvbnRcc GduZGVjXHBsYWluXHBsYWlu XGYwXGZzMjRccWxccGxhaW5 aCzMpJgPxILuePD2qFTOhF4 usfSNrRWIdUARfA9bwLxUvt I1lvBxmAMlndyKvCEVuKSQt cr77uZSsMMQeB3r2ZOLwas0 = GROSS DESCRIPTION e9njbTWtSWKwfSSjObMzUQK (test code = 3366) eQNCnj2naRLLomIAqVqMqZd NcZnRuYmpcdWMxXGRlZmYwe 9yjz621cOCiy6vqNQBhSmS5 qUOoTOFctWRcB674JUCmKBr yw1mbk6UuEQTlcIQzr5A9ZI KHmtlzlJn5lHzgX31ld5I7H mrmH1gvDQTyDZynRCUuBYgl xWZzQPD0ELQrRWO2BCsfqfM wccZ1MCfcyRVuUbK1RFd7t8 jwjDehLQQuMNI2q4igTFvmk wWbET4xrf0ioIr5x4rdsmPb KBGiARLknPLNJZNoC0KooWy xGy3ykQf4oDpdSdbeOCE3Yi v7AD9ipz58hac4rJxwLQXmi vmiTiB3RRblWHEfvlqsNEw9 MFxtYXJnbDcyMFxtYXJncjc yMFxtYXJndDcyMFxtYXJnYj wfBNyxFKZgLTC1ABwfy041H WP8RHkrf4tgw7xdeDUcYjm3 RRCmNiKtEhlaJXlpk1Tho4z sCUSgpf9mAZS7dNCcgFzph9 A3kJDxAKDflJUoxpBgTJNjV oQ0BXkyGY3ucg38IQLpHUI7 pq5gpDOmhCbxvdJylFZkPEr uL6McIMAbt754QAWlH1DtFU Pko7J2ikQmVjCeDRBqdMB5a fN9ZGXgXIf4sIEektF5hoWi nSIdL2vdrK37GyQaeWGeC8P qnS87StPwgJRmO1IbgR89Pw ZezFIoJ2BuoQ64SgSdpNTjT AFheIPoGn0kkFIvzEKle1Dx sTNvSKduM23sm570ZAKfpcJ hA8renOYryigtvHNvyhaeMI xmczIwXHFsXHBsYWluXGYwX YJxZyKmbWroyW5zCbPyHvSt TQMRRMZngYBaYMJgxnHzp5N tYWxpbiBsYWJlbGVkIHdpdG ggdGhlIHBhdGllbnQncyBuY X3rVUHlN6Dmo2Swn97tozUl BlXxZWRjXSEcjbwmpIPiS6A vk3KkSIJenAVmlKAkZGajGR WkKl40MJRcHGpbAOeqqvh1c CL7BMYmXcYwoKHannYuuJBr DLFjbvA4JX4hmUQjjK08JPI 2kZR7lKMwWXGtEHVeUE6aIF TnV7FnhIooW1DzA1lccZYaK DVmBUA7QL3vCsEzdgWkQS98 APAohfQcl7NylTvcvzEsMXW dIUO1Yz2xaLTuMRKzchWVIS Ygr2zyc8wbmgnrWYGxPIqgr IYtT1J4xK2fTeXbIZSreBlv XHBhcn0= MICROSCOPIC s0makKMpTTGtmOVsVgRzZPI DESCRIPTION (test code gYJTau0tnBUIlbTFwLbIhNe = 3371) NcZnRuYmpcdWMxXGRlZmYwe 0zzg538sDRvj6jwYMZyYaD6 lGEdOOSkxGZvO615v4sfj3o ippTgtGC1SEFbPZC2CMcago XdjmB3CSzzqFRtKqC8QBzjw kRqQTywpoHhsuChZyh5NEKa N898LKX2eCfgl6gfMMX2GBD tIVYlXxDdHn7fiBInK098IM RqCTELBCAtyOh0KQTtisSih lZdqQKNn723W614q0twHIPg riWvtCeEpvcaw6fkU366JCH hcGVydzEyMjQwXHBhcGVyaD M1KEVaTO2yqwymLvCzMR9pp zulNgVgXY5vdge0HoPqNK4r cmdiNzIwXGhlYWRlcnkwXGZ xs6SyqedfXN3xS6Tlh2D7eK 9maXRcZGVmdGFiNzIwXGZvc p3gfVTsMQnyz5VhBJG1ryH7 zRFmuSRrOTDiWN08Cchjo7Z uYusxUFV0CKStgiUdi0Nzx8 ahAqDvcuVeG7ptV9VnBWEjK JJqEFWgXsFxpvThv0Iuw2Ed tJZtfJv5k1vyBSYqODRtzHp vf8uoFMB0WXFmF0M5kLMzx8 spDIvlGMJmgTX0nfmnFEywR BJlxtO7lamyHCiqMCHrcQJ6 nfjdBRtaTVLyYcU0ykfiTWf dAPRqQBA4IIdqi995PKK6VD xzYmtwYWdlXHBnbmNvbnRcc GduZGVjXHBsYWluXHBsYWlu XGYwXGZzMjRccWxccGxhaW5 hJgMhNmQcIZdpEJ5vGLByB7 dycOPcIZHcXFZiA8ogGyVrg W7vmAztRBpywuNiOPLdgcUm na3iSSgxLOV7 [id number] 15:57:00Surgical Pathology Report Case: [id number] Authorizing Provider: Duong Hernandez, Collected: 05/24/2020 08:00 AM OrderingLocation: [facility] Received: 05/24/2020 09:52 AM PERIOPERATIVE SERVICES Pathologist: Jakub Parra MD Specimen: Carotid, Right, RIGHT CAROTID PLAQUE EARTERY, RIGHT CAROTID, ENDARTERECTOMY:CALCIFIC ATHEROSCLEROTIC PLAQUE Signing Pathologist Direct Phone Line: [phone] signed by Jakub Parra MD on 05/28/2020 at 3:57 [id number]; [id number] diagnosis: Carotid stenosis, rightA. Carotid, rightReceived in formalin labeled with the patient's name, accession number and "right carotid plaque" is a 3.5 cm in length x 0.7 cm in diameter jean-yellow, tubular piece of focally calcified plaque. [employer] Practitioner sections are submitted in A1 following decalcification. PA/pl PerformedBASIC METABOLIC [id number] 07:20:00 Test Item Value Reference Range Interpretation [...] S NOT APPLICABLE FOR DIALYSIS PATIEN TS. Fish Inspector ID - BASHIR [id number] 07:14:00 Test Item Value Reference Range Interpretation Comments PHOSPHORUS (BEAKER) (test code = 3.2 mg/dL 2.3-4.7 604) Fish Inspector ID - BASHIR [id number] 07:14:00 Test Item Value Reference Range Interpretation Comments MAGNESIUM (BEAKER) (test code = 2.2 mg/dL 1.6-2.6 627) Fish Inspector ID - BASHIR LRAD, CHEST, 1 VIEW, NON [id number] 06:56:00Reason for exam:->pulmonary edema postopShould this be [...] MDReport Verified Date/Time: 05/28/2020 06:56:40 Reading Location: [facility] Radiology Reading Room XR chest 1 view portable / [id number] 06:56:00Interface, External Ris In - 05/28/2020 6:58 [...] MDReport Verified Date/Time: 05/28/2020 06:56:40 Reading Location: [facility] Radiology Reading Room [facility] CBC W/PLT COUNT & AUTO [id number] 04:49:00 Test Item Value Reference Range Interpretation [...] 0-1 PERCENT (BEAKER) (test code = 2801) [id number] 04:33:00 Test Item Value Reference Range Interpretation Comments Hemoglobin (test code = 8.3 11.2- 15.7 GM/DL L 786-4) RAGHAVENDRA (test code = RAGHAVENDRA) Fish Inspector ID - [id number] Lab Interpretation (test Abnormal code = 88808-7) [facility]HEMOGLOBIN2020-[facility] 04:33:00 Test Item Value Reference Range Interpretation Comments HEMOGLOBIN (BEAKER) (test code = 8.3 GM/DL 11.2-15.7 L 410) Fish Inspector ID - [id number] 10:32:42Interface, External Ris In - 05/27/2020 10:32 AM CDTVentricular Rate 65 BPMAtrial Rate 67 BPMQRS Duration 98 msQ-T Interval 426 msQTC Calculation(Bazett) 443 msR [place] -55 degreesT [place] -83 degreessinuswith 1st av blockLeft axis deviationNonspecific ST and T wave abnormalityAbnormal ECGWhen compared with ECG of 23-MAY-2020 11:54,Vent. rate has decreased BY 34 BPMCriteria for Anteroseptal infarct areno longer PresentT wave inversion now evident in Inferior leadsQT has shortenedConfirmed by MD Gallego Roberto ([id number]) on 05/27/2020 10:32:40 [facility], 1 V[facility], NON [id number] 07:32:00Reason for exam:- >pulmonary edema postopShould this [...] Peace Verified Date/Time: 05/27/2020 07:32:38 Reading Location: [address] Neuro Reading Room Electronically signed by: Jose VALDEZ 05/27/2020 07:32 AMIron, TIBC, % sat. (without ferritin)2020-05-27 06:06:00 Test Item Value Reference Range Interpretation Comments Iron (test code = 2498-4) 21.0 ug/dL 40-160 L TIBC (test code = 2500-7) 181 ug/dL 250-450 L Iron % Saturation (test 12 % 20-55 L code = 2502-3) RAGHAVENDRA (test code = RAGHAVENDRA) Fish Inspector ID Indira Del Cid Lab Interpretation (test Abnormal code = 09860-8) [facility] HospitalIRON, TIBC, % SAT. (WITHOUT FERRITIN)2020-05-27 06:06:00 Test Item Value Reference Range Interpretation Comments IRON (BEAKER) (test code = 547) 21.0 ug/dL 40.0-160.0 L TOTAL IRON BINDING CAPACITY 181 ug/dL 250-450 L (BEAKER) (test code = 769) IRON % SATURATION (2) (BEAKER) 12 % 20-55 L (test code = 2590) Fish Inspector ABDULKADIR CAMEJO [id number] 05:59:00 Test Item Value Reference Range Interpretation Comments Ferritin (test code = 273.77 ng/mL 5-275 2276-4) RAGHAVENDRA (test code = RAGHAVENDRA) Fish Inspector ID Indira CAMEJO L Lab Interpretation (test Normal code = 41125-4) [facility] HospitalFERRITIN2020-08-02 05:59:00 Test Item Value Reference Range Interpretation Comments FERRITIN (BEAKER) (test code = 273.77 ng/mL 5.00-275.00 361) Fish Inspector ID Indira CAMEJO LCalcium, [id number] 05:40:00 Test Item Value Reference Range Interpretation Comments Calcium, Ion (test code = 1.08 mmol/L 1.12-1.27 L 1993-) pH, Blood (test code = 7.35 86104-5) RAGHAVENDRA (test code = RAGHAVENDRA) Check serum Ionized Calcium level after 4 hours after IV Calcium replacement. Lab Interpretation (test Abnormal code = 11686-1) [facility] HospitalCALCIUM, [id number] 05:40:00 Test Item Value Reference Range Interpretation Comments CALCIUM IONIZED (BEAKER) (test 1.08 mmol/L 1.12-1.27 L code = 698) PH, BLOOD (BEAKER) (test code = 7.35 1810) Check serum Ionized Calcium level after 4 hours after IV Calcium replacement. BASIC METABOLIC [id number] 05:27:00 Test Item Value Reference Range Interpretation [...] S NOT APPLICABLE FOR DIALYSIS PATIEN TS. Fish Inspector ID - BASHIR [id number] 05:18:00 Test Item Value Reference Range Interpretation Comments PHOSPHORUS (BEAKER) (test code = 3.5 mg/dL 2.3-4.7 604) Fish Inspector ID - BASHIR [id number] 05:18:00 Test Item Value Reference Range Interpretation Comments MAGNESIUM (BEAKER) (test code = 2.1 mg/dL 1.6-2.6 627) Fish Inspector ID - BASHIR LCBC W/PLT COUNT & AUTO [id number] 04:52:00 Test Item Value Reference Range Interpretation [...] (BEAKER) (test code = 2801) BASIC METABOLIC [id number] 16:04:00 Test Item Value Reference Range Interpretation [...] S NOT APPLICABLE FOR DIALYSIS PATIEN TS. Fish Inspector ID - NTPBASIC METABOLIC [id number] 07:28:00 Test Item Value Reference Range Interpretation [...] S NOT APPLICABLE FOR DIALYSIS PATIEN TS. Fish Inspector ID - EDASIOperator ID - BASHIR [id number] 05:04:00 Test Item Value Reference Range Interpretation Comments MAGNESIUM (BEAKER) (test code = 2.4 mg/dL 1.6-2.6 627) Fish Inspector ID - [id number] 05:04:00 Test Item Value Reference Range Interpretation Comments PHOSPHORUS (BEAKER) (test code = 4.9 mg/dL 2.3-4.7 H 604) Fish Inspector ID - EDASICBC W/PLT COUNT & AUTO [id number] 05:01:00 Test Item Value Reference Range Interpretation [...] = 2801) RAD, CHEST, 1 VIEW, NON [id number] 04:16:00Reason for exam:->pulmonary edema postopShould this be [...] [place] MDReport Verified Date/Time: 05/26/2020 04:16:40 Lipid [id number] 19:02:00 Test Item Value Reference Range Interpretation Comments Triglycerides (test 145 mg/dL code = 2571-8) Cholesterol (test code 195 mg/dL = 2093-3) HDL (test code = 32 mg/dL 5-9) LDL Calculated (test 134 mg/dL code = 91875-0) RAGHAVENDRA (test code = RAGHAVENDRA) Triglyceride Reference Range: Low Risk <150 Borderline 150-199 High Risk 200-499 Very High Risk >=500 Cholesterol Reference Range: Low Risk <200 Borderline 200-239 High Risk >240 HDL Cholesterol Reference Range: Low Risk >=60 High Risk <40 LDL Cholesterol Reference Range: Optimal <100 Near Optimal 100-129 Borderline 130-159 High 160-189 Very High >=190 Fish Inspector ID - NTP [facility] HospitalLIPID [id number] 19:02:00 Test Item Value Reference Range Interpretation [...] Borderline 130-159 High 160-189 Very High >=190 Fish Inspector ID - [id number] 19:02:00 Test Item Value Reference Range Interpretation Comments MAGNESIUM (BEAKER) (test code = 2.4 mg/dL 1.6-2.6 627) Fish Inspector ID - [id number] 19:02:00 Test Item Value Reference Range Interpretation Comments PHOSPHORUS (BEAKER) (test code = 4.3 mg/dL 2.3-4.7 604) Fish Inspector ID - NTPBASIC METABOLIC [id number] 19:02:00 Test Item Value Reference Range Interpretation [...] S NOT APPLICABLE FOR DIALYSIS PATIEN TS. Fish Inspector ID - NTPCBC (Hemogram only)2020-05-25 18:39:00 Test [...] 450 K/CU MM MPV (test code = 75956-4) 9.4 fL 9.4-12.3 nRBC (test code = 413) 0 0- 0 /100 WBC Lab Interpretation (test code = Abnormal 61618-7) [facility] (HEMOGRAM ONLY)2020-05-25 18:39:00 Test Item Value Reference [...] 0-0 (BEAKER) (test code = 413) POC-Glucose [id number] 18:03:00 Test Item Value Reference Range Interpretation Comments POC-Glucose Meter (test 115 mg/dL 70-110 H : TE STED AT [facility] code = 1538) [address] [place], [address]: Fish Inspector/Techni roman ID = [id number] for TRA KIM Lab Interpretation (test Abnormal code = 29808-4) [facility] HospitalPOCT-GLUCOSE [id number] 18:03:00 Test Item Value Reference Range Interpretation Comments POC-GLUCOSE METER 115 mg/dL 70-110 H : TESTED A T [facility] 6720 (BEAKER) (test code = [facility], 1538) [address]: Fish Inspector/Techni roman ID = [id number] for TRA BLAKELY RAD, CHEST, 1 VIEW, NON [id number] 16:31:00Reason for exam:- >dyspneaShould this be performed [...] pneumonia is not excluded.. Signed: Azael Marks Verified Date/Time: 05/25/2020 16:31:01 Reading Location: [address] POCT-GLUCOSE [id number] 11:47:00 Test Item Value Reference Range Interpretation Comments POC-GLUCOSE METER 105 mg/dL 70-110 : [facility]ER[facility] (test code = [facility], 1538) [address]: Fish Inspector/Techni roman ID = [id number] for TRA BLAKELY 2D Echo W/Doppler(CW/PW/Color)2020-05-25 08:50:50Ejection FractionSLEH ECHO HEARTLAB MKCKESSON CPACSInterface, External Ris In - 05/25/2020 8:51 AM C DTTransthoracic Echocardiography Report (TTE) Demographics Patient Name NAT CAVAZOS Date of Study 05/24/2020 SIRISHA Gender Female Visit Number [id number] Race Unknown Room Number 8A03 Number Date of 1930 Referring Physician ADRIEL Thornton Age 89 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) 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 Marky Hwang Interpreting Gallito Horan MD Physician [...] TR Velocity: 2.84 m/s TR Gradient: 32.24 mmHgOrange County Community HospitalPOCT- GLUCOSE [id number] 08:16:00 Test Item Value Reference Range Interpretation Comments POC-GLUCOSE METER 79 mg/dL 70-110 : TESTED A T [facility] 6720 (Accelera) (test code = [facility], 153) [address]: Fish Inspector/Techni roman ID = [id number] for TRA GANDHI POCT-GLUCOSE [id number] 05:36:00 Test Item Value Reference Range Interpretation Comments POC-GLUCOSE METER 127 mg/dL 70-110 H : TESTED A T [facility] 6720 ([employer]elera) (test code = [facility] [employer] [facility], 1538) [address]: Fish Inspector/Techni roman ID = [id number] for ANIKET BRICENO Comprehensive metabolic [id number] 05:00:00 Test Item Value Reference Range Interpretation Comments Protein, Total (test 6.3 6.0- 8.3 gm/dL code = 2885-2) Albumin (test code = 4.0 g/dL 3.5-5 03979-2) Alkaline Phosphatase 54 U/L 40-150 (test code = 6768-6) Total Bilirubin (test 0.6 mg/dL 0.2-1.2 code = 1975-2) Sodium (test code = 143 meq/L 670-698 0042-2) Potassium (test code = 4.6 meq/L 3.5-5.1 2823-3) Chloride (test code = 112 meq/L 98-107 H 2075-0) CO2 (test code = 21 meq/L 22-29 L 2028-9) BUN (test code = 73 mg/dL 7-21 H 3094-0) Creatinine (test code 2.99 mg/dL 0.57-1.25 H = 2160-0) Glucose (test code = 151 mg/dL 70-105 H 2345-7) Calcium (test code = 8.8 mg/dL 8.4-10.2 84485-6) AST (test code = 13 U/L 5-34 1920-8) ALT (test code = 6 U/L 6-55 1742-6) EGFR (test code = 15 mL/min/1.73 [place] [address]-4) NOT ACCURATE CREATININE CLEARANCE IN PREDICTING GLOMERULAR FILTRATION RATE . ESTIMATED GFR I S NOT APPLICABLE FOR DIALYSIS PATIENTS. RAGHAVENDRA (test code = RAGHAVENDRA) Fish Inspector ID - EDASI Lab Interpretation Abnormal (test code = 62656-3) [facility] HospitalCOMPREHENSIVE METABOLIC [id number] 05:00:00 Test Item Value Reference Range Interpretation [...] S NOT APPLICABLE FOR DIALYSIS PATIEN TS. Fish Inspector ID - [id number] 04:58:00 Test Item Value Reference Range Interpretation Comments PHOSPHORUS (BEAKER) (test code = 4.5 mg/dL 2.3-4.7 604) Fish Inspector ID - [id number] 04:58:00 Test Item Value Reference Range Interpretation Comments MAGNESIUM (BEAKER) (test code = 2.2 mg/dL 1.6-2.6 627) Fish Inspector ID - EDASIBlood gas, [id number] 04:37:00 Test Item Value Reference Range Interpretation Comments pH, Arterial (test code = 2744-1) 7.38 7.35-7.45 pCO2, Arterial (test code = 38 35- 45 mmHg 2019-05) pO2, Arterial (test code = 116 80- 90 mmHg H 7) O2 Sat, Arterial (test code = 98.2 % 96-97 H 6) HCO3, Arterial (test code = 22 mmol/L 21-29 1959-) Base Excess, Arterial (test code -3.2 mmol/L -2-3 L = 1925-7) Patient Temperature (test code = 37.0 C 8310-5) FIO2 (test code = 1819) 32 % Lab Interpretation (test code = Abnormal 73340-1) [facility] HospitalBLOOD GAS, [id number] 04:37:00 Test Item Value Reference Range Interpretation [...] (test code = 1819) 32.0 % CALCIUM, [id number] 04:37:00 Test Item Value Reference Range Interpretation Comments CALCIUM IONIZED (BEAKER) (test 1.10 mmol/L 1.12-1.27 L code = 698) PH, BLOOD (BEAKER) (test code = 7.38 1810) Lactic Acid, [id number] 04:29:00 Test Item Value Reference Range Interpretation Comments Lactate, Art (test code = 1.3 mmol/L 0.5-2.2 2873) RAGHAVENDRA (test code = RAGHAVENDRA) Fish Inspector ID - EDASI Lab Interpretation (test Normal code = 25418-4) [facility] HospitalLACTIC ACID, [id number] 04:29:00 Test Item Value Reference Range Interpretation Comments LACTATE BLOOD ARTERIAL (2) 1.3 mmol/L 0.5-2.2 (BEAKER) (test code = 2874) Fish Inspector ID - EDASICBC W/PLT COUNT & AUTO [id number] 04:24:00 Test Item Value Reference Range Interpretation [...] PERCENT (BEAKER) (test code = 2801) POCT-GLUCOSE [id number] 03:59:00 Test Item Value Reference Range Interpretation Comments POC-GLUCOSE METER 137 mg/dL 70-110 H : TESTED A T [facility] 6720 (BEAKER) (test code = [facility], 1538) [address]: Fish Inspector/Techni roman ID = [id number] for PRINCESS DICKSON VIDES POCT-GLUCOSE [id number] 00:58:00 Test Item Value Reference Range Interpretation Comments POC-GLUCOSE METER 107 mg/dL 70-110 : TESTED A T [facility] 6720 (BEAKER) (test code = [facility], 1538) [address]: Fish Inspector/Techni roman ID = [id number] for PRINCESS DICKSON VIDES BASIC METABOLIC [id number] 00:39:00 Test Item Value Reference Range Interpretation [...] S NOT APPLICABLE FOR DIALYSIS PATIEN TS. Fish Inspector ID - PIAYA LBLOOD GAS, [id number] 00:15:00 Test Item Value Reference Range Interpretation [...] code = 1819) 32.0 % Hemoglobin and [id number] 00:12:00 Test Item Value Reference Range Interpretation Comments Hemoglobin (test code = 8.0 11.2- 15.7 GM/DL L 786-4) Hematocrit (test code = 24.8 % 34.1-44.9 L 4544-3) RAGHAVENDRA (test code = RAGHAVENDRA) Fish Inspector ID - [id number] Lab Interpretation (test Abnormal code = 42400-4) [facility] HospitalHEMOGLOBIN AND [id number] 00:12:00 Test Item Value Reference Range Interpretation Comments HEMOGLOBIN (BEAKER) (test code = 8.0 GM/DL 11.2-15.7 L 410) HEMATOCRIT (BEAKER) (test code = 24.8 % 34.1-44.9 L 411) Fish Inspector ID - 6000Troponin [id number] 22:16:00 Test Item Value Reference Range Interpretation Comments Troponin I (test code = 0.02 ng/mL 0-0.03 13814-7) RAGHAVENDRA (test code = RAGHAVENDRA) Troponin I [...] NTP Lab Interpretation (test Normal code = 89838-9) [facility] HospitalTROPONIN [id number] 22:16:00 Test Item Value Reference Range Interpretation [...] failure, acidosis, acute neurological disease, and persistent tachyarrhythmia.Fish Inspector ID - NTPBASI METABOLIC PANEL 2020-05-24 22:12:00 Test Item Value [...] APPLICABLE FOR DIALYSIS PATIEN TS. COMPREHENSIVE METABOLIC [id number] 22:12:00 Test Item Value Reference Range Interpretation [...] S NOT APPLICABLE FOR DIALYSIS PATIEN TS. Fish Inspector ID - [id number] 22:08:00 Test Item Value Reference Range Interpretation Comments PHOSPHORUS (BEAKER) (test code = 3.5 mg/dL 2.3-4.7 604) Fish Inspector ID - [id number] 22:08:00 Test Item Value Reference Range Interpretation Comments MAGNESIUM (BEAKER) (test code = 2.3 mg/dL 1.6-2.6 627) Fish Inspector ID - NTPLACTIC ACID, [id number] 22:04:00 Test Item Value Reference Range Interpretation Comments LACTATE BLOOD ARTERIAL (2) 1.5 mmol/L 0.5-2.2 (BEAKER) (test code = 2874) Fish Inspector ID - NTPCBC W/PLT COUNT & AUTO [id number] 21:55:00 Test Item Value Reference Range Interpretation [...] (BEAKER) (test code = 2801) BLOOD GAS, [id number] 21:31:00 Test Item Value Reference Range Interpretation [...] (test code = 1819) 32.0 % CALCIUM, [id number] 21:31:00 Test Item Value Reference Range Interpretation Comments CALCIUM IONIZED (BEAKER) (test 1.14 mmol/L 1.12-1.27 code = 698) PH, BLOOD (BEAKER) (test code = 7.34 1810) RAD, CHEST, 1 VIEW, NON [id number] 20:58:00Reason for exam:->Verify CVC placementShould this be [...] MDReport Verified Date/Time: 05/24/2020 20:58:01 Reading Location: [address] Transitional Reading Room Central [id number] 20:39:59ThAna santiago NP 05/24/2020 8:43 PMCentral LineDate/Time: [...] to verify the correct patient, procedure, equipment, sales support associate and site/side marked as required.Indications: vascular access [...] NoneType of anesthesia: NoneGrafts or Implants: NoneCHI [facility]ole[facility] HospitalInsert Arterial [id number] 20:35:27ThAna santiago NP 05/24/2020 8:39 PMInsert Arterial [...] to verify the correct patient, procedure, equipment, sales support associate and site/side marked as required.Preparation: Patient was [...] normal and no ischemia noted to right hand.[facility] HospitalRAD, CHEST, 1 VIEW, NON [id number] 18:19:00Reason for exam:- >CADShould this be performed [...] status post median sternotomy.. Signed: Azael Marks Verified Date/Time: 05/24/2020 18:19:21 Reading Location: [facility] C013 Transitional Reading Room BASIC METABOLIC [id number] 17:19:00 Test Item Value Reference Range Interpretation [...] S NOT APPLICABLE FOR DIALYSIS PATIEN TS. Fish Inspector ID - [id number] 17:14:00 Test Item Value Reference Range Interpretation Comments PHOSPHORUS (BEAKER) (test code = 5.2 mg/dL 2.3-4.7 H 604) Fish Inspector ID - [id number] 17:14:00 Test Item Value Reference Range Interpretation Comments MAGNESIUM (BEAKER) (test code = 2.4 mg/dL 1.6-2.6 627) Fish Inspector ID - DBCALCIUM, [id number] 17:04:00 Test Item Value Reference Range Interpretation Comments CALCIUM IONIZED (BEAKER) (test 1.20 mmol/L 1.12-1.27 code = 698) PH, BLOOD (BEAKER) (test code = 7.23 1810) HEMOGLOBIN AND [id number] 16:51:00 Test Item Value Reference Range Interpretation Comments HEMOGLOBIN (BEAKER) (test code = 9.8 GM/DL 11.2-15.7 L 410) HEMATOCRIT (BEAKER) (test code = 31.5 % 34.1-44.9 L 411) Fish Inspector ID - 6000HGB/HCT (H&H)-Stat [id number] 10:11:00 Test Item Value Reference Range Interpretation Comments Hemoglobin (test code = 786-4) 10.1 g/dL 12-15 L Hematocrit (test code = 4544-3) 30.0 % 36-45 L Lab Interpretation (test code = Abnormal 56236-4) [facility] HospitalGlucose-Stat [id number] 10:11:00 Test Item Value Reference Range Interpretation Comments Glucose (test code = 2345-7) 125 mg/dL 70-110 H Lab Interpretation (test code = Abnormal 24913-5) [facility] HospitalPotassium-Stat [id number] 10:11:00 Test Item Value Reference Range Interpretation Comments Potassium (test code = 2823-3) 5.2 meq/L 3.6-5.5 Lab Interpretation (test code = Normal 39825-6) [facility] HospitalPOTASSIUM-STAT [id number] 10:11:00 Test Item Value Reference Range Interpretation Comments POTASSIUM (BEAKER) (test code = 5.2 meq/L 3.6-5.5 379) HGB/HCT (H&H) - STAT [id number] 10:11:00 Test Item Value Reference Range Interpretation Comments HEMOGLOBIN (BEAKER) (test code = 10.1 g/dL 12.0-15.0 L 410) HEMATOCRIT (BEAKER) (test code = 30.0 % 36.0-45.0 L 411) GLUCOSE-STAT [id number] 10:11:00 Test Item Value Reference Range Interpretation Comments GLUCOSE RANDOM (BEAKER) (test code 125 mg/dL 70-110 H = 652) Hemoglobin [id number] 08:48:00 Test Item Value Reference Range Interpretation Comments Hemoglobin A1C (test code = 4548-4) 6.2 % 4.3-6.1 H Lab Interpretation (test code = Abnormal 85021-4) [facility] HospitalHEMOGLOBIN [id number] 08:48:00 Test Item Value Reference Range Interpretation Comments HEMOGLOBIN A1C (BEAKER) (test code = 6.2 % 4.3-6.1 H 368) [id number] 07:47:00 Test Item Value Reference Range Interpretation Comments PTT (test code = 52361-2) 37.5 22.5- 36.0 seconds H Lab Interpretation (test code = Abnormal 42723-4) [facility] HospitalAPTT2020-07-30 07:47:00 Test Item Value Reference Range Interpretation Comments PARTIAL THROMBOPLASTIN TIME 37.5 seconds 22.5-36.0 H (BEAKER) (test code = 760) PROTHROMBIN TIME/[id number] 07:46:00 Test Item Value Reference Range Interpretation [...] is2.5-3.5 for patients wiht mechanical heart valves.ABORH, [id number] 07:39:00 Test Item Value Reference Range Interpretation Comments ABO Grouping (test code = 2588) A Rh Factor (test code = 2589) NEG [facility] HospitalCOMPREHENSIVE METABOLIC [id number] 07:32:00 Test Item Value Reference Range Interpretation Comments TOTAL PROTEIN 7.7 gm/dL 6.0-8.3 (BEAKER) (test code = 770) ALBUMIN (BEAKER) 4.2 g/dL 3.5-5.0 (test code = 1145) ALKALINE PHOSPHATASE 76 U/L 40-150 (BEAKER) (test code = 346) BILIRUBIN TOTAL 0.3 [...] S NOT APPLICABLE FOR DIALYSIS PATIEN TS. Fish Inspector ID - [id number] 07:29:00 Test Item Value Reference Range Interpretation Comments MAGNESIUM (BEAKER) (test code = 2.6 mg/dL 1.6-2.6 627) Fish Inspector ID - NTPCBC W/PLT COUNT & AUTO [id number] 07:20:00 Test Item Value Reference Range Interpretation [...] PERCENT (BEAKER) (test code = 2801) POCT-GLUCOSE [id number] 06:09:00 Test Item Value Reference Range Interpretation Comments POC-GLUCOSE METER 124 mg/dL 70-110 H : TESTED A T [facility] 6720 (BEAKER) (test code [facility], = 1538) [address]: Fish Inspector/Techni roman ID = [id number] for JORD AN, LACRYSTAL SARS-COV2/RT-PCR ([facility])2020-05-23 21:27:00 Test Item Value Reference Range Interpretation Comments SARS-COV2/RT-PCR (test Negative Not Detected, Negative, code = 0705719) See external report for linked test SARS-COV-2 PERFORMING LAB [facility] (test code = 7586306) Negative result for this test determines that [...] 564(g) of the Act.Fact Sheet for Healthcare Providers:https://www.iCardiac Technologiesidel.com/sites/default/files/product/documents/Fact_Shee x_TB_Ludctqetf_Efky_ZUYF-QuS-8.pdfFact Sheet for Healthcare Patients:https://www.[employer].com/sites/default/files/product/ documents/Lyqi_Ngfec_Hsimejor_Blra_JJLX-YrO-3.pdfPerforming Laboratory:[facility], [place] [address]Xqeb and screen, automated ([facility])2020-05-23 13:08:00 Test Item Value Reference Range Interpretation Comments ABO/RH AUTOMATED (BEAKER) (test A NEGATIVE code = 2260) Ab Scrn (test code = 890-4) NEGATIVE [facility]
[2020-08-09] MEDS ORDERED: ONDANSETRON 4 MG/2 ML VIAL IV PRN (01:11)
[2020-08-09] MEDS ORDERED: ACETAMINOPHEN 500 MG TAB PO PRN (01:11)
[2020-08-09] MEDS ORDERED: LORazepam 2 MG/ML VIAL IV ONE ×3 (01:18→17:01)
--- NOTE | 2020-08-09 01:18 | P.HP ---
Certification for Inpatient Patient admitted to: Observation With expected LOS: <2 Midnights Patient will require the following post-hospital care: None Practitioner: I am a practitioner with admitting privileges, knowledge of patient current condition, hospital course, and medical plan of care. Services: Services provided to patient in accordance with Admission requirements found in Title 42 Section 412.3 of the Code of Federal Regulations <PatiJax - Last Filed: 08/09/20 01:09> Patient History Date of Service: 08/09/20 Primary Care Provider: Dr. Lawrence, Nephrology- Dr. Leung Reason for admission: Pulmonary edema History of Present Illness: 82-year-old female with history of end-stage renal disease on hemodialysis, chronic diastolic congestive heart failure, hypertension presents emergency department for shortness of breath. Patient is currently staying at a rehab facility and [place] and was taken to [facility] for shortness of breath. Patient is currently on Thursday/Thursday dialysis that she was initially tolerated just 2 days a week very well. Patient reports that on Thursday there were some issues with dialysis machine and she is not sure if she got much dialysis at all and on Thursday she asked them to stopped 30 meds early. Patient was evaluated in the emergency department at [facility] and found to have volume overload with crackles in lung bases on exam, chest x-ray showing volume overload, dyspnea, orthopnea. Patient saturating okay at 96% on 3 L per nasal cannula. Patient will be admitted for further evaluation and management. Case was discussed with nephrology, patient will have dialysis in the morning. - Past Medical/Surgical History Diabetic: No -: Hypertension -: Atrial fibrillation on aspirin -: Chronic diastolic congestive heart failure -: End-stage renal disease on hemodialysis -: CABG -: Porcine aortic valve replacement -: Foot surgery -: Tonsillectomy -: Endarterectomy Psychosocial/ Personal History: Patient lives at home alone - Social History Alcohol use: No CD- Drugs: No Caffeine use: Yes Place of Residence: Long Term <Jax Krueger - Last Filed: 08/09/20 01:09> Date of Service: 08/09/20 <Daniel Gloria - Last Filed: 08/09/20 16:58> Allergies digoxin Allergy (Verified 07/12/20 22:51) Nausea/Vomiting niacin Allergy (Verified 07/13/20 10:49) Hives/Rash codeine [Codeine] Adverse Reaction (Intermediate, Verified 07/12/20 22:50) Hyper Home Medications: Aspirin [Aspirin EC 81 MG] 81 mg PO DAILY 03/18/12 Sertraline [Zoloft*] 25 mg PO DAILY 06/07/15 Allopurinol 1 tab PO DAILY 07/13/20 Diltiazem HCl [Diltiazem 24Hr Cd] 2 tab PO DAILY 07/13/20 Metoprolol Succinate [Toprol Xl*] 25 mg PO BID 6AM 6PM tab 07/23/20 Spironolactone [Aldactone*] 25 mg PO DAILY tab 07/23/20 Acetaminophen 1 tab PO Q6HP PRN 08/09/20 Amlodipine [Norvasc*] 1 tab PO DAILY 08/09/20 Bumetanide 1 mg PO DAILY 08/09/20 Diphenhydramine [Benadryl Tab/Cap] 25 mg PO Q4HP PRN 08/09/20 Docusate [Colace Cap] 100 mg PO DAILY 08/09/20 Ferrous Sulfate [Feosol] 325 mg PO TIDWM 08/09/20 Lactulose 10 gm PO DAILY 08/09/20 Sevelamer HCl [Renagel] 800 mg PO TIDWM 08/09/20 Sodium Bicarbonate 650 mg PO QID 08/09/20 Review of Systems 10-point ROS is otherwise unremarkable Respiratory: Shortness of Breath, SOB with Excertion Cardiovascular: Orthopnea <Jax Krueger - Last Filed: 08/09/20 01:09> Physical Examination - Physical Exam General: Alert, In no apparent distress, Oriented x3 HEENT: Atraumatic, Normocephalic, PERRLA, Mucous membr. moist/pink Neck: Supple Respiratory: Crackles/rales (Bilaterally) Cardiovascular: Normal pulses, Regular rate/rhythm, Normal S1 S2 Gastrointestinal: Normal bowel sounds, Soft and benign, No tenderness Musculoskeletal: No contractures, No erythema, No tenderness Integumentary: No tenderness/swelling, No erythema, No warmth Neurological: Normal speech, Normal strength at 5/5 x4 extr, Normal tone <Jax Krueger - Last Filed: 08/09/20 01:09> - Studies Laboratory Data (last 24 hrs) 08/09/20 14:31: Troponin I 0.05 H 10/15/20 07:55: Troponin I 0.05 H 08/09/20 04:50: WBC 9.2, Hgb 8.1 L, Hct 24.3 L, Plt Count 321 08/09/20 04:50: Sodium 135 L, Potassium 4.3, BUN 44 H, Creatinine 4.20 H, Glucose 113 H 08/09/20 01:40: Troponin I 0.06 H <Daniel Gloria - Last Filed: 08/09/20 16:58> Assessment and Plan - Plan Assessment End-stage renal disease on hemodialysis complicated with volume overload Acute on chronic diastolic congestive heart failure Paroxysmal atrial fibrillation Hypertension Gout Plan End-stage renal disease on hemodialysis complicated with volume overload: Patient had dialysis cut short on Thursday and on Thursday there is initiated machine so she is not able to receive much dialysis at all. Patient does make some urine, was given 40 mg Lasix IV at [facility]. Nephrology has been contacted, patient will be receiving dialysis in the morning. Will obtain and continue home medications. DVT prophylaxis. Heparin 5000 units subcutaneous twice daily. Acute on chronic diastolic congestive heart failure: Obtain and continue home medications. Patient had recent echocardiogram of 67%. Dialysis to help with overload. Paroxysmal atrial fibrillation: Monitor on telemetry, continue home medications. Hypertension: Obtain and continue home medications. Gout: Obtain and continue home medications. Discharge Plan: Home Plan to discharge in: 24 Hours - Advance Directives Does patient have a Living Will: Yes Does patient have a Durable POA for Healthcare: No - Code Status/Comfort Care Code Status Assessed: Yes (Patient is full code) Critical Care: No Time Spent Managing Pts Care (In Minutes): 55 <Jax Krueger - Last Filed: 08/09/20 01:09> Physician Review Additional Text: Plan of care discussed with Jax Krueger, and I agree with the management plan as noted above. Likely dc back to SNF after dialysis. <Daniel Gloria - Last Filed: 08/09/20 16:58>
[2020-08-09] MEDS ORDERED: LORazepam 2 MG/ML VIAL ONE (01:40)
[2020-08-09 05:24] LABS: Basophils % 0.8 % (0-1.3); Hematocrit 24.3 % (36.0-45.0); Lymphocytes % 11.1 % (15.3-44.8); MPV 6.8 fL (7.6-11.3); RBC Red Blood Cell Count 2.75 M/uL (3.86-4.86)
[2020-08-09 05:39] LABS: Potassium 4.3 mmol/L (3.5-5.1)
[2020-08-09] MEDS ORDERED: METOPROLOL TAR 25 MG TAB ONE (05:43)
[2020-08-09] MEDS: METOPROLOL XL 25 MG TAB PO SCH ×2 (05:53→18:00)
[2020-08-09] MEDS ORDERED: METOPROLOL XL 50 MG TAB PO ONE (06:06)
--- NOTE | 2020-08-09 08:58 | RAD REPORT ---
EXAM DESCRIPTION: RAD - Chest Single View - 08/09/2020 6:00 am CLINICAL HISTORY: SOB Chest pain. COMPARISON: Chest Single View dated 07/15/2020; Chest Pa And Lat (2 Views) dated 05/17/2020; CHEST SIN GLE VIEW dated 06/07/2015; CHEST SINGLE VIEW dated 03/18/2012 FINDINGS: Portable technique limits examination quality. Moderate bilateral pulmonary opacities are present likely representing pulmonary edema. The heart is moderately enlarged with sternotomy wires present. Left-sided venous catheter has tip in the SVC. Sma ll bilateral pleural effusions are seen, greater on the right. IMPRESSION: Moderate CHF versus volume overload pattern.
[2020-08-09] MEDS ORDERED: DOCUSATE NA 100 MG CAP PO SCH (09:00)
[2020-08-09] MEDS ORDERED: FUROSEMIDE 40 MG/4 ML VIAL IV SCH (09:00)
[2020-08-09] MEDS ORDERED: BUMETANIDE 1 MG TABLET PO SCH (09:00)
[2020-08-09] MEDS ORDERED: AMLODIPINE 5 MG TAB PO SCH (09:00)
[2020-08-09] MEDS: SODIUM BICARB 325 MG TAB PO SCH ×2 (09:00→13:31)
[2020-08-09] MEDS ORDERED: HEPARIN 5000 UNIT/ML 1 ML VIAL SQ SCH (09:00)
[2020-08-09] MEDS: FERROUS SULFATE 325 MG TAB PO SCH ×3 (09:01→17:00)
[2020-08-09] MEDS: ASPIRIN EC 81 MG TAB PO SCH (09:01)
[2020-08-09] MEDS: SEVELAMER CARBONATE 800 MG TABLET PO SCH ×3 (09:01→17:00)
[2020-08-09] MEDS: SPIRONOLACTONE 25 MG TABLET PO SCH (09:01)
[2020-08-09] MEDS: DILTIAZEM HCL 120 MG SR CAP PO SCH (09:01)
[2020-08-09] MEDS: allopurinoL 100 MG TAB PO SCH (09:02)
[2020-08-09] MEDS: SERTRALINE HCL 50 MG TAB PO SCH (09:02)
[2020-08-09] MEDS ORDERED: DIPHENHYDRAMINE 50 MG/ML VIAL IV ONE (13:11)
--- NOTE | 2020-08-09 14:35 | CON ---
Date of Consultation: 08/09/2020 Reason For Consultation: Fluid management, hypertension. History Of Present Illness: This is a pleasant 89-year-old female with significant past medical history of end-stage renal disease, on hemodialysis recently started last month, chronic kidney disease, baseline creatinine around the 2s, hypertension, hyperlipidemia, coronary artery disease status post CABG complicated with congestive heart failure, carotid stenosis status post endarterectomy, the [facility]. The patient started having shortness of breath. The patient was taken to the ER at [place], [facility] of [facility] of care. The patient denied any chest pain. No nausea. No vomiting. The patient was scheduled for dialysis tomorrow. Apparently, the patient receiving dialysis twice a week. The patient still has urine output, but has been decreased significantly. Past Medical History: Includes; 1. Hypertension. 2. AFib.. 3. Coronary artery disease status post CABG, complicated with congestive heart failure, diastolic dysfunction. 4. Chronic kidney disease, currently on dialysis secondary to cardiorenal. 5. Aortic valve disease status post replacement. Past Surgical History: Includes aortic valve replacement, tonsillectomy and carotid endarterectomy. Social History: Denied smoking, denied drinking, denied drugs abuse. Review of Systems: Head and Neck: No red eye. No ear pain. GI: No nausea. No vomiting. : No polyuria. No dysuria. No hematuria. 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 Increase in the abdominal girth. Neurologic: Has anxiety. Musculoskeletal: Generalized fatigue. Physical Examination: Vital Signs: Blood pressure of 149/65, pulse of 109, afebrile. Chest: Crackles bilateral. Heart: S1, S2. Regular. Systolic murmur. Abdomen: Soft, possible ascites. Extremities: Plus edema. Neurologic: Alert. No focality. Laboratory Data: WBC 9.2, H and H 8.1/24.3, platelet 321. Sodium 135, potassium 4.3, bicarb 26, BUN 44, creatinine 4.2, calcium 8.9. Cardiac enzyme 2 sets were negative. Chest x-ray, cardiomegaly with congestion. Current Medications: The patient on include ferrous sulfate, spironolactone 25 daily, diltiazem, amlodipine 5 mg, metoprolol 25 b.i.d., Zoloft, Bumex 1 mg daily, sodium bicarb 650 t.i.d., Renvela, Zofran, allopurinol. Assessment And Plan: 1. End-stage renal disease, over volume. I am going to go ahead and arrange for dialysis today and tomorrow. We will change her schedule as outpatient to 3 times a week and we will continue to monitor the patient. I am going to go ahead and continue her home medication. 2. Acidosis secondary to renal failure. Discontinue bicarb oral. The patient is going to be dialyzed. 3. Hypertension. We will utilize blood pressure to establish better volume control. Discontinue amlodipine. The patient is already on diltiazem. 4. Continue diuresis. I am going to go ahead and discontinue Bumex IV. We will place the patient on Lasix to establish better volume control. 5. Continue Aldactone. 6. Anemia of chronic kidney disease. Resume Retacrit. 7. Coronary artery disease with congestive heart failure as by Cardiology. We will try to establish better volume control with diuresis and dialysis. 8. Secondary hyperparathyroidism. Continue Renvela. 9. Anxiety. I am going to start the patient on Benadryl and we will follow up. Thank you Dr. Gloria for allowing us to participate in the care of your patient. Time spent Corordent the care discussing the case with the patient Family member (face to face) and staff member / other biometrics consultant and placing order 65 min REDDY Voice ID: [id number] Report ID: [id number] MTDD
[2020-08-09] MEDS: EPOETIN ALFA 10,000 UNIT/ML VIAL IV SCH (15:30)
[2020-08-09] MEDS: FUROSEMIDE 40 MG/4 ML VIAL IV SCH (19:12)
[2020-08-09] MEDS: DOCUSATE NA 100 MG CAP PO SCH (20:57)
[2020-08-10] MEDS: METOPROLOL XL 25 MG TAB PO SCH ×3 (05:16→17:07)
[2020-08-10 05:50] LABS: Absolute Lymphocytes (CBC) 1.5 K/uL (0.7-4.9); Basophils % 0.8 % (0-1.3); Hematocrit 24.8 % (36.0-45.0); Lymphocytes % 9.7 % (15.3-44.8); MPV 7.2 fL (7.6-11.3)
[2020-08-10 06:05] LABS: Potassium 4.4 mmol/L (3.5-5.1)
[2020-08-10] MEDS: FUROSEMIDE 40 MG/4 ML VIAL IV SCH ×2 (08:54→17:05)
[2020-08-10] MEDS: FERROUS SULFATE 325 MG TAB PO SCH ×3 (08:56→17:05)
[2020-08-10] MEDS: SPIRONOLACTONE 25 MG TABLET PO SCH (08:56)
[2020-08-10] MEDS: SERTRALINE HCL 50 MG TAB PO SCH (08:58)
[2020-08-10] MEDS: DILTIAZEM HCL 120 MG SR CAP PO SCH (08:59)
[2020-08-10] MEDS: SEVELAMER CARBONATE 800 MG TABLET PO SCH ×3 (09:00→17:06)
[2020-08-10] MEDS: DOCUSATE NA 100 MG CAP PO SCH ×2 (09:01→20:12)
[2020-08-10] MEDS: allopurinoL 100 MG TAB PO SCH (09:01)
[2020-08-10] MEDS: ASPIRIN EC 81 MG TAB PO SCH (09:02)
--- NOTE | 2020-08-10 12:38 | P.PN ---
Subjective Date of Service: 08/10/20 Primary Care Provider: Dr. Lawrence, Nephrology- Dr. Leung Chief Complaint: Pulmonary edema Subjective An 82-year-old woman with PMHx of ESRD admitted for SOB today no new complaints WBC uo to 15K , f/u cultures , will hold on ABx for now repeat CBC tomorrow HD tomorrow , will give Benadryl with HD can be discharged from nephrology point of view tomorrows after HD if cont to be stable and WBC improved Physical exam general: AAOX3, NAD , thin Neck; Supple, No elevated JVD hear: RRR, normal S1,2 no murmur or rub Chest: CTAB, no rales or wheezes Abdomen: Soft , Nt Extremities NO edema, bluish feet discoloration A/P ESRD on HD twice weekly HD tomorrow renal dose meds avoid NSAID and contrast CHF with pulmponary edema resolved cont HD and lasix Anemia of chronic disease ont epogen leuckocytosis possibly stress induced will repeat CBC tomorrow f/u UA Physical Examination - Vital Signs Temperature: 97.2 F Blood Pressure: 128/64 Pulse: 79 Respirations: 18 Pulse Ox (%): 98 - Studies Laboratory Data (last 24 hrs) 08/10/20 05:15: Sodium 136, Potassium 4.4, BUN 36 H, Creatinine 4.31 H, Glucose 113 H 08/10/20 03:15: WBC 15.9 H D, Hgb 8.3 L, Hct 24.8 L, Plt Count 343 08/09/20 14:31: Troponin I 0.05 H Assessment And Plan Physician Review Additional Text: Plan of care discussed with Jax Krueger, and I agree with the management plan as noted above. Likely dc back to SNF after dialysis.
[2020-08-10 16:38] LABS: Urine Appearance CLOUDY; Urine Bilirubin NEGATIVE (NEG); Urine Blood 1+ (NEG); Urine Color YELLOW; Urine Glucose NEGATIVE (NEG); Urine Protein 2+ (NEG); Urine Urobilinogen 0.2 mg/dL (0.2-1.0); Urine pH 5.5 (5.0-7.0)
--- NOTE | 2020-08-10 16:52 | P.PN ---
Subjective Date of Service: 08/10/20 Primary Care Provider: Dr. Lawrence, Nephrology- Dr. Leung Chief Complaint: Pulmonary edema Subjective: Improving (Was only able to tolerate a little over 2 hr of dialysis yesterday, became very anxious/restless Reports breathing more comfortably this morning) Review of Systems 10-point ROS is otherwise unremarkable Physical Examination - Vital Signs Temperature: 97.2 F Blood Pressure: 128/64 Pulse: 79 Respirations: 18 Pulse Ox (%): 98 - Physical Exam General: Alert, In no apparent distress, Oriented x3 Neck: Supple Respiratory: Diminished (At bases bilaterally) Cardiovascular: No edema, Regular rate/rhythm Gastrointestinal: Soft and benign, Non-distended, No tenderness Musculoskeletal: No erythema, No tenderness Integumentary: No rashes Neurological: Normal speech, Normal affect - Studies Laboratory Data (last 24 hrs) 08/10/20 05:15: Sodium 136, Potassium 4.4, BUN 36 H, Creatinine 4.31 H, Glucose 113 H 08/10/20 03:15: WBC 15.9 H D, Hgb 8.3 L, Hct 24.8 L, Plt Count 343 Assessment & Plan Physician Review Additional Text: End-stage renal disease on hemodialysis complicated with volume overload Acute on chronic diastolic congestive heart failure Paroxysmal atrial fibrillation Hypertension Gout Plan End-stage renal disease on hemodialysis complicated with volume overload: Some improvement after dialysis yesterday. But still having dyspnea on exertion Unable to tolerate full course of dialysis yesterday Nephrology consulted, appreciate assistance. Plan for dialysis tomorrow Acute on chronic diastolic congestive heart failure: continue home medications. Patient had recent echocardiogram of 67%. Dialysis to help with overload. But still requiring oxygen, continue IV Lasix Leukocytosis History of UTIs, reports usually asymptomatic, sometimes with some confusion Will check UA Paroxysmal atrial fibrillation: Monitor on telemetry, continue home medications. In brief episodes of AFib overnight Hypertension: continue home medications as appropriate Gout: continue home medications. Time Spent Managing Pts Care (In Minutes): 35
[2020-08-10 17:05] LABS: Urine Bacteria <20 /HPF (<20); Urine Culture Reflex Order REFLEXED; Urine Mucus 1+ /HPF (NONE SEEN)
[2020-08-10] MEDS ORDERED: CEFTRIAXONE/SWI 1gm 1 GM/10 ML SYR IVP SCH (18:00)
[2020-08-10] MEDS: SMZ./TMP. 800/160 MG TABLET PO SCH (19:18)
[2020-08-11] MEDS: METOPROLOL XL 25 MG TAB PO SCH ×2 (05:04→17:56)
[2020-08-11 05:52] LABS: Absolute Lymphocytes (CBC) 1.4 K/uL (0.7-4.9); Basophils % 0.7 % (0-1.3); Hematocrit 26.1 % (36.0-45.0); Lymphocytes % 9.3 % (15.3-44.8); MPV 7.1 fL (7.6-11.3); RBC Red Blood Cell Count 2.93 M/uL (3.86-4.86)
[2020-08-11 06:22] LABS: Magnesium 2.5 mg/dL (1.8-2.4); Phosphorus 4.3 mg/dL (2.5-4.9); Potassium 3.6 mmol/L (3.5-5.1)
[2020-08-11] MEDS: SEVELAMER CARBONATE 800 MG TABLET PO SCH ×3 (08:54→17:55)
[2020-08-11] MEDS: DOCUSATE NA 100 MG CAP PO SCH ×2 (08:55→20:22)
[2020-08-11] MEDS: allopurinoL 100 MG TAB PO SCH (08:56)
[2020-08-11] MEDS: ASPIRIN EC 81 MG TAB PO SCH (08:56)
[2020-08-11] MEDS: FERROUS SULFATE 325 MG TAB PO SCH ×3 (09:00→17:55)
[2020-08-11] MEDS: SERTRALINE HCL 50 MG TAB PO SCH (09:00)
[2020-08-11] MEDS: SMZ./TMP. 800/160 MG TABLET PO SCH (09:01)
[2020-08-11] MEDS: SPIRONOLACTONE 25 MG TABLET PO SCH (09:02)
[2020-08-11] MEDS: FUROSEMIDE 40 MG/4 ML VIAL IV SCH ×2 (09:03→17:56)
[2020-08-11] MEDS: DILTIAZEM HCL 120 MG SR CAP PO SCH (09:15)
[2020-08-11] MEDS: DIPHENHYDRAMINE 25 MG TAB/CAP PO PRN (18:01)
--- NOTE | 2020-08-11 18:35 | P.DS ---
Admission Date: 08/10/20 Discharge Date: 08/12/20 Primary Care Provider: Dr. Lawrence, Nephrology- Dr. Leung Disposition: TRANSFER TO SKILLED NURSING Discharge Condition: GOOD Reason for Admission: Pulmonary edema Consultations: Nephrology - Dr. Galloway Procedures: CXR (08/09): Moderate CHF versus volume overload pattern Problem list End-stage renal disease on hemodialysis complicated with volume overload Acute on chronic diastolic congestive heart failure Anemia of chronic disease and iron deficiency Paroxysmal atrial fibrillation Hypertension Gout Brief History of Present Illness: 82yo F, PMH: ESRD on hemodialysis, chronic diastolic CHF, HTN, paroxysmal AFib, transferred from [facility] for dialysis. She presented to the ED due to worsening shortness of breath . She reported issues with her last 2 dialysis sessions requiring him to be much shorter than usual. Hospital Course: Nephrology was consulted, and patient underwent dialysis the following morning. Due to a restlessness/anxiety patient was only able to tolerate 2 hr, and remained fluid overloaded. Her hospitalization was prolonged due to complications with dialysis. She had issues with the flow/catheter which required alteplase in the evening and 08/11. She then underwent dialysis on 08/12. She was discharged back to her SNF. On day of discharge she was breathing much more comfortably on room air, and was feeling well. In the evening after admission the patient had slight confusion, which is likely due to the Ativan given for restlessness during dialysis. She was also noted to have a leukocytosis, a UA was obtained which was concerning for UTI. Her urine cultures grew mixed flaquita. She was treated with Bactrim and will be discharged home with Bactrim based off of prior cultures. Her hemoglobin dropped to 7.4 from 8.3 in the morning of 08/12, recheck was 7.7. Patient had no evidence of bleeding. Her hemoglobin on admission was 8.1. She receives epoetin with dialysis. Vital Signs/Physical Exam: Temp Pulse Resp BP Pulse Ox 97.8 F 93 H 16 136/56 L 97 08/11/20 12:00 08/11/20 17:56 08/11/20 12:00 08/11/20 17:56 08/11/20 12:00 General: Alert, In no apparent distress HEENT: Sclerae nonicteric Respiratory: Clear to auscultation bilaterally, Normal air movement Cardiovascular: No edema, Regular rate/rhythm, Normal S1 S2 Gastrointestinal: Soft and benign, Non-distended, No tenderness Integumentary: No rashes Neurological: Normal speech, Normal affect Laboratory Data at Discharge: WBC 15.2 K/uL (4.3-10.9) H 08/11/20 05:10 Hgb 8.3 g/dL (12.0-15.0) L 08/11/20 05:10 Hct 26.1 % (36.0-45.0) L 08/11/20 05:10 Plt Count 393 K/uL (152-406) 08/11/20 05:10 Sodium 132 mmol/L (136-145) L 08/11/20 05:10 Potassium 3.6 mmol/L (3.5-5.1) 08/11/20 05:10 BUN 44 mg/dL (7-18) H 08/11/20 05:10 Creatinine 5.09 mg/dL (0.55-1.3) H* 08/11/20 05:10 Glucose 150 mg/dL (74-106) H 08/11/20 05:10 Phosphorus 4.3 mg/dL (2.5-4.9) 08/11/20 05:10 Magnesium 2.5 mg/dL (1.8-2.4) H 08/11/20 05:10 Troponin I 0.05 ng/mL (0.0-0.045) H 08/09/20 14:31 Home Medications: Aspirin [Aspirin EC 81 MG] 81 mg PO DAILY 03/18/12 Sertraline [Zoloft*] 25 mg PO DAILY 06/07/15 Allopurinol 1 tab PO DAILY 07/13/20 Diltiazem HCl [Diltiazem 24Hr Cd] 2 tab PO DAILY 07/13/20 Metoprolol Succinate [Toprol Xl*] 25 mg PO BID 6AM 6PM tab 07/23/20 Spironolactone [Aldactone*] 25 mg PO DAILY tab 07/23/20 Acetaminophen 1 tab PO Q6HP PRN 08/09/20 Amlodipine [Norvasc*] 1 tab PO DAILY 08/09/20 Bumetanide 1 mg PO DAILY 08/09/20 Diphenhydramine [Benadryl*] 25 mg PO Q4HP PRN 08/09/20 Docusate [Colace Cap*] 100 mg PO DAILY 08/09/20 Ferrous Sulfate [Ferrous Sulfate*] 325 mg PO TIDWM 08/09/20 Lactulose 10 gm PO DAILY 08/09/20 Sevelamer HCl [Renagel] 800 mg PO TIDWM 08/09/20 Sodium Bicarbonate 650 mg PO QID 08/09/20 Smz./Tmp. [Bactrim Ds 800 MG/160 MG*] 1 tab PO DAILY 8 Days #8 tab 08/11/20 New Medications: Smz./Tmp. [Bactrim Ds 800 MG/160 MG*] 1 tab PO DAILY 8 Days #8 tab
[2020-08-11] MEDS ORDERED: ALTEPLASE 2 MG/VIAL IV PRN (18:55)
[2020-08-11] MEDS ORDERED: WATER FOR INJ,STERILE 20 ML ONE (19:09)
--- NOTE | 2020-08-11 20:40 | P.PN ---
Subjective Date of Service: 08/11/20 Primary Care Provider: Dr. Lawrence, Nephrology- Dr. Leung Chief Complaint: Pulmonary edema Subjective: Improving (breathing more comfortably only able to tolerate ~2hrs of dialysis yesterday, will need dialysis again today) Review of Systems 10-point ROS is otherwise unremarkable Physical Examination - Vital Signs Temperature: 97.7 F Blood Pressure: 136/56 Pulse: 93 Respirations: 18 Pulse Ox (%): 92 - Physical Exam General: Alert, In no apparent distress HEENT: Sclerae nonicteric Respiratory: Clear to auscultation bilaterally, Diminished (at bases) Cardiovascular: Regular rate/rhythm, Normal S1 S2 Gastrointestinal: Soft and benign, No tenderness Musculoskeletal: No erythema, No tenderness Integumentary: No rashes Neurological: Normal speech, Normal affect - Studies Laboratory Data (last 24 hrs) 08/11/20 05:10: Sodium 132 L, Potassium 3.6, BUN 44 H, Creatinine 5.09 H*, Glucose 150 H, Phosphorus 4.3, Magnesium 2.5 H 08/11/20 05:10: WBC 15.2 H, Hgb 8.3 L, Hct 26.1 L, Plt Count 393 Assessment & Plan Physician Review Additional Text: End-stage renal disease on hemodialysis complicated with volume overload Acute on chronic diastolic congestive heart failure Paroxysmal atrial fibrillation Hypertension Gout Plan End-stage renal disease on hemodialysis complicated with volume overload: FRYE/SOB improving scheduled for dialysis today, can be discharged back to SNF afterwards Nephrology consulted, appreciate assistance. Acute on chronic diastolic congestive heart failure: continue home medications. Patient had recent echocardiogram of 67%. Dialysis to help with overload. But still requiring oxygen, continue IV Lasix Leukocytosis UTI reviewed prior cultures / sensitivities will start on Bactrim pt without any symptoms, reports prior UTIs were aysmptomatic as well until she developed confusion Paroxysmal atrial fibrillation: Monitor on telemetry, continue home medications. Hypertension: continue home medications as appropriate Gout: continue home medications. Dispo: dc back to SNF after HD Time Spent Managing Pts Care (In Minutes): 35
[2020-08-12 04:31] LABS: Magnesium 2.5 mg/dL (1.8-2.4); Potassium 4.3 mmol/L (3.5-5.1)
[2020-08-12 04:35] LABS: Absolute Lymphocytes (CBC) 1.4 K/uL (0.7-4.9); Basophils % 0.6 % (0-1.3); Hematocrit 23.1 % (36.0-45.0); Lymphocytes % 9.4 % (15.3-44.8); MPV 7.2 fL (7.6-11.3); RBC Red Blood Cell Count 2.59 M/uL (3.86-4.86)
[2020-08-12] MEDS: METOPROLOL XL 25 MG TAB PO SCH ×2 (05:23→18:00)
[2020-08-12 09:19] LABS: Hematocrit 23.7 % (36.0-45.0)
[2020-08-12] MEDS: FERROUS SULFATE 325 MG TAB PO SCH ×3 (09:26→16:33)
[2020-08-12] MEDS: ASPIRIN EC 81 MG TAB PO SCH (09:27)
[2020-08-12] MEDS: SMZ./TMP. 800/160 MG TABLET PO SCH (09:28)
[2020-08-12] MEDS: SPIRONOLACTONE 25 MG TABLET PO SCH (09:28)
[2020-08-12] MEDS: SEVELAMER CARBONATE 800 MG TABLET PO SCH ×3 (09:32→16:33)
[2020-08-12] MEDS: DILTIAZEM HCL 120 MG SR CAP PO SCH (09:32)
[2020-08-12] MEDS: allopurinoL 100 MG TAB PO SCH (09:32)
[2020-08-12] MEDS: FUROSEMIDE 40 MG/4 ML VIAL IV SCH ×2 (09:33→16:34)
[2020-08-12] MEDS: DOCUSATE NA 100 MG CAP PO SCH ×2 (09:33→21:59)
[2020-08-12] MEDS: SERTRALINE HCL 50 MG TAB PO SCH (09:35)
[2020-08-12] MEDS ORDERED: EPOETIN 4,000 UNIT/ML VIAL IV SCH (15:30)
--- NOTE | 2020-08-12 15:49 | P.PN ---
Subjective Date of Service: 08/12/20 Primary Care Provider: Dr. Lawrence, Nephrology- Dr. Leung Chief Complaint: Pulmonary edema Subjective: No new changes (Unable to get dialysis yesterday due to clotting catheter, was given alteplase To undergo dialysis today. Otherwise feeling about the same, breathing comfortably on room air, lower extremity edema returning slightly) Physical Examination - Vital Signs Temperature: 98.6 F Blood Pressure: 122/55 Pulse: 83 Respirations: 18 Pulse Ox (%): 94 - Physical Exam General: Alert, In no apparent distress HEENT: Mucous membr. moist/pink Neck: No LAD Respiratory: Clear to auscultation bilaterally, Normal air movement Cardiovascular: Edema (Trace to ankles) Gastrointestinal: Soft and benign, Non-distended, No tenderness Musculoskeletal: No tenderness Integumentary: No rashes Neurological: Normal speech, Normal affect - Studies Laboratory Data (last 24 hrs) 08/12/20 09:13: Hgb 7.7 L*, Hct 23.7 L 08/12/20 03:36: Sodium 135 L, Potassium 4.3, BUN 38 H, Creatinine 4.89 H, Glucose 122 H, Magnesium 2.5 H 08/12/20 03:36: WBC 15.0 H, Hgb 7.4 L*, Hct 23.1 L, Plt Count 388 Microbiology Data (last 24 hrs): 08/10/20 16:00 Clean Catch Urine [place] Count - Final BETWEEN 10,000 & 100,000 CFU/ML 08/10/20 16:00 Clean Catch Urine - Final MIXED MIKE. Assessment & Plan Physician Review Additional Text: End-stage renal disease on hemodialysis complicated with volume overload Acute on chronic diastolic congestive heart failure Paroxysmal atrial fibrillation Hypertension Gout Plan End-stage renal disease on hemodialysis complicated with volume overload: FRYE/SOB improving, on room air Unable at dialysis yesterday due to clouding catheter, received alteplase Scheduled for dialysis today, can be discharged back to SNF afterwards Nephrology consulted, appreciate assistance. Acute on chronic diastolic congestive heart failure: continue home medications. Patient had recent echocardiogram of 67%. Dialysis to help with overload. Received IV Lasix Leukocytosis UTI reviewed prior cultures / sensitivities Continue Bactrim pt without any symptoms, reports prior UTIs were aysmptomatic as well until she developed confusion Paroxysmal atrial fibrillation: Monitor on telemetry, continue home medications. Hypertension: continue home medications as appropriate Gout: continue home medications. Dispo: macarena back to SNF after HD today Time Spent Managing Pts Care (In Minutes): 35
--- NOTE | 2020-08-12 16:11 | PN ---
Date of Progress Note: 08/11/2020 Chief Complaint: End-stage renal disease, fluid overload, shortness of breath, congestive heart failure. Subjective: The patient presented to the hospital because of generalized weakness, shortness of breath. She was found to have interstitial pulmonary edema, congestive heart failure decompensation. She responded to dialysis. She is feeling better. She is scheduled to have dialysis today with ultrafiltration. Review of Systems: Denies chest pain, palpitation. Physical Examination: Lungs: Diminished breath sounds at bases. Few crackles. Heart: S1, S2. Abdomen: Soft, benign. Extremities: Minimal edema in both ankles. Impression And Plan: 1. End-stage renal disease. The patient will have dialysis to obtain metabolic clearance. Plan is to evaluate electrolytes and monitor fluid balance. Continue low-sodium diet. 2. Congestive heart failure with pulmonary edema, resolved. Continue dialysis and Lasix. Monitor urine output. 3. Leukocytosis. Urine cultures were obtained and pending. Evaluate CBC with white count. 4. Renal osteodystrophy. Continue renal diet and binders. 5. Anemia. Continue USAMA. EB/MODL Voice ID: [id number] Report ID: [id number] JO NAN
[2020-08-12] MEDS: DIPHENHYDRAMINE 25 MG TAB/CAP PO PRN (22:00)
[2020-08-13 04:46] LABS: Basophils % 0.8 % (0-1.3); Hematocrit 21.5 % (36.0-45.0); Lymphocytes % 9.9 % (15.3-44.8); RBC Red Blood Cell Count 2.44 M/uL (3.86-4.86)
[2020-08-13 04:49] LABS: Protime INR 1.1
[2020-08-13 05:00] LABS: Bilirubin Total 0.3 mg/dL (0.2-1.0); Magnesium 2.4 mg/dL (1.8-2.4); Phosphorus 3.8 mg/dL (2.5-4.9); Potassium 4.1 mmol/L (3.5-5.1); Protein, Total 6.6 g/dL (6.4-8.2)
[2020-08-13] MEDS: METOPROLOL XL 25 MG TAB PO SCH ×2 (05:31→17:06)
[2020-08-13 06:08] VITALS: BMI 23.1
[2020-08-13] MEDS: SEVELAMER CARBONATE 800 MG TABLET PO SCH ×3 (08:00→17:06)
[2020-08-13] MEDS: FERROUS SULFATE 325 MG TAB PO SCH ×3 (08:00→17:05)
[2020-08-13] MEDS: DOCUSATE NA 100 MG CAP PO SCH ×2 (08:21→20:16)
[2020-08-13] MEDS: SMZ./TMP. 800/160 MG TABLET PO SCH (08:23)
[2020-08-13] MEDS: FUROSEMIDE 40 MG/4 ML VIAL IV SCH ×2 (08:23→17:06)
[2020-08-13] MEDS: DILTIAZEM HCL 120 MG SR CAP PO SCH (08:23)
[2020-08-13] MEDS: SPIRONOLACTONE 25 MG TABLET PO SCH (08:23)
[2020-08-13 09:18] LABS: Hematocrit 23.3 % (36.0-45.0)
[2020-08-13] MEDS: allopurinoL 100 MG TAB PO SCH (12:26)
[2020-08-13] MEDS: SERTRALINE HCL 50 MG TAB PO SCH (12:26)
--- NOTE | 2020-08-13 12:47 | P.PN ---
Subjective Date of Service: 08/13/20 Primary Care Provider: Dr. Lawrence, Nephrology- Dr. Leung Chief Complaint: Pulmonary edema Subjective: No new changes (able to get 500ml from dialysis yesterday, however cut short due to flow issue pt reports breathing ok on room air, no nausea/vomiting, dysuria, abdominal pain) Physical Examination - Vital Signs Temperature: 97.4 F Blood Pressure: 126/58 Pulse: 97 Respirations: 16 Pulse Ox (%): 0 - Physical Exam General: Alert, In no apparent distress, Oriented x3 Neck: Supple, No LAD Respiratory: Clear to auscultation bilaterally, Normal air movement Cardiovascular: No edema, Regular rate/rhythm Gastrointestinal: Soft and benign, Non-distended, No tenderness Integumentary: No rashes Neurological: Normal speech, Normal affect - Studies Laboratory Data (last 24 hrs) 08/13/20 09:05: Hgb 7.6 L*, Hct 23.3 L 08/13/20 04:25: PT 13.0 H, INR 1.10, APTT 28.5 08/13/20 04:25: Sodium 135 L, Potassium 4.1, BUN 29 H, Creatinine 4.41 H, Glucose 102, Phosphorus 3.8, Magnesium 2.4, Total Bilirubin 0.3, AST 10 L, ALT 14, Alkaline Phosphatase 78 08/13/20 04:25: WBC 10.3 D, Hgb 7.1 L*, Hct 21.5 L, Plt Count 337 Microbiology Data (last 24 hrs): 08/10/20 16:00 Clean Catch Urine [place] Count - Final BETWEEN 10,000 & 100,000 CFU/ML 08/10/20 16:00 Clean Catch Urine - Final MIXED MIKE. Assessment & Plan Physician Review Additional Text: End-stage renal disease on hemodialysis complicated with volume overload Acute on chronic diastolic congestive heart failure Paroxysmal atrial fibrillation Hypertension Gout Plan End-stage renal disease on hemodialysis complicated with volume overload: improved after a few partial dialysis now unable to complete dialysis due to clot in catheter / flow issue; has received alteplase General surgery - Dr. Anne consulted Nephrology consulted, appreciate assistance. Acute on chronic diastolic congestive heart failure: continue home medications. Patient had recent echocardiogram of 67%. Dialysis to help with overload, improved on IV lasix per nephrology Leukocytosis UTI reviewed prior cultures / sensitivities Continue Bactrim pt without any symptoms, reports prior UTIs were aysmptomatic as well until she developed confusion Paroxysmal atrial fibrillation: Monitor on telemetry, continue home medications. Hypertension: continue home medications as appropriate Gout: continue home medications. Dispo: dc back to SNF - delayed due to complications with port / dialysis Time Spent Managing Pts Care (In Minutes): 35
[2020-08-14] MEDS: METOPROLOL XL 25 MG TAB PO SCH ×2 (05:44→16:44)
[2020-08-14] MEDS: SEVELAMER CARBONATE 800 MG TABLET PO SCH ×3 (08:00→16:44)
[2020-08-14] MEDS: FERROUS SULFATE 325 MG TAB PO SCH ×3 (08:00→16:44)
[2020-08-14] MEDS: FUROSEMIDE 40 MG/4 ML VIAL IV SCH (08:13)
[2020-08-14] MEDS: DOCUSATE NA 100 MG CAP PO SCH ×2 (08:32→20:06)
[2020-08-14] MEDS: SMZ./TMP. 800/160 MG TABLET PO SCH (08:32)
[2020-08-14] MEDS: DILTIAZEM HCL 120 MG SR CAP PO SCH (08:44)
[2020-08-14] MEDS: allopurinoL 100 MG TAB PO SCH (09:00)
[2020-08-14] MEDS: SERTRALINE HCL 50 MG TAB PO SCH (09:00)
[2020-08-14] MEDS: SPIRONOLACTONE 25 MG TABLET PO SCH (09:00)
--- NOTE | 2020-08-14 10:14 | P.PN ---
Subjective Date of Service: 08/14/20 Primary Care Provider: Dr. Lawrence, Nephrology- Dr. Leung Chief Complaint: Pulmonary edema Subjective An 82-year-old woman with PMHx of ESRD admitted for SOB , had UTI now HD catheter malfunction today no new complaints Surgery consult apprecitaed, HD exchange today will try HD again today will transfuse 1PRBC if cont to have issue after new catheter placement , then pt will need to be transferred for IR dialysis catheter placement Physical exam general: AAOX3, NAD , thin Neck; Supple, No elevated JVD hear: RRR, normal S1,2 no murmur or rub Chest: CTAB, no rales or wheezes Abdomen: Soft , Nt Extremities NO edema, bluish feet discoloration A/P ESRD on HD twice weekly HD today renal dose meds avoid NSAID and contrast dialysis catheter malfunction Surgery consult appreciated, HD exchange today will try HD again today will transfuse 1PRBC if cont to have issue after new catheter placement , then pt will need to be transferred for IR dialysis catheter placement CHF with pulmonary edema resolved cont HD and lasix Anemia of chronic disease ont epogen will transfuse 1 PRBC with HD today UTI cont Ax Physical Examination - Vital Signs Temperature: 98.3 F Blood Pressure: 105/41 Pulse: 68 Respirations: 18 Pulse Ox (%): 92
--- NOTE | 2020-08-14 11:10 | PN ---
Date of Progress Note: 08/12/2020 Chief Complaint: End-stage renal disease, malfunctioning dialysis catheter. Subjective: The patient had activase done by catheter protocol. Subsequently, dialysis would resume although catheter was malfunctioning and patient was taken on dialysis. The patient is to have catheter replacement. Review of Systems: Denies PND, orthopnea. Physical Examination: LUNGS: Diminished breath sounds at bases. No wheezing. No crackles. HEART: S1, S2. ABDOMEN: Soft, benign. EXTREMITIES: Minimal edema in both ankles. Impression And Plan: 1. End-stage renal disease. The patient will have daily lab work obtained to check electrolytes. Continue low-potassium and low-sodium diet. 2. Fluid overload. Continue Lasix and resume dialysis when catheter is replaced. 3. Congestive heart failure with pulmonary edema. Volemia has improved. Patient responded to dialysis although dialysis was not done today due to malfunctioning catheter and plan is to consult surgical team for replacement of the dialysis catheter. 4. Leukocytosis. Urine cultures were obtained and pending. Adjust antibiotic according to culture results. 5. Renal osteodystrophy. Continue renal diet and binders. 6. Anemia due to chronic kidney disease. Adjust USAMA according to hemoglobin level. Monitor iron study. STEPHANIE/LACHELLE Voice ID: [id number] Report ID: [id number] JO ANN
[2020-08-14] MEDS ORDERED: CEFAZOLIN/SWI 1gm 1 GM/10 ML SYR ONE (11:20)
[2020-08-14] MEDS ORDERED: NA CHLORIDE 0.9% 500 ML ONE (11:20)
--- NOTE | 2020-08-14 11:41 | PN ---
Date of Progress Note: 08/13/2020 Chief Complaint: End-stage renal disease. Subjective: The patient was admitted to the hospital because of fluid overload, shortness of breath and congestive heart failure. Patient is dialysis dependent, recently was started on dialysis. The patient was scheduled to have dialysis yesterday, although catheter was malfunctioning and CPA was ad ministered per catheter protocol, although subsequently dialysis was unsuccessful due to malfunctioni ng position of dialysis catheter. Patient is scheduled to have surgical procedure for catheter repla cement. Review of Systems: Denies PND, orthopnea. Physical Examination: Lungs: Diminished breath sounds at bases. Heart: S1, S2. Abdomen: Soft benign. Extremities: No edema. Impression And Plan: 1.End-stage renal disease. The patient is awaiting for catheter replacement. Dialysis will be resu med when catheter is functioning. 2.Congestive heart failure. The patient responded to dialysis with ultrafiltration. Dialysis will be resumed when the patient has functional cathete. Continue p.o. fluid restriction, low-sodium diet . Continue Lasix. 3.Leukocytosis. Monitor urine culture and adjust antibiotic according to culture results. 4.Renal osteodystrophy. Continue renal diet and binders. 5.Anemia due to chronic kidney disease. Continue USAMA. Adjust dose according to hemoglobin level. EB/MODL Voice ID: [id number] Report ID: [id number]
[2020-08-14] MEDS ORDERED: NS 0.9% VIAL 10 ML ONE ×2 (12:17→13:00)
[2020-08-14] MEDS ORDERED: HEPARIN 5000 UNIT/ML 1 ML VIAL ONE (12:17)
[2020-08-14] MEDS ORDERED: NA CHLORIDE 0.9% 100 ML IV ONE (12:18)
[2020-08-14] MEDS ORDERED: LIDOCAINE 1% MPF 30 ML VIAL ONE (12:18)
[2020-08-14] MEDS ORDERED: LIDOCAINE 1% MPF 5 ML VIAL ONE (12:20)
[2020-08-14] MEDS ORDERED: FENTANYL CITR 100 MCG/2 ML ONE (12:20)
[2020-08-14] MEDS ORDERED: propofoL 200 MG/20 ML VIAL IV ONE (12:20)
--- NOTE | 2020-08-14 12:27 | P.PN ---
Subjective Date of Service: 08/14/20 Primary Care Provider: Dr. Lawrence, Nephrology- Dr. Leung Chief Complaint: Pulmonary edema Patient currently has no complain. She denies shortness of breath. Physical Examination - Vital Signs Temperature: 98.3 F Blood Pressure: 105/41 Pulse: 68 Respirations: 18 Pulse Ox (%): 92 - Physical Exam General: Alert, In no apparent distress, Oriented x3 HEENT: Mucous membr. moist/pink Neck: Supple Respiratory: Clear to auscultation bilaterally, Normal air movement Cardiovascular: No edema, Regular rate/rhythm, Normal S1 S2 Gastrointestinal: Normal bowel sounds, Soft and benign, Non-distended, No tenderness Musculoskeletal: No swelling, No erythema Integumentary: No rashes, No erythema Neurological: Normal speech, Normal strength at 5/5 x4 extr Assessment And Plan - Current Problems (Diagnosis) (1) End-stage renal disease on hemodialysis Current Visit: Yes Status: Acute (2) Pulmonary edema Current Visit: Yes Status: Acute (3) Acute on chronic diastolic (congestive) heart failure Current Visit: Yes Status: Acute (4) UTI (urinary tract infection) Current Visit: Yes Status: Acute (5) Hypertension Current Visit: Yes Status: Acute (6) Paroxysmal atrial fibrillation Current Visit: Yes Status: Acute (7) Chronic gout Current Visit: Yes Status: Acute - Plan Patient had an incomplete hemodialysis due to vascular access issues. She likely has nonfunctioning dialysis catheter. Patient seen and evaluated by general surgery-Dr. Anne who is planning to replace the dialysis catheter today. Nephrology is following. Hemodialysis per nephrology. Continue IV Lasix per nephrology. Continue home medications for hypertension and atrial fibrillation. Continue Bactrim for UTI. Continue allopurinol. Physician Review Additional Text: End-stage renal disease on hemodialysis complicated with volume overload Acute on chronic diastolic congestive heart failure Paroxysmal atrial fibrillation Hypertension Gout Plan End-stage renal disease on hemodialysis complicated with volume overload: improved after a few partial dialysis now unable to complete dialysis due to clot in catheter / flow issue; has received alteplase General surgery - Dr. Anne consulted Nephrology consulted, appreciate assistance. Acute on chronic diastolic congestive heart failure: continue home medications. Patient had recent echocardiogram of 67%. Dialysis to help with overload, improved on IV lasix per nephrology Leukocytosis UTI reviewed prior cultures / sensitivities Continue Bactrim pt without any symptoms, reports prior UTIs were aysmptomatic as well until she developed confusion Paroxysmal atrial fibrillation: Monitor on telemetry, continue home medications. Hypertension: continue home medications as appropriate Gout: continue home medications. Dispo: dc back to SNF - delayed due to complications with port / dialysis
[2020-08-14] MEDS ORDERED: Phenylephrine HCl 10 MG/ML 1 ML VIAL ONE (13:00)
--- NOTE | 2020-08-14 13:13 | P.BOP ---
Preoperative diagnosis: ESRD Postoperative diagnosis: same Primary procedure: 1. Placement of hemosplit tunneled HD catheter Secondary procedure: 2. interpretation of fluoroscopy Other procedure(s): 3. removal of old non functional HD catheter Estimated blood loss: <10cc Specimen: old catheter Findings: as above Anesthesia: MAC Complications: None Transferred to: Recovery Room Condition: Good
[2020-08-14] MEDS ORDERED: Mastisol Adhesive Liq ONE (13:26)
--- NOTE | 2020-08-14 13:47 | RAD REPORT ---
EXAM DESCRIPTION: RAD - Fluoroscopy <1 Hour - 08/14/2020 1:41 pm CLINICAL HISTORY: Device placement central venous catheter placement FINDINGS: A central venous catheter was placed into the superior vena cava. Thirteen fluoroscopic sp ot images are submitted. The examination was performed by Dr. Anne Fluoroscopy time 0.6 minutes
--- NOTE | 2020-08-14 13:56 | RAD REPORT ---
EXAM DESCRIPTION: JOAOChest Single View08/14/2020 1:50 pm CLINICAL HISTORY: Device placement/central venous catheter placement IMPRESSION: Central venous catheter with its tip in the proximal superior vena cava No pneumothorax [id number] bilateral pulmonary opacities probably pulmonary edema. Pleural effusions persist
--- NOTE | 2020-08-14 14:26 | OP ---
Date of Procedure: 08/14/2020 Surgeon: Dino Anne MD Preoperative Diagnosis: End-stage renal disease, nonfunctional HemoSplit catheter. Postoperative Diagnosis: End-stage renal disease, nonfunctional HemoSplit catheter. Procedures: 1.Placement of a new HemoSplit tunneled hemodialysis catheter. 2.Interpretation of fluoroscopy. 3.Removal of old nonfunctional hemodialysis catheter. Estimated Blood Loss: Less than 10 mL. Anesthesia: General plus local. Specimen: All catheters placed into. Indications: This is the case of an 89-year-old patient, receiving hemodialysis for a little bit mor e than a month. The last a few sessions, the catheter was used, but is not functioning properly. Sh e states she has been taking care of the catheter and flushing and this happened in the last few days they used. They trying to do a thrombosis of the catheter, but that did not work and so they asked me and I discussed the case with the renal physician to place a new catheter. The benefits, alternat maricarmen, and risks of catheter placement fully explained to the patient, which include, but not limited to infection, bleeding, damage to adjacent structures, anesthesia complication, pulmonary emboli, thr ombosis, DVTs, [place] and even . She also understands the risk of pneumothorax, hemothorax, pericar diac tamponade, pericarditis. She understand once again that when the catheter is not in use anymore to remove immediately and if she is going to continue dialysis, she has to look for more permanent a ccess. She understood that again Procedure In Detail: The patient was brought to the operating room and placed in supine position. A nesthesia was done without complication. Left neck and chest were prepped and draped in a sterile fa shion. Local anesthesia was applied followed by sharp incision of the skin in the left upper neck re gion. Incision was carried down until we found the previous catheter. We transected catheter holdin g proximal and distal part together. We passed the wire through the previous catheter, removed the p revious catheter from the superior vena cava. Guidewire into superior vena cava. Removed the previo us catheter. We tunneled a new catheter to the left upper chest, new incision, new tunnel to meet th at new left upper neck incision. A dilator was placed through the guidewire under fluoroscopy micky henriquez. Then, after that, the introducer sheath was removed with the wire and then a catheter was placed through the introducer sheath and then the introducer sheath was peeled off. Catheter looks in plac e. No bleeding. Excellent backflow and inflow. The catheter was flushed with saline and then hepar inized solution. The patient tolerated the procedure well. The patient was brought back from [place] position to normal position. The patient is stable at this moment. The area was secured wit h 3-0 chromic and Steri-Strip, and the catheter was secured with 3-0 nylon. The patient tolerated th e procedure well. The patient in her way to recovery in stable condition. A chest x-ray will be ord ered stat. FRANDY/MODMaria Eugenia Voice ID: [id number] Report ID: [id number]
[2020-08-14] MEDS ORDERED: NA CHLORIDE 0.9% 250 ML ONE (16:27)
[2020-08-14] MEDS: EPOETIN ALFA 10,000 UNIT/ML VIAL IV SCH (17:07)
[2020-08-14 23:25] LABS: Hematocrit 25.3 % (36.0-45.0)
[2020-08-15] MEDS: METOPROLOL XL 25 MG TAB PO SCH (05:44)
[2020-08-15 05:54] LABS: Absolute Lymphocytes (CBC) 1.1 K/uL (0.7-4.9); Basophils % 1.1 % (0-1.3); Hematocrit 26.2 % (36.0-45.0); Lymphocytes % 12.7 % (15.3-44.8); MPV 7.1 fL (7.6-11.3); RBC Red Blood Cell Count 2.92 M/uL (3.86-4.86)
[2020-08-15 06:02] LABS: Phosphorus 3.4 mg/dL (2.5-4.9); Potassium 3.6 mmol/L (3.5-5.1)
[2020-08-15] MEDS: allopurinoL 100 MG TAB PO SCH (08:12)
[2020-08-15] MEDS: FERROUS SULFATE 325 MG TAB PO SCH ×2 (08:12→11:12)
[2020-08-15] MEDS: DILTIAZEM HCL 120 MG SR CAP PO SCH (08:12)
[2020-08-15] MEDS: ASPIRIN EC 81 MG TAB PO SCH (08:13)
[2020-08-15] MEDS: DOCUSATE NA 100 MG CAP PO SCH (08:13)
[2020-08-15] MEDS: SERTRALINE HCL 50 MG TAB PO SCH (08:14)
[2020-08-15] MEDS: SEVELAMER CARBONATE 800 MG TABLET PO SCH ×2 (08:14→11:12)
[2020-08-15] MEDS: SMZ./TMP. 800/160 MG TABLET PO SCH (08:16)
[2020-08-15 08:33] VITALS: O2SAT 90
[2020-08-15] MEDS ORDERED: FUROSEMIDE 40 MG/4 ML VIAL IV SCH (09:00)
--- NOTE | 2020-08-15 10:37 | P.DS ---
Admission Date: 08/10/20 Discharge Date: 08/15/20 Primary Care Provider: Dr. Lawrence, Nephrology- Dr. Leung Disposition: TRANSFER TO GROUP HOME Discharge Condition: GOOD Reason for Admission: Pulmonary edema Consultations: Nephrology General Surgery Procedures: Dialysis catheter placement. - Problems (1) End-stage renal disease on hemodialysis Current Visit: Yes Status: Acute (2) Pulmonary edema Current Visit: Yes Status: Acute (3) Acute on chronic diastolic (congestive) heart failure Current Visit: Yes Status: Acute (4) UTI (urinary tract infection) Current Visit: Yes Status: Acute (5) Hypertension Current Visit: Yes Status: Acute (6) Paroxysmal atrial fibrillation Current Visit: Yes Status: Acute (7) Chronic gout Current Visit: Yes Status: Acute Brief History of Present Illness: 89-year-old woman with a history of end-stage renal disease recently started on dialysis presented to the emergency department with a complaint of shortness of breath. Apparently there was an issue with her dialysis, and was stopped 30 min prior to completion. Chest x-ray demonstrated pulmonary edema. Patient was admitted for further management. Hospital Course: Patient was admitted to the medical floor. Repeat hemodialysis was attempted but it appeared her dialysis catheter was clogged so the dialysis was stopped. General surgery was consulted, patient was seen by Dr. Anne will remove the [place] catheter and inserted a new dialysis catheter. Hemodialysis was successfully completed with a new catheter. Patient shortness of breath has resolved. She feels much better. Vital stable and she is deemed clinically stable for discharge. She is discharged back to rehab. Vital Signs/Physical Exam: Temp Pulse Resp BP Pulse Ox 97 F 79 18 144/55 H 94 08/15/20 08:00 08/15/20 08:14 08/15/20 08:00 08/15/20 08:14 08/15/20 08:00 General: Alert, In no apparent distress HEENT: Mucous membr. moist/pink Neck: Supple, JVD not distended Respiratory: Clear to auscultation bilaterally, Normal air movement Cardiovascular: No edema, Regular rate/rhythm, Normal S1 S2 Gastrointestinal: Normal bowel sounds, Soft and benign, No tenderness Musculoskeletal: No swelling, No erythema Integumentary: No rashes Neurological: Normal speech, Normal strength at 5/5 x4 extr Laboratory Data at Discharge: WBC 8.6 K/uL (4.3-10.9) D 10/21/20 05:24 Hgb 8.8 g/dL (12.0-15.0) L 08/15/20 05:24 Hct 26.2 % (36.0-45.0) L 08/15/20 05:24 Plt Count 333 K/uL (152-406) 08/15/20 05:24 PT 13.0 SECONDS (9.5-12.5) H 08/13/20 04:25 INR 1.10 08/13/20 04:25 APTT 28.5 SECONDS (24.3-36.9) 08/13/20 04:25 Sodium 136 mmol/L (136-145) 08/15/20 05:24 Potassium 3.6 mmol/L (3.5-5.1) 08/15/20 05:24 BUN 18 mg/dL (7-18) 08/15/20 05:24 Creatinine 3.74 mg/dL (0.55-1.3) H 08/15/20 05:24 Glucose 88 mg/dL (74-106) 08/15/20 05:24 Phosphorus 3.4 mg/dL (2.5-4.9) 08/15/20 05:24 Magnesium 2.4 mg/dL (1.8-2.4) 08/13/20 04:25 Total Bilirubin 0.3 mg/dL (0.2-1.0) 08/13/20 04:25 AST 10 U/L (15-37) L 08/13/20 04:25 ALT 14 U/L (12-78) 08/13/20 04:25 Alkaline Phosphatase 78 U/L (45-117) 08/13/20 04:25 Troponin I 0.05 ng/mL (0.0-0.045) H 08/09/20 14:31 Home Medications: Aspirin [Aspirin EC 81 MG] 81 mg PO DAILY 03/18/12 Sertraline [Zoloft*] 25 mg PO DAILY 06/07/15 Allopurinol 1 tab PO DAILY 07/13/20 Diltiazem HCl [Diltiazem 24Hr Cd] 2 tab PO DAILY 07/13/20 Metoprolol Succinate [Toprol Xl*] 25 mg PO BID 6AM 6PM tab 07/23/20 Spironolactone [Aldactone*] 25 mg PO DAILY tab 07/23/20 Acetaminophen 1 tab PO Q6HP PRN 08/09/20 Amlodipine [Norvasc*] 1 tab PO DAILY 08/09/20 Bumetanide 1 mg PO DAILY 08/09/20 Diphenhydramine [Benadryl*] 25 mg PO Q4HP PRN 08/09/20 Docusate [Colace Cap*] 100 mg PO DAILY 08/09/20 Ferrous Sulfate [Ferrous Sulfate*] 325 mg PO TIDWM 08/09/20 Lactulose 10 gm PO DAILY 08/09/20 Sevelamer HCl [Renagel] 800 mg PO TIDWM 08/09/20 Sodium Bicarbonate 650 mg PO QID 08/09/20 Smz./Tmp. [Bactrim Ds 800 MG/160 MG*] 1 tab PO DAILY 8 Days #8 tab 08/11/20 Epoetin [Retacrit] 10,000 unit IV EVERY HD vial 08/15/20 New Medications: Smz./Tmp. [Bactrim Ds 800 MG/160 MG*] 1 tab PO DAILY 8 Days #8 tab Patient Discharge Instructions: Follow up with PCP [facility] Continue dialysis. Medication changes: Bactrim once a day for 8 more days - for UTI Diet: Renal Activity: Ad sallie Time spent managing pt's care (in minutes): 40
--- NOTE | 2020-08-15 12:27 | PN ---
Date of Progress Note: 08/15/2020 Subjective: The patient was admitted with over volume. PermCath has been exchanged yesterday. Physical Examination: Vital Signs: Blood pressure 144/55, pulse of 79, afebrile. Chest: Faint rales on the left base. Heart: S1, S2. Systolic murmur. Abdomen: Soft, nontender. Extremities: No edema. Neuro: Alert and oriented x3. No focal. Laboratory Data: H and H 8.8/26.2. Sodium 136, potassium 3.6, bicarb 26, BUN 18, creatinine 3.7, calcium 8.1, phosphorus 3.4. Current Medications: The patient on include Bactrim, aspirin, Epogen, ferrous sulfate, Zoloft, Lasix 40 daily, Renvela, allopurinol. Assessment And Plan: 1. End-stage renal disease, over volume. Continue dialysis Thursday, Thursday, Thursday. 2. Hypertension, controlled, optimal. Continue current medication. 3. Anemia of chronic kidney disease. Continue USAMA. 4. Secondary hyperparathyroid. Continue Renvela. 5. Over volume, currently normal volume, back to dialysis three times a week. 6. Deconditioning. Continue PT and OT. Time spent Corordent the care discussing the case with the patient Family member (face to face) and staff member / other staffing consultant and placing order 35 min KARINA/LACHELLE Voice ID: [id number] Report ID: [id number] JO ANN
[2020-08-15 13:49] VITALS: BP 120/58; TEMP 97.1
--- NOTE | 2020-09-03 12:28 | CON ---
Date of Consultation: 08/14/2020 Reason For Consultation: Malfunction of hemodialysis catheter. History Of Present Illness: This is the case of an 89-year-old patient, admitted for medical problem s, needs dialysis, found that hemodialysis catheter is not functioning properly. They trying to see if they can save the catheter, did multiple procedures to do it, and they cannot make it work. It wa s working well for several months. At that moment, a surgical consult was obtained for a removal of the catheter and placed a new one. Past Medical History: End-stage renal disease, on hemodialysis. Past Surgical History: Hemodialysis catheters placement, endarterectomy on the right side, CABG, por cine aortic valve replacement, medical problems as above plus atrial fibrillation, hypertension. Social History: She does not smoke. She does not drink alcohol. Family History: Noncontributory. Allergies: DIGOXIN, NIACIN. Medications: Reviewed. Review of Systems: No shortness of breath. No chest pain when I examined her, although apparently she had when she came to the ER. Ten points otherwise unremarkable. Physical Examination: General: The patient is awake, alert. HEENT: Pupils anicteric. Neck: Supple. Chest: Clear. The patient has a HemoSplit dialysis catheter placement. It looks okay from the exte rior part with no cellulitis present. No abscess present on the insertion or an exit place. The cat heter seems to be at least from physical examination should be intact with no broken areas. Extremities: Good capillary refill. Abdomen: Soft and depressible. Assessment: Malfunction of hemodialysis catheter. The patient explained the need for removal of all the hemodialysis catheter and placement of a new hemodialysis catheter under fluoroscopy with benefi ts, alternatives, and risks including, but not limited to infection, bleeding, damage to adjacent str uctures, hemothorax, pneumothorax, PE, DVT, pericardial tamponade, stroke, endocarditis, [place], and even . She also understands this may not relieve symptoms. She might need more than one surgical i ntervention. She signed the consent. FRANDY/LACHELEL Voice ID: [id number] Report ID: [id number]
== END 2020-08-15 13:10 | DRG 291 ==
LOC: INTOOBSV 00:37 → ERHOLD 00:37 → 2ND 06:32 → OBSVTOIN 08-10 10:48
PROVIDERS: ADMIT Hospitalist; ATTEND Internal Medicine
PROC: 5A1D70Z Performance of Urinary Filtration, Intermittent, Less than 6 Hours Per Day (ICD-10-PCS; principal; 2020-08-11)
PROC: 3E0336Z Introduction of Nutritional Substance into Peripheral Vein, Percutaneous Approach (ICD-10-PCS; 2020-08-12)
PROC: 30233N1 Transfusion of Nonautologous Red Blood Cells into Peripheral Vein, Percutaneous Approach (ICD-10-PCS; 2020-08-14)
PROC: 0JH63XZ Insertion of Tunneled Vascular Access Device into Chest Subcutaneous Tissue and Fascia, Percutaneous Approach (ICD-10-PCS; 2020-08-14)
PROC: 02HV33Z Insertion of Infusion Device into Superior Vena Cava, Percutaneous Approach (ICD-10-PCS; 2020-08-14)
PROC: 02PY33Z Removal of Infusion Device from Great Vessel, Percutaneous Approach (ICD-10-PCS; 2020-08-14)
DX: I13.2 Hypertensive heart and chronic kidney disease with heart failure and with stage 5 chronic kidney disease, or end stage renal disease (principal); N18.6 End stage renal disease; I50.33 Acute on chronic diastolic (congestive) heart failure; E87.2 Acidosis; N25.81 Secondary hyperparathyroidism of renal origin; N39.0 Urinary tract infection, site not specified; T82.41XA Breakdown (mechanical) of vascular dialysis catheter, initial encounter; I48.0 Paroxysmal atrial fibrillation; Z99.2 Dependence on renal dialysis; Z79.899 Other long term (current) drug therapy; Z79.82 Long term (current) use of aspirin; Z95.1 Presence of aortocoronary bypass graft; Z95.4 Presence of other heart-valve replacement; Z60.2 Problems related to living alone; Z88.5 Allergy status to narcotic agent; Z88.8 Allergy status to other drugs, medicaments and biological substances; E78.5 Hyperlipidemia, unspecified; I25.10 Atherosclerotic heart disease of native coronary artery without angina pectoris; D63.1 Anemia in chronic kidney disease; F41.9 Anxiety disorder, unspecified; D72.829 Elevated white blood cell count, unspecified; D50.9 Iron deficiency anemia, unspecified; D63.8 Anemia in other chronic diseases classified elsewhere; B96.89 Other specified bacterial agents as the cause of diseases classified elsewhere; N25.0 Renal osteodystrophy; M1A.9XX0 Chronic gout, unspecified, without tophus (tophi); Z20.828 Contact with and (suspected) exposure to other viral communicable diseases
CPT/HCPCS: 36415; 71045; 76000; 80048; 80053; 80069; 81001; 83735; 84100; 84484; 85014; 85018; 85025; 85610; 85730; 86850; 86900; 86901; 87086; 87088; 88300; 90935; 97110; 97116; 97161; 97530; C1752; G0378; G0379; J0690; J0696; J1200; J1644; J1940; J2370; J2704; J2997; J3010; J7040; J7050; P9016; Q5105; U0003